=== PATIENT | female | born 1940 | race Caucasian/White ===

== ENCOUNTER 2017-06-07 22:02 | Emergency (ER) | payer MEDICARE, MEDICAID ==
[2017-06-07 22:31] LABS: % BASOPHILS 0.3 % (0.0-2.0); % EOSINOPHILS 3.1 % (0.0-5.0); % LYMPHOCYTES 17.7 % (20.0-50.0); % MONOCYTES 8.7 % (2.0-10.0); % NEUTROPHILS 70.2 % (40.0-80.0); HEMATOCRIT 34.8 % (35.0-45.0); HEMOGLOBIN 11.9 gm/dL (11.7-16.1); MEAN CELL VOLUME 89.7 fl (81-100); MEAN CORPUSCULAR HEMOGLOBIN 30.7 pg (27.0-31.0); MEAN CORPUSCULAR HGB CONC 34.2 pg (28.0-36.0); MEAN PLATELET VOLUME 7.4 fl; NEUTROPHILE ABSOLUTE 8.5 Th/cmm (1.8-8.0); PLATELET COUNT 307 Th/cmm (150-400); RED BLOOD COUNT 3.88 Mil/cmm (3.80-5.20); RED CELL DISTRIBUTION WIDTH 13.1 % (11.5-20.0)
[2017-06-07 22:33] LABS: WHITE BLOOD COUNT 12.1 Th/cmm (4.8-10.8)
[2017-06-07 22:44] LABS: ALB/GLOB RATIO 1.3 (1.0-1.8); ALKALINE PHOSPHATASE 89 U/L (34-104); ANION GAP 6.9 (7.0-16.0); BILIRUBIN,TOTAL 0.3 mg/dL (0.3-1.0); BUN - UREA NITROGEN 27 mg/dL (7-25); BUN/CREATININE RATIO 38.6; CALCIUM SERUM 10.1 mg/dL (8.6-10.3); CARBON DIOXIDE 28.5 mEq/L (21.0-31.0); CHLORIDE 100 mEq/L (98-107); CREATININE - SERUM 0.7 mg/dL (0.6-1.2); GLUCOSE 104 mg/dL (70-105); POTASSIUM SERUM 4.4 mEq/L (3.5-5.1); SGOT 13 U/L (13-39); SGPT/ALT 7 U/L (7-52); SODIUM SERUM 131 mEq/L (136-145)
--- NOTE | 2017-06-07 22:47 | ED Physician Chart ---
Chief Complaint/HPI - Patient Information Date Seen:: 06/07/17 Time Seen:: 22:18 Chief Complaint:: ABDOMINAL PAIN History of Present Illness:: THIS IS A 76 YR OLD FEMALE WHO STATES THAT SHE HAD SOME GENERALIZE ABDOMINAL PAIN WHICH RESOLVED AFTER TAKING SOME MINT PILLS. SHE DENIES NAUSEA AND VOMITING. SHE DENIES DIARRHEA AND CONSTIPATION. SHE IS WEARING A DIAPER BUT DENIES PAINFUL URINATION. Allergies:: Allergies Allergy/AdvReac Type Severity Reaction Status Date / Time No Known Allergies Allergy Verified 06/07/17 22:11 Vitals:: Vital Signs - 8 hr 06/07/17 22:10 Temp 97.6 F HR 70 RR 19 BP 105/55 O2 Sat % 93 Historian:: Patient, Medical Records Review:: Nurse's Note Reviewed, Old Chart Reviewed, Transfer documents Reviewed Review of Systems - Review of Systems General/Constitutional: No fever, No chills, No weight loss, No weakness, No diaphoresis, No edema, No loss of appetite Skin: No skin lesions, No rash, No bruising Head: No headache, No light-headedness Eyes: No loss of vision, No pain, No diplopia ENT: No earache, No nasal drainage, No sore throat, No tinnitus Neck: No neck pain, No swelling, No thyromegaly, No stiffness, No mass noted Cardio Vascular: No chest pain, No palpitations, No PND, No orthopnea, No edema Pulmonary: No SOB, No cough, No sputum, No wheezing GI: No nausea, No vomiting, No diarrhea, Pain, No melena, No hematochezia, No constipation, No hematemesis G/U: No dysuria, No frequency, No hematuria Musculoskeletal: No bone or joint pain, No back pain, No muscle pain Endocrine: No polyuria, No polydipsia Psychiatric: No prior psych history, No depression, No anxiety, No suicidal ideation Hematopoietic: No bruising, No lymphadenopathy Allergic/Immuno: No urticaria, No angioedema Neurological: No syncope, No focal symptoms, No weakness, No paresthesia, No headache, No seizure, No dizziness, No confusion, No vertigo Past Medical History - Past Medical History Obtainable: Yes Past Medical History: HTN, Dementia Family History: None Social History: Non Smoker, No Alcohol, No Drug Use Surgical History: None Psychiatricy History: Dementia Medication: Reviewed Family Medical History - Family Member Mother History Unknown: Yes Physical Exam - Physical Examination General/Constitutional: Awake, Well-developed, well-nourished, Alert, No distress, GCS 15, Non-toxic appearing, Ambulatory Head: Atraumatic Eyes: Lids, conjuctiva normal, PERRL, EOMI Skin: Nl inspection, No rash, No skin lesions, No ecchymosis, Well hydrated, No lymphadenopathy ENMT: External ears, nose nl, Nasal exam nl, Lips, teeth, gums nl Neck: Nontender, Full ROM w/o pain, No JVD, No nuchal rigidity, No bruit, No mass, No stridor Respiratory: Nl effort/Exclusion, Clear to Auscultation, No Wheeze/Rhonchi/Rales Cardio Vascular: RRR, No murmur, gallop, rubs, NL S1 S2 GI: No tenderness/rebounding/guarding, No organomegaly, No hernia, Normal BS's, Nondistended, No mass/bruits, No McBurney tenderness : No CVA tenderness Extremities: No tenderness or effusion, Full ROM, normal strength in all extremities, No edema, Normal digits & nails Neuro/Psych: Alert/oriented, DTR's symmetric, Normal sensory exam, Normal motor strength, Judgement/insight normal, Mood normal, Normal gait, No focal deficits Misc: normal gait, Normal back, No paraspinal tenderness Labs/Radiology/EKG Results - Lab Results Results: Laboratory Tests 06/07/17 22:18 WBC 12.1 H D RBC 3.88 Hgb 11.9 Hct 34.8 L MCV 89.7 MCH 30.7 MCHC Differential 34.2 RDW 13.1 Plt Count 307 MPV 7.4 Neutrophils % 70.2 Lymphocytes % 17.7 L Monocytes % 8.7 Eosinophils % 3.1 Basophils % 0.3 Assessment - Assessment General Assessment: URINARY TRACT INFECTION ED Septic Shock - . Is Septic Shock (SBP<90, OR Lactate>4 mmol\L) present?: No - <6hrs of presentation: Vital Signs: Vital Signs - 8 hr 06/07/17 22:10 Temp 97.6 F HR 70 RR 19 BP 105/55 O2 Sat % 93 Reassessment (Disposition) - Reassessment Reassessment Condition:: Improved - Diagnosis Diagnosis:: URINARY TRACT INFECTION - Aftercare/Follow up Instructions Aftercare/Follow-Up Instructions:: Counseled pt regarding lab results/diagnosis & need follow up, Refer to Discharge Instructions, Counseled pt & family regarding lab results/diagnosis & need follow up - Patient Disposition Discharge/Transfer:: Home Condition at Disposition:: Unchanged ED Discharge Plan - Patient Disposition Condition at Disposition: Unchanged Instructions: Urinary Tract Infection, [id number], Abdominal Pain, Easy-to- Read Additional Instructions: abdominal pain - resolved follow up with patient's primary medical doctor ELLE
[2017-06-07 23:39] LABS: URINE BILIRUBIN NEGATIVE (NEGATIVE); URINE BLOOD NEGATIVE (NEGATIVE); URINE COLOR YELLOW; URINE GLUCOSE (UA) NEGATIVE (NEGATIVE); URINE KETONE NEGATIVE (NEGATIVE); URINE PH 6.5 (4.6 - 8.0); URINE PROTEIN NEGATIVE (NEGATIVE)
[2017-06-07 23:40] LABS: URINE UROBILINOGEN 0.2 E.U./dL (0.2 - 1.0)
[2017-06-07 23:41] LABS: URINE BACTERIA MANY /hpf (NONE SEEN); URINE EPITHELIAL CELLS FEW /lpf (FEW); URINE RBC 0-2 /hpf (0-5)
== END 2017-06-08 00:45 | disposition home or self-care (01) ==
LOC: ER 22:02
DX: N39.0 Urinary tract infection, site not specified (principal); I10 Essential (primary) hypertension
CPT/HCPCS: 36415-UA; 80053-TC; 81001-TC; 84443-TC; 84484-TC; 85025-TC; Z7502

== ENCOUNTER 2018-08-23 20:48 | Inpatient (IN) | payer MEDICARE, MEDICAID ==
--- NOTE | 2018-08-23 21:16 | ED Physician Chart ---
ED Chief Complaint/HPI - Patient Information Date Seen:: 08/23/18 Time Seen:: 21:12 Chief Complaint:: vomiting abd pain History of Present Illness:: 77 yr old female with abd pain vomiting no fever or constipation no diarhea Allergies:: Allergies Allergy/AdvReac Type Severity Reaction Status Date / Time No Known Allergies Allergy Verified 08/23/18 21:03 Vitals:: Vital Signs - 8 hr 08/23/18 20:50 Temp 98.1 F HR 95 RR 20 BP 123/49 O2 Sat % 95 ED Review of Systems - Review of Systems General/Constitutional: No fever Skin: Skin lesions (hole in lt neck and bx rt scalp ) Head: No headache Eyes: No loss of vision ENT: No earache Neck: No neck pain Cardio Vascular: No chest pain Pulmonary: No SOB GI: No nausea G/U: No dysuria Hematopoietic: No bruising Allergic/Immuno: No urticaria Neurological: No syncope ED Past Medical History - Past Medical History Past Medical History: HTN, Asthma/COPD Family Medical History - Family Member Mother History Unknown: Yes ED Physical Exam - Physical Examination General/Constitutional: No distress Head: Atraumatic (bx rt scalp and reddness lt neck wound) ENMT: External ears, nose nl Neck: Full ROM w/o pain Respiratory: Nl effort/Exclusion Cardio Vascular: RRR, No murmur, gallop, rubs GI: No organomegaly Extremities: No tenderness or effusion Neuro/Psych: Mood normal ED Septic Shock - . Is Septic Shock (SBP<90, OR Lactate>4 mmol\L) present?: No - <6hrs of presentation: Vital Signs: Vital Signs - 8 hr 08/23/18 20:50 Temp 98.1 F HR 95 RR 20 BP 123/49 O2 Sat % 95 ED Reassessment (Disposition) - Reassessment Reassessment Condition:: Unchanged - Diagnosis Diagnosis:: abd pain nv - Patient Disposition Discharge/Transfer:: Acute Care w/in this hosp Condition at Disposition:: Stable
[2018-08-23] MEDS ORDERED: Sodium Chloride 0.9% 500 ML IV ONE (21:24)
[2018-08-23 21:28] LABS: % BASOPHILS 0.3 % (0.0-2.0); % EOSINOPHILS 3.7 % (0.0-5.0); % LYMPHOCYTES 16.2 % (20.0-50.0); % MONOCYTES 10.7 % (2.0-10.0); % NEUTROPHILS 69.1 % (40.0-80.0); EOSINOPHILE ABSOLUTE 0.4 Th/cmm (0.1-0.4); HEMOGLOBIN 11.4 gm/dL (12-16); LYMPHOCYTE ABSOLUTE 1.6 Th/cmm (1.5-3.0); MEAN CELL VOLUME 87.4 fl (81-100); MEAN CORPUSCULAR HEMOGLOBIN 29.2 pg (27.0-31.0); MEAN CORPUSCULAR HGB CONC 33.4 pg (28.0-36.0); NEUTROPHILE ABSOLUTE 6.6 Th/cmm (1.8-8.0); PLATELET COUNT 402 Th/cmm (150-400); RED BLOOD COUNT 3.89 Mil/cmm (3.80-5.20); RED CELL DISTRIBUTION WIDTH 13.5 % (11.5-20.0); WHITE BLOOD COUNT 9.6 Th/cmm (4.8-10.8)
[2018-08-23] MEDS ORDERED: cefTRIAXone 2 GM in Sodium Chloride 0.9% 100 ML IV ONE (21:30)
[2018-08-23] MEDS ORDERED: Guaifenesin DM 10 ML UDC PO ONE (21:40)
[2018-08-23 21:45] LABS: ALB/GLOB RATIO 1.1 (1.0-1.8); ALBUMIN 3.6 gm/dL (3.7-5.3); ALKALINE PHOSPHATASE 108 U/L (34-104); ANION GAP 12.1 (7.0-16.0); BILIRUBIN,TOTAL 0.2 mg/dL (0.3-1.0); BUN - UREA NITROGEN 30 mg/dL (7-25); CALCIUM SERUM 9.7 mg/dL (8.6-10.3); CARBON DIOXIDE 28.2 mEq/L (21.0-31.0); CHLORIDE 99 mEq/L (98-107); CREATININE - SERUM 0.7 mg/dL (0.6-1.2); GLUCOSE 97 mg/dL (70-105); POTASSIUM SERUM 4.3 mEq/L (3.5-5.1); SGOT 18 U/L (13-39); SGPT/ALT 7 U/L (7-52); SODIUM SERUM 135 mEq/L (136-145); TOTAL PROTEIN,SERUM 6.8 gm/dL (6.0-8.3)
[2018-08-23] MEDS ORDERED: Guaifenesin DM 10 ML UDC ONE (21:51)
[2018-08-24 00:16] VITALS: BP 102/44
--- NOTE | 2018-08-24 09:02 | Diagnostic Imaging Report ---
CT abdomen and pelvis without intravenous contrast Indication: Abdominal pain, vomiting Comparison: None, Technique: Axial images were obtained from the lung bases to the bilateral proximal femurs without IV contrast. Coronal reconstructions were made. total DLP: 2 51, CTDI6 FINDINGS: Hypoventilatory atelectatic changes of the lung bases are noted. Few faint nodular left basal infiltrates are noted. Assessment of the solid organs is limited due to lack of IV contrast. Subcentimeter low-density lesion of the right lobe of the liver is noted, too small to characterize but possibly representing a cyst. No focal splenic lesions. Assessment of the pancreas is limited on this examination. No obvious focal lesions. No focal adrenal lesions. No evidence of hydronephrosis. There may be a duplex right renal collecting system. No renal stones identified. There is severe distal fecal impaction with mass effect upon the urinary bladder and uterus. There is leftward displacement of the uterus. There appears to be an IUD. There is a large fat-containing right inguinal hernia containing bowel loops. 1.5 cm left inguinal nodule is noted. No appendicitis. No free fluid or free air. Moderate atherosclerosis is noted. Advanced degenerative changes of spine are noted with multilevel Schmorl's node formation. IMPRESSION: Severe distal fecal impaction with mass effect upon the uterus and urinary bladder. There is leftward displacement of the uterus due to patient's distal fecal impaction. Large right inguinal hernia containing bowel loops. Early obstructive process cannot be excluded. Recommend clinical correlation and follow-up. There may be an IUD in place, please correlate clinically. 1.5 cm nodule of the left inguinal region nonspecific and may represent small amount of fluid versus a possible lymph node or other nodules. Atherosclerotic vascular disease. Degenerative changes. Few faint left basal nodular infiltrates, nonspecific and may be due to infectious or inflammatory process.
--- NOTE | 2018-08-24 10:38 | History & Physical ---
ADMIT DATE: 08/24/2018 HISTORY OF PRESENT ILLNESS: This patient very well known to me. The patient is a resident of [facility]. Apparently, the patient has a history of subarachnoid bleeding in the past. The patient had severe abdominal pain and vomiting and constipation, was seen in the Emergency Room, admitted for fecal impaction as well as rule out subacute obstruction. The patient had no fever, no chills. PHYSICAL EXAMINATION: NECK: Supple, nontender. LUNGS: Clear. CARDIOVASCULAR SYSTEM: S1, S2 heard. ABDOMEN: Soft. LABORATORY AND DIAGNOSTIC DATA: X-ray showed fecal impaction. DIAGNOSES: Abdominal pain, severe vomiting, rule out subacute obstruction, history of in the past and history of hypertension and dementia. PLAN: The patient is being admitted. I will go ahead and do a workup and call the GI doctor, Dr. Forte and I will follow the patient. JOB# [id number]
--- NOTE | 2018-08-24 11:07 | General Progress Note ---
Subjective - Review of Systems Service Date: 08/24/18 Events since last encounter: 08/24/18 chart reviewed, patient very confused, has conservator CT scan incarcerated right inguinal hernia with fecal impaction conservator called for consent for surgery will give enemas, might need diverting colostomy Objective - Results Result Diagrams: 08/23/18 21:20 08/23/18 21:20 Recent Labs: Laboratory Last Values WBC 9.6 Th/cmm (4.8-10.8) 08/23/18 21:20 RBC 3.89 Mil/cmm (3.80-5.20) 08/23/18 21:20 Hgb 11.4 gm/dL (12-16) L 08/23/18 21:20 Hct 34.0 % (41.0-60) L 08/23/18 21:20 MCV 87.4 fl (81-100) 08/23/18 21:20 MCH 29.2 pg (27.0-31.0) 08/23/18 21:20 MCHC Differential 33.4 pg (28.0-36.0) 08/23/18 21:20 RDW 13.5 % (11.5-20.0) 08/23/18 21:20 Plt Count 402 Th/cmm (150-400) H 08/23/18 21:20 MPV 7.0 fl 08/23/18 21:20 Neutrophils % 69.1 % (40.0-80.0) 08/23/18 21:20 Lymphocytes % 16.2 % (20.0-50.0) L 08/23/18 21:20 Monocytes % 10.7 % (2.0-10.0) H 08/23/18 21:20 Eosinophils % 3.7 % (0.0-5.0) 08/23/18 21:20 Basophils % 0.3 % (0.0-2.0) 08/23/18 21:20 Sodium 135 mEq/L (136-145) L 08/23/18 21:20 Potassium 4.3 mEq/L (3.5-5.1) 08/23/18 21:20 Chloride 99 mEq/L (98-107) 08/23/18 21:20 Carbon Dioxide 28.2 mEq/L (21.0-31.0) 08/23/18 21:20 Anion Gap 12.1 (7.0-16.0) 08/23/18 21:20 BUN 30 mg/dL (7-25) H 08/23/18 21:20 Creatinine 0.7 mg/dL (0.6-1.2) 08/23/18 21:20 Est GFR ( Amer) TNP 08/23/18 21:20 Est GFR (Non-Af Amer) TNP 08/23/18 21:20 BUN/Creatinine Ratio 42.9 08/23/18 21:20 Glucose 97 mg/dL (70-105) 08/23/18 21:20 Calcium 9.7 mg/dL (8.6-10.3) 08/23/18 21:20 Total Bilirubin 0.2 mg/dL (0.3-1.0) L 08/23/18 21:20 AST 18 U/L (13-39) 08/23/18 21:20 ALT 7 U/L (7-52) 08/23/18 21:20 Alkaline Phosphatase 108 U/L (34-104) H 08/23/18 21:20 Total Protein 6.8 gm/dL (6.0-8.3) 08/23/18 21:20 Albumin 3.6 gm/dL (3.7-5.3) L 08/23/18 21:20 Globulin 3.2 gm/dL 08/23/18 21:20 Albumin/Globulin Ratio 1.1 (1.0-1.8) 08/23/18 21:20 - Physical Exam Vitals and I&O: Vital Signs Temp 98.9 F 08/24/18 08:46 Pulse 90 08/24/18 08:46 Resp 17 08/24/18 08:46 BP 125/59 08/24/18 08:46 Pulse Ox 97 08/24/18 08:46 Intake & Output 08/23/18 08/24/18 08/24/18 18:59 06:59 18:59 Intake Total 240 Balance 240 Weight (lbs) 47.627 kg Intake: Oral 240 Other: # Voids 1 # Bowel Movements 0 Weight Source Estimated - Procedures Procedures: Procedures Procedure Code Date EXC F/E/E/N/L MAL+MRG >4 [place] 53214 06/03/09 NEBULIZER THERAPY 93.94 10/19/04 OP RED-INT FIX RAD/ULNA 79.32 06/24/07 RADICAL EXCIS SKIN LES 86.4 06/03/09 TREAT FX RADIAL 3+ FRAG [id number] 06/24/07
[2018-08-24] MEDS ORDERED: Magnesium Citrate 1.75 GM/300 mL Bottle PO ONE (11:12)
[2018-08-24] MEDS ORDERED: Fleet Enema 135 mL RC ONE ×2 (11:15→18:00)
[2018-08-24] MEDS: cefTRIAXone 1 GM in Sodium Chloride 0.9% 50 ML IV SCH (22:14)
[2018-08-25 05:34] LABS: % EOSINOPHILS 3.8 % (0.0-5.0); EOSINOPHILE ABSOLUTE 0.5 Th/cmm (0.1-0.4); MEAN CELL VOLUME 87.6 fl (81-100); RED CELL DISTRIBUTION WIDTH 12.8 % (11.5-20.0)
[2018-08-25 05:36] LABS: % BASOPHILS 0.2 % (0.0-2.0); % MONOCYTES 9.2 % (2.0-10.0); % NEUTROPHILS 74.8 % (40.0-80.0); HEMATOCRIT 32.4 % (41.0-60); HEMOGLOBIN 11.1 gm/dL (12-16); LYMPHOCYTE ABSOLUTE 1.4 Th/cmm (1.5-3.0); MEAN CORPUSCULAR HEMOGLOBIN 29.9 pg (27.0-31.0); MEAN CORPUSCULAR HGB CONC 34.2 pg (28.0-36.0); MEAN PLATELET VOLUME 6.6 fl; MONOCYTE ABSOLUTE 1.1 Th/cmm (0.3-1.0); NEUTROPHILE ABSOLUTE 8.9 Th/cmm (1.8-8.0); PLATELET COUNT 379 Th/cmm (150-400); RED BLOOD COUNT 3.69 Mil/cmm (3.80-5.20); WHITE BLOOD COUNT 11.9 Th/cmm (4.8-10.8)
[2018-08-25 05:55] LABS: ANION GAP 10.6 (7.0-16.0); BUN - UREA NITROGEN 22 mg/dL (7-25); CALCIUM SERUM 9.8 mg/dL (8.6-10.3); CARBON DIOXIDE 29.6 mEq/L (21.0-31.0); CHLORIDE 96 mEq/L (98-107); CREATININE - SERUM 0.7 mg/dL (0.6-1.2); GLUCOSE 111 mg/dL (70-105); POTASSIUM SERUM 4.2 mEq/L (3.5-5.1); SODIUM SERUM 132 mEq/L (136-145)
[2018-08-25 05:57] LABS: INR 0.91 (0.5-1.4); PROTHROMBIN TIME (TEST) 9.5 SECONDS (9.5-11.5)
--- NOTE | 2018-08-25 08:12 | General Progress Note ---
Subjective - Review of Systems Service Date: 08/25/18 Events since last encounter: 08/25/18 discussed CTA results with Dr. Justin esqueda LCA has worse stenosis of greater that 80% will do left carotid endarterectomy Objective - Results Result Diagrams: 08/25/18 05:30 08/25/18 05:30 Recent Labs: Laboratory Last Values WBC 11.9 Th/cmm (4.8-10.8) H 08/25/18 05:30 RBC 3.69 Mil/cmm (3.80-5.20) L 08/25/18 05:30 Hgb 11.1 gm/dL (12-16) L 08/25/18 05:30 Hct 32.4 % (41.0-60) L 08/25/18 05:30 MCV 87.6 fl (81-100) 08/25/18 05:30 MCH 29.9 pg (27.0-31.0) 08/25/18 05:30 MCHC Differential 34.2 pg (28.0-36.0) 08/25/18 05:30 RDW 12.8 % (11.5-20.0) 08/25/18 05:30 Plt Count 379 Th/cmm (150-400) 08/25/18 05:30 MPV 6.6 fl 08/25/18 05:30 Neutrophils % 74.8 % (40.0-80.0) 08/25/18 05:30 Lymphocytes % 12.0 % (20.0-50.0) L 08/25/18 05:30 Monocytes % 9.2 % (2.0-10.0) 08/25/18 05:30 Eosinophils % 3.8 % (0.0-5.0) 08/25/18 05:30 Basophils % 0.2 % (0.0-2.0) 08/25/18 05:30 PT 9.5 SECONDS (9.5-11.5) 08/25/18 05:30 INR 0.91 (0.5-1.4) 08/25/18 05:30 PTT (Actin FS) 28.5 SECONDS (26.0-38.0) 08/25/18 05:30 Sodium 132 mEq/L (136-145) L 08/25/18 05:30 Potassium 4.2 mEq/L (3.5-5.1) 08/25/18 05:30 Chloride 96 mEq/L (98-107) L 08/25/18 05:30 Carbon Dioxide 29.6 mEq/L (21.0-31.0) 08/25/18 05:30 Anion Gap 10.6 (7.0-16.0) 08/25/18 05:30 BUN 22 mg/dL (7-25) 08/25/18 05:30 Creatinine 0.7 mg/dL (0.6-1.2) 08/25/18 05:30 Est GFR ( Amer) TNP 08/25/18 05:30 Est GFR (Non-Af Amer) TNP 08/25/18 05:30 BUN/Creatinine Ratio 31.4 08/25/18 05:30 Glucose 111 mg/dL (70-105) H 08/25/18 05:30 Calcium 9.8 mg/dL (8.6-10.3) 08/25/18 05:30 Total Bilirubin 0.2 mg/dL (0.3-1.0) L 08/23/18 21:20 AST 18 U/L (13-39) 08/23/18 21:20 ALT 7 U/L (7-52) 08/23/18 21:20 Alkaline Phosphatase 108 U/L (34-104) H 08/23/18 21:20 Total Protein 6.8 gm/dL (6.0-8.3) 08/23/18 21:20 Albumin 3.6 gm/dL (3.7-5.3) L 08/23/18 21:20 Globulin 3.2 gm/dL 08/23/18 21:20 Albumin/Globulin Ratio 1.1 (1.0-1.8) 08/23/18 21:20 - Physical Exam Vitals and I&O: Vital Signs Temp 96.8 F 08/25/18 07:55 Pulse 95 08/25/18 07:55 Resp 17 08/25/18 07:55 BP 124/51 08/25/18 07:55 Pulse Ox 93 08/25/18 07:55 Intake & Output 08/24/18 08/25/18 08/25/18 18:59 06:59 18:59 Intake Total 720 Balance 720 Weight (lbs) 47.627 kg 47.627 kg Intake: Oral 720 Other: # Voids 5 3 Weight Source Estimated Bedscale Active Medications: Current Medications Ceftriaxone Sodium 1 gm/ (Sodium Chloride) 50 mls @ 100 mls/hr IV Q24H ZEE Stop: 10/23/18 20:59 Last Admin: 08/24/18 22:14 Dose: 100 mls/hr - Procedures Procedures: Procedures Procedure Code Date EXC F/E/E/N/L MAL+MRG >4 [place] 59287 06/03/09 NEBULIZER THERAPY 93.94 10/19/04 OP RED-INT FIX RAD/ULNA 79.32 06/24/07 RADICAL EXCIS SKIN LES 86.4 06/03/09 TREAT FX RADIAL 3+ FRAG [id number] 06/24/07
--- NOTE | 2018-08-25 08:26 | Diagnostic Imaging Report ---
CHEST X-RAY: AP view INDICATION: Shortness of breath COMPARISON: 07/08/2015 FINDINGS: Chronic lung changes are noted. There is no focal consolidation or pleural effusions The heart is normal in size. Degenerative changes of the spine are noted. IMPRESSION: Chronic lung changes and possible COPD. No focal consolidation identified.
--- NOTE | 2018-08-25 09:28 | Diagnostic Imaging Report ---
KUB single view HISTORY: Fecal impaction. COMPARISON: CT abdomen and pelvis on 08/23/2019 FINDINGS: There is massive amount of stool throughout the colon with distal fecal impaction. Joint gas-filled loops of bowel are noted. IMPRESSION: Massive amount of stool with distal fecal impaction.
--- NOTE | 2018-08-25 10:25 | General Progress Note ---
Subjective - Review of Systems Service Date: 08/25/18 Events since last encounter: 08/25/18 progress note on this patient regarding carotid result is for Roxy Ndiaye Objective - Results Result Diagrams: 08/25/18 05:30 08/25/18 05:30 Recent Labs: Laboratory Last Values WBC 11.9 Th/cmm (4.8-10.8) H 08/25/18 05:30 RBC 3.69 Mil/cmm (3.80-5.20) L 08/25/18 05:30 Hgb 11.1 gm/dL (12-16) L 08/25/18 05:30 Hct 32.4 % (41.0-60) L 08/25/18 05:30 MCV 87.6 fl (81-100) 08/25/18 05:30 MCH 29.9 pg (27.0-31.0) 08/25/18 05:30 MCHC Differential 34.2 pg (28.0-36.0) 08/25/18 05:30 RDW 12.8 % (11.5-20.0) 08/25/18 05:30 Plt Count 379 Th/cmm (150-400) 08/25/18 05:30 MPV 6.6 fl 08/25/18 05:30 Neutrophils % 74.8 % (40.0-80.0) 08/25/18 05:30 Lymphocytes % 12.0 % (20.0-50.0) L 08/25/18 05:30 Monocytes % 9.2 % (2.0-10.0) 08/25/18 05:30 Eosinophils % 3.8 % (0.0-5.0) 08/25/18 05:30 Basophils % 0.2 % (0.0-2.0) 08/25/18 05:30 PT 9.5 SECONDS (9.5-11.5) 08/25/18 05:30 INR 0.91 (0.5-1.4) 08/25/18 05:30 PTT (Actin FS) 28.5 SECONDS (26.0-38.0) 08/25/18 05:30 Sodium 132 mEq/L (136-145) L 08/25/18 05:30 Potassium 4.2 mEq/L (3.5-5.1) 08/25/18 05:30 Chloride 96 mEq/L (98-107) L 08/25/18 05:30 Carbon Dioxide 29.6 mEq/L (21.0-31.0) 08/25/18 05:30 Anion Gap 10.6 (7.0-16.0) 08/25/18 05:30 BUN 22 mg/dL (7-25) 08/25/18 05:30 Creatinine 0.7 mg/dL (0.6-1.2) 08/25/18 05:30 Est GFR ( Amer) TNP 08/25/18 05:30 Est GFR (Non-Af Amer) TNP 08/25/18 05:30 BUN/Creatinine Ratio 31.4 08/25/18 05:30 Glucose 111 mg/dL (70-105) H 08/25/18 05:30 Calcium 9.8 mg/dL (8.6-10.3) 08/25/18 05:30 Total Bilirubin 0.2 mg/dL (0.3-1.0) L 08/23/18 21:20 AST 18 U/L (13-39) 08/23/18 21:20 ALT 7 U/L (7-52) 08/23/18 21:20 Alkaline Phosphatase 108 U/L (34-104) H 08/23/18 21:20 Total Protein 6.8 gm/dL (6.0-8.3) 08/23/18 21:20 Albumin 3.6 gm/dL (3.7-5.3) L 08/23/18 21:20 Globulin 3.2 gm/dL 08/23/18 21:20 Albumin/Globulin Ratio 1.1 (1.0-1.8) 08/23/18 21:20 - Physical Exam Vitals and I&O: Vital Signs Temp 96.8 F 08/25/18 07:55 Pulse 95 08/25/18 07:55 Resp 17 08/25/18 07:55 BP 124/51 08/25/18 07:55 Pulse Ox 93 08/25/18 07:55 Intake & Output 08/24/18 08/25/18 08/25/18 18:59 06:59 18:59 Intake Total 720 Balance 720 Weight (lbs) 47.627 kg 47.627 kg Intake: Oral 720 Other: # Voids 5 3 Weight Source Estimated Bedscale Active Medications: Current Medications Ceftriaxone Sodium 1 gm/ (Sodium Chloride) 50 mls @ 100 mls/hr IV Q24H ZEE Stop: 10/23/18 20:59 Last Admin: 08/24/18 22:14 Dose: 100 mls/hr - Procedures Procedures: Procedures Procedure Code Date EXC F/E/E/N/L MAL+MRG >4 [place] 50208 06/03/09 NEBULIZER THERAPY 93.94 10/19/04 OP RED-INT FIX RAD/ULNA 79.32 06/24/07 RADICAL EXCIS SKIN LES 86.4 06/03/09 TREAT FX RADIAL 3+ FRAG [id number] 06/24/07
--- NOTE | 2018-08-25 10:27 | General Progress Note ---
Subjective - Review of Systems Service Date: 08/25/18 Events since last encounter: KUB severe fecal impaction discussed with Dr. Gaming, will do surgery tomorrow - waiting for 2 MDs to sign Objective - Results Result Diagrams: 08/25/18 05:30 08/25/18 05:30 Recent Labs: Laboratory Last Values WBC 11.9 Th/cmm (4.8-10.8) H 08/25/18 05:30 RBC 3.69 Mil/cmm (3.80-5.20) L 08/25/18 05:30 Hgb 11.1 gm/dL (12-16) L 08/25/18 05:30 Hct 32.4 % (41.0-60) L 08/25/18 05:30 MCV 87.6 fl (81-100) 08/25/18 05:30 MCH 29.9 pg (27.0-31.0) 08/25/18 05:30 MCHC Differential 34.2 pg (28.0-36.0) 08/25/18 05:30 RDW 12.8 % (11.5-20.0) 08/25/18 05:30 Plt Count 379 Th/cmm (150-400) 08/25/18 05:30 MPV 6.6 fl 08/25/18 05:30 Neutrophils % 74.8 % (40.0-80.0) 08/25/18 05:30 Lymphocytes % 12.0 % (20.0-50.0) L 08/25/18 05:30 Monocytes % 9.2 % (2.0-10.0) 08/25/18 05:30 Eosinophils % 3.8 % (0.0-5.0) 08/25/18 05:30 Basophils % 0.2 % (0.0-2.0) 08/25/18 05:30 PT 9.5 SECONDS (9.5-11.5) 08/25/18 05:30 INR 0.91 (0.5-1.4) 08/25/18 05:30 PTT (Actin FS) 28.5 SECONDS (26.0-38.0) 08/25/18 05:30 Sodium 132 mEq/L (136-145) L 08/25/18 05:30 Potassium 4.2 mEq/L (3.5-5.1) 08/25/18 05:30 Chloride 96 mEq/L (98-107) L 08/25/18 05:30 Carbon Dioxide 29.6 mEq/L (21.0-31.0) 08/25/18 05:30 Anion Gap 10.6 (7.0-16.0) 08/25/18 05:30 BUN 22 mg/dL (7-25) 08/25/18 05:30 Creatinine 0.7 mg/dL (0.6-1.2) 08/25/18 05:30 Est GFR ( Amer) TNP 08/25/18 05:30 Est GFR (Non-Af Amer) TNP 08/25/18 05:30 BUN/Creatinine Ratio 31.4 08/25/18 05:30 Glucose 111 mg/dL (70-105) H 08/25/18 05:30 Calcium 9.8 mg/dL (8.6-10.3) 08/25/18 05:30 Total Bilirubin 0.2 mg/dL (0.3-1.0) L 08/23/18 21:20 AST 18 U/L (13-39) 08/23/18 21:20 ALT 7 U/L (7-52) 08/23/18 21:20 Alkaline Phosphatase 108 U/L (34-104) H 08/23/18 21:20 Total Protein 6.8 gm/dL (6.0-8.3) 08/23/18 21:20 Albumin 3.6 gm/dL (3.7-5.3) L 08/23/18 21:20 Globulin 3.2 gm/dL 08/23/18 21:20 Albumin/Globulin Ratio 1.1 (1.0-1.8) 08/23/18 21:20 - Physical Exam Vitals and I&O: Vital Signs Temp 96.8 F 08/25/18 07:55 Pulse 95 08/25/18 07:55 Resp 17 08/25/18 07:55 BP 124/51 08/25/18 07:55 Pulse Ox 93 08/25/18 07:55 Intake & Output 08/24/18 08/25/18 08/25/18 18:59 06:59 18:59 Intake Total 720 Balance 720 Weight (lbs) 47.627 kg 47.627 kg Intake: Oral 720 Other: # Voids 5 3 Weight Source Estimated Bedscale Active Medications: Current Medications Ceftriaxone Sodium 1 gm/ (Sodium Chloride) 50 mls @ 100 mls/hr IV Q24H ZEE Stop: 10/23/18 20:59 Last Admin: 08/24/18 22:14 Dose: 100 mls/hr - Procedures Procedures: Procedures Procedure Code Date EXC F/E/E/N/L MAL+MRG >4 CM 82041 06/03/09 NEBULIZER THERAPY 93.94 10/19/04 OP RED-INT FIX RAD/ULNA 79.32 06/24/07 RADICAL EXCIS SKIN LES 86.4 06/03/09 TREAT FX RADIAL 3+ FRAG [id number] 06/24/07
[2018-08-25] MEDS ORDERED: Magnesium Citrate 1.75 GM/300 mL Bottle PO ONE (10:28)
--- NOTE | 2018-08-25 10:52 | Consultation ---
DATE OF CONSULTATION: 08/24/2018 SURGICAL CONSULT REFERRING PHYSICIAN: Dr. Camacho. REASON FOR CONSULTATION: Abdominal pain. Thank you for referring this patient to me. This is a 77-year-old female with known dementia, resident of a snf, who was admitted through Emergency Room because of severe abdominal pain, nausea and vomiting. She underwent a CT scan of the abdomen, which showed bowel loops in the right inguinal hernia, raising the question of incarceration. There is also a left inguinal hernia present. There is severe fecal impaction with compression of the bladder with leftward push. Laboratory studies however showed only slight leukocytosis. The chemistry are close to normal limits. PHYSICAL EXAMINATION: GENERAL: The patient is very asthenic and unable to respond coherently. ABDOMEN: Flat and soft. There are large pieces of stool filled bowel in the right inguinal hernia with moderate tenderness. There is a small left inguinal hernia. The patient has no family and conservator will be called. The patient will need repair of the hernia on the right side and left side and possible diverting colostomy with possible resection of impacted left colon. [facility]# [id number]
[2018-08-25] MEDS: Sodium Chloride 0.9% 1,000 ML IV SCH (12:34)
--- NOTE | 2018-08-25 17:20 | Infectious Disease Prog Note ---
Infectious Disease Subjective - Review of Systems Service Date: 08/25/18 Subjective: cc stool impaction/sbo/ing hrnia hpi- sen by dr mani chavis sno fervr o.e vs chst clear abd soft exrt pulse dx sbo/stool impaction plan rocephin Infectious Disease Objective - Results Result Diagrams: 08/25/18 05:30 08/25/18 05:30 Recent Labs: Laboratory Last Values WBC 11.9 Th/cmm (4.8-10.8) H 08/25/18 05:30 RBC 3.69 Mil/cmm (3.80-5.20) L 08/25/18 05:30 Hgb 11.1 gm/dL (12-16) L 08/25/18 05:30 Hct 32.4 % (41.0-60) L 08/25/18 05:30 MCV 87.6 fl (81-100) 08/25/18 05:30 MCH 29.9 pg (27.0-31.0) 08/25/18 05:30 MCHC Differential 34.2 pg (28.0-36.0) 08/25/18 05:30 RDW 12.8 % (11.5-20.0) 08/25/18 05:30 Plt Count 379 Th/cmm (150-400) 08/25/18 05:30 MPV 6.6 fl 08/25/18 05:30 Neutrophils % 74.8 % (40.0-80.0) 08/25/18 05:30 Lymphocytes % 12.0 % (20.0-50.0) L 08/25/18 05:30 Monocytes % 9.2 % (2.0-10.0) 08/25/18 05:30 Eosinophils % 3.8 % (0.0-5.0) 08/25/18 05:30 Basophils % 0.2 % (0.0-2.0) 08/25/18 05:30 PT 9.5 SECONDS (9.5-11.5) 08/25/18 05:30 INR 0.91 (0.5-1.4) 08/25/18 05:30 PTT (Actin FS) 28.5 SECONDS (26.0-38.0) 08/25/18 05:30 Sodium 132 mEq/L (136-145) L 08/25/18 05:30 Potassium 4.2 mEq/L (3.5-5.1) 08/25/18 05:30 Chloride 96 mEq/L (98-107) L 08/25/18 05:30 Carbon Dioxide 29.6 mEq/L (21.0-31.0) 08/25/18 05:30 Anion Gap 10.6 (7.0-16.0) 08/25/18 05:30 BUN 22 mg/dL (7-25) 08/25/18 05:30 Creatinine 0.7 mg/dL (0.6-1.2) 08/25/18 05:30 Est GFR ( Amer) TNP 08/25/18 05:30 Est GFR (Non-Af Amer) TNP 08/25/18 05:30 BUN/Creatinine Ratio 31.4 08/25/18 05:30 Glucose 111 mg/dL (70-105) H 08/25/18 05:30 Calcium 9.8 mg/dL (8.6-10.3) 08/25/18 05:30 Total Bilirubin 0.2 mg/dL (0.3-1.0) L 08/23/18 21:20 AST 18 U/L (13-39) 08/23/18 21:20 ALT 7 U/L (7-52) 08/23/18 21:20 Alkaline Phosphatase 108 U/L (34-104) H 08/23/18 21:20 Total Protein 6.8 gm/dL (6.0-8.3) 08/23/18 21:20 Albumin 3.6 gm/dL (3.7-5.3) L 08/23/18 21:20 Globulin 3.2 gm/dL 08/23/18 21:20 Albumin/Globulin Ratio 1.1 (1.0-1.8) 08/23/18 21:20 - Physical Exam Vitals and I&O: Vital Signs Temp 98.1 F 08/25/18 15:40 Pulse 113 08/25/18 15:40 Resp 17 08/25/18 15:40 BP 105/49 08/25/18 15:40 Pulse Ox 92 08/25/18 15:40 Intake & Output 08/24/18 08/25/18 08/25/18 18:59 06:59 18:59 Intake Total 720 Balance 720 Weight (lbs) 47.627 kg 47.627 kg Intake: Oral 720 Other: # Voids 5 3 Weight Source Estimated Bedscale Active Medications: Current Medications Ceftriaxone Sodium 1 gm/ (Sodium Chloride) 50 mls @ 100 mls/hr IV Q24H [facility] Stop: 10/23/18 20:59 Last Admin: 08/24/18 22:14 Dose: 100 mls/hr Sodium Chloride (Nacl 0.9%) 1,000 mls @ 100 mls/hr IV .Q10H [facility] Stop: 10/24/18 12:59 Last Admin: 08/25/18 12:34 Dose: 100 mls/hr - Procedures Procedures: Procedures Procedure Code Date EXC F/E/E/N/L MAL+MRG >4 CM 24735 06/03/09 NEBULIZER THERAPY 93.94 10/19/04 OP RED-INT FIX RAD/ULNA 79.32 06/24/07 RADICAL EXCIS SKIN LES 86.4 06/03/09 TREAT FX RADIAL 3+ FRAG 17354 06/24/07 Nutritional Asmnt/Malnutr-PDOC - Dietary Evaluation Malnutrition Findings (Please click <Entered> for more info): Nutritional Asmnt/Malnutrition Start: 08/25/18 14: 01 Text: Status: Complete Freq: Protocol: Document 08/25/18 14:01 DONALD (Rec: 08/25/18 14:18 DONALD [email or web address]) Nutritional Asmnt/Malnutrition Patient General Information Nutritional Screening High Risk Consult Diagnosis abdominal pain, bowel obstruction Pertinent Medical Hx/Surgical Hx HTN, asthma/COPD, subarachnoid bleeding Per wound care note: hx of dementia Subjective Information Received diet consult for mass and biopsy site wound. Pt sleeping at time of visit. Pt was on full liquid diet, but spoke to REBEKAH Contreras who states pt is now NPO and has fecal impaction. Per MD notes, KUB shows severe fecal impaction and pt due for surgery tomorrow for inguinal hernias. Per EMR, pt refused regular diet meals and only willing to have full liquid diet with vanilla ensure. Current Diet Order/ Nutrition Support NPO Pertinent Medications Nacl 0.9% Pertinent Labs 08/25: Na 132, Cl 96, BUN 22, glucose 111 08/23: Na 135, Cl 99, BUN 30, glucose 97, Alb 3.6 Nutritional Hx/Data Height 1.7 m Height (Calculated Centimeters) 170.2 Current Weight (lbs) 47.627 kg Weight (Calculated Kilograms) 47.6 Weight (Calculated Grams) 42097.2 Body Mass Index (BMI) 16.4 Weight Status Underweight GI Symptoms GI Symptoms None Last BM none noted Difficult in: None Skin Integrity/Comment: skin tear/biopsy site to right forehead, skin flap to left neck, mass on left shoulder, terrie 16 Estimated Nutritional Goals BEE in Kcals: Using Current wt Calories/Kcals/Kg 30-35 Kcals Calculated [id number] Protein: Using Current wt Protein g/k-1.2 Protein Calculated 48-57 g Fluid: ml 9697-1421 (1 ml/kcal) Nutritional Problem 2. Problem Problem Altered nutrition related lab values Etiology electrolyte imbalance Signs/Symptoms: Na 132, Cl 96 1. Problem Problem Inadequate oral intake Etiology possible poor appetite from fecal impaction or abdominal pain Signs/Symptoms: current NPO status, meal refusals, pt only accepting Ensure Malnutrition Related to Morbid Obesity Malnutrition related to morbid obesity No Intervention/Recommendation Comments 1. Monitor NPO status and advance diet when medically appropriate 2. MD to replace electrolytes as needed 3. Monitor wt, skin integrity, GI symptons, and nutrition related labs 4. F/U as high risk in 2-3 days, 08/27- Expected Outcomes/Goals Expected Outcomes/Goals 1. Pt to resume PO intake when medically appropriate and meet at least 75% of all meals 2. Wt stability, skin integrity to improve, GI improved, and nutrition related labs to approach normal limits Reviewed by Laine Mcarthur RD
--- NOTE | 2018-08-25 20:39 | Internal Medicine Prog Note ---
Internal Medicine Subjective - Subjective Service Date: 08/25/18 Patient is:: asleep Per staff patient has:: tolerating meds Internal Medicine Objective - Results Result Diagrams: 08/25/18 05:30 08/25/18 05:30 Recent Labs: Laboratory Last Values WBC 11.9 Th/cmm (4.8-10.8) H 08/25/18 05:30 RBC 3.69 Mil/cmm (3.80-5.20) L 08/25/18 05:30 Hgb 11.1 gm/dL (12-16) L 08/25/18 05:30 Hct 32.4 % (41.0-60) L 08/25/18 05:30 MCV 87.6 fl (81-100) 08/25/18 05:30 MCH 29.9 pg (27.0-31.0) 08/25/18 05:30 MCHC Differential 34.2 pg (28.0-36.0) 08/25/18 05:30 RDW 12.8 % (11.5-20.0) 08/25/18 05:30 Plt Count 379 Th/cmm (150-400) 08/25/18 05:30 MPV 6.6 fl 08/25/18 05:30 Neutrophils % 74.8 % (40.0-80.0) 08/25/18 05:30 Lymphocytes % 12.0 % (20.0-50.0) L 08/25/18 05:30 Monocytes % 9.2 % (2.0-10.0) 08/25/18 05:30 Eosinophils % 3.8 % (0.0-5.0) 08/25/18 05:30 Basophils % 0.2 % (0.0-2.0) 08/25/18 05:30 PT 9.5 SECONDS (9.5-11.5) 08/25/18 05:30 INR 0.91 (0.5-1.4) 08/25/18 05:30 PTT (Actin FS) 28.5 SECONDS (26.0-38.0) 08/25/18 05:30 Sodium 132 mEq/L (136-145) L 08/25/18 05:30 Potassium 4.2 mEq/L (3.5-5.1) 08/25/18 05:30 Chloride 96 mEq/L (98-107) L 08/25/18 05:30 Carbon Dioxide 29.6 mEq/L (21.0-31.0) 08/25/18 05:30 Anion Gap 10.6 (7.0-16.0) 08/25/18 05:30 BUN 22 mg/dL (7-25) 08/25/18 05:30 Creatinine 0.7 mg/dL (0.6-1.2) 08/25/18 05:30 Est GFR ( Amer) TNP 08/25/18 05:30 Est GFR (Non-Af Amer) TNP 08/25/18 05:30 BUN/Creatinine Ratio 31.4 08/25/18 05:30 Glucose 111 mg/dL (70-105) H 08/25/18 05:30 Calcium 9.8 mg/dL (8.6-10.3) 08/25/18 05:30 Total Bilirubin 0.2 mg/dL (0.3-1.0) L 08/23/18 21:20 AST 18 U/L (13-39) 08/23/18 21:20 ALT 7 U/L (7-52) 08/23/18 21:20 Alkaline Phosphatase 108 U/L (34-104) H 08/23/18 21:20 Total Protein 6.8 gm/dL (6.0-8.3) 08/23/18 21:20 Albumin 3.6 gm/dL (3.7-5.3) L 08/23/18 21:20 Globulin 3.2 gm/dL 08/23/18 21:20 Albumin/Globulin Ratio 1.1 (1.0-1.8) 08/23/18 21:20 - Physical Exam Vitals and I&O: Vital Signs Temp 98.0 F 08/25/18 20:00 Pulse 114 08/25/18 20:00 Resp 18 08/25/18 20:00 BP 119/52 08/25/18 20:00 Pulse Ox 93 08/25/18 20:00 Intake & Output 08/25/18 08/25/18 08/26/18 06:59 18:59 06:59 Intake Total 200 Balance 200 Weight (lbs) 47.627 kg 40.37 kg Intake: Oral 200 Other: # Voids 3 3 # Bowel Movements 1 Weight Source Bedscale Bedscale Active Medications: Current Medications Ceftriaxone Sodium 1 gm/ (Sodium Chloride) 50 mls @ 100 mls/hr IV Q24H [facility] Stop: 10/23/18 20:59 Last Admin: 08/24/18 22:14 Dose: 100 mls/hr Sodium Chloride (Nacl 0.9%) 1,000 mls @ 100 mls/hr IV .Q10H [facility] Stop: 10/24/18 12:59 Last Admin: 08/25/18 12:34 Dose: 100 mls/hr General: weak HEENT: NC/AT, PERRLA Neck: Supple Cardiovascular: RRR Abdomen: soft, non-tender Extremities: excoriation Neurological: muscle weakness - Procedures Procedures: Procedures Procedure Code Date EXC F/E/E/N/L MAL+MRG >4 [place] 10935 06/03/09 NEBULIZER THERAPY 93.94 10/19/04 OP RED-INT FIX RAD/ULNA 79.32 06/24/07 RADICAL EXCIS SKIN LES 86.4 06/03/09 TREAT FX RADIAL 3+ FRAG 47138 06/24/07 Internal Medicine Assmt/Plan - Assessment Assessment: abd pain r/o obstruction htn dementia - Plan Plan: as per surgeon /gi pain mgmt cpm Nutritional Asmnt/Malnutr-PDOC - Dietary Evaluation Malnutrition Findings (Please click <Entered> for more info): Nutritional Asmnt/Malnutrition Start: 08/25/18 14: 01 Text: Status: Complete Freq: Protocol: Document 08/25/18 14:01 DONALD (Rec: 08/25/18 14:18 DONALD [email or web address]) Nutritional Asmnt/Malnutrition Patient General Information Nutritional Screening High Risk Consult Diagnosis abdominal pain, bowel obstruction Pertinent Medical Hx/Surgical Hx HTN, asthma/COPD, subarachnoid bleeding Per wound care note: hx of dementia Subjective Information Received diet consult for mass and biopsy site wound. Pt sleeping at time of visit. Pt was on full liquid diet, but spoke to REBEKAH Contreras who states pt is now NPO and has fecal impaction. Per MD notes, KUB shows severe fecal impaction and pt due for surgery tomorrow for inguinal hernias. Per EMR, pt refused regular diet meals and only willing to have full liquid diet with vanilla ensure. Current Diet Order/ Nutrition Support NPO Pertinent Medications Nacl 0.9% Pertinent Labs 08/25: Na 132, Cl 96, BUN 22, glucose 111 08/23: Na 135, Cl 99, BUN 30, glucose 97, Alb 3.6 Nutritional Hx/Data Height 1.7 m Height (Calculated Centimeters) 170.2 Current Weight (lbs) 47.627 kg Weight (Calculated Kilograms) 47.6 Weight (Calculated Grams) 96483.2 Body Mass Index (BMI) 16.4 Weight Status Underweight GI Symptoms GI Symptoms None Last BM none noted Difficult in: None Skin Integrity/Comment: skin tear/biopsy site to right forehead, skin flap to left neck, mass on left shoulder, terrie 16 Estimated Nutritional Goals BEE in Kcals: Using Current wt Calories/Kcals/Kg 30-35 Kcals Calculated 3492-2700 Protein: Using Current wt Protein g/k-1.2 Protein Calculated 48-57 g Fluid: ml 9159-5910 (1 ml/kcal) Nutritional Problem 2. Problem Problem Altered nutrition related lab values Etiology electrolyte imbalance Signs/Symptoms: Na 132, Cl 96 1. Problem Problem Inadequate oral intake Etiology possible poor appetite from fecal impaction or abdominal pain Signs/Symptoms: current NPO status, meal refusals, pt only accepting Ensure Malnutrition Related to Morbid Obesity Malnutrition related to morbid obesity No Intervention/Recommendation Comments 1. Monitor NPO status and advance diet when medically appropriate 2. MD to replace electrolytes as needed 3. Monitor wt, skin integrity, GI symptons, and nutrition related labs 4. F/U as high risk in 2-3 days, 08/27- Expected Outcomes/Goals Expected Outcomes/Goals 1. Pt to resume PO intake when medically appropriate and meet at least 75% of all meals 2. Wt stability, skin integrity to improve, GI improved, and nutrition related labs to approach normal limits Reviewed by Laine Mcarthur RD
[2018-08-25] MEDS: cefTRIAXone 1 GM in Sodium Chloride 0.9% 50 ML IV SCH (20:43)
--- NOTE | 2018-08-25 23:32 | Consultation ---
DATE OF CONSULTATION: 08/25/2018 INPATIENT GASTROINTESTINAL CONSULTATION CONSULTING PHYSICIAN: Dr. Camacho. REASON FOR CONSULTATION: Abdominal pain, fecal impaction, inguinal hernia. HISTORY OF PRESENT ILLNESS: The patient is a 77-year-old female with past medical history significant for COPD, subarachnoid hemorrhage, hypertension, dementia and permanent resident of a nursing facility, who is admitted to the hospital with increasing amounts of abdominal pain, nausea and vomiting. The history is obtained mostly from collateral sources as the patient is not a valid historian. Apparently, she has been having complaining of abdominal pain over the past several days as well as been witnessed to have vomiting episodes. Here in the Emergency Room, she had a CT scan with preliminary read showing large fecal impaction and a large right inguinal hernia as well. The fecal impaction is large enough to be causing some mass effect on the uterus. Given these findings, the patient has been admitted to the hospital and a surgical evaluation has also been placed with Dr. Dean. There is a tentative plan to have this patient go to surgery as it is thought by Dr. Dean that the inguinal hernia is incarcerated and at the same time, the patient will have a left colostomy placement for the issue of slow transit colon, constipation and fecal impaction. PAST MEDICAL HISTORY: COPD, subarachnoid hemorrhage, hypertension. PAST SURGICAL HISTORY: Unknown. FAMILY HISTORY: Noncontributory. SOCIAL HISTORY: The patient lives at a nursing facility. There is no documented history of illicit drug use. ALLERGIES: No known drug allergies. REVIEW OF SYSTEMS: Not possible given the patient's inability to participate in the interview. CURRENT MEDICATIONS: Include ceftriaxone. PHYSICAL EXAMINATION: VITAL SIGNS: Blood pressure is 124/51, pulse 95 beats per minute, respiratory rate of 17, temperature 96.8, oxygenation 93%. GENERAL: The patient is lying in bed, alert and oriented x 0, no apparent distress. HEAD, EARS, EYES, NOSE AND THROAT: Normocephalic and atraumatic appearing head. Pupils are equal and reactive to light. Extraocular muscles appear to be intact with moist mucous membranes. NECK: Supple. No JVD or thyromegaly. CHEST: There are reduced breath sounds bilaterally. CARDIOVASCULAR: S1 and S2 are present, tachycardic. ABDOMEN: There is a large right-sided inguinal hernia, soft, nontender to palpation. Some abdominal distention noted. There is no fluid distention. EXTREMITIES: Venous stasis changes and 1+ pitting edema bilaterally. Pulses are not present. SKIN: There is no obvious jaundice. LABORATORY DATA: White blood cell count 11.9, hemoglobin 11.1, platelet count is 379. INR is 0.9. Sodium 132, BUN 22, creatinine 0.7. IMAGING STUDIES: An abdomen and pelvis CT scan was performed and shows severe distal fecal impaction with mass effect on the uterus and urinary bladder, large right inguinal hernia containing multiple bowel loops, an obstructive process cannot be excluded. There is atherosclerotic vascular disease. IMPRESSION: This is a 77-year-old female with history of subarachnoid hemorrhage, dementia and shelter resident, who comes in the hospital with increasing nausea, vomiting, abdominal pain with imaging showing large right-sided inguinal hernia with possible incarceration and severe distal fecal impaction. 1. Distal fecal impaction. 2. Right inguinal hernia with possible incarceration. 3. Nausea and vomiting. 4. Abdominal pain. 5. History of subarachnoid hemorrhage. 6. Chronic obstructive pulmonary disease. DISCUSSION: After discussing this case with Dr. Dean, he believes that the right inguinal hernia has an incarceration component and would like to take the patient emergently to the OR. Given that the patient does not have power of assistant prosecuting attorney and the patient's conservator is refusing to consent for any sort of procedure, we will go ahead and commence the process for 2-physician consent given this is an emergent situation with incarcerated bowel. Additionally, given the severe distal fecal impaction, the patient will also have a left-sided colostomy placed, which will help prevent further impactions down the line. This plan seems reasonable. RECOMMENDATIONS: 1. The patient will proceed to surgery with Dr. Dean as outlined above. 2. NPO. 3. We will see the patient postoperatively. 4. Postoperative care as per surgeon. Thank you for allowing me to participate in her care. Please call with any further questions. JOB# [id number]
[2018-08-26] MEDS: Sodium Chloride 0.9% 1,000 ML IV SCH (01:16)
--- NOTE | 2018-08-26 02:43 | Consultation ---
DATE OF CONSULTATION: 08/24/2018 PRIMARY CARE PHYSICIAN: Dr. Camacho. REASON FOR CONSULTATION : This is a 77-year-old female who was brought to the Emergency Room with complaint of abdominal pain, vomiting. HISTORY OF PRESENT ILLNESS: The patient lives in a intermediate, was found to have abdominal pain, vomiting, and CAT scan shows possible obstructed hernia. The patient was given Rocephin in Emergency Room. The patient is unable to provide meaningful history because of Alzheimer's. PAST MEDICAL HISTORY: Old chart reviewed, pertinent information obtained. Past history of bed confinement status, COPD, essential hypertension and asthma. SOCIAL HISTORY: Nonsmoker. FAMILY HISTORY: Negative. REVIEW OF SYSTEMS: A 14-point review of system limited. No HIV, hepatitis, fall, bleeding, trauma. PHYSICAL EXAMINATION: GENERAL: Elderly female. VITAL SIGNS: Temperature 98, pulse 95, respirations 20, blood pressure 123/49, oxygen saturation 95% on room air. HEENT: Mild pallor, no icterus or plaque. NECK: Supple. LUNGS: Breath sounds bilateral vesicular. ABDOMEN: Distended, tenderness present. Bowel sounds increased. EXTREMITIES: No pedal edema. Arthritic changes present. LABORATORY DATA: CAT scan of the abdomen and pelvis shows small-bowel obstruction, fecal impaction, large right inguinal hernia containing bowel loops an IUD present. Also on the CAT scan shows basilar infiltrate. White count 9000, hemoglobin 11 grams, platelets 402. DIAGNOSES: Possible pneumonia and large inguinal hernia, fecal stasis. The patient started on Rocephin. GI and Surgery consult. Repeat labs tomorrow. Supportive care. Discussed with Dr. Camacho. JOB# [id number]
[2018-08-26 06:18] LABS: % LYMPHOCYTES 9.6 % (20.0-50.0); % MONOCYTES 11.3 % (2.0-10.0); % NEUTROPHILS 76.1 % (40.0-80.0); EOSINOPHILE ABSOLUTE 0.3 Th/cmm (0.1-0.4); HEMATOCRIT 32.6 % (41.0-60); HEMOGLOBIN 10.9 gm/dL (12-16); LYMPHOCYTE ABSOLUTE 1.1 Th/cmm (1.5-3.0); MEAN CELL VOLUME 85.4 fl (81-100); MEAN CORPUSCULAR HEMOGLOBIN 28.7 pg (27.0-31.0); MEAN CORPUSCULAR HGB CONC 33.6 pg (28.0-36.0); MEAN PLATELET VOLUME 7.2 fl; MONOCYTE ABSOLUTE 1.3 Th/cmm (0.3-1.0); NEUTROPHILE ABSOLUTE 8.6 Th/cmm (1.8-8.0); PLATELET COUNT 351 Th/cmm (150-400); RED BLOOD COUNT 3.82 Mil/cmm (3.80-5.20); RED CELL DISTRIBUTION WIDTH 13.1 % (11.5-20.0); WHITE BLOOD COUNT 11.3 Th/cmm (4.8-10.8)
[2018-08-26 06:32] LABS: INR 0.88 (0.5-1.4); PROTHROMBIN TIME (TEST) 9.3 SECONDS (9.5-11.5)
[2018-08-26 06:33] LABS: BUN - UREA NITROGEN 23 mg/dL (7-25); CALCIUM SERUM 9.5 mg/dL (8.6-10.3); CARBON DIOXIDE 28.3 mEq/L (21.0-31.0); CHLORIDE 98 mEq/L (98-107); CREATININE - SERUM 0.7 mg/dL (0.6-1.2); GLUCOSE 78 mg/dL (70-105); POTASSIUM SERUM 4.3 mEq/L (3.5-5.1); SODIUM SERUM 135 mEq/L (136-145)
[2018-08-26] MEDS: D5-0.9%NS 1,000 ML IV SCH (08:31)
--- NOTE | 2018-08-26 08:48 | Diagnostic Imaging Report ---
CHEST X-RAY: AP view INDICATION: Cough, preop, shortness of breath COMPARISON: Chest x-ray 08/25/2018 FINDINGS: Skin folds are noted. Chronic lung changes are noted. There is no focal consolidation or pleural effusions The heart is normal in size. IMPRESSION: Chronic lung changes and possible COPD. No focal consolidation identified.
[2018-08-26 08:52] LABS: pH 7.41 (7.35-7.45)
--- NOTE | 2018-08-26 09:13 | GI Progress Note ---
Subjective - Review of Systems Service Date: 08/26/18 Subjective: Pt tentatively will be going for colostomy placement and hernia repair today with Dr Dean Objective - Results Result Diagrams: 08/26/18 06:00 08/26/18 06:00 Recent Labs: Laboratory Last Values WBC 11.3 Th/cmm (4.8-10.8) H 08/26/18 06:00 RBC 3.82 Mil/cmm (3.80-5.20) 08/26/18 06:00 Hgb 10.9 gm/dL (12-16) L 08/26/18 06:00 Hct 32.6 % (41.0-60) L 08/26/18 06:00 MCV 85.4 fl (81-100) 08/26/18 06:00 MCH 28.7 pg (27.0-31.0) 08/26/18 06:00 MCHC Differential 33.6 pg (28.0-36.0) 08/26/18 06:00 RDW 13.1 % (11.5-20.0) 08/26/18 06:00 Plt Count 351 Th/cmm (150-400) 08/26/18 06:00 MPV 7.2 fl 08/26/18 06:00 Neutrophils % 76.1 % (40.0-80.0) 08/26/18 06:00 Lymphocytes % 9.6 % (20.0-50.0) L 08/26/18 06:00 Monocytes % 11.3 % (2.0-10.0) H 08/26/18 06:00 Eosinophils % 3.0 % (0.0-5.0) 08/26/18 06:00 Basophils % 0.0 % (0.0-2.0) 08/26/18 06:00 PT 9.3 SECONDS (9.5-11.5) L 08/26/18 06:00 INR 0.88 (0.5-1.4) 08/26/18 06:00 PTT (Actin FS) 24.4 SECONDS (26.0-38.0) L 08/26/18 06:00 Specimen Source Arterial 08/26/18 08:40 Sample Site RB 08/26/18 08:40 pH 7.41 (7.35-7.45) 08/26/18 08:40 pCO2 44.0 mmHg (35.0-45.0) 08/26/18 08:40 pO2 100.0 mmHg (80.0-100.0) 08/26/18 08:40 HCO3 27.1 mEq/L (20.0-26.0) H 08/26/18 08:40 Base Excess 2.8 mEq/L (-3.0-3.0) 08/26/18 08:40 O2 Saturation 98.0 % (92.0-100.0) 08/26/18 08:40 Inspired O2 32 08/26/18 08:40 Critical Value PW 08/26/18 08:40 Sodium 135 mEq/L (136-145) L 08/26/18 06:00 Potassium 4.3 mEq/L (3.5-5.1) 08/26/18 06:00 Chloride 98 mEq/L (98-107) 08/26/18 06:00 Carbon Dioxide 28.3 mEq/L (21.0-31.0) 08/26/18 06:00 Anion Gap 13.0 (7.0-16.0) 08/26/18 06:00 BUN 23 mg/dL (7-25) 08/26/18 06:00 Creatinine 0.7 mg/dL (0.6-1.2) 08/26/18 06:00 Est GFR ( Amer) TNP 08/26/18 06:00 Est GFR (Non-Af Amer) TNP 08/26/18 06:00 BUN/Creatinine Ratio 32.9 08/26/18 06:00 Glucose 78 mg/dL (70-105) 08/26/18 06:00 POC Glucose 72 MG/DL (70 - 105) 08/26/18 06:47 Calcium 9.5 mg/dL (8.6-10.3) 08/26/18 06:00 Total Bilirubin 0.2 mg/dL (0.3-1.0) L 08/23/18 21:20 AST 18 U/L (13-39) 08/23/18 21:20 ALT 7 U/L (7-52) 08/23/18 21:20 Alkaline Phosphatase 108 U/L (34-104) H 08/23/18 21:20 B-Natriuretic Peptide 34.4 pg/mL (5.0-100.0) 08/26/18 06:00 Total Protein 6.8 gm/dL (6.0-8.3) 08/23/18 21:20 Albumin 3.6 gm/dL (3.7-5.3) L 08/23/18 21:20 Globulin 3.2 gm/dL 08/23/18 21:20 Albumin/Globulin Ratio 1.1 (1.0-1.8) 08/23/18 21:20 - Physical Exam Vitals and I&O: Vital Signs Temp 97.9 F 08/26/18 07:34 Pulse 111 08/26/18 07:34 Resp 19 08/26/18 07:34 BP 121/51 08/26/18 07:34 Pulse Ox 97 08/26/18 07:34 Intake & Output 08/25/18 08/26/18 08/26/18 18:59 06:59 18:59 Intake Total 200 1050 Balance 200 1050 Weight (lbs) 40.37 kg Intake: Intake, IV Amount 1050 Sodium Chloride 0.9% 1, 1000 000 ml @ 100 mls/hr IV . Q10H [facility] Rx#:[id number] cefTRIAXone 1 gm In 50 Sodium Chloride 0.9% 50 ml @ 100 mls/hr IV Q24H [facility] Rx#:[id number] Oral 200 Other: # Voids 3 # Bowel Movements 1 Weight Source Bedscale Active Medications: Current Medications Albuterol/Ipratropium (Duoneb Neb) 3 ml HHN Q4HRT [facility] Stop: 10/25/18 10:59 Ceftriaxone Sodium 1 gm/ (Sodium Chloride) 50 mls @ 100 mls/hr IV Q24H [facility] Stop: 10/23/18 20:59 Last Infusion: 08/26/18 01:16 Dose: Infused Dextrose/Sodium Chloride (D5-0.9%Ns) 1,000 mls @ 50 mls/hr IV .Q20H [facility] Stop: 10/25/18 07:59 Last Admin: 08/26/18 08:31 Dose: 50 mls/hr Mupirocin (Bactroban Oint) 1 appl NS BID [facility] Stop: 08/30/18 17:01 Last Admin: 08/26/18 08:57 Dose: 1 appl General: Alert HEENT: Atraumatic Neck: Supple Cardiovascular: Regular rate Abdomen: Bowel sounds, Soft, no Tender, no Hepatomegaly, no Distended, no Rebound, no Mass - Procedures Procedures: Procedures Procedure Code Date EXC F/E/E/N/L MAL+MRG >4 [place] 66388 06/03/09 NEBULIZER THERAPY 93.94 10/19/04 OP RED-INT FIX RAD/ULNA 79.32 06/24/07 RADICAL EXCIS SKIN LES 86.4 06/03/09 TREAT FX RADIAL 3+ FRAG 10432 06/24/07 Assessment/Plan - Assessment Assessment: # Large inguinal hernia with possible bowel strangulation # Fecal impaction # Shortness of breath # Abd pain Pt with chronic fecal impaction and large hernia along the right side containing multiple bowel loops. The large hernia is likely causing bowel dysmotility and contributing to ongoing impaction and constipation. I agree that a diverting colostomy is in this patient's best interest to ensure that she avoids further impaction events. The hernia can also be repaired at that time as per Dr Dean Plan: - agree with diverting colostomy placement and strangulated hernia repair as per Dr Dean - if she is not going to surgery today, would advise q12h tap water enemas ( 500cc) to try and release stool - diet as per surgeon - no role for endoscopy here - supportive measures - post op care as per patient GI to see intermittently, please call with questions
[2018-08-26] MEDS: Albuterol/Ipratropium Neb 3 ML AERS HHN SCH ×4 (10:25→23:06)
--- NOTE | 2018-08-26 12:29 | Internal Medicine Prog Note ---
Internal Medicine Subjective - Subjective Patient seen and examined:: chart reviewed (pt will have colostomy placement and hernia repair today with Dr Dean) Patient is:: asleep Per staff patient has:: tolerating meds Internal Medicine Objective - Results Result Diagrams: 08/26/18 06:00 08/26/18 06:00 Recent Labs: Laboratory Last Values WBC 11.3 Th/cmm (4.8-10.8) H 08/26/18 06:00 RBC 3.82 Mil/cmm (3.80-5.20) 08/26/18 06:00 Hgb 10.9 gm/dL (12-16) L 08/26/18 06:00 Hct 32.6 % (41.0-60) L 08/26/18 06:00 MCV 85.4 fl (81-100) 08/26/18 06:00 MCH 28.7 pg (27.0-31.0) 08/26/18 06:00 MCHC Differential 33.6 pg (28.0-36.0) 08/26/18 06:00 RDW 13.1 % (11.5-20.0) 08/26/18 06:00 Plt Count 351 Th/cmm (150-400) 08/26/18 06:00 MPV 7.2 fl 08/26/18 06:00 Neutrophils % 76.1 % (40.0-80.0) 08/26/18 06:00 Lymphocytes % 9.6 % (20.0-50.0) L 08/26/18 06:00 Monocytes % 11.3 % (2.0-10.0) H 08/26/18 06:00 Eosinophils % 3.0 % (0.0-5.0) 08/26/18 06:00 Basophils % 0.0 % (0.0-2.0) 08/26/18 06:00 PT 9.3 SECONDS (9.5-11.5) L 08/26/18 06:00 INR 0.88 (0.5-1.4) 08/26/18 06:00 PTT (Actin FS) 24.4 SECONDS (26.0-38.0) L 08/26/18 06:00 Specimen Source Arterial 08/26/18 08:40 Sample Site RB 08/26/18 08:40 pH 7.41 (7.35-7.45) 08/26/18 08:40 pCO2 44.0 mmHg (35.0-45.0) 08/26/18 08:40 pO2 100.0 mmHg (80.0-100.0) 08/26/18 08:40 HCO3 27.1 mEq/L (20.0-26.0) H 08/26/18 08:40 Base Excess 2.8 mEq/L (-3.0-3.0) 08/26/18 08:40 O2 Saturation 98.0 % (92.0-100.0) 08/26/18 08:40 Inspired O2 32 08/26/18 08:40 Critical Value PW 08/26/18 08:40 Sodium 135 mEq/L (136-145) L 08/26/18 06:00 Potassium 4.3 mEq/L (3.5-5.1) 08/26/18 06:00 Chloride 98 mEq/L (98-107) 08/26/18 06:00 Carbon Dioxide 28.3 mEq/L (21.0-31.0) 08/26/18 06:00 Anion Gap 13.0 (7.0-16.0) 08/26/18 06:00 BUN 23 mg/dL (7-25) 08/26/18 06:00 Creatinine 0.7 mg/dL (0.6-1.2) 08/26/18 06:00 Est GFR ( Amer) TNP 08/26/18 06:00 Est GFR (Non-Af Amer) TNP 08/26/18 06:00 BUN/Creatinine Ratio 32.9 08/26/18 06:00 Glucose 78 mg/dL (70-105) 08/26/18 06:00 POC Glucose 72 MG/DL (70 - 105) 08/26/18 06:47 Calcium 9.5 mg/dL (8.6-10.3) 08/26/18 06:00 Total Bilirubin 0.2 mg/dL (0.3-1.0) L 08/23/18 21:20 AST 18 U/L (13-39) 08/23/18 21:20 ALT 7 U/L (7-52) 08/23/18 21:20 Alkaline Phosphatase 108 U/L (34-104) H 08/23/18 21:20 B-Natriuretic Peptide 34.4 pg/mL (5.0-100.0) 08/26/18 06:00 Total Protein 6.8 gm/dL (6.0-8.3) 08/23/18 21:20 Albumin 3.6 gm/dL (3.7-5.3) L 08/23/18 21:20 Globulin 3.2 gm/dL 08/23/18 21:20 Albumin/Globulin Ratio 1.1 (1.0-1.8) 08/23/18 21:20 - Physical Exam Vitals and I&O: Vital Signs Temp 97.8 F 08/26/18 12:01 Pulse 90 08/26/18 12:01 Resp 18 08/26/18 12:01 BP 112/68 08/26/18 12:01 Pulse Ox 97 08/26/18 12:01 Intake & Output 08/25/18 08/26/18 08/26/18 18:59 06:59 18:59 Intake Total 200 1050 Balance 200 1050 Weight (lbs) 40.37 kg Intake: Intake, IV Amount 1050 Sodium Chloride 0.9% 1, 1000 000 ml @ 100 mls/hr IV . Q10H [facility] Rx#:[id number] cefTRIAXone 1 gm In 50 Sodium Chloride 0.9% 50 ml @ 100 mls/hr IV Q24H [facility] Rx#:[id number] Oral 200 Other: # Voids 3 # Bowel Movements 1 Weight Source Bedscale Active Medications: Current Medications Albuterol/Ipratropium (Duoneb Neb) 3 ml HHN Q4HRT [facility] Stop: 10/25/18 10:59 Last Admin: 08/26/18 10:25 Dose: 3 ml Ceftriaxone Sodium 1 gm/ (Sodium Chloride) 50 mls @ 100 mls/hr IV Q24H [facility] Stop: 10/23/18 20:59 Last Infusion: 08/26/18 01:16 Dose: Infused Dextrose/Sodium Chloride (D5-0.9%Ns) 1,000 mls @ 50 mls/hr IV .Q20H [facility] Stop: 10/25/18 07:59 Last Admin: 08/26/18 08:31 Dose: 50 mls/hr Mupirocin (Bactroban Oint) 1 appl NS BID [facility] Stop: 08/30/18 17:01 Last Admin: 08/26/18 08:57 Dose: 1 appl General: weak HEENT: NC/AT, PERRLA Neck: Supple Cardiovascular: RRR Abdomen: soft, non-tender Extremities: excoriation Neurological: muscle weakness - Procedures Procedures: Procedures Procedure Code Date EXC F/E/E/N/L MAL+MRG >4 [place] 07681 06/03/09 NEBULIZER THERAPY 93.94 10/19/04 OP RED-INT FIX RAD/ULNA 79.32 06/24/07 RADICAL EXCIS SKIN LES 86.4 06/03/09 TREAT FX RADIAL 3+ FRAG 18189 06/24/07 Internal Medicine Assmt/Plan - Assessment Assessment: abd pain r/o obstruction htn dementia - Plan Plan: as per surgeon /gi pain mgmt cpm Nutritional Asmnt/Malnutr-PDOC - Dietary Evaluation Malnutrition Findings (Please click <Entered> for more info): Nutritional Asmnt/Malnutrition Start: 08/25/18 14: 01 Text: Status: Complete Freq: Protocol: Document 08/25/18 14:01 DONALD (Rec: 08/25/18 14:18 DONALD [email or web address]) Nutritional Asmnt/Malnutrition Patient General Information Nutritional Screening High Risk Consult Diagnosis abdominal pain, bowel obstruction Pertinent Medical Hx/Surgical Hx HTN, asthma/COPD, subarachnoid bleeding Per wound care note: hx of dementia Subjective Information Received diet consult for mass and biopsy site wound. Pt sleeping at time of visit. Pt was on full liquid diet, but spoke to REBEKAH Contreras who states pt is now NPO and has fecal impaction. Per MD notes, KUB shows severe fecal impaction and pt due for surgery tomorrow for inguinal hernias. Per EMR, pt refused regular diet meals and only willing to have full liquid diet with vanilla ensure. Current Diet Order/ Nutrition Support NPO Pertinent Medications Nacl 0.9% Pertinent Labs 08/25: Na 132, Cl 96, BUN 22, glucose 111 08/23: Na 135, Cl 99, BUN 30, glucose 97, Alb 3.6 Nutritional Hx/Data Height 1.7 m Height (Calculated Centimeters) 170.2 Current Weight (lbs) 47.627 kg Weight (Calculated Kilograms) 47.6 Weight (Calculated Grams) 72653.2 Body Mass Index (BMI) 16.4 Weight Status Underweight GI Symptoms GI Symptoms None Last BM none noted Difficult in: None Skin Integrity/Comment: skin tear/biopsy site to right forehead, skin flap to left neck, mass on left shoulder, terrie 16 Estimated Nutritional Goals BEE in Kcals: Using Current wt Calories/Kcals/Kg 30-35 Kcals Calculated 6178-1905 Protein: Using Current wt Protein g/k-1.2 Protein Calculated 48-57 g Fluid: ml 7578-2190 (1 ml/kcal) Nutritional Problem 2. Problem Problem Altered nutrition related lab values Etiology electrolyte imbalance Signs/Symptoms: Na 132, Cl 96 1. Problem Problem Inadequate oral intake Etiology possible poor appetite from fecal impaction or abdominal pain Signs/Symptoms: current NPO status, meal refusals, pt only accepting Ensure Malnutrition Related to Morbid Obesity Malnutrition related to morbid obesity No Intervention/Recommendation Comments 1. Monitor NPO status and advance diet when medically appropriate 2. MD to replace electrolytes as needed 3. Monitor wt, skin integrity, GI symptons, and nutrition related labs 4. F/U as high risk in 2-3 days, 08/27- Expected Outcomes/Goals Expected Outcomes/Goals 1. Pt to resume PO intake when medically appropriate and meet at least 75% of all meals 2. Wt stability, skin integrity to improve, GI improved, and nutrition related labs to approach normal limits Reviewed by Laine Mcarthur RD
[2018-08-26] MEDS ORDERED: Polyvinyl Alcohol Ophth Soln 15 mL Bottle EACH EYE PRN (16:00)
--- NOTE | 2018-08-26 17:22 | Infectious Disease Prog Note ---
Infectious Disease Subjective - Review of Systems Subjective: cc stool impaction/sbo/ing hrnia hpi- sen by dr singleton recomend hernia repait colosto,my ro sno fervr o.e vs chst clear abd soft hernia exrt pulse dx sbo/stool impaction ing hernia plan rocephin Infectious Disease Objective - Results Result Diagrams: 08/26/18 06:00 08/26/18 06:00 Recent Labs: Laboratory Last Values WBC 11.3 Th/cmm (4.8-10.8) H 08/26/18 06:00 RBC 3.82 Mil/cmm (3.80-5.20) 08/26/18 06:00 Hgb 10.9 gm/dL (12-16) L 08/26/18 06:00 Hct 32.6 % (41.0-60) L 08/26/18 06:00 MCV 85.4 fl (81-100) 08/26/18 06:00 MCH 28.7 pg (27.0-31.0) 08/26/18 06:00 MCHC Differential 33.6 pg (28.0-36.0) 08/26/18 06:00 RDW 13.1 % (11.5-20.0) 08/26/18 06:00 Plt Count 351 Th/cmm (150-400) 08/26/18 06:00 MPV 7.2 fl 08/26/18 06:00 Neutrophils % 76.1 % (40.0-80.0) 08/26/18 06:00 Lymphocytes % 9.6 % (20.0-50.0) L 08/26/18 06:00 Monocytes % 11.3 % (2.0-10.0) H 08/26/18 06:00 Eosinophils % 3.0 % (0.0-5.0) 08/26/18 06:00 Basophils % 0.0 % (0.0-2.0) 08/26/18 06:00 PT 9.3 SECONDS (9.5-11.5) L 08/26/18 06:00 INR 0.88 (0.5-1.4) 08/26/18 06:00 PTT (Actin FS) 24.4 SECONDS (26.0-38.0) L 08/26/18 06:00 Specimen Source Arterial 08/26/18 08:40 Sample Site RB 08/26/18 08:40 pH 7.41 (7.35-7.45) 08/26/18 08:40 pCO2 44.0 mmHg (35.0-45.0) 08/26/18 08:40 pO2 100.0 mmHg (80.0-100.0) 08/26/18 08:40 HCO3 27.1 mEq/L (20.0-26.0) H 08/26/18 08:40 Base Excess 2.8 mEq/L (-3.0-3.0) 08/26/18 08:40 O2 Saturation 98.0 % (92.0-100.0) 08/26/18 08:40 Inspired O2 32 08/26/18 08:40 Critical Value PW 08/26/18 08:40 Sodium 135 mEq/L (136-145) L 08/26/18 06:00 Potassium 4.3 mEq/L (3.5-5.1) 08/26/18 06:00 Chloride 98 mEq/L (98-107) 08/26/18 06:00 Carbon Dioxide 28.3 mEq/L (21.0-31.0) 08/26/18 06:00 Anion Gap 13.0 (7.0-16.0) 08/26/18 06:00 BUN 23 mg/dL (7-25) 08/26/18 06:00 Creatinine 0.7 mg/dL (0.6-1.2) 08/26/18 06:00 Est GFR ( Amer) TNP 08/26/18 06:00 Est GFR (Non-Af Amer) TNP 08/26/18 06:00 BUN/Creatinine Ratio 32.9 08/26/18 06:00 Glucose 78 mg/dL (70-105) 08/26/18 06:00 POC Glucose 72 MG/DL (70 - 105) 08/26/18 06:47 Calcium 9.5 mg/dL (8.6-10.3) 08/26/18 06:00 Total Bilirubin 0.2 mg/dL (0.3-1.0) L 08/23/18 21:20 AST 18 U/L (13-39) 08/23/18 21:20 ALT 7 U/L (7-52) 08/23/18 21:20 Alkaline Phosphatase 108 U/L (34-104) H 08/23/18 21:20 B-Natriuretic Peptide 34.4 pg/mL (5.0-100.0) 08/26/18 06:00 Total Protein 6.8 gm/dL (6.0-8.3) 08/23/18 21:20 Albumin 3.6 gm/dL (3.7-5.3) L 08/23/18 21:20 Globulin 3.2 gm/dL 08/23/18 21:20 Albumin/Globulin Ratio 1.1 (1.0-1.8) 08/23/18 21:20 - Physical Exam Vitals and I&O: Vital Signs Temp 97.8 F 08/26/18 15:41 Pulse 91 08/26/18 15:41 Resp 18 08/26/18 15:41 BP 118/71 08/26/18 15:41 Pulse Ox 97 08/26/18 15:41 Intake & Output 08/25/18 08/26/18 08/26/18 18:59 06:59 18:59 Intake Total 200 1050 Balance 200 1050 Weight (lbs) 40.37 kg Intake: Intake, IV Amount 1050 Sodium Chloride 0.9% 1, 1000 000 ml @ 100 mls/hr IV . Q10H [facility] Rx#:[id number] cefTRIAXone 1 gm In 50 Sodium Chloride 0.9% 50 ml @ 100 mls/hr IV Q24H [facility] Rx#:[id number] Oral 200 Other: # Voids 3 # Bowel Movements 1 Weight Source Bedscale Active Medications: Current Medications Albuterol/Ipratropium (Duoneb Neb) 3 ml HHN Q4HRT [facility] Stop: 10/25/18 10:59 Last Admin: 08/26/18 15:05 Dose: 3 ml Artificial Tears (Artificial Tears Ophth Soln) 1 drop EACH EYE BID PRN PRN Reason: Dry Eye Stop: 10/25/18 15:59 Last Admin: 08/26/18 16:08 Dose: 1 drop Ceftriaxone Sodium 1 gm/ (Sodium Chloride) 50 mls @ 100 mls/hr IV Q24H [facility] Stop: 10/23/18 20:59 Last Infusion: 08/26/18 01:16 Dose: Infused Dextrose/Sodium Chloride (D5-0.9%Ns) 1,000 mls @ 50 mls/hr IV .Q20H [facility] Stop: 10/25/18 07:59 Last Admin: 08/26/18 08:31 Dose: 50 mls/hr Mupirocin (Bactroban Oint) 1 appl NS BID [facility] Stop: 08/30/18 17:01 Last Admin: 08/26/18 16:08 Dose: 1 appl - Procedures Procedures: Procedures Procedure Code Date EXC F/E/E/N/L MAL+MRG >4 [place] 55419 06/03/09 NEBULIZER THERAPY 93.94 10/19/04 OP RED-INT FIX RAD/ULNA 79.32 06/24/07 RADICAL EXCIS SKIN LES 86.4 06/03/09 TREAT FX RADIAL 3+ FRAG 35426 06/24/07 Nutritional Asmnt/Malnutr-PDOC - Dietary Evaluation Malnutrition Findings (Please click <Entered> for more info): Nutritional Asmnt/Malnutrition Start: 08/25/18 14: 01 Text: Status: Complete Freq: Protocol: Document 08/25/18 14:01 DONALD (Rec: 08/25/18 14:18 DONALD [email or web address]) Nutritional Asmnt/Malnutrition Patient General Information Nutritional Screening High Risk Consult Diagnosis abdominal pain, bowel obstruction Pertinent Medical Hx/Surgical Hx HTN, asthma/COPD, subarachnoid bleeding Per wound care note: hx of dementia Subjective Information Received diet consult for mass and biopsy site wound. Pt sleeping at time of visit. Pt was on full liquid diet, but spoke to REBEKAH Contreras who states pt is now NPO and has fecal impaction. Per MD notes, KUB shows severe fecal impaction and pt due for surgery tomorrow for inguinal hernias. Per EMR, pt refused regular diet meals and only willing to have full liquid diet with vanilla ensure. Current Diet Order/ Nutrition Support NPO Pertinent Medications Nacl 0.9% Pertinent Labs 08/25: Na 132, Cl 96, BUN 22, glucose 111 08/23: Na 135, Cl 99, BUN 30, glucose 97, Alb 3.6 Nutritional Hx/Data Height 1.7 m Height (Calculated Centimeters) 170.2 Current Weight (lbs) 47.627 kg Weight (Calculated Kilograms) 47.6 Weight (Calculated Grams) 49354.2 Body Mass Index (BMI) 16.4 Weight Status Underweight GI Symptoms GI Symptoms None Last BM none noted Difficult in: None Skin Integrity/Comment: skin tear/biopsy site to right forehead, skin flap to left neck, mass on left shoulder, terrie 16 Estimated Nutritional Goals BEE in Kcals: Using Current wt Calories/Kcals/Kg 30-35 Kcals Calculated 9229-4046 Protein: Using Current wt Protein g/k-1.2 Protein Calculated 48-57 g Fluid: ml 0413-4877 (1 ml/kcal) Nutritional Problem 2. Problem Problem Altered nutrition related lab values Etiology electrolyte imbalance Signs/Symptoms: Na 132, Cl 96 1. Problem Problem Inadequate oral intake Etiology possible poor appetite from fecal impaction or abdominal pain Signs/Symptoms: current NPO status, meal refusals, pt only accepting Ensure Malnutrition Related to Morbid Obesity Malnutrition related to morbid obesity No Intervention/Recommendation Comments 1. Monitor NPO status and advance diet when medically appropriate 2. MD to replace electrolytes as needed 3. Monitor wt, skin integrity, GI symptons, and nutrition related labs 4. F/U as high risk in 2-3 days, 08/27- Expected Outcomes/Goals Expected Outcomes/Goals 1. Pt to resume PO intake when medically appropriate and meet at least 75% of all meals 2. Wt stability, skin integrity to improve, GI improved, and nutrition related labs to approach normal limits Reviewed by Laine Mcarthur RD
[2018-08-26] MEDS: cefTRIAXone 1 GM in Sodium Chloride 0.9% 50 ML IV SCH (21:46)
[2018-08-27] MEDS: methylPREDNISolone SS 40 mg Vial IVP SCH ×4 (00:11→17:16)
[2018-08-27] MEDS: Albuterol/Ipratropium Neb 3 ML AERS HHN SCH ×6 (03:57→23:14)
[2018-08-27] MEDS: D5-0.9%NS 1,000 ML IV SCH (05:48)
[2018-08-27 07:25] LABS: HEMOGLOBIN 10.9 gm/dL (12-16); LYMPHOCYTE ABSOLUTE 0.3 Th/cmm (1.5-3.0); MEAN CELL VOLUME 87.8 fl (81-100); MEAN CORPUSCULAR HGB CONC 34.2 pg (28.0-36.0); PLATELET COUNT 339 Th/cmm (150-400); RED BLOOD COUNT 3.64 Mil/cmm (3.80-5.20); RED CELL DISTRIBUTION WIDTH 13.2 % (11.5-20.0); WHITE BLOOD COUNT 9.3 Th/cmm (4.8-10.8)
[2018-08-27 07:31] LABS: ALB/GLOB RATIO 1.1 (1.0-1.8); ALBUMIN 3.4 gm/dL (3.7-5.3); ALKALINE PHOSPHATASE 92 U/L (34-104); ANION GAP 11.7 (7.0-16.0); BILIRUBIN,TOTAL 0.2 mg/dL (0.3-1.0); BUN - UREA NITROGEN 21 mg/dL (7-25); CALCIUM SERUM 9.2 mg/dL (8.6-10.3); CHLORIDE 100 mEq/L (98-107); CREATININE - SERUM 0.6 mg/dL (0.6-1.2); GLUCOSE 191 mg/dL (70-105); POTASSIUM SERUM 4.7 mEq/L (3.5-5.1); SGOT 15 U/L (13-39); SGPT/ALT 7 U/L (7-52); SODIUM SERUM 134 mEq/L (136-145); TOTAL PROTEIN,SERUM 6.5 gm/dL (6.0-8.3)
--- NOTE | 2018-08-27 08:05 | GI Progress Note ---
Subjective - Review of Systems Service Date: 08/27/18 Subjective: Surgey was cancelled yesterday due to respiratory compromise Objective - Results Result Diagrams: 08/27/18 06:58 08/27/18 06:58 Recent Labs: Laboratory Last Values WBC 9.3 Th/cmm (4.8-10.8) 08/27/18 06:58 RBC 3.64 Mil/cmm (3.80-5.20) L 08/27/18 06:58 Hgb 10.9 gm/dL (12-16) L 08/27/18 06:58 Hct 32.0 % (41.0-60) L 08/27/18 06:58 MCV 87.8 fl (81-100) 08/27/18 06:58 MCH 30.0 pg (27.0-31.0) 08/27/18 06:58 MCHC Differential 34.2 pg (28.0-36.0) 08/27/18 06:58 RDW 13.2 % (11.5-20.0) 08/27/18 06:58 Plt Count 339 Th/cmm (150-400) 08/27/18 06:58 MPV 7.0 fl 08/27/18 06:58 Add Manual Diff YES 08/27/18 06:58 Neutrophils % 76.1 % (40.0-80.0) 08/26/18 06:00 Lymphocytes % 9.6 % (20.0-50.0) L 08/26/18 06:00 Monocytes % 11.3 % (2.0-10.0) H 08/26/18 06:00 Eosinophils % 3.0 % (0.0-5.0) 08/26/18 06:00 Basophils % 0.0 % (0.0-2.0) 08/26/18 06:00 PT 9.3 SECONDS (9.5-11.5) L 08/26/18 06:00 INR 0.88 (0.5-1.4) 08/26/18 06:00 PTT (Actin FS) 24.4 SECONDS (26.0-38.0) L 08/26/18 06:00 Specimen Source Arterial 08/26/18 08:40 Sample Site RB 08/26/18 08:40 pH 7.41 (7.35-7.45) 08/26/18 08:40 pCO2 44.0 mmHg (35.0-45.0) 08/26/18 08:40 pO2 100.0 mmHg (80.0-100.0) 08/26/18 08:40 HCO3 27.1 mEq/L (20.0-26.0) H 08/26/18 08:40 Base Excess 2.8 mEq/L (-3.0-3.0) 08/26/18 08:40 O2 Saturation 98.0 % (92.0-100.0) 08/26/18 08:40 Inspired O2 32 08/26/18 08:40 Critical Value PW 08/26/18 08:40 Sodium 134 mEq/L (136-145) L 08/27/18 06:58 Potassium 4.7 mEq/L (3.5-5.1) 08/27/18 06:58 Chloride 100 mEq/L (98-107) 08/27/18 06:58 Carbon Dioxide 27.0 mEq/L (21.0-31.0) 08/27/18 06:58 Anion Gap 11.7 (7.0-16.0) 08/27/18 06:58 BUN 21 mg/dL (7-25) 08/27/18 06:58 Creatinine 0.6 mg/dL (0.6-1.2) 08/27/18 06:58 Est GFR ( Amer) TNP 08/27/18 06:58 Est GFR (Non-Af Amer) TNP 08/27/18 06:58 BUN/Creatinine Ratio 35.0 08/27/18 06:58 Glucose 191 mg/dL (70-105) H 08/27/18 06:58 POC Glucose 72 MG/DL (70 - 105) 08/26/18 06:47 Calcium 9.2 mg/dL (8.6-10.3) 08/27/18 06:58 Total Bilirubin 0.2 mg/dL (0.3-1.0) L 08/27/18 06:58 AST 15 U/L (13-39) 08/27/18 06:58 ALT 7 U/L (7-52) 08/27/18 06:58 Alkaline Phosphatase 92 U/L (34-104) 08/27/18 06:58 B-Natriuretic Peptide 34.4 pg/mL (5.0-100.0) 08/26/18 06:00 Total Protein 6.5 gm/dL (6.0-8.3) 08/27/18 06:58 Albumin 3.4 gm/dL (3.7-5.3) L 08/27/18 06:58 Globulin 3.1 gm/dL 08/27/18 06:58 Albumin/Globulin Ratio 1.1 (1.0-1.8) 08/27/18 06:58 - Physical Exam Vitals and I&O: Vital Signs Temp 96.8 F 08/27/18 07:56 Pulse 82 08/27/18 07:56 Resp 17 08/27/18 07:56 BP 108/43 08/27/18 07:56 Pulse Ox 98 08/27/18 07:56 Intake & Output 08/26/18 08/27/18 08/27/18 18:59 06:59 18:59 Intake Total 1050 Balance 1050 Weight (lbs) 42.184 kg Intake: Intake, IV Amount 1050 D5-0.9%Ns 1,000 ml @ 50 1000 mls/hr IV .Q20H [facility] Rx#: [id number] cefTRIAXone 1 gm In 50 Sodium Chloride 0.9% 50 ml @ 100 mls/hr IV Q24H [facility] Rx#:[id number] Other: # Voids 3 # Bowel Movements 3 Weight Source Bedscale Active Medications: Current Medications Albuterol/Ipratropium (Duoneb Neb) 3 ml HHN Q4HRT [facility] Stop: 10/25/18 10:59 Last Admin: 08/27/18 06:59 Dose: 3 ml Artificial Tears (Artificial Tears Ophth Soln) 1 drop EACH EYE BID PRN PRN Reason: Dry Eye Stop: 10/25/18 15:59 Last Admin: 08/26/18 16:08 Dose: 1 drop Ceftriaxone Sodium 1 gm/ (Sodium Chloride) 50 mls @ 100 mls/hr IV Q24H [facility] Stop: 10/23/18 20:59 Last Infusion: 08/26/18 22:16 Dose: Infused Dextrose/Sodium Chloride (D5-0.9%Ns) 1,000 mls @ 50 mls/hr IV .Q20H [facility] Stop: 10/25/18 07:59 Last Admin: 08/27/18 05:48 Dose: 50 mls/hr Methylprednisolone Sodium Succinate (Solu-Medrol) 40 mg IVP Q6HR [facility] Stop: 10/26/18 00:00 Last Admin: 08/27/18 06:07 Dose: 40 mg Mupirocin (Bactroban Oint) 1 appl NS BID [facility] Stop: 08/30/18 17:01 Last Admin: 08/26/18 16:08 Dose: 1 appl General: Alert HEENT: Atraumatic Neck: Supple Cardiovascular: Regular rate Abdomen: Bowel sounds, Soft, no Tender, no Hepatomegaly, no Distended, no Rebound, no Mass - Procedures Procedures: Procedures Procedure Code Date EXC F/E/E/N/L MAL+MRG >4 [place] 72790 06/03/09 NEBULIZER THERAPY 93.94 10/19/04 OP RED-INT FIX RAD/ULNA 79.32 06/24/07 RADICAL EXCIS SKIN LES 86.4 06/03/09 TREAT FX RADIAL 3+ FRAG 24956 06/24/07 Assessment/Plan - Assessment Assessment: # Large inguinal hernia with possible bowel strangulation # Fecal impaction # Shortness of breath # Abd pain Pt with chronic fecal impaction and large hernia along the right side containing multiple bowel loops. The large hernia is likely causing bowel dysmotility and contributing to ongoing impaction and constipation. I agree that a diverting colostomy is in this patient's best interest to ensure that she avoids further impaction events. The hernia can also be repaired at that time as per Dr Dean Surgey is on hold as of 08/27 given respiratory issues. Thus, will try and alleviate the impaction a bit with enemas Plan: - agree with diverting colostomy placement and strangulated hernia repair as per Dr Dean - try tap water enemas 500cc, q 12 until she can have definitive treatment with surgery - clears is ok - no role for endoscopy here - supportive measures
--- NOTE | 2018-08-27 09:37 | General Progress Note ---
Subjective - Review of Systems Service Date: 08/27/18 Events since last encounter: 08/27/18 labs ok on 2 L oxygen with 96% sat no obvious SOB, no wheezing colon incarcerated in right inguinal hernia is not reducible await clearance from materials coordinator for surgery Objective - Results Result Diagrams: 08/27/18 06:58 08/27/18 06:58 Recent Labs: Laboratory Last Values WBC 9.3 Th/cmm (4.8-10.8) 08/27/18 06:58 RBC 3.64 Mil/cmm (3.80-5.20) L 08/27/18 06:58 Hgb 10.9 gm/dL (12-16) L 08/27/18 06:58 Hct 32.0 % (41.0-60) L 08/27/18 06:58 MCV 87.8 fl (81-100) 08/27/18 06:58 MCH 30.0 pg (27.0-31.0) 08/27/18 06:58 MCHC Differential 34.2 pg (28.0-36.0) 08/27/18 06:58 RDW 13.2 % (11.5-20.0) 08/27/18 06:58 Plt Count 339 Th/cmm (150-400) 08/27/18 06:58 MPV 7.0 fl 08/27/18 06:58 Add Manual Diff YES 08/27/18 06:58 Neutrophils % 76.1 % (40.0-80.0) 08/26/18 06:00 Lymphocytes % 9.6 % (20.0-50.0) L 08/26/18 06:00 Monocytes % 11.3 % (2.0-10.0) H 08/26/18 06:00 Eosinophils % 3.0 % (0.0-5.0) 08/26/18 06:00 Basophils % 0.0 % (0.0-2.0) 08/26/18 06:00 PT 9.3 SECONDS (9.5-11.5) L 08/26/18 06:00 INR 0.88 (0.5-1.4) 08/26/18 06:00 PTT (Actin FS) 24.4 SECONDS (26.0-38.0) L 08/26/18 06:00 Specimen Source Arterial 08/26/18 08:40 Sample Site RB 08/26/18 08:40 pH 7.41 (7.35-7.45) 08/26/18 08:40 pCO2 44.0 mmHg (35.0-45.0) 08/26/18 08:40 pO2 100.0 mmHg (80.0-100.0) 08/26/18 08:40 HCO3 27.1 mEq/L (20.0-26.0) H 08/26/18 08:40 Base Excess 2.8 mEq/L (-3.0-3.0) 08/26/18 08:40 O2 Saturation 98.0 % (92.0-100.0) 08/26/18 08:40 Inspired O2 32 08/26/18 08:40 Critical Value PW 08/26/18 08:40 Sodium 134 mEq/L (136-145) L 08/27/18 06:58 Potassium 4.7 mEq/L (3.5-5.1) 08/27/18 06:58 Chloride 100 mEq/L (98-107) 08/27/18 06:58 Carbon Dioxide 27.0 mEq/L (21.0-31.0) 08/27/18 06:58 Anion Gap 11.7 (7.0-16.0) 08/27/18 06:58 BUN 21 mg/dL (7-25) 08/27/18 06:58 Creatinine 0.6 mg/dL (0.6-1.2) 08/27/18 06:58 Est GFR ( Amer) TNP 08/27/18 06:58 Est GFR (Non-Af Amer) TNP 08/27/18 06:58 BUN/Creatinine Ratio 35.0 08/27/18 06:58 Glucose 191 mg/dL (70-105) H 08/27/18 06:58 POC Glucose 72 MG/DL (70 - 105) 08/26/18 06:47 Calcium 9.2 mg/dL (8.6-10.3) 08/27/18 06:58 Total Bilirubin 0.2 mg/dL (0.3-1.0) L 08/27/18 06:58 AST 15 U/L (13-39) 08/27/18 06:58 ALT 7 U/L (7-52) 08/27/18 06:58 Alkaline Phosphatase 92 U/L (34-104) 08/27/18 06:58 B-Natriuretic Peptide 34.4 pg/mL (5.0-100.0) 08/26/18 06:00 Total Protein 6.5 gm/dL (6.0-8.3) 08/27/18 06:58 Albumin 3.4 gm/dL (3.7-5.3) L 08/27/18 06:58 Globulin 3.1 gm/dL 08/27/18 06:58 Albumin/Globulin Ratio 1.1 (1.0-1.8) 08/27/18 06:58 - Physical Exam Vitals and I&O: Vital Signs Temp 96.8 F 08/27/18 07:56 Pulse 82 08/27/18 07:56 Resp 18 08/27/18 09:07 BP 108/43 08/27/18 07:56 Pulse Ox 98 08/27/18 07:56 Intake & Output 08/26/18 08/27/18 08/27/18 18:59 06:59 18:59 Intake Total 1050 Balance 1050 Weight (lbs) 42.184 kg Intake: Intake, IV Amount 1050 D5-0.9%Ns 1,000 ml @ 50 1000 mls/hr IV .Q20H [facility] Rx#: [id number] cefTRIAXone 1 gm In 50 Sodium Chloride 0.9% 50 ml @ 100 mls/hr IV Q24H [facility] Rx#:[id number] Other: # Voids 3 # Bowel Movements 3 Weight Source Bedscale Active Medications: Current Medications Albuterol/Ipratropium (Duoneb Neb) 3 ml HHN Q4HRT [facility] Stop: 10/25/18 10:59 Last Admin: 08/27/18 06:59 Dose: 3 ml Artificial Tears (Artificial Tears Ophth Soln) 1 drop EACH EYE BID PRN PRN Reason: Dry Eye Stop: 10/25/18 15:59 Last Admin: 08/26/18 16:08 Dose: 1 drop Ceftriaxone Sodium 1 gm/ (Sodium Chloride) 50 mls @ 100 mls/hr IV Q24H [facility] Stop: 10/23/18 20:59 Last Infusion: 08/26/18 22:16 Dose: Infused Dextrose/Sodium Chloride (D5-0.9%Ns) 1,000 mls @ 50 mls/hr IV .Q20H [facility] Stop: 10/25/18 07:59 Last Admin: 08/27/18 05:48 Dose: 50 mls/hr Methylprednisolone Sodium Succinate (Solu-Medrol) 40 mg IVP Q6HR [facility] Stop: 10/26/18 00:00 Last Admin: 08/27/18 06:07 Dose: 40 mg Mupirocin (Bactroban Oint) 1 appl NS BID [facility] Stop: 08/30/18 17:01 Last Admin: 08/26/18 16:08 Dose: 1 appl General: Alert HEENT: Atraumatic Neck: Supple Cardiovascular: Regular rate Abdomen: Bowel sounds, Soft, no Tender, no Hepatomegaly, no Distended, no Rebound, no Mass - Procedures Procedures: Procedures Procedure Code Date EXC F/E/E/N/L MAL+MRG >4 [place] [address]69 06/03/09 NEBULIZER THERAPY 93.94 10/19/04 OP RED-INT FIX RAD/ULNA 79.32 06/24/07 RADICAL EXCIS SKIN LES 86.4 06/03/09 TREAT FX RADIAL 3+ FRAG 19251 06/24/07 Nutritional Asmnt/Malnutr-PDOC - Dietary Evaluation Malnutrition Findings (Please click <Entered> for more info): Nutritional Asmnt/Malnutrition Start: 08/25/18 14: 01 Text: Status: Complete Freq: Protocol: Document 08/25/18 14:01 DONALD (Rec: 08/25/18 14:18 DONALD [id number]) Nutritional Asmnt/Malnutrition Patient General Information Nutritional Screening High Risk Consult Diagnosis abdominal pain, bowel obstruction Pertinent Medical Hx/Surgical Hx HTN, asthma/COPD, subarachnoid bleeding Per wound care note: hx of dementia Subjective Information Received diet consult for mass and biopsy site wound. Pt sleeping at time of visit. Pt was on full liquid diet, but spoke to REBEKAH Contreras who states pt is now NPO and has fecal impaction. Per MD notes, KUB shows severe fecal impaction and pt due for surgery tomorrow for inguinal hernias. Per EMR, pt refused regular diet meals and only willing to have full liquid diet with vanilla ensure. Current Diet Order/ Nutrition Support NPO Pertinent Medications Nacl 0.9% Pertinent Labs 08/25: Na 132, Cl 96, BUN 22, glucose 111 08/23: Na 135, Cl 99, BUN 30, glucose 97, Alb 3.6 Nutritional Hx/Data Height 1.7 m Height (Calculated Centimeters) 170.2 Current Weight (lbs) 47.627 kg Weight (Calculated Kilograms) 47.6 Weight (Calculated Grams) 00044.2 Body Mass Index (BMI) 16.4 Weight Status Underweight GI Symptoms GI Symptoms None Last BM none noted Difficult in: None Skin Integrity/Comment: skin tear/biopsy site to right forehead, skin flap to left neck, mass on left shoulder, terrie 16 Estimated Nutritional Goals BEE in Kcals: Using Current wt Calories/Kcals/Kg 30-35 Kcals Calculated 8913-7140 Protein: Using Current wt Protein g/k-1.2 Protein Calculated 48-57 g Fluid: ml 3025-7965 (1 ml/kcal) Nutritional Problem 2. Problem Problem Altered nutrition related lab values Etiology electrolyte imbalance Signs/Symptoms: Na 132, Cl 96 1. Problem Problem Inadequate oral intake Etiology possible poor appetite from fecal impaction or abdominal pain Signs/Symptoms: current NPO status, meal refusals, pt only accepting Ensure Malnutrition Related to Morbid Obesity Malnutrition related to morbid obesity No Intervention/Recommendation Comments 1. Monitor NPO status and advance diet when medically appropriate 2. MD to replace electrolytes as needed 3. Monitor wt, skin integrity, GI symptons, and nutrition related labs 4. F/U as high risk in 2-3 days, 08/27- Expected Outcomes/Goals Expected Outcomes/Goals 1. Pt to resume PO intake when medically appropriate and meet at least 75% of all meals 2. Wt stability, skin integrity to improve, GI improved, and nutrition related labs to approach normal limits Reviewed by Laine Mcarthur RD
--- NOTE | 2018-08-27 10:39 | Consultation ---
DATE OF CONSULTATION: 08/26/[address] Camacho for this consultation. HISTORY OF PRESENT ILLNESS: This is a 77-year-old female with history of COPD, dementia, confusion, presented with abdominal pain, vomiting, constipation. The patient was found to have inguinal hernia and is planned to have surgery. The patient denies history of smoking or lung problems in the past, is found to have some congestion in the lung and surgery was placed on hold and we were called for evaluation. The patient appears to be comfortable with coughing on and off. No other history can be obtained. PHYSICAL EXAMINATION: VITAL SIGNS: Temperature 97.8, pulse 91, respiration is 18, blood pressure 112/68, saturation 97%. HEENT: Atraumatic, normocephalic. Pupils are reactive to light and accommodation. Ears, nose and throat normal. NECK: Supple. No JVD. CHEST: There is diffuse wheezing and rhonchi bilaterally. HEART: Regular in rate and rhythm. ABDOMEN: There is no rebound tenderness and the abdomen is soft. EXTREMITIES: No edema. LABORATORY AND DIAGNOSTIC DATA: Her chest x-ray shows some COPD changes, no infiltrate. WBC is 11.3, hemoglobin 10.9, hematocrit 32.6, platelets is 351. ABGs: pH 7.41, pCO2 of 44, pO2 of 100, bicarb 27, saturation 98%. Sodium 135, potassium 4.3, BUN is 23, creatinine 0.7. IMPRESSION: 1. Bronchospasm, underlying chronic obstructive pulmonary disease, significant wheezing. 2. Inguinal hernia, possible needing to have it repaired. PLAN: Optimize lung status. Add Solu-Medrol. Continue nebulizer treatment. Obviously surgery is needed emergently. The patient needs to go and will try to work with her lung status in the meantime. Continue supportive care and hopefully the patient will be in better shape for surgery sooner. Thank you very much for this consultation. We will follow the patient with you. JOB# [id number]
[2018-08-27 11:42] LABS: BAND NEUTROPHILE 2 % (0-10); LYMPHOCYTE 2 % (20-50); MONOCYTE 1 % (2-10); NEUTROPHILS 95 % (40-80); PLATELET ESTIMATE ADEQUATE (NORMAL)
[2018-08-27] MEDS: cefTRIAXone 1 GM in Sodium Chloride 0.9% 50 ML IV SCH (21:34)
--- NOTE | 2018-08-28 | Infectious Disease Prog Note ---
Infectious Disease Subjective - Review of Systems Service Date: 08/27/18 Subjective: cc stool impaction/sbo/ing hrnia hpi- sen by dr singleton recomend hernia repait colosto,my ro sno fervr o.e vs chst clear abd soft hernia exrt pulse dx sbo/stool impaction ing hernia plan rocephin Infectious Disease Objective - Results Result Diagrams: 08/27/18 06:58 08/27/18 06:58 Recent Labs: Laboratory Last Values WBC 9.3 Th/cmm (4.8-10.8) 08/27/18 06:58 RBC 3.64 Mil/cmm (3.80-5.20) L 08/27/18 06:58 Hgb 10.9 gm/dL (12-16) L 08/27/18 06:58 Hct 32.0 % (41.0-60) L 08/27/18 06:58 MCV 87.8 fl (81-100) 08/27/18 06:58 MCH 30.0 pg (27.0-31.0) 08/27/18 06:58 MCHC Differential 34.2 pg (28.0-36.0) 08/27/18 06:58 RDW 13.2 % (11.5-20.0) 08/27/18 06:58 Plt Count 339 Th/cmm (150-400) 08/27/18 06:58 MPV 7.0 fl 08/27/18 06:58 Add Manual Diff YES 08/27/18 06:58 Neutrophils % 76.1 % (40.0-80.0) 08/26/18 06:00 Band Neutrophils % 2 % (0-10) 08/27/18 06:58 Lymphocytes % 9.6 % (20.0-50.0) L 08/26/18 06:00 Monocytes % 11.3 % (2.0-10.0) H 08/26/18 06:00 Eosinophils % 3.0 % (0.0-5.0) 08/26/18 06:00 Basophils % 0.0 % (0.0-2.0) 08/26/18 06:00 Neutrophils (Manual) 95 % (40-80) H 08/27/18 06:58 Lymphocytes 2 % (20-50) L 08/27/18 06:58 Monocytes 1 % (2-10) L 08/27/18 06:58 Platelet Estimate ADEQUATE (NORMAL) 08/27/18 06:58 PT 9.3 SECONDS (9.5-11.5) L 08/26/18 06:00 INR 0.88 (0.5-1.4) 08/26/18 06:00 PTT (Actin FS) 24.4 SECONDS (26.0-38.0) L 08/26/18 06:00 Specimen Source Arterial 08/26/18 08:40 Sample Site RB 08/26/18 08:40 pH 7.41 (7.35-7.45) 08/26/18 08:40 pCO2 44.0 mmHg (35.0-45.0) 08/26/18 08:40 pO2 100.0 mmHg (80.0-100.0) 08/26/18 08:40 HCO3 27.1 mEq/L (20.0-26.0) H 08/26/18 08:40 Base Excess 2.8 mEq/L (-3.0-3.0) 08/26/18 08:40 O2 Saturation 98.0 % (92.0-100.0) 08/26/18 08:40 Inspired O2 32 08/26/18 08:40 Critical Value PW 08/26/18 08:40 Sodium 134 mEq/L (136-145) L 08/27/18 06:58 Potassium 4.7 mEq/L (3.5-5.1) 08/27/18 06:58 Chloride 100 mEq/L (98-107) 08/27/18 06:58 Carbon Dioxide 27.0 mEq/L (21.0-31.0) 08/27/18 06:58 Anion Gap 11.7 (7.0-16.0) 08/27/18 06:58 BUN 21 mg/dL (7-25) 08/27/18 06:58 Creatinine 0.6 mg/dL (0.6-1.2) 08/27/18 06:58 Est GFR ( Amer) TNP 08/27/18 06:58 Est GFR (Non-Af Amer) TNP 08/27/18 06:58 BUN/Creatinine Ratio 35.0 08/27/18 06:58 Glucose 191 mg/dL (70-105) H 08/27/18 06:58 POC Glucose 72 MG/DL (70 - 105) 08/26/18 06:47 Calcium 9.2 mg/dL (8.6-10.3) 08/27/18 06:58 Total Bilirubin 0.2 mg/dL (0.3-1.0) L 08/27/18 06:58 AST 15 U/L (13-39) 08/27/18 06:58 ALT 7 U/L (7-52) 08/27/18 06:58 Alkaline Phosphatase 92 U/L (34-104) 08/27/18 06:58 B-Natriuretic Peptide 34.4 pg/mL (5.0-100.0) 08/26/18 06:00 Total Protein 6.5 gm/dL (6.0-8.3) 08/27/18 06:58 Albumin 3.4 gm/dL (3.7-5.3) L 08/27/18 06:58 Globulin 3.1 gm/dL 08/27/18 06:58 Albumin/Globulin Ratio 1.1 (1.0-1.8) 08/27/18 06:58 - Physical Exam Vitals and I&O: Vital Signs Temp 98.4 F 08/27/18 20:00 Pulse 96 08/27/18 23:14 Resp 18 08/27/18 23:14 BP 141/96 08/27/18 20:00 Pulse Ox 98 08/27/18 23:14 Intake & Output 08/27/18 08/27/18 08/28/18 06:59 18:59 06:59 Intake Total 1050 300 Balance 1050 300 Weight (lbs) 42.184 kg Intake: Intake, IV Amount 1050 D5-0.9%Ns 1,000 ml @ 50 1000 mls/hr IV .Q20H [facility] Rx#: [id number] cefTRIAXone 1 gm In 50 Sodium Chloride 0.9% 50 ml @ 100 mls/hr IV Q24H [facility] Rx#:[id number] Oral 300 Other: # Voids 4 # Bowel Movements 2 Stool Characteristics Soft Formed Weight Source Bedscale Active Medications: Current Medications Albuterol/Ipratropium (Duoneb Neb) 3 ml HHN Q4HRT [facility] Stop: 10/25/18 10:59 Last Admin: 08/27/18 23:14 Dose: 3 ml Artificial Tears (Artificial Tears Ophth Soln) 1 drop EACH EYE BID PRN PRN Reason: Dry Eye Stop: 10/25/18 15:59 Last Admin: 08/26/18 16:08 Dose: 1 drop Ceftriaxone Sodium 1 gm/ (Sodium Chloride) 50 mls @ 100 mls/hr IV Q24H [facility] Stop: 10/23/18 20:59 Last Admin: 08/27/18 21:34 Dose: 100 mls/hr Dextrose/Sodium Chloride (D5-0.9%Ns) 1,000 mls @ 50 mls/hr IV .Q20H [facility] Stop: 10/25/18 07:59 Last Admin: 08/27/18 05:48 Dose: 50 mls/hr Methylprednisolone Sodium Succinate (Solu-Medrol) 40 mg IVP Q6HR [facility] Stop: 10/26/18 00:00 Last Admin: 08/27/18 17:16 Dose: 40 mg Mupirocin (Bactroban Oint) 1 appl NS BID [facility] Stop: 08/30/18 17:01 Last Admin: 08/27/18 17:16 Dose: 1 appl - Procedures Procedures: Procedures Procedure Code Date EXC F/E/E/N/L [place]+MRG >4 [place] [address] 06/03/09 NEBULIZER THERAPY 93.94 10/19/04 OP RED-INT FIX RAD/ULNA 79.32 06/24/07 RADICAL EXCIS SKIN LES 86.4 06/03/09 TREAT FX RADIAL 3+ FRAG 69942 06/24/07 Nutritional Asmnt/Malnutr-PDOC - Dietary Evaluation Malnutrition Findings (Please click <Entered> for more info): Nutritional Asmnt/Malnutrition Start: 08/25/18 14: 01 Text: Status: Complete Freq: Protocol: Document 08/25/18 14:01 DONALD (Rec: 08/25/18 14:18 DONALD [email or web address]) Nutritional Asmnt/Malnutrition Patient General Information Nutritional Screening High Risk Consult Diagnosis abdominal pain, bowel obstruction Pertinent Medical Hx/Surgical Hx HTN, asthma/COPD, subarachnoid bleeding Per wound care note: hx of dementia Subjective Information Received diet consult for mass and biopsy site wound. Pt sleeping at time of visit. Pt was on full liquid diet, but spoke to REBEKAH Contreras who states pt is now NPO and has fecal impaction. Per MD notes, KUB shows severe fecal impaction and pt due for surgery tomorrow for inguinal hernias. Per EMR, pt refused regular diet meals and only willing to have full liquid diet with vanilla ensure. Current Diet Order/ Nutrition Support NPO Pertinent Medications Nacl 0.9% Pertinent Labs 08/25: Na 132, Cl 96, BUN 22, glucose 111 08/23: Na 135, Cl 99, BUN 30, glucose 97, Alb 3.6 Nutritional Hx/Data Height 1.7 m Height (Calculated Centimeters) 170.2 Current Weight (lbs) 47.627 kg Weight (Calculated Kilograms) 47.6 Weight (Calculated Grams) 33159.2 Body Mass Index (BMI) 16.4 Weight Status Underweight GI Symptoms GI Symptoms None Last BM none noted Difficult in: None Skin Integrity/Comment: skin tear/biopsy site to right forehead, skin flap to left neck, mass on left shoulder, terrie 16 Estimated Nutritional Goals BEE in Kcals: Using Current wt Calories/Kcals/Kg 30-35 Kcals Calculated 3049-6862 Protein: Using Current wt Protein g/k-1.2 Protein Calculated 48-57 g Fluid: ml 4530-9009 (1 ml/kcal) Nutritional Problem 2. Problem Problem Altered nutrition related lab values Etiology electrolyte imbalance Signs/Symptoms: Na 132, Cl 96 1. Problem Problem Inadequate oral intake Etiology possible poor appetite from fecal impaction or abdominal pain Signs/Symptoms: current NPO status, meal refusals, pt only accepting Ensure Malnutrition Related to Morbid Obesity Malnutrition related to morbid obesity No Intervention/Recommendation Comments 1. Monitor NPO status and advance diet when medically appropriate 2. MD to replace electrolytes as needed 3. Monitor wt, skin integrity, GI symptons, and nutrition related labs 4. F/U as high risk in 2-3 days, 08/27- Expected Outcomes/Goals Expected Outcomes/Goals 1. Pt to resume PO intake when medically appropriate and meet at least 75% of all meals 2. Wt stability, skin integrity to improve, GI improved, and nutrition related labs to approach normal limits Reviewed by Laine Mcarthur RD
[2018-08-28] MEDS: methylPREDNISolone SS 40 mg Vial IVP SCH ×4 (00:08→21:15)
[2018-08-28] MEDS: D5-0.9%NS 1,000 ML IV SCH ×2 (00:29→21:36)
[2018-08-28] MEDS: Albuterol/Ipratropium Neb 3 ML AERS HHN SCH ×6 (02:43→22:59)
--- NOTE | 2018-08-28 08:21 | GI Progress Note ---
Subjective - Review of Systems Subjective: Pt did not allow any enemas yesterday, denies pain Objective - Results Result Diagrams: 08/27/18 06:58 08/27/18 06:58 Recent Labs: Laboratory Last Values WBC 9.3 Th/cmm (4.8-10.8) 08/27/18 06:58 RBC 3.64 Mil/cmm (3.80-5.20) L 08/27/18 06:58 Hgb 10.9 gm/dL (12-16) L 08/27/18 06:58 Hct 32.0 % (41.0-60) L 08/27/18 06:58 MCV 87.8 fl (81-100) 08/27/18 06:58 MCH 30.0 pg (27.0-31.0) 08/27/18 06:58 MCHC Differential 34.2 pg (28.0-36.0) 08/27/18 06:58 RDW 13.2 % (11.5-20.0) 08/27/18 06:58 Plt Count 339 Th/cmm (150-400) 08/27/18 06:58 MPV 7.0 fl 08/27/18 06:58 Add Manual Diff YES 08/27/18 06:58 Neutrophils % 76.1 % (40.0-80.0) 08/26/18 06:00 Band Neutrophils % 2 % (0-10) 08/27/18 06:58 Lymphocytes % 9.6 % (20.0-50.0) L 08/26/18 06:00 Monocytes % 11.3 % (2.0-10.0) H 08/26/18 06:00 Eosinophils % 3.0 % (0.0-5.0) 08/26/18 06:00 Basophils % 0.0 % (0.0-2.0) 08/26/18 06:00 Neutrophils (Manual) 95 % (40-80) H 08/27/18 06:58 Lymphocytes 2 % (20-50) L 08/27/18 06:58 Monocytes 1 % (2-10) L 08/27/18 06:58 Platelet Estimate ADEQUATE (NORMAL) 08/27/18 06:58 PT 9.3 SECONDS (9.5-11.5) L 08/26/18 06:00 INR 0.88 (0.5-1.4) 08/26/18 06:00 PTT (Actin FS) 24.4 SECONDS (26.0-38.0) L 08/26/18 06:00 Specimen Source Arterial 08/26/18 08:40 Sample Site RB 08/26/18 08:40 pH 7.41 (7.35-7.45) 08/26/18 08:40 pCO2 44.0 mmHg (35.0-45.0) 08/26/18 08:40 pO2 100.0 mmHg (80.0-100.0) 08/26/18 08:40 HCO3 27.1 mEq/L (20.0-26.0) H 08/26/18 08:40 Base Excess 2.8 mEq/L (-3.0-3.0) 08/26/18 08:40 O2 Saturation 98.0 % (92.0-100.0) 08/26/18 08:40 Inspired O2 32 08/26/18 08:40 Critical Value PW 08/26/18 08:40 Sodium 134 mEq/L (136-145) L 08/27/18 06:58 Potassium 4.7 mEq/L (3.5-5.1) 08/27/18 06:58 Chloride 100 mEq/L (98-107) 08/27/18 06:58 Carbon Dioxide 27.0 mEq/L (21.0-31.0) 08/27/18 06:58 Anion Gap 11.7 (7.0-16.0) 08/27/18 06:58 BUN 21 mg/dL (7-25) 08/27/18 06:58 Creatinine 0.6 mg/dL (0.6-1.2) 08/27/18 06:58 Est GFR ( Amer) TNP 08/27/18 06:58 Est GFR (Non-Af Amer) TNP 08/27/18 06:58 BUN/Creatinine Ratio 35.0 08/27/18 06:58 Glucose 191 mg/dL (70-105) H 08/27/18 06:58 POC Glucose 72 MG/DL (70 - 105) 08/26/18 06:47 Calcium 9.2 mg/dL (8.6-10.3) 08/27/18 06:58 Total Bilirubin 0.2 mg/dL (0.3-1.0) L 08/27/18 06:58 AST 15 U/L (13-39) 08/27/18 06:58 ALT 7 U/L (7-52) 08/27/18 06:58 Alkaline Phosphatase 92 U/L (34-104) 08/27/18 06:58 B-Natriuretic Peptide 34.4 pg/mL (5.0-100.0) 08/26/18 06:00 Total Protein 6.5 gm/dL (6.0-8.3) 08/27/18 06:58 Albumin 3.4 gm/dL (3.7-5.3) L 08/27/18 06:58 Globulin 3.1 gm/dL 08/27/18 06:58 Albumin/Globulin Ratio 1.1 (1.0-1.8) 08/27/18 06:58 - Physical Exam Vitals and I&O: Vital Signs Temp 98.0 F 08/28/18 08:00 Pulse 92 08/28/18 08:00 Resp 19 08/28/18 08:00 BP 108/57 08/28/18 08:00 Pulse Ox 97 08/28/18 08:00 Intake & Output 08/27/18 08/28/18 08/28/18 18:59 06:59 18:59 Intake Total 300 984.167 Balance 300 984.167 Weight (lbs) 42.184 kg Intake: Intake, IV Amount 984.167 D5-0.9%Ns 1,000 ml @ 50 934.167 mls/hr IV .Q20H [facility] Rx#: [id number] cefTRIAXone 1 gm In 50 Sodium Chloride 0.9% 50 ml @ 100 mls/hr IV Q24H [facility] Rx#:[id number] Oral 300 Other: # Voids 4 # Bowel Movements 2 Stool Characteristics Soft Formed Weight Source Bedscale Active Medications: Current Medications Albuterol/Ipratropium (Duoneb Neb) 3 ml HHN Q4HRT [facility] Stop: 10/25/18 10:59 Last Admin: 08/28/18 06:47 Dose: 3 ml Artificial Tears (Artificial Tears Ophth Soln) 1 drop EACH EYE BID PRN PRN Reason: Dry Eye Stop: 10/25/18 15:59 Last Admin: 11/21/18 16:08 Dose: 1 drop Ceftriaxone Sodium 1 gm/ (Sodium Chloride) 50 mls @ 100 mls/hr IV Q24H [facility] Stop: 10/23/18 20:59 Last Infusion: 08/28/18 04:33 Dose: Infused Dextrose/Sodium Chloride (D5-0.9%Ns) 1,000 mls @ 50 mls/hr IV .Q20H [facility] Stop: 10/25/18 07:59 Last Admin: 08/28/18 00:29 Dose: 50 mls/hr Methylprednisolone Sodium Succinate (Solu-Medrol) 40 mg IVP Q6HR [facility] Stop: 10/26/18 00:00 Last Admin: 08/28/18 06:39 Dose: 40 mg Mupirocin (Bactroban Oint) 1 appl NS BID [facility] Stop: 08/30/18 17:01 Last Admin: 08/27/18 17:16 Dose: 1 appl General: Alert HEENT: Atraumatic Neck: Supple Cardiovascular: Regular rate Abdomen: Bowel sounds, Soft, no Tender, no Hepatomegaly, no Distended, no Rebound, no Mass Psych/Mental Status: no Mental status NL - Procedures Procedures: Procedures Procedure Code Date EXC F/E/E/N/L MAL+MRG >4 [place] 77031 06/03/09 NEBULIZER THERAPY 93.94 10/19/04 OP RED-INT FIX RAD/ULNA 79.32 06/24/07 RADICAL EXCIS SKIN LES 86.4 06/03/09 TREAT FX RADIAL 3+ FRAG [id number] 06/24/07 Assessment/Plan - Assessment Assessment: # Large inguinal hernia with possible bowel strangulation # Fecal impaction # Shortness of breath # Abd pain Pt with chronic fecal impaction and large hernia along the right side containing multiple bowel loops. The large hernia is likely causing bowel dysmotility and contributing to ongoing impaction and constipation. I agree that a diverting colostomy is in this patient's best interest to ensure that she avoids further impaction events. The hernia can also be repaired at that time as per Dr Jermaine Root is on hold as of 08/27 given respiratory issues. Thus, will try and alleviate the impaction a bit with enemas Plan: - agree with diverting colostomy placement and strangulated hernia repair as per Dr Dean - try tap water enemas 500cc, q 12 until she can have definitive treatment with surgery - clears is ok - no role for endoscopy here - supportive measures
--- NOTE | 2018-08-28 08:38 | Internal Medicine Prog Note ---
Internal Medicine Subjective - Subjective Patient seen and examined:: chart reviewed Patient is:: asleep, denies any new complaints, other (denies pain ) Per staff patient has:: tolerating meds Internal Medicine Objective - Results Result Diagrams: 08/27/18 06:58 08/27/18 06:58 Recent Labs: Laboratory Last Values WBC 9.3 Th/cmm (4.8-10.8) 08/27/18 06:58 RBC 3.64 Mil/cmm (3.80-5.20) L 08/27/18 06:58 Hgb 10.9 gm/dL (12-16) L 08/27/18 06:58 Hct 32.0 % (41.0-60) L 08/27/18 06:58 MCV 87.8 fl (81-100) 08/27/18 06:58 MCH 30.0 pg (27.0-31.0) 08/27/18 06:58 MCHC Differential 34.2 pg (28.0-36.0) 08/27/18 06:58 RDW 13.2 % (11.5-20.0) 08/27/18 06:58 Plt Count 339 Th/cmm (150-400) 08/27/18 06:58 MPV 7.0 fl 08/27/18 06:58 Add Manual Diff YES 08/27/18 06:58 Neutrophils % 76.1 % (40.0-80.0) 08/26/18 06:00 Band Neutrophils % 2 % (0-10) 08/27/18 06:58 Lymphocytes % 9.6 % (20.0-50.0) L 08/26/18 06:00 Monocytes % 11.3 % (2.0-10.0) H 08/26/18 06:00 Eosinophils % 3.0 % (0.0-5.0) 08/26/18 06:00 Basophils % 0.0 % (0.0-2.0) 08/26/18 06:00 Neutrophils (Manual) 95 % (40-80) H 08/27/18 06:58 Lymphocytes 2 % (20-50) L 08/27/18 06:58 Monocytes 1 % (2-10) L 08/27/18 06:58 Platelet Estimate ADEQUATE (NORMAL) 08/27/18 06:58 PT 9.3 SECONDS (9.5-11.5) L 08/26/18 06:00 INR 0.88 (0.5-1.4) 08/26/18 06:00 PTT (Actin FS) 24.4 SECONDS (26.0-38.0) L 08/26/18 06:00 Specimen Source Arterial 08/26/18 08:40 Sample Site RB 08/26/18 08:40 pH 7.41 (7.35-7.45) 08/26/18 08:40 pCO2 44.0 mmHg (35.0-45.0) 08/26/18 08:40 pO2 100.0 mmHg (80.0-100.0) 08/26/18 08:40 HCO3 27.1 mEq/L (20.0-26.0) H 08/26/18 08:40 Base Excess 2.8 mEq/L (-3.0-3.0) 08/26/18 08:40 O2 Saturation 98.0 % (92.0-100.0) 08/26/18 08:40 Inspired O2 32 08/26/18 08:40 Critical Value PW 08/26/18 08:40 Sodium 134 mEq/L (136-145) L 08/27/18 06:58 Potassium 4.7 mEq/L (3.5-5.1) 08/27/18 06:58 Chloride 100 mEq/L (98-107) 08/27/18 06:58 Carbon Dioxide 27.0 mEq/L (21.0-31.0) 08/27/18 06:58 Anion Gap 11.7 (7.0-16.0) 08/27/18 06:58 BUN 21 mg/dL (7-25) 08/27/18 06:58 Creatinine 0.6 mg/dL (0.6-1.2) 08/27/18 06:58 Est GFR ( Amer) TNP 08/27/18 06:58 Est GFR (Non-Af Amer) TNP 08/27/18 06:58 BUN/Creatinine Ratio 35.0 08/27/18 06:58 Glucose 191 mg/dL (70-105) H 08/27/18 06:58 POC Glucose 72 MG/DL (70 - 105) 08/26/18 06:47 Calcium 9.2 mg/dL (8.6-10.3) 08/27/18 06:58 Total Bilirubin 0.2 mg/dL (0.3-1.0) L 08/27/18 06:58 AST 15 U/L (13-39) 08/27/18 06:58 ALT 7 U/L (7-52) 08/27/18 06:58 Alkaline Phosphatase 92 U/L (34-104) 08/27/18 06:58 B-Natriuretic Peptide 34.4 pg/mL (5.0-100.0) 08/26/18 06:00 Total Protein 6.5 gm/dL (6.0-8.3) 08/27/18 06:58 Albumin 3.4 gm/dL (3.7-5.3) L 08/27/18 06:58 Globulin 3.1 gm/dL 08/27/18 06:58 Albumin/Globulin Ratio 1.1 (1.0-1.8) 08/27/18 06:58 - Physical Exam Vitals and I&O: Vital Signs Temp 98.0 F 08/28/18 08:00 Pulse 92 08/28/18 08:00 Resp 19 08/28/18 08:00 BP 108/57 08/28/18 08:00 Pulse Ox 97 08/28/18 08:00 Intake & Output 08/27/18 08/28/18 08/28/18 18:59 06:59 18:59 Intake Total 300 984.167 Balance 300 984.167 Weight (lbs) 42.184 kg Intake: Intake, IV Amount 984.167 D5-0.9%Ns 1,000 ml @ 50 934.167 mls/hr IV .Q20H [facility] Rx#: [id number] cefTRIAXone 1 gm In 50 Sodium Chloride 0.9% 50 ml @ 100 mls/hr IV Q24H [facility] Rx#:[id number] Oral 300 Other: # Voids 4 # Bowel Movements 2 Stool Characteristics Soft Formed Weight Source Bedscale Active Medications: Current Medications Albuterol/Ipratropium (Duoneb Neb) 3 ml HHN Q4HRT [facility] Stop: 10/25/18 10:59 Last Admin: 08/28/18 06:47 Dose: 3 ml Artificial Tears (Artificial Tears Ophth Soln) 1 drop EACH EYE BID PRN PRN Reason: Dry Eye Stop: 10/25/18 15:59 Last Admin: 08/26/18 16:08 Dose: 1 drop Ceftriaxone Sodium 1 gm/ (Sodium Chloride) 50 mls @ 100 mls/hr IV Q24H [facility] Stop: 10/23/18 20:59 Last Infusion: 08/28/18 04:33 Dose: Infused Dextrose/Sodium Chloride (D5-0.9%Ns) 1,000 mls @ 50 mls/hr IV .Q20H [facility] Stop: 10/25/18 07:59 Last Admin: 08/28/18 00:29 Dose: 50 mls/hr Methylprednisolone Sodium Succinate (Solu-Medrol) 40 mg IVP Q6HR [facility] Stop: 10/26/18 00:00 Last Admin: 08/28/18 06:39 Dose: 40 mg Mupirocin (Bactroban Oint) 1 appl NS BID [facility] Stop: 08/30/18 17:01 Last Admin: 08/27/18 17:16 Dose: 1 appl General: weak HEENT: NC/AT, PERRLA Neck: Supple Cardiovascular: RRR Abdomen: soft, non-tender Extremities: excoriation Neurological: muscle weakness - Procedures Procedures: Procedures Procedure Code Date EXC F/E/E/N/L MAL+MRG >4 [place] [address] 06/03/09 NEBULIZER THERAPY 93.94 10/19/04 OP RED-INT FIX RAD/ULNA 79.32 06/24/07 RADICAL EXCIS SKIN LES 86.4 06/03/09 TREAT FX RADIAL 3+ FRAG 59027 06/24/07 Internal Medicine Assmt/Plan - Assessment Assessment: abd pain r/o obstruction htn dementia - Plan Plan: as per surgeon /gi pain mgmt cpm Nutritional Asmnt/Malnutr-PDOC - Dietary Evaluation Malnutrition Findings (Please click <Entered> for more info): Nutritional Asmnt/Malnutrition Start: 08/25/18 14: 01 Text: Status: Complete Freq: Protocol: Document 08/25/18 14:01 DONALD (Rec: 08/25/18 14:18 DONALD [email or web address]) Nutritional Asmnt/Malnutrition Patient General Information Nutritional Screening High Risk Consult Diagnosis abdominal pain, bowel obstruction Pertinent Medical Hx/Surgical Hx HTN, asthma/COPD, subarachnoid bleeding Per wound care note: hx of dementia Subjective Information Received diet consult for mass and biopsy site wound. Pt sleeping at time of visit. Pt was on full liquid diet, but spoke to REBEKAH Contreras who states pt is now NPO and has fecal impaction. Per MD notes, KUB shows severe fecal impaction and pt due for surgery tomorrow for inguinal hernias. Per EMR, pt refused regular diet meals and only willing to have full liquid diet with vanilla ensure. Current Diet Order/ Nutrition Support NPO Pertinent Medications Nacl 0.9% Pertinent Labs 08/25: Na 132, Cl 96, BUN 22, glucose 111 08/23: Na 135, Cl 99, BUN 30, glucose 97, Alb 3.6 Nutritional Hx/Data Height 1.7 m Height (Calculated Centimeters) 170.2 Current Weight (lbs) 47.627 kg Weight (Calculated Kilograms) 47.6 Weight (Calculated Grams) 77429.2 Body Mass Index (BMI) 16.4 Weight Status Underweight GI Symptoms GI Symptoms None Last BM none noted Difficult in: None Skin Integrity/Comment: skin tear/biopsy site to right forehead, skin flap to left neck, mass on left shoulder, terrie 16 Estimated Nutritional Goals BEE in Kcals: Using Current wt Calories/Kcals/Kg 30-35 Kcals Calculated 3425-8814 Protein: Using Current wt Protein g/k-1.2 Protein Calculated 48-57 g Fluid: ml 6485-8054 (1 ml/kcal) Nutritional Problem 2. Problem Problem Altered nutrition related lab values Etiology electrolyte imbalance Signs/Symptoms: Na 132, Cl 96 1. Problem Problem Inadequate oral intake Etiology possible poor appetite from fecal impaction or abdominal pain Signs/Symptoms: current NPO status, meal refusals, pt only accepting Ensure Malnutrition Related to Morbid Obesity Malnutrition related to morbid obesity No Intervention/Recommendation Comments 1. Monitor NPO status and advance diet when medically appropriate 2. MD to replace electrolytes as needed 3. Monitor wt, skin integrity, GI symptons, and nutrition related labs 4. F/U as high risk in 2-3 days, 08/27- Expected Outcomes/Goals Expected Outcomes/Goals 1. Pt to resume PO intake when medically appropriate and meet at least 75% of all meals 2. Wt stability, skin integrity to improve, GI improved, and nutrition related labs to approach normal limits Reviewed by Laine Mcarthur RD
--- NOTE | 2018-08-28 08:42 | Diagnostic Imaging Report ---
Exam: Portable summation the abdomen. HISTORY: Fecal impaction Prior exam: 08/25/2018 Findings: Portable examination of the abdomen 0810 hours reviewed, the study demonstrates fecal impaction in the rectum. Bony structures unremarkable for degenerative changes. No abnormal masses or calcifications noted. IMPRESSION: fecal impaction.
--- NOTE | 2018-08-28 16:40 | Infectious Disease Prog Note ---
Infectious Disease Subjective - Review of Systems Service Date: 08/28/18 Subjective: cc stool impaction/sbo/ing hrnia hpi- sen by dr singleton recomend hernia repait colosto, enema tried d/w staff wbc better ro sno fervr o.e vs chst clear abd soft hernia exrt pulse dx sbo/stool impaction ing hernia plan rocephin Infectious Disease Objective - Results Result Diagrams: 08/27/18 06:58 08/27/18 06:58 Recent Labs: Laboratory Last Values WBC 9.3 Th/cmm (4.8-10.8) 08/27/18 06:58 RBC 3.64 Mil/cmm (3.80-5.20) L 08/27/18 06:58 Hgb 10.9 gm/dL (12-16) L 08/27/18 06:58 Hct 32.0 % (41.0-60) L 08/27/18 06:58 MCV 87.8 fl (81-100) 08/27/18 06:58 MCH 30.0 pg (27.0-31.0) 08/27/18 06:58 MCHC Differential 34.2 pg (28.0-36.0) 08/27/18 06:58 RDW 13.2 % (11.5-20.0) 08/27/18 06:58 Plt Count 339 Th/cmm (150-400) 08/27/18 06:58 MPV 7.0 fl 08/27/18 06:58 Add Manual Diff YES 08/27/18 06:58 Neutrophils % 76.1 % (40.0-80.0) 08/26/18 06:00 Band Neutrophils % 2 % (0-10) 08/27/18 06:58 Lymphocytes % 9.6 % (20.0-50.0) L 08/26/18 06:00 Monocytes % 11.3 % (2.0-10.0) H 08/26/18 06:00 Eosinophils % 3.0 % (0.0-5.0) 08/26/18 06:00 Basophils % 0.0 % (0.0-2.0) 08/26/18 06:00 Neutrophils (Manual) 95 % (40-80) H 08/27/18 06:58 Lymphocytes 2 % (20-50) L 08/27/18 06:58 Monocytes 1 % (2-10) L 08/27/18 06:58 Platelet Estimate ADEQUATE (NORMAL) 08/27/18 06:58 PT 9.3 SECONDS (9.5-11.5) L 08/26/18 06:00 INR 0.88 (0.5-1.4) 08/26/18 06:00 PTT (Actin FS) 24.4 SECONDS (26.0-38.0) L 08/26/18 06:00 Specimen Source Arterial 08/26/18 08:40 Sample Site RB 08/26/18 08:40 pH 7.41 (7.35-7.45) 08/26/18 08:40 pCO2 44.0 mmHg (35.0-45.0) 08/26/18 08:40 pO2 100.0 mmHg (80.0-100.0) 08/26/18 08:40 HCO3 27.1 mEq/L (20.0-26.0) H 08/26/18 08:40 Base Excess 2.8 mEq/L (-3.0-3.0) 08/26/18 08:40 O2 Saturation 98.0 % (92.0-100.0) 08/26/18 08:40 Inspired O2 32 08/26/18 08:40 Critical Value PW 08/26/18 08:40 Sodium 134 mEq/L (136-145) L 08/27/18 06:58 Potassium 4.7 mEq/L (3.5-5.1) 08/27/18 06:58 Chloride 100 mEq/L (98-107) 08/27/18 06:58 Carbon Dioxide 27.0 mEq/L (21.0-31.0) 08/27/18 06:58 Anion Gap 11.7 (7.0-16.0) 08/27/18 06:58 BUN 21 mg/dL (7-25) 08/27/18 06:58 Creatinine 0.6 mg/dL (0.6-1.2) 08/27/18 06:58 Est GFR ( Amer) TNP 08/27/18 06:58 Est GFR (Non-Af Amer) TNP 08/27/18 06:58 BUN/Creatinine Ratio 35.0 08/27/18 06:58 Glucose 191 mg/dL (70-105) H 08/27/18 06:58 POC Glucose 72 MG/DL (70 - 105) 08/26/18 06:47 Calcium 9.2 mg/dL (8.6-10.3) 08/27/18 06:58 Total Bilirubin 0.2 mg/dL (0.3-1.0) L 08/27/18 06:58 AST 15 U/L (13-39) 08/27/18 06:58 ALT 7 U/L (7-52) 08/27/18 06:58 Alkaline Phosphatase 92 U/L (34-104) 08/27/18 06:58 B-Natriuretic Peptide 34.4 pg/mL (5.0-100.0) 08/26/18 06:00 Total Protein 6.5 gm/dL (6.0-8.3) 08/27/18 06:58 Albumin 3.4 gm/dL (3.7-5.3) L 08/27/18 06:58 Globulin 3.1 gm/dL 08/27/18 06:58 Albumin/Globulin Ratio 1.1 (1.0-1.8) 08/27/18 06:58 - Physical Exam Vitals and I&O: Vital Signs Temp 98.0 F 08/28/18 11:17 Pulse 98 08/28/18 15:19 Resp 18 08/28/18 15:19 BP 112/60 08/28/18 11:17 Pulse Ox 96 08/28/18 15:19 Intake & Output 08/27/18 08/28/18 08/28/18 18:59 06:59 18:59 Intake Total 300 984.167 Balance 300 984.167 Weight (lbs) 42.184 kg 42.184 kg Intake: Intake, IV Amount 984.167 D5-0.9%Ns 1,000 ml @ 50 934.167 mls/hr IV .Q20H [facility] Rx#: [id number] cefTRIAXone 1 gm In 50 Sodium Chloride 0.9% 50 ml @ 100 mls/hr IV Q24H [facility] Rx#:[id number] Oral 300 Other: # Voids 4 # Bowel Movements 2 Stool Characteristics Soft Soft Formed Formed Weight Source Bedscale Bedscale Active Medications: Current Medications Albuterol/Ipratropium (Duoneb Neb) 3 ml HHN Q4HRT [facility] Stop: 10/25/18 10:59 Last Admin: 08/28/18 15:18 Dose: 3 ml Artificial Tears (Artificial Tears Ophth Soln) 1 drop EACH EYE BID PRN PRN Reason: Dry Eye Stop: 10/25/18 15:59 Last Admin: 08/26/18 16:08 Dose: 1 drop Ceftriaxone Sodium 1 gm/ (Sodium Chloride) 50 mls @ 100 mls/hr IV Q24H [facility] Stop: 10/23/18 20:59 Last Infusion: 08/28/18 04:33 Dose: Infused Dextrose/Sodium Chloride (D5-0.9%Ns) 1,000 mls @ 50 mls/hr IV .Q20H [facility] Stop: 10/25/18 07:59 Last Admin: 08/28/18 00:29 Dose: 50 mls/hr Methylprednisolone Sodium Succinate (Solu-Medrol) 40 mg IVP Q8HR [facility] Stop: 10/27/18 12:59 Mupirocin (Bactroban Oint) 1 appl NS BID [facility] Stop: 08/30/18 17:01 Last Admin: 08/28/18 09:55 Dose: Not Given - Procedures Procedures: Procedures Procedure Code Date EXC F/E/E/N/L MAL+MRG >4 [place] [address] 06/03/09 NEBULIZER THERAPY 93.94 10/19/04 OP RED-INT FIX RAD/ULNA 79.32 06/24/07 RADICAL EXCIS SKIN LES 86.4 06/03/09 TREAT FX RADIAL 3+ FRAG 01401 06/24/07 Nutritional Asmnt/Malnutr-PDOC - Dietary Evaluation Malnutrition Findings (Please click <Entered> for more info): Nutritional Asmnt/Malnutrition Start: 08/25/18 14: 01 Text: Status: Complete Freq: Protocol: Document 08/25/18 14:01 DONALD (Rec: 08/25/18 14:18 DONALD [email or web address]) Nutritional Asmnt/Malnutrition Patient General Information Nutritional Screening High Risk Consult Diagnosis abdominal pain, bowel obstruction Pertinent Medical Hx/Surgical Hx HTN, asthma/COPD, subarachnoid bleeding Per wound care note: hx of dementia Subjective Information Received diet consult for mass and biopsy site wound. Pt sleeping at time of visit. Pt was on full liquid diet, but spoke to REBEKAH Contreras who states pt is now NPO and has fecal impaction. Per MD notes, KUB shows severe fecal impaction and pt due for surgery tomorrow for inguinal hernias. Per EMR, pt refused regular diet meals and only willing to have full liquid diet with vanilla ensure. Current Diet Order/ Nutrition Support NPO Pertinent Medications Nacl 0.9% Pertinent Labs 08/25: Na 132, Cl 96, BUN 22, glucose 111 08/23: Na 135, Cl 99, BUN 30, glucose 97, Alb 3.6 Nutritional Hx/Data Height 1.7 m Height (Calculated Centimeters) 170.2 Current Weight (lbs) 47.627 kg Weight (Calculated Kilograms) 47.6 Weight (Calculated Grams) 73863.2 Body Mass Index (BMI) 16.4 Weight Status Underweight GI Symptoms GI Symptoms None Last BM none noted Difficult in: None Skin Integrity/Comment: skin tear/biopsy site to right forehead, skin flap to left neck, mass on left shoulder, terrie 16 Estimated Nutritional Goals BEE in Kcals: Using Current wt Calories/Kcals/Kg 30-35 Kcals Calculated 0494-4364 Protein: Using Current wt Protein g/k-1.2 Protein Calculated 48-57 g Fluid: ml 7765-9592 (1 ml/kcal) Nutritional Problem 2. Problem Problem Altered nutrition related lab values Etiology electrolyte imbalance Signs/Symptoms: Na 132, Cl 96 1. Problem Problem Inadequate oral intake Etiology possible poor appetite from fecal impaction or abdominal pain Signs/Symptoms: current NPO status, meal refusals, pt only accepting Ensure Malnutrition Related to Morbid Obesity Malnutrition related to morbid obesity No Intervention/Recommendation Comments 1. Monitor NPO status and advance diet when medically appropriate 2. MD to replace electrolytes as needed 3. Monitor wt, skin integrity, GI symptons, and nutrition related labs 4. F/U as high risk in 2-3 days, 08/27- Expected Outcomes/Goals Expected Outcomes/Goals 1. Pt to resume PO intake when medically appropriate and meet at least 75% of all meals 2. Wt stability, skin integrity to improve, GI improved, and nutrition related labs to approach normal limits Reviewed by Laine Mcarthur RD
[2018-08-28] MEDS: cefTRIAXone 1 GM in Sodium Chloride 0.9% 50 ML IV SCH (21:15)
[2018-08-29] MEDS: Albuterol/Ipratropium Neb 3 ML AERS HHN SCH ×6 (02:12→23:45)
[2018-08-29] MEDS: methylPREDNISolone SS 40 mg Vial IVP SCH ×3 (04:30→20:14)
--- NOTE | 2018-08-29 07:56 | GI Progress Note ---
Subjective - Review of Systems Service Date: 08/29/18 Subjective: Pr refusing enema this morning. She is NOT able to tell me what may happen to her if her fecal impaction is untreated. Objective - Results Result Diagrams: 08/27/18 06:58 08/27/18 06:58 Recent Labs: Laboratory Last Values WBC 9.3 Th/cmm (4.8-10.8) 08/27/18 06:58 RBC 3.64 Mil/cmm (3.80-5.20) L 08/27/18 06:58 Hgb 10.9 gm/dL (12-16) L 08/27/18 06:58 Hct 32.0 % (41.0-60) L 08/27/18 06:58 MCV 87.8 fl (81-100) 08/27/18 06:58 MCH 30.0 pg (27.0-31.0) 08/27/18 06:58 MCHC Differential 34.2 pg (28.0-36.0) 08/27/18 06:58 RDW 13.2 % (11.5-20.0) 08/27/18 06:58 Plt Count 339 Th/cmm (150-400) 08/27/18 06:58 MPV 7.0 fl 08/27/18 06:58 Add Manual Diff YES 08/27/18 06:58 Neutrophils % 76.1 % (40.0-80.0) 08/26/18 06:00 Band Neutrophils % 2 % (0-10) 08/27/18 06:58 Lymphocytes % 9.6 % (20.0-50.0) L 08/26/18 06:00 Monocytes % 11.3 % (2.0-10.0) H 08/26/18 06:00 Eosinophils % 3.0 % (0.0-5.0) 08/26/18 06:00 Basophils % 0.0 % (0.0-2.0) 08/26/18 06:00 Neutrophils (Manual) 95 % (40-80) H 08/27/18 06:58 Lymphocytes 2 % (20-50) L 08/27/18 06:58 Monocytes 1 % (2-10) L 08/27/18 06:58 Platelet Estimate ADEQUATE (NORMAL) 08/27/18 06:58 PT 9.3 SECONDS (9.5-11.5) L 08/26/18 06:00 INR 0.88 (0.5-1.4) 08/26/18 06:00 PTT (Actin FS) 24.4 SECONDS (26.0-38.0) L 08/26/18 06:00 Specimen Source Arterial 08/26/18 08:40 Sample Site RB 08/26/18 08:40 pH 7.41 (7.35-7.45) 08/26/18 08:40 pCO2 44.0 mmHg (35.0-45.0) 08/26/18 08:40 pO2 100.0 mmHg (80.0-100.0) 08/26/18 08:40 HCO3 27.1 mEq/L (20.0-26.0) H 08/26/18 08:40 Base Excess 2.8 mEq/L (-3.0-3.0) 08/26/18 08:40 O2 Saturation 98.0 % (92.0-100.0) 08/26/18 08:40 Inspired O2 32 08/26/18 08:40 Critical Value PW 08/26/18 08:40 Sodium 134 mEq/L (136-145) L 08/27/18 06:58 Potassium 4.7 mEq/L (3.5-5.1) 08/27/18 06:58 Chloride 100 mEq/L (98-107) 08/27/18 06:58 Carbon Dioxide 27.0 mEq/L (21.0-31.0) 08/27/18 06:58 Anion Gap 11.7 (7.0-16.0) 08/27/18 06:58 BUN 21 mg/dL (7-25) 08/27/18 06:58 Creatinine 0.6 mg/dL (0.6-1.2) 08/27/18 06:58 Est GFR ( Amer) TNP 08/27/18 06:58 Est GFR (Non-Af Amer) TNP 08/27/18 06:58 BUN/Creatinine Ratio 35.0 08/27/18 06:58 Glucose 191 mg/dL (70-105) H 08/27/18 06:58 POC Glucose 72 MG/DL (70 - 105) 08/26/18 06:47 Calcium 9.2 mg/dL (8.6-10.3) 08/27/18 06:58 Total Bilirubin 0.2 mg/dL (0.3-1.0) L 08/27/18 06:58 AST 15 U/L (13-39) 08/27/18 06:58 ALT 7 U/L (7-52) 08/27/18 06:58 Alkaline Phosphatase 92 U/L (34-104) 08/27/18 06:58 B-Natriuretic Peptide 34.4 pg/mL (5.0-100.0) 08/26/18 06:00 Total Protein 6.5 gm/dL (6.0-8.3) 08/27/18 06:58 Albumin 3.4 gm/dL (3.7-5.3) L 08/27/18 06:58 Globulin 3.1 gm/dL 08/27/18 06:58 Albumin/Globulin Ratio 1.1 (1.0-1.8) 08/27/18 06:58 - Physical Exam Vitals and I&O: Vital Signs Temp 98.4 F 08/29/18 04:00 Pulse 86 08/29/18 07:29 Resp 18 08/29/18 07:29 BP 110/49 08/29/18 04:00 Pulse Ox 96 08/29/18 07:29 Intake & Output 08/28/18 08/29/18 08/29/18 18:59 06:59 18:59 Intake Total 300 1579.167 Balance 300 1579.167 Weight (lbs) 42.184 kg 42.638 kg Intake: Intake, IV Amount 1459.167 D5-0.9%Ns 1,000 ml @ 50 1409.167 mls/hr IV .Q20H [facility] Rx#: [id number] cefTRIAXone 1 gm In 50 Sodium Chloride 0.9% 50 ml @ 100 mls/hr IV Q24H [facility] Rx#:[id number] Oral 300 120 Other: # Voids 3 3 # Bowel Movements 3 2 Stool Characteristics Soft Soft Formed Formed Weight Source Bedscale Bedscale Active Medications: Current Medications Albuterol/Ipratropium (Duoneb Neb) 3 ml HHN Q4HRT [facility] Stop: 10/25/18 10:59 Last Admin: 08/29/18 07:29 Dose: 3 ml Artificial Tears (Artificial Tears Ophth Soln) 1 drop EACH EYE BID PRN PRN Reason: Dry Eye Stop: 10/25/18 15:59 Last Admin: 08/26/18 16:08 Dose: 1 drop Ceftriaxone Sodium 1 gm/ (Sodium Chloride) 50 mls @ 100 mls/hr IV Q24H [facility] Stop: 10/23/18 20:59 Last Infusion: 08/29/18 01:04 Dose: Infused Dextrose/Sodium Chloride (D5-0.9%Ns) 1,000 mls @ 50 mls/hr IV .Q20H [facility] Stop: 10/25/18 07:59 Last Infusion: 08/29/18 05:47 Dose: 50 mls/hr Methylprednisolone Sodium Succinate (Solu-Medrol) 40 mg IVP Q8HR [facility] Stop: 10/27/18 12:59 Last Admin: 08/29/18 04:30 Dose: 40 mg Mupirocin (Bactroban Oint) 1 appl NS BID [facility] Stop: 08/30/18 17:01 Last Admin: 08/28/18 17:40 Dose: 1 appl Polyethylene Glycol (Miralax) 17 gm PO BID [facility] Stop: 10/28/18 08:59 General: Alert HEENT: Atraumatic Neck: Supple Cardiovascular: Regular rate Abdomen: Bowel sounds, Soft, no Tender, no Hepatomegaly, no Distended, no Rebound, no Mass Psych/Mental Status: no Mental status NL - Procedures Procedures: Procedures Procedure Code Date EXC F/E/E/N/L MAL+MRG >4 [place] 13278 06/03/09 NEBULIZER THERAPY 93.94 10/19/04 OP RED-INT FIX RAD/ULNA 79.32 06/24/07 RADICAL EXCIS SKIN LES 86.4 06/03/09 TREAT FX RADIAL 3+ FRAG [id number] 06/24/07 Assessment/Plan - Assessment Assessment: # Large inguinal hernia with possible bowel strangulation # Fecal impaction # Shortness of breath # Abd pain Pt with chronic fecal impaction and large hernia along the right side containing multiple bowel loops. The large hernia is likely causing bowel dysmotility and contributing to ongoing impaction and constipation. I agree that a diverting colostomy is in this patient's best interest to ensure that she avoids further impaction events. The hernia can also be repaired at that time as per Dr Jermaine Root is on hold as of 08/27 given respiratory issues. Thus, will try and alleviate the impaction a bit with enemas It is my opinion that this patient DOES NOT have capacity to make medical decisions. She is not able to verbalize understanding of the consequences of not treating her impaction (which includes bowel perforation, peritonitis, and ). Plan: - agree with diverting colostomy placement and strangulated hernia repair as per Dr Dean - she reports she MAY allow an enema today in 2 hrs. I do not think she has capacity to refuse - clears are ok - no role for endoscopy here - supportive measures
[2018-08-29] MEDS: POLYETHYLENE GLYCOL 3350 17 GM PACK PO SCH ×2 (09:05→16:54)
--- NOTE | 2018-08-29 10:32 | General Progress Note ---
Subjective - Review of Systems Events since last encounter: 08/29/18 will schedule for surgery on Friday if cleared. has incarcerated right inguinal hernia with fecal impaction Objective - Results Result Diagrams: 08/27/18 06:58 08/27/18 06:58 Recent Labs: Laboratory Last Values WBC 9.3 Th/cmm (4.8-10.8) 08/27/18 06:58 RBC 3.64 Mil/cmm (3.80-5.20) L 08/27/18 06:58 Hgb 10.9 gm/dL (12-16) L 08/27/18 06:58 Hct 32.0 % (41.0-60) L 08/27/18 06:58 MCV 87.8 fl (81-100) 08/27/18 06:58 MCH 30.0 pg (27.0-31.0) 08/27/18 06:58 MCHC Differential 34.2 pg (28.0-36.0) 08/27/18 06:58 RDW 13.2 % (11.5-20.0) 08/27/18 06:58 Plt Count 339 Th/cmm (150-400) 08/27/18 06:58 MPV 7.0 fl 08/27/18 06:58 Add Manual Diff YES 08/27/18 06:58 Neutrophils % 76.1 % (40.0-80.0) 08/26/18 06:00 Band Neutrophils % 2 % (0-10) 08/27/18 06:58 Lymphocytes % 9.6 % (20.0-50.0) L 08/26/18 06:00 Monocytes % 11.3 % (2.0-10.0) H 08/26/18 06:00 Eosinophils % 3.0 % (0.0-5.0) 08/26/18 06:00 Basophils % 0.0 % (0.0-2.0) 08/26/18 06:00 Neutrophils (Manual) 95 % (40-80) H 08/27/18 06:58 Lymphocytes 2 % (20-50) L 08/27/18 06:58 Monocytes 1 % (2-10) L 08/27/18 06:58 Platelet Estimate ADEQUATE (NORMAL) 08/27/18 06:58 PT 9.3 SECONDS (9.5-11.5) L 08/26/18 06:00 INR 0.88 (0.5-1.4) 08/26/18 06:00 PTT (Actin FS) 24.4 SECONDS (26.0-38.0) L 08/26/18 06:00 Specimen Source Arterial 08/26/18 08:40 Sample Site RB 08/26/18 08:40 pH 7.41 (7.35-7.45) 08/26/18 08:40 pCO2 44.0 mmHg (35.0-45.0) 08/26/18 08:40 pO2 100.0 mmHg (80.0-100.0) 08/26/18 08:40 HCO3 27.1 mEq/L (20.0-26.0) H 08/26/18 08:40 Base Excess 2.8 mEq/L (-3.0-3.0) 08/26/18 08:40 O2 Saturation 98.0 % (92.0-100.0) 08/26/18 08:40 Inspired O2 32 08/26/18 08:40 Critical Value PW 08/26/18 08:40 Sodium 134 mEq/L (136-145) L 08/27/18 06:58 Potassium 4.7 mEq/L (3.5-5.1) 08/27/18 06:58 Chloride 100 mEq/L (98-107) 08/27/18 06:58 Carbon Dioxide 27.0 mEq/L (21.0-31.0) 08/27/18 06:58 Anion Gap 11.7 (7.0-16.0) 08/27/18 06:58 BUN 21 mg/dL (7-25) 08/27/18 06:58 Creatinine 0.6 mg/dL (0.6-1.2) 08/27/18 06:58 Est GFR ( Amer) TNP 08/27/18 06:58 Est GFR (Non-Af Amer) TNP 08/27/18 06:58 BUN/Creatinine Ratio 35.0 08/27/18 06:58 Glucose 191 mg/dL (70-105) H 08/27/18 06:58 POC Glucose 72 MG/DL (70 - 105) 08/26/18 06:47 Calcium 9.2 mg/dL (8.6-10.3) 08/27/18 06:58 Total Bilirubin 0.2 mg/dL (0.3-1.0) L 08/27/18 06:58 AST 15 U/L (13-39) 08/27/18 06:58 ALT 7 U/L (7-52) 08/27/18 06:58 Alkaline Phosphatase 92 U/L (34-104) 08/27/18 06:58 B-Natriuretic Peptide 34.4 pg/mL (5.0-100.0) 08/26/18 06:00 Total Protein 6.5 gm/dL (6.0-8.3) 08/27/18 06:58 Albumin 3.4 gm/dL (3.7-5.3) L 08/27/18 06:58 Globulin 3.1 gm/dL 08/27/18 06:58 Albumin/Globulin Ratio 1.1 (1.0-1.8) 08/27/18 06:58 - Physical Exam Vitals and I&O: Vital Signs Temp 97.3 F 08/29/18 08:00 Pulse 90 08/29/18 08:00 Resp 18 08/29/18 08:00 BP 131/57 08/29/18 08:00 Pulse Ox 97 08/29/18 08:00 Intake & Output 08/28/18 08/29/18 08/29/18 18:59 06:59 18:59 Intake Total 300 1579.167 Balance 300 1579.167 Weight (lbs) 42.184 kg 42.638 kg Intake: Intake, IV Amount 1459.167 D5-0.9%Ns 1,000 ml @ 50 1409.167 mls/hr IV .Q20H [facility] Rx#: [id number] cefTRIAXone 1 gm In 50 Sodium Chloride 0.9% 50 ml @ 100 mls/hr IV Q24H [facility] Rx#:[id number] Oral 300 120 Other: # Voids 3 3 # Bowel Movements 3 2 Stool Characteristics Soft Soft Formed Formed Weight Source Bedscale Bedscale Active Medications: Current Medications Albuterol/Ipratropium (Duoneb Neb) 3 ml HHN Q4HRT [facility] Stop: 10/25/18 10:59 Last Admin: 08/29/18 07:29 Dose: 3 ml Artificial Tears (Artificial Tears Ophth Soln) 1 drop EACH EYE BID PRN PRN Reason: Dry Eye Stop: 10/25/18 15:59 Last Admin: 08/26/18 16:08 Dose: 1 drop Ceftriaxone Sodium 1 gm/ (Sodium Chloride) 50 mls @ 100 mls/hr IV Q24H [facility] Stop: 10/23/18 20:59 Last Infusion: 08/29/18 01:04 Dose: Infused Dextrose/Sodium Chloride (D5-0.9%Ns) 1,000 mls @ 50 mls/hr IV .Q20H [facility] Stop: 10/25/18 07:59 Last Infusion: 08/29/18 05:47 Dose: 50 mls/hr Methylprednisolone Sodium Succinate (Solu-Medrol) 40 mg IVP Q8HR [facility] Stop: 10/27/18 12:59 Last Admin: 08/29/18 04:30 Dose: 40 mg Mupirocin (Bactroban Oint) 1 appl NS BID [facility] Stop: 08/30/18 17:01 Last Admin: 08/29/18 09:05 Dose: 1 appl Polyethylene Glycol (Miralax) 17 gm PO BID [facility] Stop: 10/28/18 08:59 Last Admin: 08/29/18 09:05 Dose: 17 gm General: Alert HEENT: Atraumatic Neck: Supple Cardiovascular: Regular rate Abdomen: Bowel sounds, Soft, no Tender, no Hepatomegaly, no Distended, no Rebound, no Mass Psych/Mental Status: no Mental status NL - Procedures Procedures: Procedures Procedure Code Date EXC F/E/E/N/L MAL+MRG >4 [place] 33026 06/03/09 NEBULIZER THERAPY 93.94 10/19/04 OP RED-INT FIX RAD/ULNA 79.32 06/24/07 RADICAL EXCIS SKIN LES 86.4 06/03/09 TREAT FX RADIAL 3+ FRAG 56679 06/24/07 Nutritional Asmnt/Malnutr-PDOC - Dietary Evaluation Malnutrition Findings (Please click <Entered> for more info): Nutritional Asmnt/Malnutrition Start: 08/25/18 14: 01 Text: Status: Complete Freq: Protocol: Document 08/25/18 14:01 DONALD (Rec: 08/25/18 14:18 DONALD [id number]) Nutritional Asmnt/Malnutrition Patient General Information Nutritional Screening High Risk Consult Diagnosis abdominal pain, bowel obstruction Pertinent Medical Hx/Surgical Hx HTN, asthma/COPD, subarachnoid bleeding Per wound care note: hx of dementia Subjective Information Received diet consult for mass and biopsy site wound. Pt sleeping at time of visit. Pt was on full liquid diet, but spoke to REBEKAH Contreras who states pt is now NPO and has fecal impaction. Per MD notes, KUB shows severe fecal impaction and pt due for surgery tomorrow for inguinal hernias. Per EMR, pt refused regular diet meals and only willing to have full liquid diet with vanilla ensure. Current Diet Order/ Nutrition Support NPO Pertinent Medications Nacl 0.9% Pertinent Labs 08/25: Na 132, Cl 96, BUN 22, glucose 111 08/23: Na 135, Cl 99, BUN 30, glucose 97, Alb 3.6 Nutritional Hx/Data Height 1.7 m Height (Calculated Centimeters) 170.2 Current Weight (lbs) 47.627 kg Weight (Calculated Kilograms) 47.6 Weight (Calculated Grams) 01580.2 Body Mass Index (BMI) 16.4 Weight Status Underweight GI Symptoms GI Symptoms None Last BM none noted Difficult in: None Skin Integrity/Comment: skin tear/biopsy site to right forehead, skin flap to left neck, mass on left shoulder, terrie 16 Estimated Nutritional Goals BEE in Kcals: Using Current wt Calories/Kcals/Kg 30-35 Kcals Calculated 6934-6171 Protein: Using Current wt Protein g/k-1.2 Protein Calculated 48-57 g Fluid: ml 7430-6519 (1 ml/kcal) Nutritional Problem 2. Problem Problem Altered nutrition related lab values Etiology electrolyte imbalance Signs/Symptoms: Na 132, Cl 96 1. Problem Problem Inadequate oral intake Etiology possible poor appetite from fecal impaction or abdominal pain Signs/Symptoms: current NPO status, meal refusals, pt only accepting Ensure Malnutrition Related to Morbid Obesity Malnutrition related to morbid obesity No Intervention/Recommendation Comments 1. Monitor NPO status and advance diet when medically appropriate 2. MD to replace electrolytes as needed 3. Monitor wt, skin integrity, GI symptons, and nutrition related labs 4. F/U as high risk in 2-3 days, 08/27- Expected Outcomes/Goals Expected Outcomes/Goals 1. Pt to resume PO intake when medically appropriate and meet at least 75% of all meals 2. Wt stability, skin integrity to improve, GI improved, and nutrition related labs to approach normal limits Reviewed by Laine Mcarthur RD
--- NOTE | 2018-08-29 15:53 | Progress Notes ---
DATE: 08/29/2018 SUBJECTIVE: The patient was seen in her room. The patient is awake and alert, but poor historian due to medical condition. Otherwise the patient appears to be in no acute distress. OBJECTIVE: VITAL SIGNS: Temperature 97.3, heart rate 90, blood pressure 131/57, respirations of 18, 97% on room air. HEENT: Head is atraumatic and normocephalic. Eyes, bilateral conjunctivae are clear. Bilateral pupils are equally round and reactive. NECK: Supple. No JVD. CARDIOVASCULAR: S1, S2, without murmur. PULMONARY: Clear to auscultation. GASTROINTESTINAL: Soft and nontender. Hypoactive bowel sounds. Positive abdominal distention. MUSCULOSKELETAL: No clubbing. No cyanosis noted. ASSESSMENT: 1. Inguinal hernia. 2. Rule out bowel strangulation. 3. Fecal impaction. PLAN: We will continue to monitor the patient's progress. We will follow up with the surgeon to see if patient is a good candidate for diverting colostomy placement. We will continue current treatments and antibiotics. Treatment plans were discussed with the patient's nurse. Treatment plans were discussed with Dr. Camacho. JOB# [id number]
[2018-08-29] MEDS: D5-0.9%NS 1,000 ML IV SCH (17:05)
--- NOTE | 2018-08-29 18:40 | Infectious Disease Prog Note ---
Infectious Disease Subjective - Review of Systems Service Date: 08/29/18 Subjective: cc stool impaction/sbo/ing hrnia incarcerated hpi- sen by dr singleton recomend hernia repait colosto, schedule for sx fridayenema tried d/w staff wbc better ro sno fervr o.e vs chst clear abd soft hernia exrt pulse dx sbo/stool impaction ing hernia plan rocephin Infectious Disease Objective - Results Result Diagrams: 08/27/18 06:58 08/27/18 06:58 Recent Labs: Laboratory Last Values WBC 9.3 Th/cmm (4.8-10.8) 08/27/18 06:58 RBC 3.64 Mil/cmm (3.80-5.20) L 08/27/18 06:58 Hgb 10.9 gm/dL (12-16) L 08/27/18 06:58 Hct 32.0 % (41.0-60) L 08/27/18 06:58 MCV 87.8 fl (81-100) 08/27/18 06:58 MCH 30.0 pg (27.0-31.0) 08/27/18 06:58 MCHC Differential 34.2 pg (28.0-36.0) 08/27/18 06:58 RDW 13.2 % (11.5-20.0) 08/27/18 06:58 Plt Count 339 Th/cmm (150-400) 08/27/18 06:58 MPV 7.0 fl 08/27/18 06:58 Add Manual Diff YES 08/27/18 06:58 Neutrophils % 76.1 % (40.0-80.0) 08/26/18 06:00 Band Neutrophils % 2 % (0-10) 08/27/18 06:58 Lymphocytes % 9.6 % (20.0-50.0) L 08/26/18 06:00 Monocytes % 11.3 % (2.0-10.0) H 08/26/18 06:00 Eosinophils % 3.0 % (0.0-5.0) 08/26/18 06:00 Basophils % 0.0 % (0.0-2.0) 08/26/18 06:00 Neutrophils (Manual) 95 % (40-80) H 08/27/18 06:58 Lymphocytes 2 % (20-50) L 08/27/18 06:58 Monocytes 1 % (2-10) L 08/27/18 06:58 Platelet Estimate ADEQUATE (NORMAL) 08/27/18 06:58 PT 9.3 SECONDS (9.5-11.5) L 08/26/18 06:00 INR 0.88 (0.5-1.4) 08/26/18 06:00 PTT (Actin FS) 24.4 SECONDS (26.0-38.0) L 08/26/18 06:00 Specimen Source Arterial 08/26/18 08:40 Sample Site RB 08/26/18 08:40 pH 7.41 (7.35-7.45) 08/26/18 08:40 pCO2 44.0 mmHg (35.0-45.0) 08/26/18 08:40 pO2 100.0 mmHg (80.0-100.0) 08/26/18 08:40 HCO3 27.1 mEq/L (20.0-26.0) H 08/26/18 08:40 Base Excess 2.8 mEq/L (-3.0-3.0) 08/26/18 08:40 O2 Saturation 98.0 % (92.0-100.0) 08/26/18 08:40 Inspired O2 32 08/26/18 08:40 Critical Value PW 08/26/18 08:40 Sodium 134 mEq/L (136-145) L 08/27/18 06:58 Potassium 4.7 mEq/L (3.5-5.1) 08/27/18 06:58 Chloride 100 mEq/L (98-107) 08/27/18 06:58 Carbon Dioxide 27.0 mEq/L (21.0-31.0) 08/27/18 06:58 Anion Gap 11.7 (7.0-16.0) 08/27/18 06:58 BUN 21 mg/dL (7-25) 08/27/18 06:58 Creatinine 0.6 mg/dL (0.6-1.2) 08/27/18 06:58 Est GFR ( Amer) TNP 08/27/18 06:58 Est GFR (Non-Af Amer) TNP 08/27/18 06:58 BUN/Creatinine Ratio 35.0 08/27/18 06:58 Glucose 191 mg/dL (70-105) H 08/27/18 06:58 POC Glucose 72 MG/DL (70 - 105) 08/26/18 06:47 Calcium 9.2 mg/dL (8.6-10.3) 08/27/18 06:58 Total Bilirubin 0.2 mg/dL (0.3-1.0) L 08/27/18 06:58 AST 15 U/L (13-39) 08/27/18 06:58 ALT 7 U/L (7-52) 08/27/18 06:58 Alkaline Phosphatase 92 U/L (34-104) 08/27/18 06:58 B-Natriuretic Peptide 34.4 pg/mL (5.0-100.0) 08/26/18 06:00 Total Protein 6.5 gm/dL (6.0-8.3) 08/27/18 06:58 Albumin 3.4 gm/dL (3.7-5.3) L 08/27/18 06:58 Globulin 3.1 gm/dL 08/27/18 06:58 Albumin/Globulin Ratio 1.1 (1.0-1.8) 08/27/18 06:58 - Physical Exam Vitals and I&O: Vital Signs Temp 99 F 08/29/18 16:03 Pulse 111 08/29/18 16:03 Resp 18 08/29/18 16:03 BP 139/67 08/29/18 16:03 Pulse Ox 96 08/29/18 16:03 Intake & Output 08/28/18 08/29/18 08/29/18 18:59 06:59 18:59 Intake Total 300 1579.167 565 Balance 300 1579.167 565 Weight (lbs) 42.184 kg 42.638 kg Intake: Intake, IV Amount 1459.167 565 D5-0.9%Ns 1,000 ml @ 50 1409.167 565 mls/hr IV .Q20H [facility] Rx#: [id number] cefTRIAXone 1 gm In 50 Sodium Chloride 0.9% 50 ml @ 100 mls/hr IV Q24H [facility] Rx#:[id number] Oral 300 120 Other: # Voids 3 3 # Bowel Movements 3 2 Stool Characteristics Soft Soft Soft Formed Formed Formed Weight Source Bedscale Bedscale Active Medications: Current Medications Albuterol/Ipratropium (Duoneb Neb) 3 ml HHN Q4HRT [facility] Stop: 10/25/18 10:59 Last Admin: 08/29/18 18:36 Dose: 3 ml Artificial Tears (Artificial Tears Ophth Soln) 1 drop EACH EYE BID PRN PRN Reason: Dry Eye Stop: 10/25/18 15:59 Last Admin: 08/26/18 16:08 Dose: 1 drop Ceftriaxone Sodium 1 gm/ (Sodium Chloride) 50 mls @ 100 mls/hr IV Q24H [facility] Stop: 10/23/18 20:59 Last Infusion: 08/29/18 01:04 Dose: Infused Dextrose/Sodium Chloride (D5-0.9%Ns) 1,000 mls @ 50 mls/hr IV .Q20H [facility] Stop: 10/25/18 07:59 Last Admin: 08/29/18 17:05 Dose: 50 mls/hr Methylprednisolone Sodium Succinate (Solu-Medrol) 40 mg IVP Q8HR [facility] Stop: 10/27/18 12:59 Last Admin: 08/29/18 12:27 Dose: 40 mg Mupirocin (Bactroban Oint) 1 appl NS BID [facility] Stop: 08/30/18 17:01 Last Admin: 08/29/18 16:54 Dose: 1 appl Polyethylene Glycol (Miralax) 17 gm PO BID [facility] Stop: 10/28/18 08:59 Last Admin: 08/29/18 16:54 Dose: 17 gm - Procedures Procedures: Procedures Procedure Code Date EXC F/E/E/N/L MAL+MRG >4 [place] [address] 06/03/09 NEBULIZER THERAPY 93.94 10/19/04 OP RED-INT FIX RAD/ULNA 79.32 06/24/07 RADICAL EXCIS SKIN LES 86.4 06/03/09 TREAT FX RADIAL 3+ FRAG 53000 06/24/07 Nutritional Asmnt/Malnutr-PDOC - Dietary Evaluation Malnutrition Findings (Please click <Entered> for more info): Nutritional Asmnt/Malnutrition Start: 08/25/18 14: 01 Text: Status: Complete Freq: Protocol: Document 08/25/18 14:01 DONALD (Rec: 08/25/18 14:18 DONALD [email or web address]) Nutritional Asmnt/Malnutrition Patient General Information Nutritional Screening High Risk Consult Diagnosis abdominal pain, bowel obstruction Pertinent Medical Hx/Surgical Hx HTN, asthma/COPD, subarachnoid bleeding Per wound care note: hx of dementia Subjective Information Received diet consult for mass and biopsy site wound. Pt sleeping at time of visit. Pt was on full liquid diet, but spoke to REBEKAH Contreras who states pt is now NPO and has fecal impaction. Per MD notes, KUB shows severe fecal impaction and pt due for surgery tomorrow for inguinal hernias. Per EMR, pt refused regular diet meals and only willing to have full liquid diet with vanilla ensure. Current Diet Order/ Nutrition Support NPO Pertinent Medications Nacl 0.9% Pertinent Labs 08/25: Na 132, Cl 96, BUN 22, glucose 111 08/23: Na 135, Cl 99, BUN 30, glucose 97, Alb 3.6 Nutritional Hx/Data Height 1.7 m Height (Calculated Centimeters) 170.2 Current Weight (lbs) 47.627 kg Weight (Calculated Kilograms) 47.6 Weight (Calculated Grams) 76644.2 Body Mass Index (BMI) 16.4 Weight Status Underweight GI Symptoms GI Symptoms None Last BM none noted Difficult in: None Skin Integrity/Comment: skin tear/biopsy site to right forehead, skin flap to left neck, mass on left shoulder, terrie 16 Estimated Nutritional Goals BEE in Kcals: Using Current wt Calories/Kcals/Kg 30-35 Kcals Calculated 8110-4267 Protein: Using Current wt Protein g/k-1.2 Protein Calculated 48-57 g Fluid: ml 5381-3182 (1 ml/kcal) Nutritional Problem 2. Problem Problem Altered nutrition related lab values Etiology electrolyte imbalance Signs/Symptoms: Na 132, Cl 96 1. Problem Problem Inadequate oral intake Etiology possible poor appetite from fecal impaction or abdominal pain Signs/Symptoms: current NPO status, meal refusals, pt only accepting Ensure Malnutrition Related to Morbid Obesity Malnutrition related to morbid obesity No Intervention/Recommendation Comments 1. Monitor NPO status and advance diet when medically appropriate 2. MD to replace electrolytes as needed 3. Monitor wt, skin integrity, GI symptons, and nutrition related labs 4. F/U as high risk in 2-3 days, 08/27- Expected Outcomes/Goals Expected Outcomes/Goals 1. Pt to resume PO intake when medically appropriate and meet at least 75% of all meals 2. Wt stability, skin integrity to improve, GI improved, and nutrition related labs to approach normal limits Reviewed by Laine Mcarthur RD
[2018-08-29] MEDS: cefTRIAXone 1 GM in Sodium Chloride 0.9% 50 ML IV SCH (20:13)
[2018-08-30] MEDS: Albuterol/Ipratropium Neb 3 ML AERS HHN SCH ×6 (02:01→22:17)
[2018-08-30] MEDS: methylPREDNISolone SS 40 mg Vial IVP SCH ×3 (05:02→20:23)
[2018-08-30 06:14] LABS: BASOPHILE ABSOLUTE 0.1 Th/cumm (0-0.2); HEMATOCRIT 30.4 % (41.0-60); HEMOGLOBIN 10.2 gm/dL (12-16); LYMPHOCYTE ABSOLUTE 0.6 Th/cmm (1.5-3.0); MEAN CORPUSCULAR HEMOGLOBIN 29.4 pg (27.0-31.0); MEAN CORPUSCULAR HGB CONC 33.5 pg (28.0-36.0); MONOCYTE ABSOLUTE 0.3 Th/cmm (0.3-1.0); NEUTROPHILE ABSOLUTE 10.3 Th/cmm (1.8-8.0); PLATELET COUNT 354 Th/cmm (150-400); RED BLOOD COUNT 3.46 Mil/cmm (3.80-5.20); RED CELL DISTRIBUTION WIDTH 12.9 % (11.5-20.0); WHITE BLOOD COUNT 11.3 Th/cmm (4.8-10.8)
[2018-08-30 07:40] LABS: ALB/GLOB RATIO 1.2 (1.0-1.8); ALBUMIN 3.1 gm/dL (3.7-5.3); ALKALINE PHOSPHATASE 76 U/L (34-104); ANION GAP 9.9 (7.0-16.0); BILIRUBIN,TOTAL 0.2 mg/dL (0.3-1.0); CALCIUM SERUM 8.8 mg/dL (8.6-10.3); CARBON DIOXIDE 28.7 mEq/L (21.0-31.0); CHLORIDE 101 mEq/L (98-107); CREATININE - SERUM 0.6 mg/dL (0.6-1.2); GLUCOSE 128 mg/dL (70-105); POTASSIUM SERUM 4.6 mEq/L (3.5-5.1); SGOT 99 U/L (13-39); SGPT/ALT 153 U/L (7-52); SODIUM SERUM 135 mEq/L (136-145); TOTAL PROTEIN,SERUM 5.6 gm/dL (6.0-8.3)
[2018-08-30 08:17] LABS: BUN - UREA NITROGEN 17 mg/dL (7-25)
[2018-08-30 08:33] LABS: LYMPHOCYTE 4 % (20-50); MONOCYTE 5 % (2-10); NEUTROPHILS 91 % (40-80); PLATELET ESTIMATE ADEQUATE (NORMAL)
--- NOTE | 2018-08-30 08:37 | GI Progress Note ---
Subjective - Review of Systems Service Date: 08/30/18 Subjective: Had small amount of stool yesterday with enema Objective - Results Result Diagrams: 08/30/18 05:53 08/30/18 05:53 Recent Labs: Laboratory Last Values WBC 11.3 Th/cmm (4.8-10.8) H 08/30/18 05:53 RBC 3.46 Mil/cmm (3.80-5.20) L 08/30/18 05:53 Hgb 10.2 gm/dL (12-16) L 08/30/18 05:53 Hct 30.4 % (41.0-60) L 08/30/18 05:53 MCV 88.0 fl (81-100) 08/30/18 05:53 MCH 29.4 pg (27.0-31.0) 08/30/18 05:53 MCHC Differential 33.5 pg (28.0-36.0) 08/30/18 05:53 RDW 12.9 % (11.5-20.0) 08/30/18 05:53 Plt Count 354 Th/cmm (150-400) 08/30/18 05:53 MPV 7.0 fl 08/30/18 05:53 Add Manual Diff YES 08/30/18 05:53 Neutrophils % 76.1 % (40.0-80.0) 08/26/18 06:00 Band Neutrophils % 2 % (0-10) 08/27/18 06:58 Lymphocytes % 9.6 % (20.0-50.0) L 08/26/18 06:00 Monocytes % 11.3 % (2.0-10.0) H 08/26/18 06:00 Eosinophils % 3.0 % (0.0-5.0) 08/26/18 06:00 Basophils % 0.0 % (0.0-2.0) 08/26/18 06:00 Neutrophils (Manual) 91 % (40-80) H 08/30/18 05:53 Lymphocytes 4 % (20-50) L 08/30/18 05:53 Monocytes 5 % (2-10) 08/30/18 05:53 Platelet Estimate ADEQUATE (NORMAL) 08/30/18 05:53 PT 9.3 SECONDS (9.5-11.5) L 08/26/18 06:00 INR 0.88 (0.5-1.4) 08/26/18 06:00 PTT (Actin FS) 24.4 SECONDS (26.0-38.0) L 08/26/18 06:00 Specimen Source Arterial 08/26/18 08:40 Sample Site RB 08/26/18 08:40 pH 7.41 (7.35-7.45) 08/26/18 08:40 pCO2 44.0 mmHg (35.0-45.0) 08/26/18 08:40 pO2 100.0 mmHg (80.0-100.0) 08/26/18 08:40 HCO3 27.1 mEq/L (20.0-26.0) H 08/26/18 08:40 Base Excess 2.8 mEq/L (-3.0-3.0) 08/26/18 08:40 O2 Saturation 98.0 % (92.0-100.0) 08/26/18 08:40 Inspired O2 32 08/26/18 08:40 Critical Value PW 08/26/18 08:40 Sodium 135 mEq/L (136-145) L 08/30/18 05:53 Potassium 4.6 mEq/L (3.5-5.1) 08/30/18 05:53 Chloride 101 mEq/L (98-107) 08/30/18 05:53 Carbon Dioxide 28.7 mEq/L (21.0-31.0) 08/30/18 05:53 Anion Gap 9.9 (7.0-16.0) 08/30/18 05:53 BUN 17 mg/dL (7-25) 08/30/18 05:53 Creatinine 0.6 mg/dL (0.6-1.2) 08/30/18 05:53 Est GFR ( Amer) TNP 08/30/18 05:53 Est GFR (Non-Af Amer) TNP 08/30/18 05:53 BUN/Creatinine Ratio 28.3 08/30/18 05:53 Glucose 128 mg/dL (70-105) H 08/30/18 05:53 POC Glucose 72 MG/DL (70 - 105) 08/26/18 06:47 Calcium 8.8 mg/dL (8.6-10.3) 08/30/18 05:53 Total Bilirubin 0.2 mg/dL (0.3-1.0) L 08/30/18 05:53 AST 99 U/L (13-39) H 08/30/18 05:53 ALT 153 U/L (7-52) H 08/30/18 05:53 Alkaline Phosphatase 76 U/L (34-104) 08/30/18 05:53 B-Natriuretic Peptide 34.4 pg/mL (5.0-100.0) 08/26/18 06:00 Total Protein 5.6 gm/dL (6.0-8.3) L 08/30/18 05:53 Albumin 3.1 gm/dL (3.7-5.3) L 08/30/18 05:53 Globulin 2.5 gm/dL 08/30/18 05:53 Albumin/Globulin Ratio 1.2 (1.0-1.8) 08/30/18 05:53 - Physical Exam Vitals and I&O: Vital Signs Temp 97.5 F 08/30/18 07:39 Pulse 80 08/30/18 07:39 Resp 18 08/30/18 07:39 BP 130/53 08/30/18 07:39 Pulse Ox 97 08/30/18 07:39 Intake & Output 08/29/18 08/30/18 08/30/18 18:59 06:59 18:59 Intake Total 565 290 Balance 565 290 Weight (lbs) 44.633 kg Intake: Intake, IV Amount 565 50 D5-0.9%Ns 1,000 ml @ 50 565 mls/hr IV .Q20H [facility] Rx#: [id number] cefTRIAXone 1 gm In 50 Sodium Chloride 0.9% 50 ml @ 100 mls/hr IV Q24H [facility] Rx#:[id number] Oral 240 Other: # Voids 3 Stool Characteristics Soft Soft Formed Formed Weight Source Bedscale Active Medications: Current Medications Albuterol/Ipratropium (Duoneb Neb) 3 ml HHN Q4HRT [facility] Stop: 10/25/18 10:59 Last Admin: 08/30/18 06:53 Dose: 3 ml Artificial Tears (Artificial Tears Ophth Soln) 1 drop EACH EYE BID PRN PRN Reason: Dry Eye Stop: 10/25/18 15:59 Last Admin: 08/26/18 16:08 Dose: 1 drop Ceftriaxone Sodium 1 gm/ (Sodium Chloride) 50 mls @ 100 mls/hr IV Q24H [facility] Stop: 10/23/18 20:59 Last Infusion: 08/29/18 20:43 Dose: Infused Dextrose/Sodium Chloride (D5-0.9%Ns) 1,000 mls @ 50 mls/hr IV .Q20H [facility] Stop: 10/25/18 07:59 Last Admin: 08/29/18 17:05 Dose: 50 mls/hr Methylprednisolone Sodium Succinate (Solu-Medrol) 40 mg IVP Q8HR [facility] Stop: 10/27/18 12:59 Last Admin: 08/30/18 05:02 Dose: 40 mg Mupirocin (Bactroban Oint) 1 appl NS BID [facility] Stop: 08/30/18 17:01 Last Admin: 08/29/18 16:54 Dose: 1 appl Polyethylene Glycol (Miralax) 17 gm PO BID [facility] Stop: 10/28/18 08:59 Last Admin: 08/29/18 16:54 Dose: 17 gm General: Alert HEENT: Atraumatic Neck: Supple Cardiovascular: Regular rate Abdomen: Bowel sounds, Soft, no Tender, no Hepatomegaly, no Distended, no Rebound, no Mass Psych/Mental Status: no Mental status NL - Procedures Procedures: Procedures Procedure Code Date EXC F/E/E/N/L MAL+MRG >4 [place] [address] 06/03/09 NEBULIZER THERAPY 93.94 10/19/04 OP RED-INT FIX RAD/ULNA 79.32 06/24/07 RADICAL EXCIS SKIN LES 86.4 06/03/09 TREAT FX RADIAL 3+ FRAG [id number] 06/24/07 Assessment/Plan - Assessment Assessment: # Large inguinal hernia with possible bowel strangulation # Fecal impaction # Shortness of breath # Abd pain Pt with chronic fecal impaction and large hernia along the right side containing multiple bowel loops. The large hernia is likely causing bowel dysmotility and contributing to ongoing impaction and constipation. I agree that a diverting colostomy is in this patient's best interest to ensure that she avoids further impaction events. The hernia can also be repaired at that time as per Dr Jermaine Root is on hold as of 08/27 given respiratory issues. Thus, will try and alleviate the impaction a bit with enemas It is my opinion that this patient DOES NOT have capacity to make medical decisions. She is not able to verbalize understanding of the consequences of not treating her impaction (which includes bowel perforation, peritonitis, and ). Plan: - agree with diverting colostomy placement and strangulated hernia repair as per Dr eDan - enema if the pt allows for this - clears are ok - no role for endoscopy here - supportive measures
[2018-08-30] MEDS: POLYETHYLENE GLYCOL 3350 17 GM PACK PO SCH ×2 (08:45→17:21)
--- NOTE | 2018-08-30 11:26 | Internal Medicine Prog Note ---
Internal Medicine Subjective - Subjective Patient seen and examined:: chart reviewed Patient is:: asleep, denies any new complaints, other (comfortable ) Per staff patient has:: tolerating meds Internal Medicine Objective - Results Result Diagrams: 08/30/18 05:53 08/30/18 05:53 Recent Labs: Laboratory Last Values WBC 11.3 Th/cmm (4.8-10.8) H 08/30/18 05:53 RBC 3.46 Mil/cmm (3.80-5.20) L 08/30/18 05:53 Hgb 10.2 gm/dL (12-16) L 08/30/18 05:53 Hct 30.4 % (41.0-60) L 08/30/18 05:53 MCV 88.0 fl (81-100) 08/30/18 05:53 MCH 29.4 pg (27.0-31.0) 08/30/18 05:53 MCHC Differential 33.5 pg (28.0-36.0) 08/30/18 05:53 RDW 12.9 % (11.5-20.0) 08/30/18 05:53 Plt Count 354 Th/cmm (150-400) 08/30/18 05:53 MPV 7.0 fl 08/30/18 05:53 Add Manual Diff YES 08/30/18 05:53 Neutrophils % 76.1 % (40.0-80.0) 08/26/18 06:00 Band Neutrophils % 2 % (0-10) 08/27/18 06:58 Lymphocytes % 9.6 % (20.0-50.0) L 08/26/18 06:00 Monocytes % 11.3 % (2.0-10.0) H 08/26/18 06:00 Eosinophils % 3.0 % (0.0-5.0) 08/26/18 06:00 Basophils % 0.0 % (0.0-2.0) 08/26/18 06:00 Neutrophils (Manual) 91 % (40-80) H 08/30/18 05:53 Lymphocytes 4 % (20-50) L 08/30/18 05:53 Monocytes 5 % (2-10) 08/30/18 05:53 Platelet Estimate ADEQUATE (NORMAL) 08/30/18 05:53 PT 9.3 SECONDS (9.5-11.5) L 08/26/18 06:00 INR 0.88 (0.5-1.4) 08/26/18 06:00 PTT (Actin FS) 24.4 SECONDS (26.0-38.0) L 08/26/18 06:00 Specimen Source Arterial 08/26/18 08:40 Sample Site RB 08/26/18 08:40 pH 7.41 (7.35-7.45) 08/26/18 08:40 pCO2 44.0 mmHg (35.0-45.0) 08/26/18 08:40 pO2 100.0 mmHg (80.0-100.0) 08/26/18 08:40 HCO3 27.1 mEq/L (20.0-26.0) H 08/26/18 08:40 Base Excess 2.8 mEq/L (-3.0-3.0) 08/26/18 08:40 O2 Saturation 98.0 % (92.0-100.0) 08/26/18 08:40 Inspired O2 32 08/26/18 08:40 Critical Value PW 08/26/18 08:40 Sodium 135 mEq/L (136-145) L 08/30/18 05:53 Potassium 4.6 mEq/L (3.5-5.1) 08/30/18 05:53 Chloride 101 mEq/L (98-107) 08/30/18 05:53 Carbon Dioxide 28.7 mEq/L (21.0-31.0) 08/30/18 05:53 Anion Gap 9.9 (7.0-16.0) 08/30/18 05:53 BUN 17 mg/dL (7-25) 08/30/18 05:53 Creatinine 0.6 mg/dL (0.6-1.2) 08/30/18 05:53 Est GFR ( Amer) TNP 08/30/18 05:53 Est GFR (Non-Af Amer) TNP 08/30/18 05:53 BUN/Creatinine Ratio 28.3 08/30/18 05:53 Glucose 128 mg/dL (70-105) H 08/30/18 05:53 POC Glucose 72 MG/DL (70 - 105) 08/26/18 06:47 Calcium 8.8 mg/dL (8.6-10.3) 08/30/18 05:53 Total Bilirubin 0.2 mg/dL (0.3-1.0) L 08/30/18 05:53 AST 99 U/L (13-39) H 08/30/18 05:53 ALT 153 U/L (7-52) H 08/30/18 05:53 Alkaline Phosphatase 76 U/L (34-104) 08/30/18 05:53 B-Natriuretic Peptide 34.4 pg/mL (5.0-100.0) 08/26/18 06:00 Total Protein 5.6 gm/dL (6.0-8.3) L 08/30/18 05:53 Albumin 3.1 gm/dL (3.7-5.3) L 08/30/18 05:53 Globulin 2.5 gm/dL 08/30/18 05:53 Albumin/Globulin Ratio 1.2 (1.0-1.8) 08/30/18 05:53 - Physical Exam Vitals and I&O: Vital Signs Temp 97.5 F 08/30/18 07:39 Pulse 97 08/30/18 10:51 Resp 16 08/30/18 10:51 BP 130/53 08/30/18 07:39 Pulse Ox 94 08/30/18 10:51 Intake & Output 08/29/18 08/30/18 08/30/18 18:59 06:59 18:59 Intake Total 565 290 Balance 565 290 Weight (lbs) 44.633 kg Intake: Intake, IV Amount 565 50 D5-0.9%Ns 1,000 ml @ 50 565 mls/hr IV .Q20H [facility] Rx#: [id number] cefTRIAXone 1 gm In 50 Sodium Chloride 0.9% 50 ml @ 100 mls/hr IV Q24H [facility] Rx#:[id number] Oral 240 Other: # Voids 3 Stool Characteristics Soft Soft Formed Formed Weight Source Bedscale Active Medications: Current Medications Albuterol/Ipratropium (Duoneb Neb) 3 ml HHN Q4HRT [facility] Stop: 10/25/18 10:59 Last Admin: 08/30/18 10:49 Dose: 3 ml Artificial Tears (Artificial Tears Ophth Soln) 1 drop EACH EYE BID PRN PRN Reason: Dry Eye Stop: 10/25/18 15:59 Last Admin: 08/26/18 16:08 Dose: 1 drop Ceftriaxone Sodium 1 gm/ (Sodium Chloride) 50 mls @ 100 mls/hr IV Q24H [facility] Stop: 10/23/18 20:59 Last Infusion: 08/29/18 20:43 Dose: Infused Dextrose/Sodium Chloride (D5-0.9%Ns) 1,000 mls @ 50 mls/hr IV .Q20H [facility] Stop: 10/25/18 07:59 Last Admin: 08/29/18 17:05 Dose: 50 mls/hr Methylprednisolone Sodium Succinate (Solu-Medrol) 40 mg IVP Q8HR [facility] Stop: 10/27/18 12:59 Last Admin: 08/30/18 05:02 Dose: 40 mg Mupirocin (Bactroban Oint) 1 appl NS BID [facility] Stop: 08/30/18 17:01 Last Admin: 08/30/18 08:45 Dose: 1 appl Polyethylene Glycol (Miralax) 17 gm PO BID [facility] Stop: 10/28/18 08:59 Last Admin: 08/30/18 08:45 Dose: 17 gm General: weak HEENT: NC/AT, PERRLA Neck: Supple Cardiovascular: RRR Abdomen: soft, non-tender Extremities: excoriation Neurological: muscle weakness - Procedures Procedures: Procedures Procedure Code Date EXC F/E/E/N/L MAL+MRG >4 [place] [address] 06/03/09 NEBULIZER THERAPY 93.94 10/19/04 OP RED-INT FIX RAD/ULNA 79.32 06/24/07 RADICAL EXCIS SKIN LES 86.4 06/03/09 TREAT FX RADIAL 3+ FRAG 73532 06/24/07 Internal Medicine Assmt/Plan - Assessment Assessment: abd pain r/o obstruction htn dementia - Plan Plan: as per surgeon /gi pain mgmt cpm Nutritional Asmnt/Malnutr-PDOC - Dietary Evaluation Malnutrition Findings (Please click <Entered> for more info): Nutritional Asmnt/Malnutrition Start: 08/25/18 14: 01 Text: Status: Complete Freq: Protocol: Document 08/25/18 14:01 DONALD (Rec: 08/25/18 14:18 DONALD [email or web address]) Nutritional Asmnt/Malnutrition Patient General Information Nutritional Screening High Risk Consult Diagnosis abdominal pain, bowel obstruction Pertinent Medical Hx/Surgical Hx HTN, asthma/COPD, subarachnoid bleeding Per wound care note: hx of dementia Subjective Information Received diet consult for mass and biopsy site wound. Pt sleeping at time of visit. Pt was on full liquid diet, but spoke to REBEKAH Contreras who states pt is now NPO and has fecal impaction. Per MD notes, KUB shows severe fecal impaction and pt due for surgery tomorrow for inguinal hernias. Per EMR, pt refused regular diet meals and only willing to have full liquid diet with vanilla ensure. Current Diet Order/ Nutrition Support NPO Pertinent Medications Nacl 0.9% Pertinent Labs 08/25: Na 132, Cl 96, BUN 22, glucose 111 08/23: Na 135, Cl 99, BUN 30, glucose 97, Alb 3.6 Nutritional Hx/Data Height 1.7 m Height (Calculated Centimeters) 170.2 Current Weight (lbs) 47.627 kg Weight (Calculated Kilograms) 47.6 Weight (Calculated Grams) 35962.2 Body Mass Index (BMI) 16.4 Weight Status Underweight GI Symptoms GI Symptoms None Last BM none noted Difficult in: None Skin Integrity/Comment: skin tear/biopsy site to right forehead, skin flap to left neck, mass on left shoulder, terrie 16 Estimated Nutritional Goals BEE in Kcals: Using Current wt Calories/Kcals/Kg 30-35 Kcals Calculated 1451-1694 Protein: Using Current wt Protein g/k-1.2 Protein Calculated 48-57 g Fluid: ml 0140-2208 (1 ml/kcal) Nutritional Problem 2. Problem Problem Altered nutrition related lab values Etiology electrolyte imbalance Signs/Symptoms: Na 132, Cl 96 1. Problem Problem Inadequate oral intake Etiology possible poor appetite from fecal impaction or abdominal pain Signs/Symptoms: current NPO status, meal refusals, pt only accepting Ensure Malnutrition Related to Morbid Obesity Malnutrition related to morbid obesity No Intervention/Recommendation Comments 1. Monitor NPO status and advance diet when medically appropriate 2. MD to replace electrolytes as needed 3. Monitor wt, skin integrity, GI symptons, and nutrition related labs 4. F/U as high risk in 2-3 days, 08/27- Expected Outcomes/Goals Expected Outcomes/Goals 1. Pt to resume PO intake when medically appropriate and meet at least 75% of all meals 2. Wt stability, skin integrity to improve, GI improved, and nutrition related labs to approach normal limits Reviewed by Laine Mcarthur RD
[2018-08-30] MEDS: D5-0.9%NS 1,000 ML IV SCH (12:20)
--- NOTE | 2018-08-30 17:28 | Infectious Disease Prog Note ---
Infectious Disease Subjective - Review of Systems Service Date: 08/30/18 Subjective: cc stool impaction/sbo/ing hrnia incarcerated hpi- sen by dr singleton recomend hernia repait colosto, schedule for sx fridayenema tried d/w staff wbc better await pulm clearance for surgey ing hernia ro sno fervr o.e vs chst clear abd soft hernia exrt pulse dx sbo/stool impaction ing hernia plan rocephin Infectious Disease Objective - Results Result Diagrams: 08/30/18 05:53 08/30/18 05:53 Recent Labs: Laboratory Last Values WBC 11.3 Th/cmm (4.8-10.8) H 08/30/18 05:53 RBC 3.46 Mil/cmm (3.80-5.20) L 08/30/18 05:53 Hgb 10.2 gm/dL (12-16) L 08/30/18 05:53 Hct 30.4 % (41.0-60) L 08/30/18 05:53 MCV 88.0 fl (81-100) 08/30/18 05:53 MCH 29.4 pg (27.0-31.0) 08/30/18 05:53 MCHC Differential 33.5 pg (28.0-36.0) 08/30/18 05:53 RDW 12.9 % (11.5-20.0) 08/30/18 05:53 Plt Count 354 Th/cmm (150-400) 08/30/18 05:53 MPV 7.0 fl 08/30/18 05:53 Add Manual Diff YES 08/30/18 05:53 Neutrophils % 76.1 % (40.0-80.0) 08/26/18 06:00 Band Neutrophils % 2 % (0-10) 08/27/18 06:58 Lymphocytes % 9.6 % (20.0-50.0) L 08/26/18 06:00 Monocytes % 11.3 % (2.0-10.0) H 08/26/18 06:00 Eosinophils % 3.0 % (0.0-5.0) 08/26/18 06:00 Basophils % 0.0 % (0.0-2.0) 08/26/18 06:00 Neutrophils (Manual) 91 % (40-80) H 08/30/18 05:53 Lymphocytes 4 % (20-50) L 08/30/18 05:53 Monocytes 5 % (2-10) 08/30/18 05:53 Platelet Estimate ADEQUATE (NORMAL) 08/30/18 05:53 PT 9.3 SECONDS (9.5-11.5) L 08/26/18 06:00 INR 0.88 (0.5-1.4) 08/26/18 06:00 PTT (Actin FS) 24.4 SECONDS (26.0-38.0) L 08/26/18 06:00 Specimen Source Arterial 08/26/18 08:40 Sample Site RB 08/26/18 08:40 pH 7.41 (7.35-7.45) 08/26/18 08:40 pCO2 44.0 mmHg (35.0-45.0) 08/26/18 08:40 pO2 100.0 mmHg (80.0-100.0) 08/26/18 08:40 HCO3 27.1 mEq/L (20.0-26.0) H 08/26/18 08:40 Base Excess 2.8 mEq/L (-3.0-3.0) 08/26/18 08:40 O2 Saturation 98.0 % (92.0-100.0) 08/26/18 08:40 Inspired O2 32 08/26/18 08:40 Critical Value PW 08/26/18 08:40 Sodium 135 mEq/L (136-145) L 08/30/18 05:53 Potassium 4.6 mEq/L (3.5-5.1) 08/30/18 05:53 Chloride 101 mEq/L (98-107) 08/30/18 05:53 Carbon Dioxide 28.7 mEq/L (21.0-31.0) 08/30/18 05:53 Anion Gap 9.9 (7.0-16.0) 08/30/18 05:53 BUN 17 mg/dL (7-25) 08/30/18 05:53 Creatinine 0.6 mg/dL (0.6-1.2) 08/30/18 05:53 Est GFR ( Amer) TNP 08/30/18 05:53 Est GFR (Non-Af Amer) TNP 08/30/18 05:53 BUN/Creatinine Ratio 28.3 08/30/18 05:53 Glucose 128 mg/dL (70-105) H 08/30/18 05:53 POC Glucose 72 MG/DL (70 - 105) 08/26/18 06:47 Calcium 8.8 mg/dL (8.6-10.3) 08/30/18 05:53 Total Bilirubin 0.2 mg/dL (0.3-1.0) L 08/30/18 05:53 AST 99 U/L (13-39) H 08/30/18 05:53 ALT 153 U/L (7-52) H 08/30/18 05:53 Alkaline Phosphatase 76 U/L (34-104) 08/30/18 05:53 B-Natriuretic Peptide 34.4 pg/mL (5.0-100.0) 08/26/18 06:00 Total Protein 5.6 gm/dL (6.0-8.3) L 08/30/18 05:53 Albumin 3.1 gm/dL (3.7-5.3) L 08/30/18 05:53 Globulin 2.5 gm/dL 08/30/18 05:53 Albumin/Globulin Ratio 1.2 (1.0-1.8) 08/30/18 05:53 Blood Type O POSITIVE 08/30/18 09:45 Antibody Screen NEGATIVE 08/30/18 09:45 - Physical Exam Vitals and I&O: Vital Signs Temp 98.0 F 08/30/18 15:48 Pulse 118 08/30/18 15:48 Resp 18 08/30/18 15:48 BP 119/51 08/30/18 15:48 Pulse Ox 92 08/30/18 15:48 Intake & Output 08/29/18 08/30/18 08/30/18 18:59 06:59 18:59 Intake Total 565 290 962.5 Balance 565 290 962.5 Weight (lbs) 44.633 kg Intake: Intake, IV Amount 565 50 962.5 D5-0.9%Ns 1,000 ml @ 50 565 962.5 mls/hr IV .Q20H [facility] Rx#: [id number] cefTRIAXone 1 gm In 50 Sodium Chloride 0.9% 50 ml @ 100 mls/hr IV Q24H [facility] Rx#:[id number] Oral 240 Other: # Voids 3 Stool Characteristics Soft Soft Soft Formed Formed Formed Weight Source Bedscale Active Medications: Current Medications Albuterol/Ipratropium (Duoneb Neb) 3 ml HHN Q4HRT [facility] Stop: 10/25/18 10:59 Last Admin: 08/30/18 14:31 Dose: 3 ml Artificial Tears (Artificial Tears Ophth Soln) 1 drop EACH EYE BID PRN PRN Reason: Dry Eye Stop: 10/25/18 15:59 Last Admin: 08/26/18 16:08 Dose: 1 drop Ceftriaxone Sodium 1 gm/ (Sodium Chloride) 50 mls @ 100 mls/hr IV Q24H [facility] Stop: 10/23/18 20:59 Last Infusion: 08/29/18 20:43 Dose: Infused Dextrose/Sodium Chloride (D5-0.9%Ns) 1,000 mls @ 50 mls/hr IV .Q20H [facility] Stop: 10/25/18 07:59 Last Admin: 08/30/18 12:20 Dose: 50 mls/hr Methylprednisolone Sodium Succinate (Solu-Medrol) 40 mg IVP Q8HR [facility] Stop: 10/27/18 12:59 Last Admin: 08/30/18 12:16 Dose: 40 mg Polyethylene Glycol (Miralax) 17 gm PO BID [facility] Stop: 10/28/18 08:59 Last Admin: 08/30/18 17:21 Dose: 17 gm - Procedures Procedures: Procedures Procedure Code Date EXC F/E/E/N/L MAL+MRG >4 [place] 82592 06/03/09 NEBULIZER THERAPY 93.94 10/19/04 OP RED-INT FIX RAD/ULNA 79.32 06/24/07 RADICAL EXCIS SKIN LES 86.4 06/03/09 TREAT FX RADIAL 3+ FRAG 08151 06/24/07 Nutritional Asmnt/Malnutr-PDOC - Dietary Evaluation Malnutrition Findings (Please click <Entered> for more info): Nutritional Asmnt/Malnutrition Start: 08/25/18 14: 01 Text: Status: Complete Freq: Protocol: Document 08/25/18 14:01 DONALD (Rec: 08/25/18 14:18 DONALD [email or web address]) Nutritional Asmnt/Malnutrition Patient General Information Nutritional Screening High Risk Consult Diagnosis abdominal pain, bowel obstruction Pertinent Medical Hx/Surgical Hx HTN, asthma/COPD, subarachnoid bleeding Per wound care note: hx of dementia Subjective Information Received diet consult for mass and biopsy site wound. Pt sleeping at time of visit. Pt was on full liquid diet, but spoke to REBEKAH Contreras who states pt is now NPO and has fecal impaction. Per MD notes, KUB shows severe fecal impaction and pt due for surgery tomorrow for inguinal hernias. Per EMR, pt refused regular diet meals and only willing to have full liquid diet with vanilla ensure. Current Diet Order/ Nutrition Support NPO Pertinent Medications Nacl 0.9% Pertinent Labs 08/25: Na 132, Cl 96, BUN 22, glucose 111 08/23: Na 135, Cl 99, BUN 30, glucose 97, Alb 3.6 Nutritional Hx/Data Height 1.7 m Height (Calculated Centimeters) 170.2 Current Weight (lbs) 47.627 kg Weight (Calculated Kilograms) 47.6 Weight (Calculated Grams) 27814.2 Body Mass Index (BMI) 16.4 Weight Status Underweight GI Symptoms GI Symptoms None Last BM none noted Difficult in: None Skin Integrity/Comment: skin tear/biopsy site to right forehead, skin flap to left neck, mass on left shoulder, terrie 16 Estimated Nutritional Goals BEE in Kcals: Using Current wt Calories/Kcals/Kg 30-35 Kcals Calculated 5505-7858 Protein: Using Current wt Protein g/k-1.2 Protein Calculated 48-57 g Fluid: ml 9633-4234 (1 ml/kcal) Nutritional Problem 2. Problem Problem Altered nutrition related lab values Etiology electrolyte imbalance Signs/Symptoms: Na 132, Cl 96 1. Problem Problem Inadequate oral intake Etiology possible poor appetite from fecal impaction or abdominal pain Signs/Symptoms: current NPO status, meal refusals, pt only accepting Ensure Malnutrition Related to Morbid Obesity Malnutrition related to morbid obesity No Intervention/Recommendation Comments 1. Monitor NPO status and advance diet when medically appropriate 2. MD to replace electrolytes as needed 3. Monitor wt, skin integrity, GI symptons, and nutrition related labs 4. F/U as high risk in 2-3 days, 08/27- Expected Outcomes/Goals Expected Outcomes/Goals 1. Pt to resume PO intake when medically appropriate and meet at least 75% of all meals 2. Wt stability, skin integrity to improve, GI improved, and nutrition related labs to approach normal limits Reviewed by Laine Mcarthur RD
[2018-08-30] MEDS: cefTRIAXone 1 GM in Sodium Chloride 0.9% 50 ML IV SCH (20:21)
[2018-08-31] MEDS: Albuterol/Ipratropium Neb 3 ML AERS HHN SCH ×6 (02:03→22:51)
[2018-08-31 04:38] LABS: % BASOPHILS 3.1 % (0.0-2.0); % EOSINOPHILS 0.1 % (0.0-5.0); % MONOCYTES 0.5 % (2.0-10.0); % NEUTROPHILS 87.3 % (40.0-80.0); BASOPHILE ABSOLUTE 0.3 Th/cumm (0-0.2); HEMATOCRIT 29.4 % (41.0-60); HEMOGLOBIN 9.7 gm/dL (12-16); LYMPHOCYTE ABSOLUTE 0.9 Th/cmm (1.5-3.0); MEAN CELL VOLUME 88.2 fl (81-100); MEAN CORPUSCULAR HEMOGLOBIN 29.3 pg (27.0-31.0); MEAN CORPUSCULAR HGB CONC 33.2 pg (28.0-36.0); MEAN PLATELET VOLUME 7.4 fl; NEUTROPHILE ABSOLUTE 8.4 Th/cmm (1.8-8.0); PLATELET COUNT 332 Th/cmm (150-400); RED BLOOD COUNT 3.33 Mil/cmm (3.80-5.20); RED CELL DISTRIBUTION WIDTH 13.1 % (11.5-20.0); WHITE BLOOD COUNT 9.6 Th/cmm (4.8-10.8)
[2018-08-31 05:18] LABS: INR 0.94 (0.5-1.4); PROTHROMBIN TIME (TEST) 9.8 SECONDS (9.5-11.5)
[2018-08-31 05:23] LABS: ALB/GLOB RATIO 1.2 (1.0-1.8); ALBUMIN 2.9 gm/dL (3.7-5.3); ALKALINE PHOSPHATASE 72 U/L (34-104); ANION GAP 10.7 (7.0-16.0); BILIRUBIN,TOTAL 0.2 mg/dL (0.3-1.0); BUN - UREA NITROGEN 25 mg/dL (7-25); CALCIUM SERUM 8.6 mg/dL (8.6-10.3); CARBON DIOXIDE 27.7 mEq/L (21.0-31.0); CHLORIDE 101 mEq/L (98-107); CREATININE - SERUM 0.5 mg/dL (0.6-1.2); GLUCOSE 146 mg/dL (70-105); POTASSIUM SERUM 4.4 mEq/L (3.5-5.1); SGOT 59 U/L (13-39); SGPT/ALT 132 U/L (7-52); SODIUM SERUM 135 mEq/L (136-145); TOTAL PROTEIN,SERUM 5.3 gm/dL (6.0-8.3)
[2018-08-31] MEDS: POLYETHYLENE GLYCOL 3350 17 GM PACK PO SCH ×2 (09:08→17:13)
--- NOTE | 2018-08-31 09:08 | GI Progress Note ---
Subjective - Review of Systems Service Date: 08/31/18 Subjective: No new events overnight Objective - Results Result Diagrams: 08/31/18 04:15 08/31/18 04:15 Recent Labs: Laboratory Last Values WBC 9.6 Th/cmm (4.8-10.8) 08/31/18 04:15 RBC 3.33 Mil/cmm (3.80-5.20) L 08/31/18 04:15 Hgb 9.7 gm/dL (12-16) L 08/31/18 04:15 Hct 29.4 % (41.0-60) L 08/31/18 04:15 MCV 88.2 fl (81-100) 08/31/18 04:15 MCH 29.3 pg (27.0-31.0) 08/31/18 04:15 MCHC Differential 33.2 pg (28.0-36.0) 08/31/18 04:15 RDW 13.1 % (11.5-20.0) 08/31/18 04:15 Plt Count 332 Th/cmm (150-400) 08/31/18 04:15 MPV 7.4 fl 08/31/18 04:15 Add Manual Diff YES 08/30/18 05:53 Neutrophils % 87.3 % (40.0-80.0) H 08/31/18 04:15 Band Neutrophils % 2 % (0-10) 08/27/18 06:58 Lymphocytes % 9.0 % (20.0-50.0) L 08/31/18 04:15 Monocytes % 0.5 % (2.0-10.0) L 08/31/18 04:15 Eosinophils % 0.1 % (0.0-5.0) 08/31/18 04:15 Basophils % 3.1 % (0.0-2.0) H 08/31/18 04:15 Neutrophils (Manual) 91 % (40-80) H 08/30/18 05:53 Lymphocytes 4 % (20-50) L 08/30/18 05:53 Monocytes 5 % (2-10) 08/30/18 05:53 Platelet Estimate ADEQUATE (NORMAL) 08/30/18 05:53 PT 9.8 SECONDS (9.5-11.5) 08/31/18 04:15 INR 0.94 (0.5-1.4) 08/31/18 04:15 PTT (Actin FS) 21.0 SECONDS (26.0-38.0) L 08/31/18 04:15 Specimen Source Arterial 08/26/18 08:40 Sample Site RB 08/26/18 08:40 pH 7.41 (7.35-7.45) 08/26/18 08:40 pCO2 44.0 mmHg (35.0-45.0) 08/26/18 08:40 pO2 100.0 mmHg (80.0-100.0) 08/26/18 08:40 HCO3 27.1 mEq/L (20.0-26.0) H 08/26/18 08:40 Base Excess 2.8 mEq/L (-3.0-3.0) 08/26/18 08:40 O2 Saturation 98.0 % (92.0-100.0) 08/26/18 08:40 Inspired O2 32 08/26/18 08:40 Critical Value PW 08/26/18 08:40 Sodium 135 mEq/L (136-145) L 08/31/18 04:15 Potassium 4.4 mEq/L (3.5-5.1) 08/31/18 04:15 Chloride 101 mEq/L (98-107) 08/31/18 04:15 Carbon Dioxide 27.7 mEq/L (21.0-31.0) 08/31/18 04:15 Anion Gap 10.7 (7.0-16.0) 08/31/18 04:15 BUN 25 mg/dL (7-25) 08/31/18 04:15 Creatinine 0.5 mg/dL (0.6-1.2) L 08/31/18 04:15 Est GFR ( Amer) TNP 08/31/18 04:15 Est GFR (Non-Af Amer) TNP 08/31/18 04:15 BUN/Creatinine Ratio 50.0 08/31/18 04:15 Glucose 146 mg/dL (70-105) H 08/31/18 04:15 POC Glucose 72 MG/DL (70 - 105) 08/26/18 06:47 Calcium 8.6 mg/dL (8.6-10.3) 08/31/18 04:15 Total Bilirubin 0.2 mg/dL (0.3-1.0) L 08/31/18 04:15 AST 59 U/L (13-39) H 08/31/18 04:15 ALT 132 U/L (7-52) H 08/31/18 04:15 Alkaline Phosphatase 72 U/L (34-104) 08/31/18 04:15 B-Natriuretic Peptide 34.4 pg/mL (5.0-100.0) 08/26/18 06:00 Total Protein 5.3 gm/dL (6.0-8.3) L 08/31/18 04:15 Albumin 2.9 gm/dL (3.7-5.3) L 08/31/18 04:15 Globulin 2.4 gm/dL 08/31/18 04:15 Albumin/Globulin Ratio 1.2 (1.0-1.8) 08/31/18 04:15 Blood Type O POSITIVE 08/30/18 09:45 Antibody Screen NEGATIVE 08/30/18 09:45 - Physical Exam Vitals and I&O: Vital Signs Temp 98.0 F 08/31/18 08:13 Pulse 79 08/31/18 08:13 Resp 18 08/31/18 08:13 BP 131/58 08/31/18 08:13 Pulse Ox 98 08/31/18 08:13 Intake & Output 08/30/18 08/31/18 08/31/18 18:59 06:59 18:59 Intake Total 962.5 50 Balance 962.5 50 Weight (lbs) 43.998 kg Intake: Intake, IV Amount 962.5 D5-0.9%Ns 1,000 ml @ 50 962.5 mls/hr IV .Q20H [facility] Rx#: [id number] Oral 50 Other: # Voids 1 # Bowel Movements 1 Stool Characteristics Soft Soft Formed Brown Weight Source Bedscale Active Medications: Current Medications Albuterol/Ipratropium (Duoneb Neb) 3 ml HHN Q4HRT [facility] Stop: 10/25/18 10:59 Last Admin: 08/31/18 06:14 Dose: 3 ml Artificial Tears (Artificial Tears Ophth Soln) 1 drop EACH EYE BID PRN PRN Reason: Dry Eye Stop: 10/25/18 15:59 Last Admin: 08/26/18 16:08 Dose: 1 drop Ceftriaxone Sodium 1 gm/ (Sodium Chloride) 50 mls @ 100 mls/hr IV Q24H [facility] Stop: 10/23/18 20:59 Last Admin: 08/30/18 20:21 Dose: 100 mls/hr Dextrose/Sodium Chloride (D5-0.9%Ns) 1,000 mls @ 50 mls/hr IV .Q20H [facility] Stop: 10/25/18 07:59 Last Admin: 08/30/18 12:20 Dose: 50 mls/hr Methylprednisolone Sodium Succinate (Solu-Medrol) 40 mg IVP Q12HR [facility] Stop: 10/29/18 20:59 Last Admin: 08/30/18 20:23 Dose: 40 mg Polyethylene Glycol (Miralax) 17 gm PO BID [facility] Stop: 10/28/18 08:59 Last Admin: 08/30/18 17:21 Dose: 17 gm General: Alert HEENT: Atraumatic Neck: Supple Cardiovascular: Regular rate Abdomen: Bowel sounds, Soft, no Tender, no Hepatomegaly, no Distended, no Rebound, no Mass Psych/Mental Status: no Mental status NL - Procedures Procedures: Procedures Procedure Code Date EXC F/E/E/N/L MAL+MRG >4 CM 73870 06/03/09 NEBULIZER THERAPY 93.94 10/19/04 OP RED-INT FIX RAD/ULNA 79.32 06/24/07 RADICAL EXCIS SKIN LES 86.4 06/03/09 TREAT FX RADIAL 3+ FRAG 91712 06/24/07 Assessment/Plan - Assessment Assessment: # Large inguinal hernia with possible bowel strangulation # Fecal impaction # Shortness of breath # Abd pain Pt with chronic fecal impaction and large hernia along the right side containing multiple bowel loops. The large hernia is likely causing bowel dysmotility and contributing to ongoing impaction and constipation. I agree that a diverting colostomy is in this patient's best interest to ensure that she avoids further impaction events. The hernia can also be repaired at that time as per Dr Dean Surgery is on hold as of 08/27 given respiratory issues. Thus, will try and alleviate the impaction a bit with enemas It is my opinion that this patient DOES NOT have capacity to make medical decisions. She is not able to verbalize understanding of the consequences of not treating her impaction (which includes bowel perforation, peritonitis, and ). Going today for hernia repair and colostomy creation Plan: - agree with diverting colostomy placement and strangulated hernia repair as per Dr Dean - enema if the pt allows for this - clears are ok - no role for endoscopy here - supportive measures
[2018-08-31] MEDS: methylPREDNISolone SS 40 mg Vial IVP SCH ×2 (09:35→20:52)
[2018-08-31 11:45] LABS: URINE SOURCE CATH
[2018-08-31 11:50] LABS: URINE BILIRUBIN NEGATIVE (NEGATIVE); URINE BLOOD NEGATIVE (NEGATIVE); URINE GLUCOSE (UA) NEGATIVE (NEGATIVE); URINE KETONE NEGATIVE (NEGATIVE); URINE LEUKOCYTE ESTERASE MODERATE (NEGATIVE); URINE NITRATE NEGATIVE (NEGATIVE); URINE PH 6.5 (4.6 - 8.0); URINE PROTEIN NEGATIVE (NEGATIVE); URINE UROBILINOGEN 0.2 E.U./dL (0.2 - 1.0)
[2018-08-31] MEDS ORDERED: fentaNYL Citrate 100 mcg/2mL Vial ONE ×2 (12:14→12:50)
[2018-08-31 12:15] LABS: URINE CLARITY CLEAR (CLEAR)
[2018-08-31 12:16] LABS: URINE MICROSCOPIC INDICATED? YES
[2018-08-31 12:18] LABS: URINE COLOR COLORLESS
[2018-08-31 12:19] LABS: URINE EPITHELIAL CELLS FEW /lpf (FEW); URINE RBC NONE SEEN /hpf (0-5)
[2018-08-31 12:23] LABS: URINE BACTERIA NONE SEEN /hpf (NONE SEEN)
[2018-08-31] MEDS ORDERED: Neostigmine 10mg/10mL Vial ONE (12:28)
[2018-08-31] MEDS ORDERED: Propofol **SURGERY USE ONLY** 20 ML IV ONE (12:28)
[2018-08-31] MEDS: D5-0.9%NS 1,000 ML IV SCH (15:30)
[2018-08-31 15:56] LABS: ALLEN TEST pos
[2018-08-31 15:58] LABS: pH 7.56 (7.35-7.45)
[2018-08-31] MEDS ORDERED: Albumin 25% 25gm/100mL 50 GM/200 ML BTL IV ONE (16:00)
[2018-08-31] MEDS: Morphine Sulfate 2 mg/mL 1mL Syr IVP PRN ×2 (16:15→22:45)
--- NOTE | 2018-08-31 17:17 | Infectious Disease Prog Note ---
Infectious Disease Subjective - Review of Systems Service Date: 08/31/18 Subjective: cc stool impaction/sbo/ing hrnia incarcerated hpi- sen by dr singleton recomend hernia repait colosto, schedule for sx fridayenem tried d/w staff wbc better await pulm clearance for surgey ing hernia done under wnt surgey , d/w dr singleton transfered to icu rocephin renewed ro sno fervr o.e vs chst clear abd soft hernia exrt pulse dx sbo/stool impaction ing hernia s/p sx plan rocepnmn Infectious Disease Objective - Results Result Diagrams: 08/31/18 04:15 08/31/18 04:15 Recent Labs: Laboratory Last Values WBC 9.6 Th/cmm (4.8-10.8) 08/31/18 04:15 RBC 3.33 Mil/cmm (3.80-5.20) L 08/31/18 04:15 Hgb 9.7 gm/dL (12-16) L 08/31/18 04:15 Hct 29.4 % (41.0-60) L 08/31/18 04:15 MCV 88.2 fl (81-100) 08/31/18 04:15 MCH 29.3 pg (27.0-31.0) 08/31/18 04:15 MCHC Differential 33.2 pg (28.0-36.0) 08/31/18 04:15 RDW 13.1 % (11.5-20.0) 08/31/18 04:15 Plt Count 332 Th/cmm (150-400) 08/31/18 04:15 MPV 7.4 fl 08/31/18 04:15 Add Manual Diff YES 08/30/18 05:53 Neutrophils % 87.3 % (40.0-80.0) H 08/31/18 04:15 Band Neutrophils % 2 % (0-10) 08/27/18 06:58 Lymphocytes % 9.0 % (20.0-50.0) L 08/31/18 04:15 Monocytes % 0.5 % (2.0-10.0) L 08/31/18 04:15 Eosinophils % 0.1 % (0.0-5.0) 08/31/18 04:15 Basophils % 3.1 % (0.0-2.0) H 08/31/18 04:15 Neutrophils (Manual) 91 % (40-80) H 08/30/18 05:53 Lymphocytes 4 % (20-50) L 08/30/18 05:53 Monocytes 5 % (2-10) 08/30/18 05:53 Platelet Estimate ADEQUATE (NORMAL) 08/30/18 05:53 PT 9.8 SECONDS (9.5-11.5) 08/31/18 04:15 INR 0.94 (0.5-1.4) 08/31/18 04:15 PTT (Actin FS) 21.0 SECONDS (26.0-38.0) L 08/31/18 04:15 Specimen Source Arterial 08/31/18 15:15 Sample Site Right Radial 08/31/18 15:15 pH 7.56 (7.35-7.45) H* 08/31/18 15:15 pCO2 33.0 mmHg (35.0-45.0) L 08/31/18 15:15 pO2 179.0 mmHg (80.0-100.0) H 08/31/18 15:15 HCO3 30.6 mEq/L (20.0-26.0) H 08/31/18 15:15 Base Excess 7.2 mEq/L (-3.0-3.0) H 08/31/18 15:15 O2 Saturation 100.0 % (92.0-100.0) 08/31/18 15:15 Stephon Test pos 08/31/18 15:15 Vent Rate 14 08/31/18 15:15 Inspired O2 50 08/31/18 15:15 Tidal Volume 500 08/31/18 15:15 PEEP 0 08/31/18 15:15 Pressure (ins/psv/peep) NA 08/31/18 15:15 Critical Value CJ 08/31/18 15:15 Sodium 135 mEq/L (136-145) L 08/31/18 04:15 Potassium 4.4 mEq/L (3.5-5.1) 08/31/18 04:15 Chloride 101 mEq/L (98-107) 08/31/18 04:15 Carbon Dioxide 27.7 mEq/L (21.0-31.0) 08/31/18 04:15 Anion Gap 10.7 (7.0-16.0) 08/31/18 04:15 BUN 25 mg/dL (7-25) 08/31/18 04:15 Creatinine 0.5 mg/dL (0.6-1.2) L 08/31/18 04:15 Est GFR ( Amer) TNP 08/31/18 04:15 Est GFR (Non-Af Amer) TNP 08/31/18 04:15 BUN/Creatinine Ratio 50.0 08/31/18 04:15 Glucose 146 mg/dL (70-105) H 08/31/18 04:15 POC Glucose 72 MG/DL (70 - 105) 08/26/18 06:47 Calcium 8.6 mg/dL (8.6-10.3) 08/31/18 04:15 Total Bilirubin 0.2 mg/dL (0.3-1.0) L 08/31/18 04:15 AST 59 U/L (13-39) H 08/31/18 04:15 ALT 132 U/L (7-52) H 08/31/18 04:15 Alkaline Phosphatase 72 U/L (34-104) 08/31/18 04:15 B-Natriuretic Peptide 34.4 pg/mL (5.0-100.0) 08/26/18 06:00 Total Protein 5.3 gm/dL (6.0-8.3) L 08/31/18 04:15 Albumin 2.9 gm/dL (3.7-5.3) L 08/31/18 04:15 Globulin 2.4 gm/dL 08/31/18 04:15 Albumin/Globulin Ratio 1.2 (1.0-1.8) 08/31/18 04:15 Urine Source CATH 08/31/18 11:25 Urine Color COLORLESS 08/31/18 11:25 Urine Clarity CLEAR (CLEAR) 08/31/18 11:25 Urine pH 6.5 (4.6 - 8.0) 08/31/18 11:25 Ur Specific [place] 1.020 (1.005-1.030) 08/31/18 11:25 Urine Protein NEGATIVE mg/dL (NEGATIVE) 08/31/18 11:25 Urine Glucose (UA) NEGATIVE mg/dL (NEGATIVE) 08/31/18 11:25 Urine Ketones NEGATIVE mg/dL (NEGATIVE) 08/31/18 11:25 Urine Blood NEGATIVE (NEGATIVE) 08/31/18 11:25 Urine Nitrate NEGATIVE (NEGATIVE) 08/31/18 11:25 Urine Bilirubin NEGATIVE (NEGATIVE) 08/31/18 11:25 Urine Urobilinogen 0.2 E.U./dL (0.2 - 1.0) 08/31/18 11:25 Ur Leukocyte Esterase MODERATE (NEGATIVE) H 08/31/18 11:25 Urine RBC NONE SEEN /hpf (0-5) 08/31/18 11:25 Urine WBC 2-5 /hpf (0-5) 08/31/18 11:25 Ur Epithelial Cells FEW /lpf (FEW) 08/31/18 11:25 Urine Bacteria NONE SEEN /hpf (NONE SEEN) 08/31/18 11:25 Blood Type O POSITIVE 08/30/18 09:45 Antibody Screen NEGATIVE 08/30/18 09:45 - Physical Exam Vitals and I&O: Vital Signs Temp 98.3 F 08/31/18 15:36 Pulse 81 08/31/18 16:57 Resp 19 08/31/18 16:00 BP 149/66 08/31/18 16:00 Pulse Ox 100 08/31/18 16:57 Intake & Output 08/30/18 08/31/18 08/31/18 18:59 06:59 18:59 Intake Total 962.5 50 0 Balance 962.5 50 0 Weight (lbs) 43.998 kg 42.91 kg Intake: Intake, IV Amount 962.5 D5-0.9%Ns 1,000 ml @ 50 962.5 mls/hr IV .Q20H [facility] Rx#: [id number] Oral 50 0 Other: # Voids 1 2 # Bowel Movements 1 0 Stool Characteristics Soft Soft Liquid Formed Brown Weight Source Bedscale Bedscale Active Medications: Current Medications Albuterol/Ipratropium (Duoneb Neb) 3 ml HHN Q4HRT [facility] Stop: 10/25/18 10:59 Last Admin: 08/31/18 15:45 Dose: 3 ml Artificial Tears (Artificial Tears Ophth Soln) 1 drop EACH EYE BID PRN PRN Reason: Dry Eye Stop: 10/25/18 15:59 Last Admin: 08/26/18 16:08 Dose: 1 drop Ceftriaxone Sodium 1 gm/ (Sodium Chloride) 50 mls @ 100 mls/hr IV Q24H [facility] Stop: 10/23/18 20:59 Last Admin: 08/30/18 20:21 Dose: 100 mls/hr Dextrose/Sodium Chloride (D5-0.9%Ns) 1,000 mls @ 50 mls/hr IV .Q20H [facility] Stop: 10/25/18 07:59 Last Admin: 08/30/18 12:20 Dose: 50 mls/hr Albumin Human (Albuminar 25%) 50 gm in 200 mls @ 50 mls/hr IV X1 ONE Stop: 08/31/18 19:59 Last Admin: 08/31/18 16:16 Dose: 50 mls/hr Methylprednisolone Sodium Succinate (Solu-Medrol) 40 mg IVP Q12HR [facility] Stop: 10/29/18 20:59 Last Admin: 08/31/18 09:35 Dose: 40 mg Morphine Sulfate (Morphine) 1 mg IVP Q2HR PRN PRN Reason: Pain (Severe) Stop: 09/01/18 14:59 Last Admin: 08/31/18 16:15 Dose: 1 mg Polyethylene Glycol (Miralax) 17 gm PO BID [facility] Stop: 10/28/18 08:59 Last Admin: 08/31/18 17:13 Dose: Not Given - Procedures Procedures: Procedures Procedure Code Date EXC F/E/E/N/L MAL+MRG >4 CM [address]003 06/03/09 NEBULIZER THERAPY 93.94 10/19/04 OP RED-INT FIX RAD/ULNA 79.32 06/24/07 RADICAL EXCIS SKIN LES 86.4 06/03/09 TREAT FX RADIAL 3+ FRAG 23008 06/24/07 Nutritional Asmnt/Malnutr-PDOC - Dietary Evaluation Malnutrition Findings (Please click <Entered> for more info): Nutritional Asmnt/Malnutrition Start: 08/25/18 14: 01 Text: Status: Complete Freq: Protocol: Document 08/25/18 14:01 DONALD (Rec: 08/25/18 14:18 DONALD [email or web address]) Nutritional Asmnt/Malnutrition Patient General Information Nutritional Screening High Risk Consult Diagnosis abdominal pain, bowel obstruction Pertinent Medical Hx/Surgical Hx HTN, asthma/COPD, subarachnoid bleeding Per wound care note: hx of dementia Subjective Information Received diet consult for mass and biopsy site wound. Pt sleeping at time of visit. Pt was on full liquid diet, but spoke to REBEKAH Contreras who states pt is now NPO and has fecal impaction. Per MD notes, KUB shows severe fecal impaction and pt due for surgery tomorrow for inguinal hernias. Per EMR, pt refused regular diet meals and only willing to have full liquid diet with vanilla ensure. Current Diet Order/ Nutrition Support NPO Pertinent Medications Nacl 0.9% Pertinent Labs 08/25: Na 132, Cl 96, BUN 22, glucose 111 08/23: Na 135, Cl 99, BUN 30, glucose 97, Alb 3.6 Nutritional Hx/Data Height 1.7 m Height (Calculated Centimeters) 170.2 Current Weight (lbs) 47.627 kg Weight (Calculated Kilograms) 47.6 Weight (Calculated Grams) 76730.2 Body Mass Index (BMI) 16.4 Weight Status Underweight GI Symptoms GI Symptoms None Last BM none noted Difficult in: None Skin Integrity/Comment: skin tear/biopsy site to right forehead, skin flap to left neck, mass on left shoulder, terrie 16 Estimated Nutritional Goals BEE in Kcals: Using Current wt Calories/Kcals/Kg 30-35 Kcals Calculated [id number] Protein: Using Current wt Protein g/k-1.2 Protein Calculated 48-57 g Fluid: ml 0963-0189 (1 ml/kcal) Nutritional Problem 2. Problem Problem Altered nutrition related lab values Etiology electrolyte imbalance Signs/Symptoms: Na 132, Cl 96 1. Problem Problem Inadequate oral intake Etiology possible poor appetite from fecal impaction or abdominal pain Signs/Symptoms: current NPO status, meal refusals, pt only accepting Ensure Malnutrition Related to Morbid Obesity Malnutrition related to morbid obesity No Intervention/Recommendation Comments 1. Monitor NPO status and advance diet when medically appropriate 2. MD to replace electrolytes as needed 3. Monitor wt, skin integrity, GI symptons, and nutrition related labs 4. F/U as high risk in 2-3 days, 08/27- Expected Outcomes/Goals Expected Outcomes/Goals 1. Pt to resume PO intake when medically appropriate and meet at least 75% of all meals 2. Wt stability, skin integrity to improve, GI improved, and nutrition related labs to approach normal limits Reviewed by Laine Mcarthur RD
[2018-08-31] MEDS: cefTRIAXone 1 GM in Sodium Chloride 0.9% 50 ML IV SCH (20:53)
[2018-08-31] MEDS: metroNIDAZOLE 500mg/NS 100mL 500 MG/100 ML BAG IV SCH (21:24)
[2018-09-01] MEDS: Albuterol/Ipratropium Neb 3 ML AERS HHN SCH ×6 (03:30→23:00)
[2018-09-01 04:46] LABS: HEMATOCRIT 26.9 % (41.0-60); HEMOGLOBIN 9.2 gm/dL (12-16); MEAN CORPUSCULAR HGB CONC 34.1 pg (28.0-36.0); MEAN PLATELET VOLUME 7.5 fl
[2018-09-01 04:50] LABS: MEAN CELL VOLUME 87.5 fl (81-100); MEAN CORPUSCULAR HEMOGLOBIN 29.8 pg (27.0-31.0); PLATELET COUNT 351 Th/cmm (150-400); RED BLOOD COUNT 3.08 Mil/cmm (3.80-5.20); RED CELL DISTRIBUTION WIDTH 12.9 % (11.5-20.0)
[2018-09-01] MEDS: Morphine Sulfate 2 mg/mL 1mL Syr IVP PRN ×4 (05:09→23:11)
[2018-09-01] MEDS: metroNIDAZOLE 500mg/NS 100mL 500 MG/100 ML BAG IV SCH ×3 (05:12→20:23)
[2018-09-01 05:13] LABS: WHITE BLOOD COUNT 24.7 Th/cmm (4.8-10.8)
[2018-09-01 05:24] LABS: ALB/GLOB RATIO 2.1 (1.0-1.8); ALBUMIN 3.7 gm/dL (3.7-5.3); ALKALINE PHOSPHATASE 58 U/L (34-104); ANION GAP 14.9 (7.0-16.0); BILIRUBIN,TOTAL 0.6 mg/dL (0.3-1.0); BUN - UREA NITROGEN 21 mg/dL (7-25); CALCIUM SERUM 9.1 mg/dL (8.6-10.3); CARBON DIOXIDE 25.9 mEq/L (21.0-31.0); CHLORIDE 96 mEq/L (98-107); CREATININE - SERUM 0.5 mg/dL (0.6-1.2); GLUCOSE 173 mg/dL (70-105); POTASSIUM SERUM 3.8 mEq/L (3.5-5.1); SGOT 29 U/L (13-39); SGPT/ALT 71 U/L (7-52); SODIUM SERUM 133 mEq/L (136-145); TOTAL PROTEIN,SERUM 5.5 gm/dL (6.0-8.3)
[2018-09-01 05:36] LABS: BAND NEUTROPHILE 2 % (0-10); LYMPHOCYTE 5 % (20-50); MONOCYTE 6 % (2-10); NEUTROPHILS 87 % (40-80); PLATELET ESTIMATE ADEQUATE (NORMAL)
[2018-09-01] MEDS ORDERED: Chlorhexidine Gluconate 0.12% 15mL Mouthwash MM SCH (08:00)
--- NOTE | 2018-09-01 08:22 | GI Progress Note ---
Subjective - Review of Systems Service Date: 09/01/18 Subjective: Pt s/p repair of incarcerated ventral hernia and creation of a colostomy on . Now intubated and in the ICU Objective - Results Result Diagrams: 09/01/18 04:10 09/01/18 04:10 Recent Labs: Laboratory Last Values WBC 24.7 Th/cmm (4.8-10.8) H* D 09/01/18 04:10 RBC 3.08 Mil/cmm (3.80-5.20) L 09/01/18 04:10 Hgb 9.2 gm/dL (12-16) L 09/01/18 04:10 Hct 26.9 % (41.0-60) L 09/01/18 04:10 MCV 87.5 fl (81-100) 09/01/18 04:10 MCH 29.8 pg (27.0-31.0) 09/01/18 04:10 MCHC Differential 34.1 pg (28.0-36.0) 09/01/18 04:10 RDW 12.9 % (11.5-20.0) 09/01/18 04:10 Plt Count 351 Th/cmm (150-400) 09/01/18 04:10 MPV 7.5 fl 09/01/18 04:10 Add Manual Diff YES 09/01/18 04:10 Neutrophils % 87.3 % (40.0-80.0) H 08/31/18 04:15 Band Neutrophils % 2 % (0-10) 09/01/18 04:10 Lymphocytes % 9.0 % (20.0-50.0) L 08/31/18 04:15 Monocytes % 0.5 % (2.0-10.0) L 08/31/18 04:15 Eosinophils % 0.1 % (0.0-5.0) 08/31/18 04:15 Basophils % 3.1 % (0.0-2.0) H 08/31/18 04:15 Neutrophils (Manual) 87 % (40-80) H 09/01/18 04:10 Lymphocytes 5 % (20-50) L 09/01/18 04:10 Monocytes 6 % (2-10) 09/01/18 04:10 Platelet Estimate ADEQUATE (NORMAL) 09/01/18 04:10 PT 9.8 SECONDS (9.5-11.5) 08/31/18 04:15 INR 0.94 (0.5-1.4) 08/31/18 04:15 PTT (Actin FS) 21.0 SECONDS (26.0-38.0) L 08/31/18 04:15 Specimen Source Arterial 08/31/18 15:15 Sample Site Right Radial 08/31/18 15:15 pH 7.56 (7.35-7.45) H* 08/31/18 15:15 pCO2 33.0 mmHg (35.0-45.0) L 08/31/18 15:15 pO2 179.0 mmHg (80.0-100.0) H 08/31/18 15:15 HCO3 30.6 mEq/L (20.0-26.0) H 08/31/18 15:15 Base Excess 7.2 mEq/L (-3.0-3.0) H 08/31/18 15:15 O2 Saturation 100.0 % (92.0-100.0) 08/31/18 15:15 Stephon Test pos 08/31/18 15:15 Vent Rate 14 08/31/18 15:15 Inspired O2 50 08/31/18 15:15 Tidal Volume 500 08/31/18 15:15 PEEP 0 08/31/18 15:15 Pressure (ins/psv/peep) NA 08/31/18 15:15 Critical Value CJ 08/31/18 15:15 Sodium 133 mEq/L (136-145) L 09/01/18 04:10 Potassium 3.8 mEq/L (3.5-5.1) 09/01/18 04:10 Chloride 96 mEq/L (98-107) L 09/01/18 04:10 Carbon Dioxide 25.9 mEq/L (21.0-31.0) 09/01/18 04:10 Anion Gap 14.9 (7.0-16.0) 09/01/18 04:10 BUN 21 mg/dL (7-25) 09/01/18 04:10 Creatinine 0.5 mg/dL (0.6-1.2) L 09/01/18 04:10 Est GFR ( Amer) TNP 09/01/18 04:10 Est GFR (Non-Af Amer) TNP 09/01/18 04:10 BUN/Creatinine Ratio 42.0 09/01/18 04:10 Glucose 173 mg/dL (70-105) H 09/01/18 04:10 POC Glucose 72 MG/DL (70 - 105) 08/26/18 06:47 Calcium 9.1 mg/dL (8.6-10.3) 09/01/18 04:10 Total Bilirubin 0.6 mg/dL (0.3-1.0) 09/01/18 04:10 AST 29 U/L (13-39) 09/01/18 04:10 ALT 71 U/L (7-52) H 09/01/18 04:10 Alkaline Phosphatase 58 U/L (34-104) 09/01/18 04:10 B-Natriuretic Peptide 34.4 pg/mL (5.0-100.0) 08/26/18 06:00 Total Protein 5.5 gm/dL (6.0-8.3) L 09/01/18 04:10 Albumin 3.7 gm/dL (3.7-5.3) 09/01/18 04:10 Globulin 1.8 gm/dL 09/01/18 04:10 Albumin/Globulin Ratio 2.1 (1.0-1.8) H 09/01/18 04:10 Urine Source CATH 08/31/18 11:25 Urine Color COLORLESS 08/31/18 11:25 Urine Clarity CLEAR (CLEAR) 08/31/18 11:25 Urine pH 6.5 (4.6 - 8.0) 08/31/18 11:25 Ur Specific [place] 1.020 (1.005-1.030) 08/31/18 11:25 Urine Protein NEGATIVE mg/dL (NEGATIVE) 08/31/18 11:25 Urine Glucose (UA) NEGATIVE mg/dL (NEGATIVE) 08/31/18 11:25 Urine Ketones NEGATIVE mg/dL (NEGATIVE) 08/31/18 11:25 Urine Blood NEGATIVE (NEGATIVE) 08/31/18 11:25 Urine Nitrate NEGATIVE (NEGATIVE) 08/31/18 11:25 Urine Bilirubin NEGATIVE (NEGATIVE) 08/31/18 11:25 Urine Urobilinogen 0.2 E.U./dL (0.2 - 1.0) 08/31/18 11:25 Ur Leukocyte Esterase MODERATE (NEGATIVE) H 08/31/18 11:25 Urine RBC NONE SEEN /hpf (0-5) 08/31/18 11:25 Urine WBC 2-5 /hpf (0-5) 08/31/18 11:25 Ur Epithelial Cells FEW /lpf (FEW) 08/31/18 11:25 Urine Bacteria NONE SEEN /hpf (NONE SEEN) 08/31/18 11:25 Blood Type O POSITIVE 08/30/18 09:45 Antibody Screen NEGATIVE 08/30/18 09:45 - Physical Exam Vitals and I&O: Vital Signs Temp 99.4 F 09/01/18 06:57 Pulse 89 09/01/18 07:02 Resp 15 09/01/18 07:02 BP 146/61 09/01/18 07:00 Pulse Ox 100 09/01/18 07:02 Intake & Output 08/31/18 09/01/18 09/01/18 18:59 06:59 18:59 Intake Total 1200 450 Output Total 850 1150 Balance 350 -700 Weight (lbs) 48.081 kg 45.314 kg Intake: Intake, IV Amount 1000 450 Albumin 25% 25gm/100mL 50 200 gm In 200 ml @ 50 mls/hr IV X1 ONE Rx#:[id number] D5-0.9%Ns 1,000 ml @ 50 1000 mls/hr IV .Q20H [facility] Rx#: [id number] cefTRIAXone 1 gm In 50 Sodium Chloride 0.9% 50 ml @ 100 mls/hr IV Q24H [facility] Rx#:[id number] metroNIDAZOLE 500mg/NS 200 100mL 500 mg In 100 ml @ 100 mls/hr IV Q8HR [facility] Rx #:[id number] Oral 0 Albumin 200 Output: Urine 800 1000 Stool 50 150 Other: # Voids 2 # Bowel Movements 0 Stool Characteristics Liquid Liquid Brown Weight Source Bedscale Bedscale Active Medications: Current Medications Albuterol/Ipratropium (Duoneb Neb) 3 ml HHN Q4HRT [facility] Stop: 10/25/18 10:59 Last Admin: 09/01/18 07:02 Dose: 3 ml Artificial Tears (Artificial Tears Ophth Soln) 1 drop EACH EYE BID PRN PRN Reason: Dry Eye Stop: 10/25/18 15:59 Last Admin: 08/26/18 16:08 Dose: 1 drop Chlorhexidine Gluconate (Peridex) 15 ml MM [facility] Stop: 10/31/18 07:59 Ceftriaxone Sodium 1 gm/ (Sodium Chloride) 50 mls @ 100 mls/hr IV Q24H [facility] Stop: 10/23/18 20:59 Last Infusion: 08/31/18 21:25 Dose: Infused Dextrose/Sodium Chloride (D5-0.9%Ns) 1,000 mls @ 50 mls/hr IV .Q20H [facility] Stop: 10/25/18 07:59 Last Admin: 08/31/18 15:30 Dose: 50 mls/hr Metronidazole (Flagyl) 500 mg in 100 mls @ 100 mls/hr IV Q8HR [facility] Stop: 10/30/18 20:59 Last Infusion: 09/01/18 06:15 Dose: Infused Methylprednisolone Sodium Succinate (Solu-Medrol) 40 mg IVP Q12HR [facility] Stop: 10/29/18 20:59 Last Admin: 08/31/18 20:52 Dose: 40 mg Morphine Sulfate (Morphine) 1 mg IVP Q2HR PRN PRN Reason: Pain (Severe) Stop: 09/01/18 14:59 Last Admin: 09/01/18 05:09 Dose: 1 mg Pantoprazole Sodium (Protonix) 40 mg IVP DAILY [facility] Stop: 10/30/18 21:59 Last Admin: 08/31/18 22:27 Dose: 40 mg Polyethylene Glycol (Miralax) 17 gm PO BID [facility] Stop: 10/28/18 08:59 Last Admin: 08/31/18 17:13 Dose: Not Given General: Alert HEENT: Atraumatic, Other (intubated) Neck: Supple Cardiovascular: Regular rate Abdomen: Bowel sounds, Soft, no Tender, no Hepatomegaly, no Distended, no Rebound, no Mass Psych/Mental Status: no Mental status NL - Procedures Procedures: Procedures Procedure Code Date EXC F/E/E/N/L MAL+MRG >4 [place] 85342 06/03/09 NEBULIZER THERAPY 93.94 10/19/04 OP RED-INT FIX RAD/ULNA 79.32 06/24/07 RADICAL EXCIS SKIN LES 86.4 06/03/09 TREAT FX RADIAL 3+ FRAG 93835 06/24/07 Assessment/Plan - Assessment Assessment: # Large inguinal hernia with possible bowel strangulation # Fecal impaction # Shortness of breath # Abd pain Pt with chronic fecal impaction and large hernia along the right side containing multiple bowel loops. The large hernia is likely causing bowel dysmotility and contributing to ongoing impaction and constipation. I agree that a diverting colostomy is in this patient's best interest to ensure that she avoids further impaction events. The hernia can also be repaired at that time as per Dr Dean Pt underwent hernia repair and colostomy creation with Dr Dean on 08/31. She is now recovering in the ICU, remains intubated. Colostomy is putting out stool. Plan: - post op care - hopefully will be extubated, and can have swallowing eval at that time - supportive measures
--- NOTE | 2018-09-01 08:53 | Diagnostic Imaging Report ---
CHEST X-RAY: AP view INDICATION: ET tube placement COMPARISON: 08/26/2018 FINDINGS: ET tube is place with tip 1.8 cm above the [place]. No focal consolidation or effusions. Chronic changes are noted. Heart size is normal. IMPRESSION: Interval ET tube placement with tip 1.8 cm above the Neeru. No focal consolidation identified. Possible COPD.
--- NOTE | 2018-09-01 09:00 | Diagnostic Imaging Report ---
CHEST X-RAY: AP view INDICATION: Shortness of breath COMPARISON: 08/31/2018 FINDINGS: ET tube is seen with tip 2 cm above the pj. No focal consolidation or effusions. There is lucency under the right hemidiaphragm probably related to position bowel loops. Heart size is normal. IMPRESSION: Lucency under the right hemidiaphragm possibly related to positioning and bowel loops. Underlying free abdominal air is less likely. An upright abdominal x-rays recommended for further assessment. No focal consolidation identified. ET tube with tip 2 cm above the Pj.
[2018-09-01] MEDS: methylPREDNISolone SS 40 mg Vial IVP SCH ×2 (09:08→20:23)
[2018-09-01] MEDS: POLYETHYLENE GLYCOL 3350 17 GM PACK PO SCH ×2 (09:09→16:14)
[2018-09-01 10:23] LABS: pH 7.52 (7.35-7.45)
--- NOTE | 2018-09-01 10:50 | General Progress Note ---
Subjective - Review of Systems Service Date: 09/01/18 Events since last encounter: 09/01/18 labs noted possible extubation today Objective - Results Result Diagrams: 09/01/18 04:10 09/01/18 04:10 Recent Labs: Laboratory Last Values WBC 24.7 Th/cmm (4.8-10.8) H* D 09/01/18 04:10 RBC 3.08 Mil/cmm (3.80-5.20) L 09/01/18 04:10 Hgb 9.2 gm/dL (12-16) L 09/01/18 04:10 Hct 26.9 % (41.0-60) L 09/01/18 04:10 MCV 87.5 fl (81-100) 09/01/18 04:10 MCH 29.8 pg (27.0-31.0) 09/01/18 04:10 MCHC Differential 34.1 pg (28.0-36.0) 09/01/18 04:10 RDW 12.9 % (11.5-20.0) 09/01/18 04:10 Plt Count 351 Th/cmm (150-400) 09/01/18 04:10 MPV 7.5 fl 09/01/18 04:10 Add Manual Diff YES 09/01/18 04:10 Neutrophils % 87.3 % (40.0-80.0) H 08/31/18 04:15 Band Neutrophils % 2 % (0-10) 09/01/18 04:10 Lymphocytes % 9.0 % (20.0-50.0) L 08/31/18 04:15 Monocytes % 0.5 % (2.0-10.0) L 08/31/18 04:15 Eosinophils % 0.1 % (0.0-5.0) 08/31/18 04:15 Basophils % 3.1 % (0.0-2.0) H 08/31/18 04:15 Neutrophils (Manual) 87 % (40-80) H 09/01/18 04:10 Lymphocytes 5 % (20-50) L 09/01/18 04:10 Monocytes 6 % (2-10) 09/01/18 04:10 Platelet Estimate ADEQUATE (NORMAL) 09/01/18 04:10 PT 9.8 SECONDS (9.5-11.5) 08/31/18 04:15 INR 0.94 (0.5-1.4) 08/31/18 04:15 PTT (Actin FS) 21.0 SECONDS (26.0-38.0) L 08/31/18 04:15 Specimen Source Arterial 09/01/18 09:00 Sample Site LB 09/01/18 09:00 pH 7.52 (7.35-7.45) H 09/01/18 09:00 pCO2 38.0 mmHg (35.0-45.0) 09/01/18 09:00 pO2 161.0 mmHg (80.0-100.0) H 09/01/18 09:00 HCO3 30.9 mEq/L (20.0-26.0) H 09/01/18 09:00 Base Excess 7.6 mEq/L (-3.0-3.0) H 09/01/18 09:00 O2 Saturation 100.0 % (92.0-100.0) 09/01/18 09:00 Stephon Test pos 08/31/18 15:15 Vent Rate 14 09/01/18 09:00 Inspired O2 35 09/01/18 09:00 Tidal Volume 450 09/01/18 09:00 PEEP 0 08/31/18 15:15 Pressure (ins/psv/peep) NA 08/31/18 15:15 Critical Value RN 09/01/18 09:00 Sodium 133 mEq/L (136-145) L 09/01/18 04:10 Potassium 3.8 mEq/L (3.5-5.1) 09/01/18 04:10 Chloride 96 mEq/L (98-107) L 09/01/18 04:10 Carbon Dioxide 25.9 mEq/L (21.0-31.0) 09/01/18 04:10 Anion Gap 14.9 (7.0-16.0) 09/01/18 04:10 BUN 21 mg/dL (7-25) 09/01/18 04:10 Creatinine 0.5 mg/dL (0.6-1.2) L 09/01/18 04:10 Est GFR ( Amer) TNP 09/01/18 04:10 Est GFR (Non-Af Amer) TNP 09/01/18 04:10 BUN/Creatinine Ratio 42.0 09/01/18 04:10 Glucose 173 mg/dL (70-105) H 09/01/18 04:10 POC Glucose 72 MG/DL (70 - 105) 08/26/18 06:47 Calcium 9.1 mg/dL (8.6-10.3) 09/01/18 04:10 Total Bilirubin 0.6 mg/dL (0.3-1.0) 09/01/18 04:10 AST 29 U/L (13-39) 09/01/18 04:10 ALT 71 U/L (7-52) H 09/01/18 04:10 Alkaline Phosphatase 58 U/L (34-104) 09/01/18 04:10 B-Natriuretic Peptide 34.4 pg/mL (5.0-100.0) 08/26/18 06:00 Total Protein 5.5 gm/dL (6.0-8.3) L 09/01/18 04:10 Albumin 3.7 gm/dL (3.7-5.3) 09/01/18 04:10 Globulin 1.8 gm/dL 09/01/18 04:10 Albumin/Globulin Ratio 2.1 (1.0-1.8) H 09/01/18 04:10 Urine Source CATH 08/31/18 11:25 Urine Color COLORLESS 08/31/18 11:25 Urine Clarity CLEAR (CLEAR) 08/31/18 11:25 Urine pH 6.5 (4.6 - 8.0) 08/31/18 11:25 Ur Specific [place] 1.020 (1.005-1.030) 08/31/18 11:25 Urine Protein NEGATIVE mg/dL (NEGATIVE) 08/31/18 11:25 Urine Glucose (UA) NEGATIVE mg/dL (NEGATIVE) 08/31/18 11:25 Urine Ketones NEGATIVE mg/dL (NEGATIVE) 08/31/18 11:25 Urine Blood NEGATIVE (NEGATIVE) 08/31/18 11:25 Urine Nitrate NEGATIVE (NEGATIVE) 08/31/18 11:25 Urine Bilirubin NEGATIVE (NEGATIVE) 08/31/18 11:25 Urine Urobilinogen 0.2 E.U./dL (0.2 - 1.0) 08/31/18 11:25 Ur Leukocyte Esterase MODERATE (NEGATIVE) H 08/31/18 11:25 Urine RBC NONE SEEN /hpf (0-5) 08/31/18 11:25 Urine WBC 2-5 /hpf (0-5) 08/31/18 11:25 Ur Epithelial Cells FEW /lpf (FEW) 08/31/18 11:25 Urine Bacteria NONE SEEN /hpf (NONE SEEN) 08/31/18 11:25 Blood Type O POSITIVE 08/30/18 09:45 Antibody Screen NEGATIVE 08/30/18 09:45 - Physical Exam Vitals and I&O: Vital Signs Temp 99.3 F 09/01/18 10:00 Pulse 102 09/01/18 10:00 Resp 14 09/01/18 10:00 BP 149/50 09/01/18 10:00 Pulse Ox 97 09/01/18 10:00 Intake & Output 08/31/18 09/01/18 09/01/18 18:59 06:59 18:59 Intake Total 1200 450 Output Total 850 1150 Balance 350 -700 Weight (lbs) 48.081 kg 45.314 kg Intake: Intake, IV Amount 1000 450 Albumin 25% 25gm/100mL 50 200 gm In 200 ml @ 50 mls/hr IV X1 ONE Rx#:[id number] D5-0.9%Ns 1,000 ml @ 50 1000 mls/hr IV .Q20H [facility] Rx#: [id number] cefTRIAXone 1 gm In 50 Sodium Chloride 0.9% 50 ml @ 100 mls/hr IV Q24H [facility] Rx#:[id number] metroNIDAZOLE 500mg/NS 200 100mL 500 mg In 100 ml @ 100 mls/hr IV Q8HR [facility] Rx #:[id number] Oral 0 Albumin 200 Output: Urine 800 1000 Stool 50 150 Other: # Voids 2 # Bowel Movements 0 Stool Characteristics Liquid Liquid Brown Weight Source Bedscale Bedscale Active Medications: Current Medications Albuterol/Ipratropium (Duoneb Neb) 3 ml HHN Q4HRT [facility] Stop: 10/25/18 10:59 Last Admin: 09/01/18 07:02 Dose: 3 ml Artificial Tears (Artificial Tears Ophth Soln) 1 drop EACH EYE BID PRN PRN Reason: Dry Eye Stop: 10/25/18 15:59 Last Admin: 08/26/18 16:08 Dose: 1 drop Chlorhexidine Gluconate (Peridex) 15 ml MM 0800,1999 [facility] Stop: 10/31/18 07:59 Last Admin: 09/01/18 08:50 Dose: 15 ml Dextrose/Sodium Chloride (D5-0.9%Ns) 1,000 mls @ 50 mls/hr IV .Q20H [facility] Stop: 10/25/18 07:59 Last Admin: 08/31/18 15:30 Dose: 50 mls/hr Metronidazole (Flagyl) 500 mg in 100 mls @ 100 mls/hr IV Q8HR [facility] Stop: 10/30/18 20:59 Last Infusion: 09/01/18 06:15 Dose: Infused Piperacillin Sod/Tazobactam (Sod 3.375 gm/ Sodium Chloride) 50 mls @ 100 mls/ hr IV Q6HR [facility] Stop: 10/31/18 11:59 Methylprednisolone Sodium Succinate (Solu-Medrol) 40 mg IVP Q12HR [facility] Stop: 10/29/18 20:59 Last Admin: 09/01/18 09:08 Dose: 40 mg Miscellaneous (Zosyn Iv Per Pharmacy) 1 ea MC PRN PRN PRN Reason: PROTOCOL Stop: 10/31/18 08:38 Morphine Sulfate (Morphine) 1 mg IVP Q2HR PRN PRN Reason: Pain (Severe) Stop: 09/01/18 14:59 Last Admin: 09/01/18 09:08 Dose: 1 mg Pantoprazole Sodium (Protonix) 40 mg IVP DAILY [facility] Stop: 10/30/18 21:59 Last Admin: 09/01/18 09:08 Dose: 40 mg Polyethylene Glycol (Miralax) 17 gm PO BID [facility] Stop: 10/28/18 08:59 Last Admin: 09/01/18 09:09 Dose: Not Given General: Alert HEENT: Atraumatic, Other (intubated) Neck: Supple Cardiovascular: Regular rate Abdomen: Bowel sounds, Soft, no Tender, no Hepatomegaly, no Distended, no Rebound, no Mass Psych/Mental Status: no Mental status NL - Procedures Procedures: Procedures Procedure Code Date EXC F/E/E/N/L MAL+MRG >4 [place] [address] 06/03/09 NEBULIZER THERAPY 93.94 10/19/04 OP RED-INT FIX RAD/ULNA 79.32 06/24/07 RADICAL EXCIS SKIN LES 86.4 06/03/09 TREAT FX RADIAL 3+ FRAG 02256 06/24/07 Nutritional Asmnt/Malnutr-PDOC - Dietary Evaluation Malnutrition Findings (Please click <Entered> for more info): Nutritional Asmnt/Malnutrition Start: 08/25/18 14: 01 Text: Status: Complete Freq: Protocol: Document 08/25/18 14:01 DONALD (Rec: 08/25/18 14:18 DONALD [id number]) Nutritional Asmnt/Malnutrition Patient General Information Nutritional Screening High Risk Consult Diagnosis abdominal pain, bowel obstruction Pertinent Medical Hx/Surgical Hx HTN, asthma/COPD, subarachnoid bleeding Per wound care note: hx of dementia Subjective Information Received diet consult for mass and biopsy site wound. Pt sleeping at time of visit. Pt was on full liquid diet, but spoke to RN Ben who states pt is now NPO and has fecal impaction. Per MD notes, KUB shows severe fecal impaction and pt due for surgery tomorrow for inguinal hernias. Per EMR, pt refused regular diet meals and only willing to have full liquid diet with vanilla ensure. Current Diet Order/ Nutrition Support NPO Pertinent Medications Nacl 0.9% Pertinent Labs 08/25: Na 132, Cl 96, BUN 22, glucose 111 08/23: Na 135, Cl 99, BUN 30, glucose 97, Alb 3.6 Nutritional Hx/Data Height 1.7 m Height (Calculated Centimeters) 170.2 Current Weight (lbs) 47.627 kg Weight (Calculated Kilograms) 47.6 Weight (Calculated Grams) 21798.2 Body Mass Index (BMI) 16.4 Weight Status Underweight GI Symptoms GI Symptoms None Last BM none noted Difficult in: None Skin Integrity/Comment: skin tear/biopsy site to right forehead, skin flap to left neck, mass on left shoulder, terrie 16 Estimated Nutritional Goals BEE in Kcals: Using Current wt Calories/Kcals/Kg 30-35 Kcals Calculated 5944-1836 Protein: Using Current wt Protein g/k-1.2 Protein Calculated 48-57 g Fluid: ml 0073-8808 (1 ml/kcal) Nutritional Problem 2. Problem Problem Altered nutrition related lab values Etiology electrolyte imbalance Signs/Symptoms: Na 132, Cl 96 1. Problem Problem Inadequate oral intake Etiology possible poor appetite from fecal impaction or abdominal pain Signs/Symptoms: current NPO status, meal refusals, pt only accepting Ensure Malnutrition Related to Morbid Obesity Malnutrition related to morbid obesity No Intervention/Recommendation Comments 1. Monitor NPO status and advance diet when medically appropriate 2. MD to replace electrolytes as needed 3. Monitor wt, skin integrity, GI symptons, and nutrition related labs 4. F/U as high risk in 2-3 days, 08/27- Expected Outcomes/Goals Expected Outcomes/Goals 1. Pt to resume PO intake when medically appropriate and meet at least 75% of all meals 2. Wt stability, skin integrity to improve, GI improved, and nutrition related labs to approach normal limits Reviewed by Laine Mcarthur RD
--- NOTE | 2018-09-01 11:22 | Operative Report ---
DATE OF SURGERY: 08/31/2018 PREOPERATIVE DIAGNOSES: 1. Incarcerated right inguinal hernia. 2. Fecal impaction, severe. 3. Chronic obstructive pulmonary disease. 4. Dementia. POSTOPERATIVE DIAGNOSES: 1. Incarcerated right inguinal hernia. 2. Fecal impaction, severe. 3. Chronic obstructive pulmonary disease. 4. Dementia. OPERATION DONE: Exploratory laparotomy with: 1. Subtotal colectomy with end colostomy. 2. Repair of incarcerated right inguinal hernia. 3. Repair of left inguinal hernia. 4. Mobilization of the hepatic flexure. 5. Mobilization of splenic flexure. SURGEON: Arcelia Dean M.D. SAMPLE CHECKER: Dr. Guy. ANESTHESIA: General anesthesia. ANESTHESIOLOGIST: Lakesha Foster M.D. ESTIMATED BLOOD LOSS: 100 mL. INDICATIONS FOR SURGERY: Incarcerated right inguinal hernia. The patient with constant fecal impaction. The patient has no family and 2 physicians given consent for the necessity for the procedure. DESCRIPTION OF PROCEDURE: The patient was given general anesthesia. The abdomen was prepped with ChloraPrep and draped in appropriate manner. An incision was made in the midline in the lower abdomen, but this had to be extended into the upper abdomen. Bleeders were coagulated. Retractor was applied. The abdomen was explored. The colon was markedly redundant and full of stools, particularly in the sigmoid area. This was milked upwards and the distal sigmoid colon was transected. The distal staple line was reinforced with running suture of 3-0 silk. Because of the markedly redundant bowels, it was decided to do a subtotal colectomy to prevent fecal impaction to recur. The mesentery was fairly transected utilizing an impact instrument. Additional bleeders were ligated. The ascending colon was transected with the ZAHEER instrument to allow for this to come out as an end colostomy. The hernia repair was carried out utilizing intraoperative sutures of #1 Nurolon approximating the Bret's ligament to the inguinal ligament that was done on both sides. Following satisfactory hemostasis, the proximal portion of the colon was brought out as a colostomy in the right upper portion in the right abdomen. Portion of the skin was excised and the fascia was divided vertically. The colon was brought out through this and the undersurface of the abdominal wall was sutured to the colon to prevent dislodgement. Following satisfactory hemostasis, the abdominal incision was closed with running suture of #1 PDS. Subcutaneous tissue closed with 3-0 Vicryl and the skin with subcuticular suture of 4-0 Vicryl. The colostomy was matured utilizing everting sutures of 4-0 Vicryl. Colostomy bag was placed over this. The patient tolerated the procedure well. JOB# [id number] GOUVERNEUR HEALTHErnestine
[2018-09-01 12:46] LABS: pH 7.53 (7.35-7.45)
--- NOTE | 2018-09-01 13:56 | Internal Medicine Prog Note ---
Internal Medicine Subjective - Subjective Service Date: 09/01/18 Patient is:: asleep, denies any new complaints, other (comfortable ) Per staff patient has:: tolerating meds Internal Medicine Objective - Results Result Diagrams: 09/01/18 04:10 09/01/18 04:10 Recent Labs: Laboratory Last Values WBC 24.7 Th/cmm (4.8-10.8) H* D 09/01/18 04:10 RBC 3.08 Mil/cmm (3.80-5.20) L 09/01/18 04:10 Hgb 9.2 gm/dL (12-16) L 09/01/18 04:10 Hct 26.9 % (41.0-60) L 09/01/18 04:10 MCV 87.5 fl (81-100) 09/01/18 04:10 MCH 29.8 pg (27.0-31.0) 09/01/18 04:10 MCHC Differential 34.1 pg (28.0-36.0) 09/01/18 04:10 RDW 12.9 % (11.5-20.0) 09/01/18 04:10 Plt Count 351 Th/cmm (150-400) 09/01/18 04:10 MPV 7.5 fl 09/01/18 04:10 Add Manual Diff YES 09/01/18 04:10 Neutrophils % 87.3 % (40.0-80.0) H 08/31/18 04:15 Band Neutrophils % 2 % (0-10) 09/01/18 04:10 Lymphocytes % 9.0 % (20.0-50.0) L 08/31/18 04:15 Monocytes % 0.5 % (2.0-10.0) L 08/31/18 04:15 Eosinophils % 0.1 % (0.0-5.0) 08/31/18 04:15 Basophils % 3.1 % (0.0-2.0) H 08/31/18 04:15 Neutrophils (Manual) 87 % (40-80) H 09/01/18 04:10 Lymphocytes 5 % (20-50) L 09/01/18 04:10 Monocytes 6 % (2-10) 09/01/18 04:10 Platelet Estimate ADEQUATE (NORMAL) 09/01/18 04:10 PT 9.8 SECONDS (9.5-11.5) 08/31/18 04:15 INR 0.94 (0.5-1.4) 08/31/18 04:15 PTT (Actin FS) 21.0 SECONDS (26.0-38.0) L 08/31/18 04:15 Specimen Source arterial 09/01/18 12:00 Sample Site LB 09/01/18 12:00 pH 7.53 (7.35-7.45) H 09/01/18 12:00 pCO2 38.0 mmHg (35.0-45.0) 09/01/18 12:00 pO2 171.0 mmHg (80.0-100.0) H 09/01/18 12:00 HCO3 31.6 mEq/L (20.0-26.0) H 09/01/18 12:00 Base Excess 8.5 mEq/L (-3.0-3.0) H 09/01/18 12:00 O2 Saturation 100.0 % (92.0-100.0) 09/01/18 12:00 Stephon Test na 09/01/18 12:00 Vent Rate na 09/01/18 12:00 Inspired O2 40 09/01/18 12:00 Tidal Volume na 09/01/18 12:00 PEEP na 09/01/18 12:00 Pressure (ins/psv/peep) na 09/01/18 12:00 Critical Value [email or web address] retort operator 09/01/18 12:00 Sodium 133 mEq/L (136-145) L 09/01/18 04:10 Potassium 3.8 mEq/L (3.5-5.1) 09/01/18 04:10 Chloride 96 mEq/L (98-107) L 09/01/18 04:10 Carbon Dioxide 25.9 mEq/L (21.0-31.0) 09/01/18 04:10 Anion Gap 14.9 (7.0-16.0) 09/01/18 04:10 BUN 21 mg/dL (7-25) 09/01/18 04:10 Creatinine 0.5 mg/dL (0.6-1.2) L 09/01/18 04:10 Est GFR ( Amer) TNP 09/01/18 04:10 Est GFR (Non-Af Amer) TNP 09/01/18 04:10 BUN/Creatinine Ratio 42.0 09/01/18 04:10 Glucose 173 mg/dL (70-105) H 09/01/18 04:10 POC Glucose 72 MG/DL (70 - 105) 08/26/18 06:47 Calcium 9.1 mg/dL (8.6-10.3) 09/01/18 04:10 Total Bilirubin 0.6 mg/dL (0.3-1.0) 09/01/18 04:10 AST 29 U/L (13-39) 09/01/18 04:10 ALT 71 U/L (7-52) H 09/01/18 04:10 Alkaline Phosphatase 58 U/L (34-104) 09/01/18 04:10 B-Natriuretic Peptide 34.4 pg/mL (5.0-100.0) 08/26/18 06:00 Total Protein 5.5 gm/dL (6.0-8.3) L 09/01/18 04:10 Albumin 3.7 gm/dL (3.7-5.3) 09/01/18 04:10 Globulin 1.8 gm/dL 09/01/18 04:10 Albumin/Globulin Ratio 2.1 (1.0-1.8) H 09/01/18 04:10 Urine Source CATH 08/31/18 11:25 Urine Color COLORLESS 08/31/18 11:25 Urine Clarity CLEAR (CLEAR) 08/31/18 11:25 Urine pH 6.5 (4.6 - 8.0) 08/31/18 11:25 Ur Specific [place] 1.020 (1.005-1.030) 08/31/18 11:25 Urine Protein NEGATIVE mg/dL (NEGATIVE) 08/31/18 11:25 Urine Glucose (UA) NEGATIVE mg/dL (NEGATIVE) 08/31/18 11:25 Urine Ketones NEGATIVE mg/dL (NEGATIVE) 08/31/18 11:25 Urine Blood NEGATIVE (NEGATIVE) 08/31/18 11:25 Urine Nitrate NEGATIVE (NEGATIVE) 08/31/18 11:25 Urine Bilirubin NEGATIVE (NEGATIVE) 08/31/18 11:25 Urine Urobilinogen 0.2 E.U./dL (0.2 - 1.0) 08/31/18 11:25 Ur Leukocyte Esterase MODERATE (NEGATIVE) H 08/31/18 11:25 Urine RBC NONE SEEN /hpf (0-5) 08/31/18 11:25 Urine WBC 2-5 /hpf (0-5) 08/31/18 11:25 Ur Epithelial Cells FEW /lpf (FEW) 08/31/18 11:25 Urine Bacteria NONE SEEN /hpf (NONE SEEN) 08/31/18 11:25 Blood Type O POSITIVE 08/30/18 09:45 Antibody Screen NEGATIVE 08/30/18 09:45 - Physical Exam Vitals and I&O: Vital Signs Temp 97.1 F 09/01/18 12:54 Pulse 102 09/01/18 12:54 Resp 14 09/01/18 12:54 BP 139/53 09/01/18 12:54 Pulse Ox 99 09/01/18 12:54 Intake & Output 08/31/18 09/01/18 09/01/18 18:59 06:59 18:59 Intake Total 1200 450 150 Output Total 850 1150 Balance 350 -700 150 Weight (lbs) 106 lb 99 lb 14.4 oz Intake: Intake, IV Amount 1000 450 150 Albumin 25% 25gm/100mL 50 200 gm In 200 ml @ 50 mls/hr IV X1 [facility] Rx#:[id number] D5-0.9%Ns 1,000 ml @ 50 1000 mls/hr IV .Q20H [facility] Rx#: [id number] Piperacillin Sodium/ 50 Tazobact 3.375 gm In Sodium Chloride 0.9% 50 ml @ 100 mls/hr IV Q6HR [facility] Rx#:[id number] Piperacillin Sodium/ 100 Tazobact 4.5 gm In Sodium Chloride 0.9% 100 ml @ 100 mls/hr IV [facility] Rx #:[id number] cefTRIAXone 1 gm In 50 Sodium Chloride 0.9% 50 ml @ 100 mls/hr IV Q24H [facility] Rx#:[id number] metroNIDAZOLE 500mg/NS 200 100mL 500 mg In 100 ml @ 100 mls/hr IV Q8HR [facility] Rx #:[id number] Oral 0 Albumin 200 Output: Urine 800 1000 Stool 50 150 Other: # Voids 2 # Bowel Movements 0 Stool Characteristics Liquid Liquid Soft Brown Liquid Brown Weight Source Bedscale Bedscale Active Medications: Current Medications Albuterol/Ipratropium (Duoneb Neb) 3 ml HHN Q4HRT [facility] Stop: 10/25/18 10:59 Last Admin: 09/01/18 11:05 Dose: 3 ml Artificial Tears (Artificial Tears Ophth Soln) 1 drop EACH EYE BID PRN PRN Reason: Dry Eye Stop: 10/25/18 15:59 Last Admin: 08/26/18 16:08 Dose: 1 drop Dextrose/Sodium Chloride (D5-0.9%Ns) 1,000 mls @ 50 mls/hr IV .Q20H [facility] Stop: 10/25/18 07:59 Last Admin: 08/31/18 15:30 Dose: 50 mls/hr Metronidazole (Flagyl) 500 mg in 100 mls @ 100 mls/hr IV Q8HR [facility] Stop: 10/30/18 20:59 Last Admin: 09/01/18 12:53 Dose: 100 mls/hr Piperacillin Sod/Tazobactam (Sod 3.375 gm/ Sodium Chloride) 50 mls @ 100 mls/ hr IV Q6HR [facility] Stop: 10/31/18 11:59 Last Infusion: 09/01/18 12:45 Dose: Infused Methylprednisolone Sodium Succinate (Solu-Medrol) 40 mg IVP Q12HR [facility] Stop: 10/29/18 20:59 Last Admin: 09/01/18 09:08 Dose: 40 mg Miscellaneous (Zosyn Iv Per Pharmacy) 1 ea MC PRN PRN PRN Reason: PROTOCOL Stop: 10/31/18 08:38 Morphine Sulfate (Morphine) 1 mg IVP Q2HR PRN PRN Reason: Pain (Severe) Stop: 09/01/18 14:59 Last Admin: 09/01/18 12:30 Dose: 1 mg Pantoprazole Sodium (Protonix) 40 mg IVP DAILY [facility] Stop: 10/30/18 21:59 Last Admin: 09/01/18 09:08 Dose: 40 mg Polyethylene Glycol (Miralax) 17 gm PO BID [facility] Stop: 10/28/18 08:59 Last Admin: 09/01/18 09:09 Dose: Not Given General: weak HEENT: NC/AT, PERRLA Neck: Supple Cardiovascular: RRR Abdomen: soft, non-tender Extremities: excoriation Neurological: muscle weakness - Procedures Procedures: Procedures Procedure Code Date EXC F/E/E/N/L MAL+MRG >4 [place] [address] 06/03/09 NEBULIZER THERAPY 93.94 10/19/04 OP RED-INT FIX RAD/ULNA 79.32 06/24/07 RADICAL EXCIS SKIN LES 86.4 06/03/09 RESPIRATORY VENTILATION, LESS THAN 24 CONSECUTIVE HOURS [id number] 08/23/18 TREAT FX RADIAL 3+ FRAG [id number] 06/24/07 Internal Medicine Assmt/Plan - Assessment Assessment: incarcerated right inguinal hernia s/p subtotal colectomy with end colostomy s/p repair of incarcerated right inguinal hernia and repair of left inguinal hernia severe fecal impaction copd htn dementia - Plan Plan: follow up labs in am pain mgmt continue icu monitoring Nutritional Asmnt/Malnutr-PDOC - Dietary Evaluation Malnutrition Findings (Please click <Entered> for more info): Nutritional Asmnt/Malnutrition Start: 08/25/18 14: 01 Text: Status: Complete Freq: Protocol: Document 08/25/18 14:01 DONALD (Rec: 08/25/18 14:18 DONALD [email or web address]) Nutritional Asmnt/Malnutrition Patient General Information Nutritional Screening High Risk Consult Diagnosis abdominal pain, bowel obstruction Pertinent Medical Hx/Surgical Hx HTN, asthma/COPD, subarachnoid bleeding Per wound care note: hx of dementia Subjective Information Received diet consult for mass and biopsy site wound. Pt sleeping at time of visit. Pt was on full liquid diet, but spoke to REBEKAH Contreras who states pt is now NPO and has fecal impaction. Per MD notes, KUB shows severe fecal impaction and pt due for surgery tomorrow for inguinal hernias. Per EMR, pt refused regular diet meals and only willing to have full liquid diet with vanilla ensure. Current Diet Order/ Nutrition Support NPO Pertinent Medications Nacl 0.9% Pertinent Labs 08/25: Na 132, Cl 96, BUN 22, glucose 111 08/23: Na 135, Cl 99, BUN 30, glucose 97, Alb 3.6 Nutritional Hx/Data Height 5 ft 7 in Height (Calculated Centimeters) 170.2 Current Weight (lbs) 105 lb Weight (Calculated Kilograms) 47.6 Weight (Calculated Grams) 63237.2 Body Mass Index (BMI) 16.4 Weight Status Underweight GI Symptoms GI Symptoms None Last BM none noted Difficult in: None Skin Integrity/Comment: skin tear/biopsy site to right forehead, skin flap to left neck, mass on left shoulder, terrie 16 Estimated Nutritional Goals BEE in Kcals: Using Current wt Calories/Kcals/Kg 30-35 Kcals Calculated 3246-0319 Protein: Using Current wt Protein g/k-1.2 Protein Calculated 48-57 g Fluid: ml 4120-8707 (1 ml/kcal) Nutritional Problem 2. Problem Problem Altered nutrition related lab values Etiology electrolyte imbalance Signs/Symptoms: Na 132, Cl 96 1. Problem Problem Inadequate oral intake Etiology possible poor appetite from fecal impaction or abdominal pain Signs/Symptoms: current NPO status, meal refusals, pt only accepting Ensure Malnutrition Related to Morbid Obesity Malnutrition related to morbid obesity No Intervention/Recommendation Comments 1. Monitor NPO status and advance diet when medically appropriate 2. MD to replace electrolytes as needed 3. Monitor wt, skin integrity, GI symptons, and nutrition related labs 4. F/U as high risk in 2-3 days, 08/27- Expected Outcomes/Goals Expected Outcomes/Goals 1. Pt to resume PO intake when medically appropriate and meet at least 75% of all meals 2. Wt stability, skin integrity to improve, GI improved, and nutrition related labs to approach normal limits Reviewed by Laine Mcarthur RD
--- NOTE | 2018-09-01 18:13 | Infectious Disease Prog Note ---
Infectious Disease Subjective - Review of Systems Service Date: 09/01/18 Subjective: cc stool impaction/sbo/ing hrnia incarcerated resp failure hpi- sen by dr singleton recomend hernia repait colosto, schedule for sx tried d/w staff wbc better await pulm clearance for surgey ing hernia done under wnt surgey , d/w dr singleton transfered to icu rocephin changed to zosyn sputum cx reuqested ro sno fervr o.e vs chst clear abd soft hernia repaired colostomy exrt pulse dx sbo/stool impaction ing hernia s/p sx plan rflagyl zosyn Infectious Disease Objective - Results Result Diagrams: 09/01/18 04:10 09/01/18 04:10 Recent Labs: Laboratory Last Values WBC 24.7 Th/cmm (4.8-10.8) H* D 09/01/18 04:10 RBC 3.08 Mil/cmm (3.80-5.20) L 09/01/18 04:10 Hgb 9.2 gm/dL (12-16) L 09/01/18 04:10 Hct 26.9 % (41.0-60) L 09/01/18 04:10 MCV 87.5 fl (81-100) 09/01/18 04:10 MCH 29.8 pg (27.0-31.0) 09/01/18 04:10 MCHC Differential 34.1 pg (28.0-36.0) 09/01/18 04:10 RDW 12.9 % (11.5-20.0) 09/01/18 04:10 Plt Count 351 Th/cmm (150-400) 09/01/18 04:10 MPV 7.5 fl 09/01/18 04:10 Add Manual Diff YES 09/01/18 04:10 Neutrophils % 87.3 % (40.0-80.0) H 08/31/18 04:15 Band Neutrophils % 2 % (0-10) 09/01/18 04:10 Lymphocytes % 9.0 % (20.0-50.0) L 08/31/18 04:15 Monocytes % 0.5 % (2.0-10.0) L 08/31/18 04:15 Eosinophils % 0.1 % (0.0-5.0) 08/31/18 04:15 Basophils % 3.1 % (0.0-2.0) H 08/31/18 04:15 Neutrophils (Manual) 87 % (40-80) H 09/01/18 04:10 Lymphocytes 5 % (20-50) L 09/01/18 04:10 Monocytes 6 % (2-10) 09/01/18 04:10 Platelet Estimate ADEQUATE (NORMAL) 09/01/18 04:10 PT 9.8 SECONDS (9.5-11.5) 08/31/18 04:15 INR 0.94 (0.5-1.4) 08/31/18 04:15 PTT (Actin FS) 21.0 SECONDS (26.0-38.0) L 08/31/18 04:15 Specimen Source arterial 09/01/18 12:00 Sample Site LB 09/01/18 12:00 pH 7.53 (7.35-7.45) H 09/01/18 12:00 pCO2 38.0 mmHg (35.0-45.0) 09/01/18 12:00 pO2 171.0 mmHg (80.0-100.0) H 09/01/18 12:00 HCO3 31.6 mEq/L (20.0-26.0) H 09/01/18 12:00 Base Excess 8.5 mEq/L (-3.0-3.0) H 09/01/18 12:00 O2 Saturation 100.0 % (92.0-100.0) 09/01/18 12:00 Stephon Test na 09/01/18 12:00 Vent Rate na 09/01/18 12:00 Inspired O2 40 09/01/18 12:00 Tidal Volume na 09/01/18 12:00 PEEP na 09/01/18 12:00 Pressure (ins/psv/peep) na 09/01/18 12:00 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 09/01/18 12:00 Sodium 133 mEq/L (136-145) L 09/01/18 04:10 Potassium 3.8 mEq/L (3.5-5.1) 09/01/18 04:10 Chloride 96 mEq/L (98-107) L 09/01/18 04:10 Carbon Dioxide 25.9 mEq/L (21.0-31.0) 09/01/18 04:10 Anion Gap 14.9 (7.0-16.0) 09/01/18 04:10 BUN 21 mg/dL (7-25) 09/01/18 04:10 Creatinine 0.5 mg/dL (0.6-1.2) L 09/01/18 04:10 Est GFR ( Amer) TNP 09/01/18 04:10 Est GFR (Non-Af Amer) TNP 09/01/18 04:10 BUN/Creatinine Ratio 42.0 09/01/18 04:10 Glucose 173 mg/dL (70-105) H 09/01/18 04:10 POC Glucose 72 MG/DL (70 - 105) 08/26/18 06:47 Calcium 9.1 mg/dL (8.6-10.3) 09/01/18 04:10 Total Bilirubin 0.6 mg/dL (0.3-1.0) 09/01/18 04:10 AST 29 U/L (13-39) 09/01/18 04:10 ALT 71 U/L (7-52) H 09/01/18 04:10 Alkaline Phosphatase 58 U/L (34-104) 09/01/18 04:10 B-Natriuretic Peptide 34.4 pg/mL (5.0-100.0) 08/26/18 06:00 Total Protein 5.5 gm/dL (6.0-8.3) L 09/01/18 04:10 Albumin 3.7 gm/dL (3.7-5.3) 09/01/18 04:10 Globulin 1.8 gm/dL 09/01/18 04:10 Albumin/Globulin Ratio 2.1 (1.0-1.8) H 09/01/18 04:10 Urine Source CATH 08/31/18 11:25 Urine Color COLORLESS 08/31/18 11:25 Urine Clarity CLEAR (CLEAR) 08/31/18 11:25 Urine pH 6.5 (4.6 - 8.0) 08/31/18 11:25 Ur Specific Dexter 1.020 (1.005-1.030) 08/31/18 11:25 Urine Protein NEGATIVE mg/dL (NEGATIVE) 08/31/18 11:25 Urine Glucose (UA) NEGATIVE mg/dL (NEGATIVE) 08/31/18 11:25 Urine Ketones NEGATIVE mg/dL (NEGATIVE) 08/31/18 11:25 Urine Blood NEGATIVE (NEGATIVE) 08/31/18 11:25 Urine Nitrate NEGATIVE (NEGATIVE) 08/31/18 11:25 Urine Bilirubin NEGATIVE (NEGATIVE) 08/31/18 11:25 Urine Urobilinogen 0.2 E.U./dL (0.2 - 1.0) 08/31/18 11:25 Ur Leukocyte Esterase MODERATE (NEGATIVE) H 08/31/18 11:25 Urine RBC NONE SEEN /hpf (0-5) 08/31/18 11:25 Urine WBC 2-5 /hpf (0-5) 08/31/18 11:25 Ur Epithelial Cells FEW /lpf (FEW) 08/31/18 11:25 Urine Bacteria NONE SEEN /hpf (NONE SEEN) 08/31/18 11:25 Blood Type O POSITIVE 08/30/18 09:45 Antibody Screen NEGATIVE 08/30/18 09:45 - Physical Exam Vitals and I&O: Vital Signs Temp 98.6 F 09/01/18 18:00 Pulse 102 09/01/18 18:00 Resp 14 09/01/18 18:00 BP 127/51 09/01/18 18:00 Pulse Ox 99 09/01/18 18:00 Intake & Output 08/31/18 09/01/18 09/01/18 18:59 06:59 18:59 Intake Total 1200 450 300 Output Total 850 1150 750 Balance 350 -700 -450 Weight (lbs) 48.081 kg 45.314 kg 45.416 kg Intake: Intake, IV Amount 1000 450 300 Albumin 25% 25gm/100mL 50 200 gm In 200 ml @ 50 mls/hr IV X1 ONE Rx#:[id number] D5-0.9%Ns 1,000 ml @ 50 1000 mls/hr IV .Q20H [facility] Rx#: [id number] Piperacillin Sodium/ 100 Tazobact 3.375 gm In Sodium Chloride 0.9% 50 ml @ 100 mls/hr IV Q6HR [facility] Rx#:[id number] Piperacillin Sodium/ 100 Tazobact 4.5 gm In Sodium Chloride 0.9% 100 ml @ 100 mls/hr IV ONCE ONE Rx #:[id number] cefTRIAXone 1 gm In 50 Sodium Chloride 0.9% 50 ml @ 100 mls/hr IV Q24H [facility] Rx#:[id number] metroNIDAZOLE 500mg/NS 200 100 100mL 500 mg In 100 ml @ 100 mls/hr IV Q8HR [facility] Rx #:[id number] Oral 0 0 Albumin 200 Output: Urine 800 1000 750 Stool 50 150 Other: # Voids 2 # Bowel Movements 0 Stool Characteristics Liquid Liquid Soft Brown Liquid Brown Weight Source Bedscale Bedscale Bedscale Active Medications: Current Medications Albuterol/Ipratropium (Duoneb Neb) 3 ml HHN Q4HRT [facility] Stop: 10/25/18 10:59 Last Admin: 09/01/18 14:17 Dose: 3 ml Artificial Tears (Artificial Tears Ophth Soln) 1 drop EACH EYE BID PRN PRN Reason: Dry Eye Stop: 10/25/18 15:59 Last Admin: 08/26/18 16:08 Dose: 1 drop Dextrose/Sodium Chloride (D5-0.9%Ns) 1,000 mls @ 50 mls/hr IV .Q20H [facility] Stop: 10/25/18 07:59 Last Admin: 08/31/18 15:30 Dose: 50 mls/hr Metronidazole (Flagyl) 500 mg in 100 mls @ 100 mls/hr IV Q8HR [facility] Stop: 10/30/18 20:59 Last Infusion: 09/01/18 13:55 Dose: Infused Piperacillin Sod/Tazobactam (Sod 3.375 gm/ Sodium Chloride) 50 mls @ 100 mls/ hr IV Q6HR [facility] Stop: 10/31/18 11:59 Last Infusion: 09/01/18 17:35 Dose: Infused Methylprednisolone Sodium Succinate (Solu-Medrol) 40 mg IVP Q12HR [facility] Stop: 10/29/18 20:59 Last Admin: 09/01/18 09:08 Dose: 40 mg Miscellaneous (Zosyn Iv Per Pharmacy) 1 ea MC PRN PRN PRN Reason: PROTOCOL Stop: 10/31/18 08:38 Pantoprazole Sodium (Protonix) 40 mg IVP DAILY [facility] Stop: 10/30/18 21:59 Last Admin: 09/01/18 09:08 Dose: 40 mg Polyethylene Glycol (Miralax) 17 gm PO BID [facility] Stop: 10/28/18 08:59 Last Admin: 09/01/18 16:14 Dose: Not Given - Procedures Procedures: Procedures Procedure Code Date BYPASS ASCENDING COLON TO CUTANEOUS, OPEN APPROACH [id number] 08/23/18 EXC F/E/E/N/L MAL+MRG >4 [place] [address] 06/03/09 INSPECTION OF PERITONEAL CAVITY, OPEN APPROACH [id number] 08/23/18 NEBULIZER THERAPY 93.94 10/19/04 OP RED-INT FIX RAD/ULNA 79.32 06/24/07 RADICAL EXCIS SKIN LES 86.4 06/03/09 REPAIR BILATERAL INGUINAL REGION, OPEN APPROACH [id number] 08/23/18 REPAIR MESENTERY, OPEN APPROACH [id number] 08/23/18 RESECTION OF ASCENDING COLON, OPEN APPROACH [id number] 08/23/18 RESPIRATORY VENTILATION, LESS THAN 24 CONSECUTIVE HOURS [id number] 08/23/18 TREAT FX RADIAL 3+ FRAG [id number] 06/24/07 Nutritional Asmnt/Malnutr-PDOC - Dietary Evaluation Malnutrition Findings (Please click <Entered> for more info): Nutritional Asmnt/Malnutrition Start: 08/25/18 14: 01 Text: Status: Complete Freq: Protocol: Document 08/25/18 14:01 DONALD (Rec: 08/25/18 14:18 DONALD [email or web address]) Nutritional Asmnt/Malnutrition Patient General Information Nutritional Screening High Risk Consult Diagnosis abdominal pain, bowel obstruction Pertinent Medical Hx/Surgical Hx HTN, asthma/COPD, subarachnoid bleeding Per wound care note: hx of dementia Subjective Information Received diet consult for mass and biopsy site wound. Pt sleeping at time of visit. Pt was on full liquid diet, but spoke to REBEKAH Contreras who states pt is now NPO and has fecal impaction. Per MD notes, KUB shows severe fecal impaction and pt due for surgery tomorrow for inguinal hernias. Per EMR, pt refused regular diet meals and only willing to have full liquid diet with vanilla ensure. Current Diet Order/ Nutrition Support NPO Pertinent Medications Nacl 0.9% Pertinent Labs 08/25: Na 132, Cl 96, BUN 22, glucose 111 08/23: Na 135, Cl 99, BUN 30, glucose 97, Alb 3.6 Nutritional Hx/Data Height 1.7 m Height (Calculated Centimeters) 170.2 Current Weight (lbs) 47.627 kg Weight (Calculated Kilograms) 47.6 Weight (Calculated Grams) 42579.2 Body Mass Index (BMI) 16.4 Weight Status Underweight GI Symptoms GI Symptoms None Last BM none noted Difficult in: None Skin Integrity/Comment: skin tear/biopsy site to right forehead, skin flap to left neck, mass on left shoulder, terrie 16 Estimated Nutritional Goals BEE in Kcals: Using Current wt Calories/Kcals/Kg 30-35 Kcals Calculated 2805-7843 Protein: Using Current wt Protein g/k-1.2 Protein Calculated 48-57 g Fluid: ml 9356-6366 (1 ml/kcal) Nutritional Problem 2. Problem Problem Altered nutrition related lab values Etiology electrolyte imbalance Signs/Symptoms: Na 132, Cl 96 1. Problem Problem Inadequate oral intake Etiology possible poor appetite from fecal impaction or abdominal pain Signs/Symptoms: current NPO status, meal refusals, pt only accepting Ensure Malnutrition Related to Morbid Obesity Malnutrition related to morbid obesity No Intervention/Recommendation Comments 1. Monitor NPO status and advance diet when medically appropriate 2. MD to replace electrolytes as needed 3. Monitor wt, skin integrity, GI symptons, and nutrition related labs 4. F/U as high risk in 2-3 days, 08/27- Expected Outcomes/Goals Expected Outcomes/Goals 1. Pt to resume PO intake when medically appropriate and meet at least 75% of all meals 2. Wt stability, skin integrity to improve, GI improved, and nutrition related labs to approach normal limits Reviewed by Laine Mcarthur RD
[2018-09-01] MEDS: D5-0.9%NS 1,000 ML IV SCH (20:23)
[2018-09-02] MEDS: Morphine Sulfate 2 mg/mL 1mL Syr IVP PRN ×3 (02:09→13:06)
[2018-09-02] MEDS: Albuterol/Ipratropium Neb 3 ML AERS HHN SCH ×6 (03:33→22:10)
[2018-09-02] MEDS: metroNIDAZOLE 500mg/NS 100mL 500 MG/100 ML BAG IV SCH ×3 (04:56→20:32)
[2018-09-02 05:21] LABS: MEAN CORPUSCULAR HGB CONC 33.7 pg (28.0-36.0)
[2018-09-02 05:23] LABS: ANION GAP 12.4 (7.0-16.0); BUN - UREA NITROGEN 25 mg/dL (7-25); CALCIUM SERUM 8.8 mg/dL (8.6-10.3); CARBON DIOXIDE 26.3 mEq/L (21.0-31.0); CHLORIDE 101 mEq/L (98-107); CREATININE - SERUM 0.7 mg/dL (0.6-1.2); GLUCOSE 162 mg/dL (70-105); POTASSIUM SERUM 3.7 mEq/L (3.5-5.1); SODIUM SERUM 136 mEq/L (136-145)
[2018-09-02 05:26] LABS: HEMATOCRIT 25.7 % (41.0-60); HEMOGLOBIN 8.7 gm/dL (12-16); MEAN CELL VOLUME 86.6 fl (81-100); MEAN CORPUSCULAR HEMOGLOBIN 29.2 pg (27.0-31.0); MEAN PLATELET VOLUME 7.4 fl; PLATELET COUNT 301 Th/cmm (150-400); RED BLOOD COUNT 2.97 Mil/cmm (3.80-5.20); RED CELL DISTRIBUTION WIDTH 13.2 % (11.5-20.0)
[2018-09-02 05:31] LABS: WHITE BLOOD COUNT 19.2 Th/cmm (4.8-10.8)
[2018-09-02 05:54] LABS: BAND NEUTROPHILE 3 % (0-10); LYMPHOCYTE 6 % (20-50); MONOCYTE 6 % (2-10); NEUTROPHILS 85 % (40-80); PLATELET ESTIMATE ADEQUATE (NORMAL)
[2018-09-02] MEDS: methylPREDNISolone SS 40 mg Vial IVP SCH ×2 (09:28→22:52)
[2018-09-02] MEDS: POLYETHYLENE GLYCOL 3350 17 GM PACK PO SCH ×2 (09:28→17:02)
[2018-09-02] MEDS ORDERED: Morphine Sulfate 2 mg/mL 1mL Syr IVP PRN (13:28)
--- NOTE | 2018-09-02 14:32 | Internal Medicine Prog Note ---
Internal Medicine Subjective - Subjective Service Date: 09/02/18 Patient is:: asleep, denies any new complaints, other (comfortable ) Per staff patient has:: tolerating meds Internal Medicine Objective - Results Result Diagrams: 09/02/18 04:55 09/02/18 04:55 Recent Labs: Laboratory Last Values WBC 19.2 Th/cmm (4.8-10.8) H 09/02/18 04:55 RBC 2.97 Mil/cmm (3.80-5.20) L 09/02/18 04:55 Hgb 8.7 gm/dL (12-16) L 09/02/18 04:55 Hct 25.7 % (41.0-60) L 09/02/18 04:55 MCV 86.6 fl (81-100) 09/02/18 04:55 MCH 29.2 pg (27.0-31.0) 09/02/18 04:55 MCHC Differential 33.7 pg (28.0-36.0) 09/02/18 04:55 RDW 13.2 % (11.5-20.0) 09/02/18 04:55 Plt Count 301 Th/cmm (150-400) 09/02/18 04:55 MPV 7.4 fl 09/02/18 04:55 Add Manual Diff YES 09/02/18 04:55 Neutrophils % 87.3 % (40.0-80.0) H 08/31/18 04:15 Band Neutrophils % 3 % (0-10) 09/02/18 04:55 Lymphocytes % 9.0 % (20.0-50.0) L 08/31/18 04:15 Monocytes % 0.5 % (2.0-10.0) L 08/31/18 04:15 Eosinophils % 0.1 % (0.0-5.0) 08/31/18 04:15 Basophils % 3.1 % (0.0-2.0) H 08/31/18 04:15 Neutrophils (Manual) 85 % (40-80) H 09/02/18 04:55 Lymphocytes 6 % (20-50) L 09/02/18 04:55 Monocytes 6 % (2-10) 09/02/18 04:55 Platelet Estimate ADEQUATE (NORMAL) 09/02/18 04:55 PT 9.8 SECONDS (9.5-11.5) 08/31/18 04:15 INR 0.94 (0.5-1.4) 08/31/18 04:15 PTT (Actin FS) 21.0 SECONDS (26.0-38.0) L 08/31/18 04:15 Specimen Source arterial 09/01/18 12:00 Sample Site LB 09/01/18 12:00 pH 7.53 (7.35-7.45) H 09/01/18 12:00 pCO2 38.0 mmHg (35.0-45.0) 09/01/18 12:00 pO2 171.0 mmHg (80.0-100.0) H 09/01/18 12:00 HCO3 31.6 mEq/L (20.0-26.0) H 09/01/18 12:00 Base Excess 8.5 mEq/L (-3.0-3.0) H 09/01/18 12:00 O2 Saturation 100.0 % (92.0-100.0) 09/01/18 12:00 Stephon Test na 09/01/18 12:00 Vent Rate na 09/01/18 12:00 Inspired O2 40 09/01/18 12:00 Tidal Volume na 09/01/18 12:00 PEEP na 09/01/18 12:00 Pressure (ins/psv/peep) na 09/01/18 12:00 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 09/01/18 12:00 Sodium 136 mEq/L (136-145) 09/02/18 04:55 Potassium 3.7 mEq/L (3.5-5.1) 09/02/18 04:55 Chloride 101 mEq/L (98-107) 09/02/18 04:55 Carbon Dioxide 26.3 mEq/L (21.0-31.0) 09/02/18 04:55 Anion Gap 12.4 (7.0-16.0) 09/02/18 04:55 BUN 25 mg/dL (7-25) 09/02/18 04:55 Creatinine 0.7 mg/dL (0.6-1.2) 09/02/18 04:55 Est GFR ( Amer) TNP 09/02/18 04:55 Est GFR (Non-Af Amer) TNP 09/02/18 04:55 BUN/Creatinine Ratio 35.7 09/02/18 04:55 Glucose 162 mg/dL (70-105) H 09/02/18 04:55 POC Glucose 72 MG/DL (70 - 105) 08/26/18 06:47 Calcium 8.8 mg/dL (8.6-10.3) 09/02/18 04:55 Total Bilirubin 0.6 mg/dL (0.3-1.0) 09/01/18 04:10 AST 29 U/L (13-39) 09/01/18 04:10 ALT 71 U/L (7-52) H 09/01/18 04:10 Alkaline Phosphatase 58 U/L (34-104) 09/01/18 04:10 B-Natriuretic Peptide 34.4 pg/mL (5.0-100.0) 08/26/18 06:00 Total Protein 5.5 gm/dL (6.0-8.3) L 09/01/18 04:10 Albumin 3.7 gm/dL (3.7-5.3) 09/01/18 04:10 Globulin 1.8 gm/dL 09/01/18 04:10 Albumin/Globulin Ratio 2.1 (1.0-1.8) H 09/01/18 04:10 Urine Source CATH 08/31/18 11:25 Urine Color COLORLESS 08/31/18 11:25 Urine Clarity CLEAR (CLEAR) 08/31/18 11:25 Urine pH 6.5 (4.6 - 8.0) 08/31/18 11:25 Ur Specific [place] 1.020 (1.005-1.030) 08/31/18 11:25 Urine Protein NEGATIVE mg/dL (NEGATIVE) 08/31/18 11:25 Urine Glucose (UA) NEGATIVE mg/dL (NEGATIVE) 08/31/18 11:25 Urine Ketones NEGATIVE mg/dL (NEGATIVE) 08/31/18 11:25 Urine Blood NEGATIVE (NEGATIVE) 08/31/18 11:25 Urine Nitrate NEGATIVE (NEGATIVE) 08/31/18 11:25 Urine Bilirubin NEGATIVE (NEGATIVE) 08/31/18 11:25 Urine Urobilinogen 0.2 E.U./dL (0.2 - 1.0) 08/31/18 11:25 Ur Leukocyte Esterase MODERATE (NEGATIVE) H 08/31/18 11:25 Urine RBC NONE SEEN /hpf (0-5) 08/31/18 11:25 Urine WBC 2-5 /hpf (0-5) 08/31/18 11:25 Ur Epithelial Cells FEW /lpf (FEW) 08/31/18 11:25 Urine Bacteria NONE SEEN /hpf (NONE SEEN) 08/31/18 11:25 Blood Type O POSITIVE 08/30/18 09:45 Antibody Screen NEGATIVE 08/30/18 09:45 - Physical Exam Vitals and I&O: Vital Signs Temp 98.6 F 09/02/18 13:00 Pulse 96 09/02/18 13:00 Resp 17 09/02/18 13:00 BP 116/46 09/02/18 13:00 Pulse Ox 97 09/02/18 13:00 Intake & Output 09/01/18 09/02/18 09/02/18 18:59 06:59 18:59 Intake Total 1300 300 50 Output Total 750 400 Balance 550 -100 50 Weight (lbs) 100 lb 2 oz 101 lb 4.8 oz Intake: Intake, IV Amount 1300 300 50 D5-0.9%Ns 1,000 ml @ 50 1000 mls/hr IV .Q20H [facility] Rx#: [id number] Piperacillin Sodium/ 100 100 50 Tazobact 3.375 gm In Sodium Chloride 0.9% 50 ml @ 100 mls/hr IV Q6HR [facility] Rx#:[id number] Piperacillin Sodium/ 100 Tazobact 4.5 gm In Sodium Chloride 0.9% 100 ml @ 100 mls/hr IV ONCE ONE Rx #:[id number] metroNIDAZOLE 500mg/NS 100 200 100mL 500 mg In 100 ml @ 100 mls/hr IV Q8HR [facility] Rx #:[id number] Oral 0 Output: Urine 750 320 Stool 80 Other: Stool Characteristics Soft Liquid Soft Liquid Brown Liquid Brown Brown Weight Source Bedscale Bedscale Active Medications: Current Medications Albuterol/Ipratropium (Duoneb Neb) 3 ml HHN Q4HRT [facility] Stop: 10/25/18 10:59 Last Admin: 09/02/18 11:26 Dose: 3 ml Artificial Tears (Artificial Tears Ophth Soln) 1 drop EACH EYE BID PRN PRN Reason: Dry Eye Stop: 10/25/18 15:59 Last Admin: 08/26/18 16:08 Dose: 1 drop Dextrose/Sodium Chloride (D5-0.9%Ns) 1,000 mls @ 50 mls/hr IV .Q20H [facility] Stop: 10/25/18 07:59 Last Admin: 09/01/18 20:23 Dose: 50 mls/hr Metronidazole (Flagyl) 500 mg in 100 mls @ 100 mls/hr IV Q8HR [facility] Stop: 10/30/18 20:59 Last Admin: 09/02/18 12:59 Dose: 100 mls/hr Piperacillin Sod/Tazobactam (Sod 3.375 gm/ Sodium Chloride) 50 mls @ 100 mls/ hr IV Q6HR [facility] Stop: 10/31/18 11:59 Last Infusion: 09/02/18 11:50 Dose: Infused Methylprednisolone Sodium Succinate (Solu-Medrol) 40 mg IVP Q12HR [facility] Stop: 10/29/18 20:59 Last Admin: 09/02/18 09:28 Dose: 40 mg Miscellaneous (Zosyn Iv Per Pharmacy) 1 ea MC PRN PRN PRN Reason: PROTOCOL Stop: 10/31/18 08:38 Morphine Sulfate (Morphine) 1 mg IVP Q4HR PRN PRN Reason: Abdominal Pain Stop: 10/31/18 20:09 Last Admin: 09/02/18 07:41 Dose: 1 mg Morphine Sulfate (Morphine) 1 mg IVP Q4HR PRN PRN Reason: Pain (Moderate) Stop: 11/01/18 13:27 Mupirocin (Bactroban Oint) 1 appl NS BID [facility] Stop: 09/07/18 09:01 Pantoprazole Sodium (Protonix) 40 mg IVP DAILY [facility] Stop: 10/30/18 21:59 Last Admin: 09/02/18 09:28 Dose: 40 mg Polyethylene Glycol (Miralax) 17 gm PO BID [facility] Stop: 10/28/18 08:59 Last Admin: 09/02/18 09:28 Dose: Not Given General: weak HEENT: NC/AT, PERRLA Neck: Supple Cardiovascular: RRR Abdomen: soft, non-tender Extremities: excoriation Neurological: muscle weakness - Procedures Procedures: Procedures Procedure Code Date BYPASS ASCENDING COLON TO CUTANEOUS, OPEN APPROACH [id number] 08/23/18 EXC F/E/E/N/L MAL+MRG >4 [place] [address] 06/03/09 INSPECTION OF PERITONEAL CAVITY, OPEN APPROACH [id number] 08/23/18 NEBULIZER THERAPY 93.94 10/19/04 OP RED-INT FIX RAD/ULNA 79.32 06/24/07 RADICAL EXCIS SKIN LES 86.4 06/03/09 REPAIR BILATERAL INGUINAL REGION, OPEN APPROACH [id number] 08/23/18 REPAIR MESENTERY, OPEN APPROACH [id number] 08/23/18 RESECTION OF ASCENDING COLON, OPEN APPROACH [id number] 08/23/18 RESPIRATORY VENTILATION, LESS THAN 24 CONSECUTIVE HOURS [id number] 08/23/18 TREAT FX RADIAL 3+ FRAG [id number] 06/24/07 Internal Medicine Assmt/Plan - Assessment Assessment: incarcerated right inguinal hernia s/p subtotal colectomy with end colostomy s/p repair of incarcerated right inguinal hernia and repair of left inguinal hernia severe fecal impaction copd htn dementia - Plan Plan: follow up labs in am pain mgmt Nutritional Asmnt/Malnutr-PDOC - Dietary Evaluation Malnutrition Findings (Please click <Entered> for more info): Nutritional Asmnt/Malnutrition Start: 08/25/18 14: 01 Text: Status: Complete Freq: Protocol: Document 08/25/18 14:01 DONALD (Rec: 08/25/18 14:18 DONALD BETTENCOURT-DIET) Nutritional Asmnt/Malnutrition Patient General Information Nutritional Screening High Risk Consult Diagnosis abdominal pain, bowel obstruction Pertinent Medical Hx/Surgical Hx HTN, asthma/COPD, subarachnoid bleeding Per wound care note: hx of dementia Subjective Information Received diet consult for mass and biopsy site wound. Pt sleeping at time of visit. Pt was on full liquid diet, but spoke to REBEKAH Contreras who states pt is now NPO and has fecal impaction. Per MD notes, KUB shows severe fecal impaction and pt due for surgery tomorrow for inguinal hernias. Per EMR, pt refused regular diet meals and only willing to have full liquid diet with vanilla ensure. Current Diet Order/ Nutrition Support NPO Pertinent Medications Nacl 0.9% Pertinent Labs 08/25: Na 132, Cl 96, BUN 22, glucose 111 08/23: Na 135, Cl 99, BUN 30, glucose 97, Alb 3.6 Nutritional Hx/Data Height 5 ft 7 in Height (Calculated Centimeters) 170.2 Current Weight (lbs) 105 lb Weight (Calculated Kilograms) 47.6 Weight (Calculated Grams) 64407.2 Body Mass Index (BMI) 16.4 Weight Status Underweight GI Symptoms GI Symptoms None Last BM none noted Difficult in: None Skin Integrity/Comment: skin tear/biopsy site to right forehead, skin flap to left neck, mass on left shoulder, terrie 16 Estimated Nutritional Goals BEE in Kcals: Using Current wt Calories/Kcals/Kg 30-35 Kcals Calculated 1126-4394 Protein: Using Current wt Protein g/k-1.2 Protein Calculated 48-57 g Fluid: ml 4941-5061 (1 ml/kcal) Nutritional Problem 2. Problem Problem Altered nutrition related lab values Etiology electrolyte imbalance Signs/Symptoms: Na 132, Cl 96 1. Problem Problem Inadequate oral intake Etiology possible poor appetite from fecal impaction or abdominal pain Signs/Symptoms: current NPO status, meal refusals, pt only accepting Ensure Malnutrition Related to Morbid Obesity Malnutrition related to morbid obesity No Intervention/Recommendation Comments 1. Monitor NPO status and advance diet when medically appropriate 2. MD to replace electrolytes as needed 3. Monitor wt, skin integrity, GI symptons, and nutrition related labs 4. F/U as high risk in 2-3 days, 08/27- Expected Outcomes/Goals Expected Outcomes/Goals 1. Pt to resume PO intake when medically appropriate and meet at least 75% of all meals 2. Wt stability, skin integrity to improve, GI improved, and nutrition related labs to approach normal limits Reviewed by Laine Mcarthur RD
--- NOTE | 2018-09-02 15:14 | General Progress Note ---
Subjective - Review of Systems Events since last encounter: 09/02/18 swallowing eval prior to oral intake Objective - Results Result Diagrams: 09/02/18 04:55 09/02/18 04:55 Recent Labs: Laboratory Last Values WBC 19.2 Th/cmm (4.8-10.8) H 09/02/18 04:55 RBC 2.97 Mil/cmm (3.80-5.20) L 09/02/18 04:55 Hgb 8.7 gm/dL (12-16) L 09/02/18 04:55 Hct 25.7 % (41.0-60) L 09/02/18 04:55 MCV 86.6 fl (81-100) 09/02/18 04:55 MCH 29.2 pg (27.0-31.0) 09/02/18 04:55 MCHC Differential 33.7 pg (28.0-36.0) 09/02/18 04:55 RDW 13.2 % (11.5-20.0) 09/02/18 04:55 Plt Count 301 Th/cmm (150-400) 09/02/18 04:55 MPV 7.4 fl 09/02/18 04:55 Add Manual Diff YES 09/02/18 04:55 Neutrophils % 87.3 % (40.0-80.0) H 08/31/18 04:15 Band Neutrophils % 3 % (0-10) 09/02/18 04:55 Lymphocytes % 9.0 % (20.0-50.0) L 08/31/18 04:15 Monocytes % 0.5 % (2.0-10.0) L 08/31/18 04:15 Eosinophils % 0.1 % (0.0-5.0) 08/31/18 04:15 Basophils % 3.1 % (0.0-2.0) H 08/31/18 04:15 Neutrophils (Manual) 85 % (40-80) H 09/02/18 04:55 Lymphocytes 6 % (20-50) L 09/02/18 04:55 Monocytes 6 % (2-10) 09/02/18 04:55 Platelet Estimate ADEQUATE (NORMAL) 09/02/18 04:55 PT 9.8 SECONDS (9.5-11.5) 08/31/18 04:15 INR 0.94 (0.5-1.4) 08/31/18 04:15 PTT (Actin FS) 21.0 SECONDS (26.0-38.0) L 08/31/18 04:15 Specimen Source arterial 09/01/18 12:00 Sample Site LB 09/01/18 12:00 pH 7.53 (7.35-7.45) H 09/01/18 12:00 pCO2 38.0 mmHg (35.0-45.0) 09/01/18 12:00 pO2 171.0 mmHg (80.0-100.0) H 09/01/18 12:00 HCO3 31.6 mEq/L (20.0-26.0) H 09/01/18 12:00 Base Excess 8.5 mEq/L (-3.0-3.0) H 09/01/18 12:00 O2 Saturation 100.0 % (92.0-100.0) 09/01/18 12:00 Stephon Test na 09/01/18 12:00 Vent Rate na 09/01/18 12:00 Inspired O2 40 09/01/18 12:00 Tidal Volume na 09/01/18 12:00 PEEP na 09/01/18 12:00 Pressure (ins/psv/peep) na 09/01/18 12:00 Critical Value [email or web address] pathology laboratory director 09/01/18 12:00 Sodium 136 mEq/L (136-145) 09/02/18 04:55 Potassium 3.7 mEq/L (3.5-5.1) 09/02/18 04:55 Chloride 101 mEq/L (98-107) 09/02/18 04:55 Carbon Dioxide 26.3 mEq/L (21.0-31.0) 09/02/18 04:55 Anion Gap 12.4 (7.0-16.0) 09/02/18 04:55 BUN 25 mg/dL (7-25) 09/02/18 04:55 Creatinine 0.7 mg/dL (0.6-1.2) 09/02/18 04:55 Est GFR ( Amer) TNP 09/02/18 04:55 Est GFR (Non-Af Amer) TNP 09/02/18 04:55 BUN/Creatinine Ratio 35.7 09/02/18 04:55 Glucose 162 mg/dL (70-105) H 09/02/18 04:55 POC Glucose 72 MG/DL (70 - 105) 08/26/18 06:47 Calcium 8.8 mg/dL (8.6-10.3) 09/02/18 04:55 Total Bilirubin 0.6 mg/dL (0.3-1.0) 09/01/18 04:10 AST 29 U/L (13-39) 09/01/18 04:10 ALT 71 U/L (7-52) H 09/01/18 04:10 Alkaline Phosphatase 58 U/L (34-104) 09/01/18 04:10 B-Natriuretic Peptide 34.4 pg/mL (5.0-100.0) 08/26/18 06:00 Total Protein 5.5 gm/dL (6.0-8.3) L 09/01/18 04:10 Albumin 3.7 gm/dL (3.7-5.3) 09/01/18 04:10 Globulin 1.8 gm/dL 09/01/18 04:10 Albumin/Globulin Ratio 2.1 (1.0-1.8) H 09/01/18 04:10 Urine Source CATH 08/31/18 11:25 Urine Color COLORLESS 08/31/18 11:25 Urine Clarity CLEAR (CLEAR) 08/31/18 11:25 Urine pH 6.5 (4.6 - 8.0) 08/31/18 11:25 Ur Specific [place] 1.020 (1.005-1.030) 08/31/18 11:25 Urine Protein NEGATIVE mg/dL (NEGATIVE) 08/31/18 11:25 Urine Glucose (UA) NEGATIVE mg/dL (NEGATIVE) 08/31/18 11:25 Urine Ketones NEGATIVE mg/dL (NEGATIVE) 08/31/18 11:25 Urine Blood NEGATIVE (NEGATIVE) 08/31/18 11:25 Urine Nitrate NEGATIVE (NEGATIVE) 08/31/18 11:25 Urine Bilirubin NEGATIVE (NEGATIVE) 08/31/18 11:25 Urine Urobilinogen 0.2 E.U./dL (0.2 - 1.0) 08/31/18 11:25 Ur Leukocyte Esterase MODERATE (NEGATIVE) H 08/31/18 11:25 Urine RBC NONE SEEN /hpf (0-5) 08/31/18 11:25 Urine WBC 2-5 /hpf (0-5) 08/31/18 11:25 Ur Epithelial Cells FEW /lpf (FEW) 08/31/18 11:25 Urine Bacteria NONE SEEN /hpf (NONE SEEN) 08/31/18 11:25 Blood Type O POSITIVE 08/30/18 09:45 Antibody Screen NEGATIVE 08/30/18 09:45 - Physical Exam Vitals and I&O: Vital Signs Temp 98.6 F 09/02/18 13:00 Pulse 78 09/02/18 15:01 Resp 18 09/02/18 15:01 BP 116/46 09/02/18 13:00 Pulse Ox 98 09/02/18 15:01 Intake & Output 09/01/18 09/02/18 09/02/18 18:59 06:59 18:59 Intake Total 1300 300 50 Output Total 750 400 Balance 550 -100 50 Weight (lbs) 45.416 kg 45.949 kg Intake: Intake, IV Amount 1300 300 50 D5-0.9%Ns 1,000 ml @ 50 1000 mls/hr IV .Q20H [facility] Rx#: [id number] Piperacillin Sodium/ 100 100 50 Tazobact 3.375 gm In Sodium Chloride 0.9% 50 ml @ 100 mls/hr IV Q6HR [facility] Rx#:[id number] Piperacillin Sodium/ 100 Tazobact 4.5 gm In Sodium Chloride 0.9% 100 ml @ 100 mls/hr IV ONCE ONE Rx #:[id number] metroNIDAZOLE 500mg/NS 100 200 100mL 500 mg In 100 ml @ 100 mls/hr IV Q8HR [facility] Rx #:[id number] Oral 0 Output: Urine 750 320 Stool 80 Other: Stool Characteristics Soft Liquid Soft Liquid Brown Liquid Brown Brown Weight Source Bedscale Bedscale Active Medications: Current Medications Albuterol/Ipratropium (Duoneb Neb) 3 ml HHN Q4HRT [facility] Stop: 10/25/18 10:59 Last Admin: 09/02/18 14:51 Dose: 3 ml Artificial Tears (Artificial Tears Ophth Soln) 1 drop EACH EYE BID PRN PRN Reason: Dry Eye Stop: 10/25/18 15:59 Last Admin: 08/26/18 16:08 Dose: 1 drop Dextrose/Sodium Chloride (D5-0.9%Ns) 1,000 mls @ 50 mls/hr IV .Q20H [facility] Stop: 10/25/18 07:59 Last Admin: 09/01/18 20:23 Dose: 50 mls/hr Metronidazole (Flagyl) 500 mg in 100 mls @ 100 mls/hr IV Q8HR [facility] Stop: 10/30/18 20:59 Last Admin: 09/02/18 12:59 Dose: 100 mls/hr Piperacillin Sod/Tazobactam (Sod 3.375 gm/ Sodium Chloride) 50 mls @ 100 mls/ hr IV Q6HR [facility] Stop: 10/31/18 11:59 Last Infusion: 09/02/18 11:50 Dose: Infused Methylprednisolone Sodium Succinate (Solu-Medrol) 40 mg IVP Q12HR [facility] Stop: 10/29/18 20:59 Last Admin: 09/02/18 09:28 Dose: 40 mg Miscellaneous (Zosyn Iv Per Pharmacy) 1 ea MC PRN PRN PRN Reason: PROTOCOL Stop: 10/31/18 08:38 Morphine Sulfate (Morphine) 1 mg IVP Q4HR PRN PRN Reason: Abdominal Pain Stop: 10/31/18 20:09 Last Admin: 09/02/18 07:41 Dose: 1 mg Morphine Sulfate (Morphine) 1 mg IVP Q4HR PRN PRN Reason: Pain (Moderate) Stop: 11/01/18 13:27 Mupirocin (Bactroban Oint) 1 appl NS BID [facility] Stop: 09/07/18 09:01 Pantoprazole Sodium (Protonix) 40 mg IVP DAILY [facility] Stop: 10/30/18 21:59 Last Admin: 09/02/18 09:28 Dose: 40 mg Polyethylene Glycol (Miralax) 17 gm PO BID [facility] Stop: 10/28/18 08:59 Last Admin: 09/02/18 09:28 Dose: Not Given General: Alert HEENT: Atraumatic, Other (intubated) Neck: Supple Cardiovascular: Regular rate Abdomen: Bowel sounds, Soft, no Tender, no Hepatomegaly, no Distended, no Rebound, no Mass Psych/Mental Status: no Mental status NL - Procedures Procedures: Procedures Procedure Code Date BYPASS ASCENDING COLON TO CUTANEOUS, OPEN APPROACH [id number] 08/23/18 EXC F/E/E/N/L MAL+MRG >4 [place] [address] 08/29/09 INSPECTION OF PERITONEAL CAVITY, OPEN APPROACH [id number] 08/23/18 NEBULIZER THERAPY 93.94 10/19/04 OP RED-INT FIX RAD/ULNA 79.32 06/24/07 RADICAL EXCIS SKIN LES 86.4 06/03/09 REPAIR BILATERAL INGUINAL REGION, OPEN APPROACH [id number] 08/23/18 REPAIR MESENTERY, OPEN APPROACH [id number] 08/23/18 RESECTION OF ASCENDING COLON, OPEN APPROACH [id number] 08/23/18 RESPIRATORY VENTILATION, LESS THAN 24 CONSECUTIVE HOURS [id number] 08/23/18 TREAT FX RADIAL 3+ FRAG [id number] 06/24/07 Nutritional Asmnt/Malnutr-PDOC - Dietary Evaluation Malnutrition Findings (Please click <Entered> for more info): Nutritional Asmnt/Malnutrition Start: 08/25/18 14: 01 Text: Status: Complete Freq: Protocol: Document 08/25/18 14:01 DONALD (Rec: 08/25/18 14:18 DONALD [email or web address]) Nutritional Asmnt/Malnutrition Patient General Information Nutritional Screening High Risk Consult Diagnosis abdominal pain, bowel obstruction Pertinent Medical Hx/Surgical Hx HTN, asthma/COPD, subarachnoid bleeding Per wound care note: hx of dementia Subjective Information Received diet consult for mass and biopsy site wound. Pt sleeping at time of visit. Pt was on full liquid diet, but spoke to REBEKAH Contreras who states pt is now NPO and has fecal impaction. Per MD notes, KUB shows severe fecal impaction and pt due for surgery tomorrow for inguinal hernias. Per EMR, pt refused regular diet meals and only willing to have full liquid diet with vanilla ensure. Current Diet Order/ Nutrition Support NPO Pertinent Medications Nacl 0.9% Pertinent Labs 08/25: Na 132, Cl 96, BUN 22, glucose 111 08/23: Na 135, Cl 99, BUN 30, glucose 97, Alb 3.6 Nutritional Hx/Data Height 1.7 m Height (Calculated Centimeters) 170.2 Current Weight (lbs) 47.627 kg Weight (Calculated Kilograms) 47.6 Weight (Calculated Grams) 99662.2 Body Mass Index (BMI) 16.4 Weight Status Underweight GI Symptoms GI Symptoms None Last BM none noted Difficult in: None Skin Integrity/Comment: skin tear/biopsy site to right forehead, skin flap to left neck, mass on left shoulder, terrie 16 Estimated Nutritional Goals BEE in Kcals: Using Current wt Calories/Kcals/Kg 30-35 Kcals Calculated 2642-9505 Protein: Using Current wt Protein g/k-1.2 Protein Calculated 48-57 g Fluid: ml 1539-3115 (1 ml/kcal) Nutritional Problem 2. Problem Problem Altered nutrition related lab values Etiology electrolyte imbalance Signs/Symptoms: Na 132, Cl 96 1. Problem Problem Inadequate oral intake Etiology possible poor appetite from fecal impaction or abdominal pain Signs/Symptoms: current NPO status, meal refusals, pt only accepting Ensure Malnutrition Related to Morbid Obesity Malnutrition related to morbid obesity No Intervention/Recommendation Comments 1. Monitor NPO status and advance diet when medically appropriate 2. MD to replace electrolytes as needed 3. Monitor wt, skin integrity, GI symptons, and nutrition related labs 4. F/U as high risk in 2-3 days, 08/27- Expected Outcomes/Goals Expected Outcomes/Goals 1. Pt to resume PO intake when medically appropriate and meet at least 75% of all meals 2. Wt stability, skin integrity to improve, GI improved, and nutrition related labs to approach normal limits Reviewed by Laine Mcarthur RD
--- NOTE | 2018-09-02 16:29 | GI Progress Note ---
Subjective - Review of Systems Service Date: 09/02/18 Subjective: Extubated, colostomy is working Objective - Results Result Diagrams: 09/02/18 04:55 09/02/18 04:55 Recent Labs: Laboratory Last Values WBC 19.2 Th/cmm (4.8-10.8) H 09/02/18 04:55 RBC 2.97 Mil/cmm (3.80-5.20) L 09/02/18 04:55 Hgb 8.7 gm/dL (12-16) L 09/02/18 04:55 Hct 25.7 % (41.0-60) L 09/02/18 04:55 MCV 86.6 fl (81-100) 09/02/18 04:55 MCH 29.2 pg (27.0-31.0) 09/02/18 04:55 MCHC Differential 33.7 pg (28.0-36.0) 09/02/18 04:55 RDW 13.2 % (11.5-20.0) 09/02/18 04:55 Plt Count 301 Th/cmm (150-400) 09/02/18 04:55 MPV 7.4 fl 09/02/18 04:55 Add Manual Diff YES 09/02/18 04:55 Neutrophils % 87.3 % (40.0-80.0) H 08/31/18 04:15 Band Neutrophils % 3 % (0-10) 09/02/18 04:55 Lymphocytes % 9.0 % (20.0-50.0) L 08/31/18 04:15 Monocytes % 0.5 % (2.0-10.0) L 08/31/18 04:15 Eosinophils % 0.1 % (0.0-5.0) 08/31/18 04:15 Basophils % 3.1 % (0.0-2.0) H 08/31/18 04:15 Neutrophils (Manual) 85 % (40-80) H 09/02/18 04:55 Lymphocytes 6 % (20-50) L 09/02/18 04:55 Monocytes 6 % (2-10) 09/02/18 04:55 Platelet Estimate ADEQUATE (NORMAL) 09/02/18 04:55 PT 9.8 SECONDS (9.5-11.5) 08/31/18 04:15 INR 0.94 (0.5-1.4) 08/31/18 04:15 PTT (Actin FS) 21.0 SECONDS (26.0-38.0) L 08/31/18 04:15 Specimen Source arterial 09/01/18 12:00 Sample Site LB 09/01/18 12:00 pH 7.53 (7.35-7.45) H 09/01/18 12:00 pCO2 38.0 mmHg (35.0-45.0) 09/01/18 12:00 pO2 171.0 mmHg (80.0-100.0) H 09/01/18 12:00 HCO3 31.6 mEq/L (20.0-26.0) H 09/01/18 12:00 Base Excess 8.5 mEq/L (-3.0-3.0) H 09/01/18 12:00 O2 Saturation 100.0 % (92.0-100.0) 09/01/18 12:00 Stephon Test na 09/01/18 12:00 Vent Rate na 09/01/18 12:00 Inspired O2 40 09/01/18 12:00 Tidal Volume na 09/01/18 12:00 PEEP na 09/01/18 12:00 Pressure (ins/psv/peep) na 09/01/18 12:00 Critical Value [email or web address] financial reporting consultant 09/01/18 12:00 Sodium 136 mEq/L (136-145) 09/02/18 04:55 Potassium 3.7 mEq/L (3.5-5.1) 09/02/18 04:55 Chloride 101 mEq/L (98-107) 09/02/18 04:55 Carbon Dioxide 26.3 mEq/L (21.0-31.0) 09/02/18 04:55 Anion Gap 12.4 (7.0-16.0) 09/02/18 04:55 BUN 25 mg/dL (7-25) 09/02/18 04:55 Creatinine 0.7 mg/dL (0.6-1.2) 09/02/18 04:55 Est GFR ( Amer) TNP 09/02/18 04:55 Est GFR (Non-Af Amer) TNP 09/02/18 04:55 BUN/Creatinine Ratio 35.7 09/02/18 04:55 Glucose 162 mg/dL (70-105) H 09/02/18 04:55 POC Glucose 72 MG/DL (70 - 105) 08/26/18 06:47 Calcium 8.8 mg/dL (8.6-10.3) 09/02/18 04:55 Total Bilirubin 0.6 mg/dL (0.3-1.0) 09/01/18 04:10 AST 29 U/L (13-39) 09/01/18 04:10 ALT 71 U/L (7-52) H 09/01/18 04:10 Alkaline Phosphatase 58 U/L (34-104) 09/01/18 04:10 B-Natriuretic Peptide 34.4 pg/mL (5.0-100.0) 08/26/18 06:00 Total Protein 5.5 gm/dL (6.0-8.3) L 09/01/18 04:10 Albumin 3.7 gm/dL (3.7-5.3) 09/01/18 04:10 Globulin 1.8 gm/dL 09/01/18 04:10 Albumin/Globulin Ratio 2.1 (1.0-1.8) H 09/01/18 04:10 Urine Source CATH 08/31/18 11:25 Urine Color COLORLESS 08/31/18 11:25 Urine Clarity CLEAR (CLEAR) 08/31/18 11:25 Urine pH 6.5 (4.6 - 8.0) 08/31/18 11:25 Ur Specific [place] 1.020 (1.005-1.030) 08/31/18 11:25 Urine Protein NEGATIVE mg/dL (NEGATIVE) 08/31/18 11:25 Urine Glucose (UA) NEGATIVE mg/dL (NEGATIVE) 08/31/18 11:25 Urine Ketones NEGATIVE mg/dL (NEGATIVE) 08/31/18 11:25 Urine Blood NEGATIVE (NEGATIVE) 08/31/18 11:25 Urine Nitrate NEGATIVE (NEGATIVE) 08/31/18 11:25 Urine Bilirubin NEGATIVE (NEGATIVE) 08/31/18 11:25 Urine Urobilinogen 0.2 E.U./dL (0.2 - 1.0) 08/31/18 11:25 Ur Leukocyte Esterase MODERATE (NEGATIVE) H 08/31/18 11:25 Urine RBC NONE SEEN /hpf (0-5) 08/31/18 11:25 Urine WBC 2-5 /hpf (0-5) 08/31/18 11:25 Ur Epithelial Cells FEW /lpf (FEW) 08/31/18 11:25 Urine Bacteria NONE SEEN /hpf (NONE SEEN) 08/31/18 11:25 Blood Type O POSITIVE 08/30/18 09:45 Antibody Screen NEGATIVE 08/30/18 09:45 - Physical Exam Vitals and I&O: Vital Signs Temp 98.8 F 09/02/18 16:00 Pulse 82 09/02/18 16:00 Resp 13 09/02/18 16:00 BP 112/42 09/02/18 16:00 Pulse Ox 97 09/02/18 16:00 Intake & Output 09/01/18 09/02/18 09/02/18 18:59 06:59 18:59 Intake Total 1300 300 150 Output Total 750 400 Balance 550 -100 150 Weight (lbs) 45.416 kg 45.949 kg Intake: Intake, IV Amount 1300 300 150 D5-0.9%Ns 1,000 ml @ 50 1000 mls/hr IV .Q20H [facility] Rx#: [id number] Piperacillin Sodium/ 100 100 50 Tazobact 3.375 gm In Sodium Chloride 0.9% 50 ml @ 100 mls/hr IV Q6HR [facility] Rx#:[id number] Piperacillin Sodium/ 100 Tazobact 4.5 gm In Sodium Chloride 0.9% 100 ml @ 100 mls/hr IV ONCE ONE Rx #:[id number] metroNIDAZOLE 500mg/NS 100 200 100 100mL 500 mg In 100 ml @ 100 mls/hr IV Q8HR [facility] Rx #:[id number] Oral 0 Output: Urine 750 320 Stool 80 Other: Stool Characteristics Soft Liquid Soft Liquid Brown Liquid Brown Brown Weight Source Bedscale Bedscale Active Medications: Current Medications Albuterol/Ipratropium (Duoneb Neb) 3 ml HHN Q4HRT [facility] Stop: 10/25/18 10:59 Last Admin: 09/02/18 14:51 Dose: 3 ml Artificial Tears (Artificial Tears Ophth Soln) 1 drop EACH EYE BID PRN PRN Reason: Dry Eye Stop: 10/25/18 15:59 Last Admin: 08/26/18 16:08 Dose: 1 drop Dextrose/Sodium Chloride (D5-0.9%Ns) 1,000 mls @ 50 mls/hr IV .Q20H [facility] Stop: 10/25/18 07:59 Last Admin: 09/01/18 20:23 Dose: 50 mls/hr Metronidazole (Flagyl) 500 mg in 100 mls @ 100 mls/hr IV Q8HR [facility] Stop: 10/30/18 20:59 Last Infusion: 09/02/18 14:00 Dose: Infused Piperacillin Sod/Tazobactam (Sod 3.375 gm/ Sodium Chloride) 50 mls @ 100 mls/ hr IV Q6HR [facility] Stop: 10/31/18 11:59 Last Infusion: 09/02/18 11:50 Dose: Infused Methylprednisolone Sodium Succinate (Solu-Medrol) 40 mg IVP Q12HR [facility] Stop: 10/29/18 20:59 Last Admin: 09/02/18 09:28 Dose: 40 mg Miscellaneous (Zosyn Iv Per Pharmacy) 1 ea MC PRN PRN PRN Reason: PROTOCOL Stop: 10/31/18 08:38 Morphine Sulfate (Morphine) 1 mg IVP Q4HR PRN PRN Reason: Abdominal Pain Stop: 10/31/18 20:09 Last Admin: 09/02/18 07:41 Dose: 1 mg Morphine Sulfate (Morphine) 1 mg IVP Q4HR PRN PRN Reason: Pain (Moderate) Stop: 11/01/18 13:27 Mupirocin (Bactroban Oint) 1 appl NS BID [facility] Stop: 09/07/18 09:01 Pantoprazole Sodium (Protonix) 40 mg IVP DAILY [facility] Stop: 10/30/18 21:59 Last Admin: 09/02/18 09:28 Dose: 40 mg Polyethylene Glycol (Miralax) 17 gm PO BID [facility] Stop: 10/28/18 08:59 Last Admin: 09/02/18 09:28 Dose: Not Given General: Alert HEENT: Atraumatic, Other (intubated) Neck: Supple Cardiovascular: Regular rate Abdomen: Bowel sounds, Soft, no Tender, no Hepatomegaly, no Distended, no Rebound, no Mass Psych/Mental Status: no Mental status NL - Procedures Procedures: Procedures Procedure Code Date BYPASS ASCENDING COLON TO CUTANEOUS, OPEN APPROACH [id number] 08/23/18 EXC F/E/E/N/L MAL+MRG >4 [place] [address] 06/03/09 INSPECTION OF PERITONEAL CAVITY, OPEN APPROACH [id number] 08/23/18 NEBULIZER THERAPY 93.94 10/19/04 OP RED-INT FIX RAD/ULNA 79.32 06/24/07 RADICAL EXCIS SKIN LES 86.4 06/03/09 REPAIR BILATERAL INGUINAL REGION, OPEN APPROACH [id number] 08/23/18 REPAIR MESENTERY, OPEN APPROACH [id number] 08/23/18 RESECTION OF ASCENDING COLON, OPEN APPROACH [id number] 08/23/18 RESPIRATORY VENTILATION, LESS THAN 24 CONSECUTIVE HOURS [id number] 08/23/18 TREAT FX RADIAL 3+ FRAG [id number] 06/24/07 Assessment/Plan - Assessment Assessment: # Large inguinal hernia with possible bowel strangulation # Fecal impaction # Shortness of breath # Abd pain Pt with chronic fecal impaction and large hernia along the right side containing multiple bowel loops. The large hernia is likely causing bowel dysmotility and contributing to ongoing impaction and constipation. I agree that a diverting colostomy is in this patient's best interest to ensure that she avoids further impaction events. Pt underwent hernia repair and colostomy creation with Dr Dean on 08/31. She is now recovering in the ICU, remains intubated. Colostomy is putting out stool. Plan: - post op care - diet as per the surgeon - colostomy is working well - supportive measures GI to see as needed, please call with any questions
--- NOTE | 2018-09-02 16:35 | Infectious Disease Prog Note ---
Infectious Disease Subjective - Review of Systems Subjective: cc stool impaction/sbo/ing hrnia incarcerated s/p sx hpi- sen by dr singleton recomend hernia repait colosto, schedule for sx friday enema tried d/w staff wbc better await pulm clearance for surgey ing hernia done under wnt surgey , d/w dr singleton transfered to icu rocephin changed to zosyn sputum cx reuqested ro sno fervr o.e vs chst clear abd soft hernia repaired colostomy exrt pulse dx sbo/stool impaction ing hernia s/p sx plan rflagyl zosyn Infectious Disease Objective - Results Result Diagrams: 09/02/18 04:55 09/02/18 04:55 Recent Labs: Laboratory Last Values WBC 19.2 Th/cmm (4.8-10.8) H 09/02/18 04:55 RBC 2.97 Mil/cmm (3.80-5.20) L 09/02/18 04:55 Hgb 8.7 gm/dL (12-16) L 09/02/18 04:55 Hct 25.7 % (41.0-60) L 09/02/18 04:55 MCV 86.6 fl (81-100) 09/02/18 04:55 MCH 29.2 pg (27.0-31.0) 09/02/18 04:55 MCHC Differential 33.7 pg (28.0-36.0) 09/02/18 04:55 RDW 13.2 % (11.5-20.0) 09/02/18 04:55 Plt Count 301 Th/cmm (150-400) 09/02/18 04:55 MPV 7.4 fl 09/02/18 04:55 Add Manual Diff YES 09/02/18 04:55 Neutrophils % 87.3 % (40.0-80.0) H 08/31/18 04:15 Band Neutrophils % 3 % (0-10) 09/02/18 04:55 Lymphocytes % 9.0 % (20.0-50.0) L 08/31/18 04:15 Monocytes % 0.5 % (2.0-10.0) L 08/31/18 04:15 Eosinophils % 0.1 % (0.0-5.0) 08/31/18 04:15 Basophils % 3.1 % (0.0-2.0) H 08/31/18 04:15 Neutrophils (Manual) 85 % (40-80) H 09/02/18 04:55 Lymphocytes 6 % (20-50) L 09/02/18 04:55 Monocytes 6 % (2-10) 09/02/18 04:55 Platelet Estimate ADEQUATE (NORMAL) 09/02/18 04:55 PT 9.8 SECONDS (9.5-11.5) 08/31/18 04:15 INR 0.94 (0.5-1.4) 08/31/18 04:15 PTT (Actin FS) 21.0 SECONDS (26.0-38.0) L 08/31/18 04:15 Specimen Source arterial 09/01/18 12:00 Sample Site LB 09/01/18 12:00 pH 7.53 (7.35-7.45) H 09/01/18 12:00 pCO2 38.0 mmHg (35.0-45.0) 09/01/18 12:00 pO2 171.0 mmHg (80.0-100.0) H 09/01/18 12:00 HCO3 31.6 mEq/L (20.0-26.0) H 09/01/18 12:00 Base Excess 8.5 mEq/L (-3.0-3.0) H 09/01/18 12:00 O2 Saturation 100.0 % (92.0-100.0) 09/01/18 12:00 Stephon Test na 09/01/18 12:00 Vent Rate na 09/01/18 12:00 Inspired O2 40 09/01/18 12:00 Tidal Volume na 09/01/18 12:00 PEEP na 09/01/18 12:00 Pressure (ins/psv/peep) na 09/01/18 12:00 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 Value 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 09/01/18 12:00 Sodium 136 mEq/L (136-145) 09/02/18 04:55 Potassium 3.7 mEq/L (3.5-5.1) 09/02/18 04:55 Chloride 101 mEq/L (98-107) 09/02/18 04:55 Carbon Dioxide 26.3 mEq/L (21.0-31.0) 09/02/18 04:55 Anion Gap 12.4 (7.0-16.0) 09/02/18 04:55 BUN 25 mg/dL (7-25) 09/02/18 04:55 Creatinine 0.7 mg/dL (0.6-1.2) 09/02/18 04:55 Est GFR ( Amer) TNP 09/02/18 04:55 Est GFR (Non-Af Amer) TNP 09/02/18 04:55 BUN/Creatinine Ratio 35.7 09/02/18 04:55 Glucose 162 mg/dL (70-105) H 09/02/18 04:55 POC Glucose 72 MG/DL (70 - 105) 08/26/18 06:47 Calcium 8.8 mg/dL (8.6-10.3) 09/02/18 04:55 Total Bilirubin 0.6 mg/dL (0.3-1.0) 09/01/18 04:10 AST 29 U/L (13-39) 09/01/18 04:10 ALT 71 U/L (7-52) H 09/01/18 04:10 Alkaline Phosphatase 58 U/L (34-104) 09/01/18 04:10 B-Natriuretic Peptide 34.4 pg/mL (5.0-100.0) 08/26/18 06:00 Total Protein 5.5 gm/dL (6.0-8.3) L 09/01/18 04:10 Albumin 3.7 gm/dL (3.7-5.3) 09/01/18 04:10 Globulin 1.8 gm/dL 09/01/18 04:10 Albumin/Globulin Ratio 2.1 (1.0-1.8) H 09/01/18 04:10 Urine Source CATH 08/31/18 11:25 Urine Color COLORLESS 08/31/18 11:25 Urine Clarity CLEAR (CLEAR) 08/31/18 11:25 Urine pH 6.5 (4.6 - 8.0) 08/31/18 11:25 Ur Specific [place] 1.020 (1.005-1.030) 08/31/18 11:25 Urine Protein NEGATIVE mg/dL (NEGATIVE) 08/31/18 11:25 Urine Glucose (UA) NEGATIVE mg/dL (NEGATIVE) 08/31/18 11:25 Urine Ketones NEGATIVE mg/dL (NEGATIVE) 08/31/18 11:25 Urine Blood NEGATIVE (NEGATIVE) 08/31/18 11:25 Urine Nitrate NEGATIVE (NEGATIVE) 08/31/18 11:25 Urine Bilirubin NEGATIVE (NEGATIVE) 08/31/18 11:25 Urine Urobilinogen 0.2 E.U./dL (0.2 - 1.0) 08/31/18 11:25 Ur Leukocyte Esterase MODERATE (NEGATIVE) H 08/31/18 11:25 Urine RBC NONE SEEN /hpf (0-5) 08/31/18 11:25 Urine WBC 2-5 /hpf (0-5) 08/31/18 11:25 Ur Epithelial Cells FEW /lpf (FEW) 08/31/18 11:25 Urine Bacteria NONE SEEN /hpf (NONE SEEN) 08/31/18 11:25 Blood Type O POSITIVE 08/30/18 09:45 Antibody Screen NEGATIVE 08/30/18 09:45 - Physical Exam Vitals and I&O: Vital Signs Temp 98.8 F 09/02/18 16:00 Pulse 82 09/02/18 16:00 Resp 13 09/02/18 16:00 BP 112/42 09/02/18 16:00 Pulse Ox 97 09/02/18 16:00 Intake & Output 09/01/18 09/02/18 09/02/18 18:59 06:59 18:59 Intake Total 1300 300 150 Output Total 750 400 Balance 550 -100 150 Weight (lbs) 45.416 kg 45.949 kg Intake: Intake, IV Amount 1300 300 150 D5-0.9%Ns 1,000 ml @ 50 1000 mls/hr IV .Q20H [facility] Rx#: [id number] Piperacillin Sodium/ 100 100 50 Tazobact 3.375 gm In Sodium Chloride 0.9% 50 ml @ 100 mls/hr IV Q6HR [facility] Rx#:[id number] Piperacillin Sodium/ 100 Tazobact 4.5 gm In Sodium Chloride 0.9% 100 ml @ 100 mls/hr IV ONCE ONE Rx #:[id number] metroNIDAZOLE 500mg/NS 100 200 100 100mL 500 mg In 100 ml @ 100 mls/hr IV Q8HR [facility] Rx #:[id number] Oral 0 Output: Urine 750 320 Stool 80 Other: Stool Characteristics Soft Liquid Soft Liquid Brown Liquid Brown Brown Weight Source Bedscale Bedscale Active Medications: Current Medications Albuterol/Ipratropium (Duoneb Neb) 3 ml HHN Q4HRT [facility] Stop: 10/25/18 10:59 Last Admin: 09/02/18 14:51 Dose: 3 ml Artificial Tears (Artificial Tears Ophth Soln) 1 drop EACH EYE BID PRN PRN Reason: Dry Eye Stop: 10/25/18 15:59 Last Admin: 08/26/18 16:08 Dose: 1 drop Dextrose/Sodium Chloride (D5-0.9%Ns) 1,000 mls @ 50 mls/hr IV .Q20H [facility] Stop: 10/25/18 07:59 Last Admin: 09/01/18 20:23 Dose: 50 mls/hr Metronidazole (Flagyl) 500 mg in 100 mls @ 100 mls/hr IV Q8HR [facility] Stop: 10/30/18 20:59 Last Infusion: 09/02/18 14:00 Dose: Infused Piperacillin Sod/Tazobactam (Sod 3.375 gm/ Sodium Chloride) 50 mls @ 100 mls/ hr IV Q6HR [facility] Stop: 10/31/18 11:59 Last Infusion: 09/02/18 11:50 Dose: Infused Methylprednisolone Sodium Succinate (Solu-Medrol) 40 mg IVP Q12HR [facility] Stop: 10/29/18 20:59 Last Admin: 09/02/18 09:28 Dose: 40 mg Miscellaneous (Zosyn Iv Per Pharmacy) 1 ea MC PRN PRN PRN Reason: PROTOCOL Stop: 10/31/18 08:38 Morphine Sulfate (Morphine) 1 mg IVP Q4HR PRN PRN Reason: Abdominal Pain Stop: 10/31/18 20:09 Last Admin: 09/02/18 07:41 Dose: 1 mg Morphine Sulfate (Morphine) 1 mg IVP Q4HR PRN PRN Reason: Pain (Moderate) Stop: 11/01/18 13:27 Mupirocin (Bactroban Oint) 1 appl NS BID [facility] Stop: 09/07/18 09:01 Pantoprazole Sodium (Protonix) 40 mg IVP DAILY [facility] Stop: 10/30/18 21:59 Last Admin: 09/02/18 09:28 Dose: 40 mg Polyethylene Glycol (Miralax) 17 gm PO BID [facility] Stop: 10/28/18 08:59 Last Admin: 09/02/18 09:28 Dose: Not Given - Procedures Procedures: Procedures Procedure Code Date BYPASS ASCENDING COLON TO CUTANEOUS, OPEN APPROACH [id number] 08/23/18 EXC F/E/E/N/L MAL+MRG >4 [place] [address] 06/03/09 INSPECTION OF PERITONEAL CAVITY, OPEN APPROACH [id number] 08/23/18 NEBULIZER THERAPY 93.94 10/19/04 OP RED-INT FIX RAD/ULNA 79.32 06/24/07 RADICAL EXCIS SKIN LES 86.4 06/03/09 REPAIR BILATERAL INGUINAL REGION, OPEN APPROACH [id number] 08/23/18 REPAIR MESENTERY, OPEN APPROACH [id number] 08/23/18 RESECTION OF ASCENDING COLON, OPEN APPROACH [id number] 08/23/18 RESPIRATORY VENTILATION, LESS THAN 24 CONSECUTIVE HOURS [id number] 08/23/18 TREAT FX RADIAL 3+ FRAG 37028 06/24/07 Nutritional Asmnt/Malnutr-PDOC - Dietary Evaluation Malnutrition Findings (Please click <Entered> for more info): Nutritional Asmnt/Malnutrition Start: 08/25/18 14: 01 Text: Status: Complete Freq: Protocol: Document 08/25/18 14:01 DONALD (Rec: 08/25/18 14:18 DONALD [email or web address]) Nutritional Asmnt/Malnutrition Patient General Information Nutritional Screening High Risk Consult Diagnosis abdominal pain, bowel obstruction Pertinent Medical Hx/Surgical Hx HTN, asthma/COPD, subarachnoid bleeding Per wound care note: hx of dementia Subjective Information Received diet consult for mass and biopsy site wound. Pt sleeping at time of visit. Pt was on full liquid diet, but spoke to REBEKAH Contreras who states pt is now NPO and has fecal impaction. Per MD notes, KUB shows severe fecal impaction and pt due for surgery tomorrow for inguinal hernias. Per EMR, pt refused regular diet meals and only willing to have full liquid diet with vanilla ensure. Current Diet Order/ Nutrition Support NPO Pertinent Medications Nacl 0.9% Pertinent Labs 08/25: Na 132, Cl 96, BUN 22, glucose 111 08/23: Na 135, Cl 99, BUN 30, glucose 97, Alb 3.6 Nutritional Hx/Data Height 1.7 m Height (Calculated Centimeters) 170.2 Current Weight (lbs) 47.627 kg Weight (Calculated Kilograms) 47.6 Weight (Calculated Grams) 16140.2 Body Mass Index (BMI) 16.4 Weight Status Underweight GI Symptoms GI Symptoms None Last BM none noted Difficult in: None Skin Integrity/Comment: skin tear/biopsy site to right forehead, skin flap to left neck, mass on left shoulder, terrie 16 Estimated Nutritional Goals BEE in Kcals: Using Current wt Calories/Kcals/Kg 30-35 Kcals Calculated 8048-6209 Protein: Using Current wt Protein g/k-1.2 Protein Calculated 48-57 g Fluid: ml 5875-9290 (1 ml/kcal) Nutritional Problem 2. Problem Problem Altered nutrition related lab values Etiology electrolyte imbalance Signs/Symptoms: Na 132, Cl 96 1. Problem Problem Inadequate oral intake Etiology possible poor appetite from fecal impaction or abdominal pain Signs/Symptoms: current NPO status, meal refusals, pt only accepting Ensure Malnutrition Related to Morbid Obesity Malnutrition related to morbid obesity No Intervention/Recommendation Comments 1. Monitor NPO status and advance diet when medically appropriate 2. MD to replace electrolytes as needed 3. Monitor wt, skin integrity, GI symptons, and nutrition related labs 4. F/U as high risk in 2-3 days, 08/27- Expected Outcomes/Goals Expected Outcomes/Goals 1. Pt to resume PO intake when medically appropriate and meet at least 75% of all meals 2. Wt stability, skin integrity to improve, GI improved, and nutrition related labs to approach normal limits Reviewed by Laine Mcarthur RD
[2018-09-02] MEDS: D5-0.9%NS 1,000 ML IV SCH (20:32)
--- NOTE | 2018-09-02 21:09 | Pathology Report ---
[id number] Collection Date: 08/31/2018 Surgeon: Dr. Kellen Dean Specimen Description: Subtotal Colon Gross Description: Received in formalin is a subtotal colon resection specimen measuring 75 cm in length x 4.5 cm in diameter with focal areas that are dilated to 6.5 cm. The outer surface of the specimen shows an area of dense fibrous adhesions that produce a twisted appearance at one end of the specimen. This area also shows thinning of the muscular wall to 0.1 cm in thickness. Opening the specimen shows the entire colon to be filled with abundant dark brown stool with hard stool producing an impaction in the area that is twisted. Sectioning shows no evidence for perforation, and there are no mass lesions. Pharmacy Resident sections are submitted in five cassettes labelled A1-A5. Cassette A1 shows proximal and distal mucosal margins, cassette A2 and A3 shows the dilated/twisted area, cassette A4 shows the firm adhesions, cassette A5 shows random sections. Microscopic Description: The histologic sections show benign colon with intact muscular wall and mucosa. The dilated/twisted area shows flattening and thinning of the muscular wall that is still intact. Cassette A4 shows an area of dense fibrosis consistent with adhesive band formation. Diagnosis: 1. Subtotal colon showing a dilated/twisted segment with fecal impaction. 2. Dense fibrous adhesions (adhesive bands) are also identified. [facility]# [id number] THONG
[2018-09-03] MEDS: Albuterol/Ipratropium Neb 3 ML AERS HHN SCH ×6 (02:24→22:54)
[2018-09-03 04:47] LABS: MEAN PLATELET VOLUME 7.4 fl
[2018-09-03 05:01] LABS: HEMATOCRIT 22.5 % (41.0-60); MEAN CELL VOLUME 85.1 fl (81-100); MEAN CORPUSCULAR HEMOGLOBIN 29.8 pg (27.0-31.0); PLATELET COUNT 290 Th/cmm (150-400); RED BLOOD COUNT 2.65 Mil/cmm (3.80-5.20); RED CELL DISTRIBUTION WIDTH 13.3 % (11.5-20.0)
[2018-09-03 05:29] LABS: HEMOGLOBIN 7.9 gm/dL (12-16); WHITE BLOOD COUNT 15.2 Th/cmm (4.8-10.8)
[2018-09-03 05:34] LABS: ANION GAP 9.8 (7.0-16.0); BUN - UREA NITROGEN 25 mg/dL (7-25); CALCIUM SERUM 8.4 mg/dL (8.6-10.3); CHLORIDE 103 mEq/L (98-107); CREATININE - SERUM 0.6 mg/dL (0.6-1.2); GLUCOSE 156 mg/dL (70-105); POTASSIUM SERUM 3.8 mEq/L (3.5-5.1); SODIUM SERUM 137 mEq/L (136-145)
[2018-09-03] MEDS: metroNIDAZOLE 500mg/NS 100mL 500 MG/100 ML BAG IV SCH ×3 (05:50→20:39)
[2018-09-03 06:01] LABS: NEUTROPHILS 100 % (40-80)
[2018-09-03 06:02] LABS: PLATELET ESTIMATE ADEQUATE (NORMAL)
[2018-09-03] MEDS: Morphine Sulfate 2 mg/mL 1mL Syr IVP PRN ×2 (08:40→20:38)
[2018-09-03] MEDS: methylPREDNISolone SS 40 mg Vial IVP SCH ×2 (09:00→20:36)
[2018-09-03] MEDS: POLYETHYLENE GLYCOL 3350 17 GM PACK PO SCH ×2 (09:01→17:10)
--- NOTE | 2018-09-03 11:51 | General Progress Note ---
Subjective - Review of Systems Events since last encounter: 09/03/18 redressed, incision healing well colostomy working await swallowing eval Objective - Results Result Diagrams: 09/03/18 04:05 09/03/18 04:05 Recent Labs: Laboratory Last Values WBC 15.2 Th/cmm (4.8-10.8) H D 09/03/18 04:05 RBC 2.65 Mil/cmm (3.80-5.20) L 09/03/18 04:05 Hgb 7.9 gm/dL (12-16) L* 09/03/18 04:05 Hct 22.5 % (41.0-60) L 09/03/18 04:05 MCV 85.1 fl (81-100) 09/03/18 04:05 MCH 29.8 pg (27.0-31.0) 09/03/18 04:05 MCHC Differential 35.0 pg (28.0-36.0) 09/03/18 04:05 RDW 13.3 % (11.5-20.0) 09/03/18 04:05 Plt Count 290 Th/cmm (150-400) 09/03/18 04:05 MPV 7.4 fl 09/03/18 04:05 Add Manual Diff YES 09/03/18 04:05 Neutrophils % 87.3 % (40.0-80.0) H 08/31/18 04:15 Band Neutrophils % 3 % (0-10) 09/02/18 04:55 Lymphocytes % 9.0 % (20.0-50.0) L 08/31/18 04:15 Monocytes % 0.5 % (2.0-10.0) L 08/31/18 04:15 Eosinophils % 0.1 % (0.0-5.0) 08/31/18 04:15 Basophils % 3.1 % (0.0-2.0) H 08/31/18 04:15 Neutrophils (Manual) 100 % (40-80) H 09/03/18 04:05 Lymphocytes 6 % (20-50) L 09/02/18 04:55 Monocytes 6 % (2-10) 09/02/18 04:55 Platelet Estimate ADEQUATE (NORMAL) 09/03/18 04:05 PT 9.8 SECONDS (9.5-11.5) 08/31/18 04:15 INR 0.94 (0.5-1.4) 08/31/18 04:15 PTT (Actin FS) 21.0 SECONDS (26.0-38.0) L 08/31/18 04:15 Specimen Source arterial 09/01/18 12:00 Sample Site LB 09/01/18 12:00 pH 7.53 (7.35-7.45) H 09/01/18 12:00 pCO2 38.0 mmHg (35.0-45.0) 09/01/18 12:00 pO2 171.0 mmHg (80.0-100.0) H 09/01/18 12:00 HCO3 31.6 mEq/L (20.0-26.0) H 09/01/18 12:00 Base Excess 8.5 mEq/L (-3.0-3.0) H 09/01/18 12:00 O2 Saturation 100.0 % (92.0-100.0) 09/01/18 12:00 Stephon Test na 09/01/18 12:00 Vent Rate na 09/01/18 12:00 Inspired O2 40 09/01/18 12:00 Tidal Volume na 09/01/18 12:00 PEEP na 09/01/18 12:00 Pressure (ins/psv/peep) na 09/01/18 12:00 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 Value 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 09/01/18 12:00 Sodium 137 mEq/L (136-145) 09/03/18 04:05 Potassium 3.8 mEq/L (3.5-5.1) 09/03/18 04:05 Chloride 103 mEq/L (98-107) 09/03/18 04:05 Carbon Dioxide 28.0 mEq/L (21.0-31.0) 09/03/18 04:05 Anion Gap 9.8 (7.0-16.0) 09/03/18 04:05 BUN 25 mg/dL (7-25) 09/03/18 04:05 Creatinine 0.6 mg/dL (0.6-1.2) 09/03/18 04:05 Est GFR ( Amer) TNP 09/03/18 04:05 Est GFR (Non-Af Amer) TNP 09/03/18 04:05 BUN/Creatinine Ratio 41.7 09/03/18 04:05 Glucose 156 mg/dL (70-105) H 09/03/18 04:05 POC Glucose 72 MG/DL (70 - 105) 08/26/18 06:47 Calcium 8.4 mg/dL (8.6-10.3) L 09/03/18 04:05 Total Bilirubin 0.6 mg/dL (0.3-1.0) 09/01/18 04:10 AST 29 U/L (13-39) 09/01/18 04:10 ALT 71 U/L (7-52) H 09/01/18 04:10 Alkaline Phosphatase 58 U/L (34-104) 09/01/18 04:10 B-Natriuretic Peptide 34.4 pg/mL (5.0-100.0) 08/26/18 06:00 Total Protein 5.5 gm/dL (6.0-8.3) L 09/01/18 04:10 Albumin 3.7 gm/dL (3.7-5.3) 09/01/18 04:10 Globulin 1.8 gm/dL 09/01/18 04:10 Albumin/Globulin Ratio 2.1 (1.0-1.8) H 09/01/18 04:10 Urine Source CATH 08/31/18 11:25 Urine Color COLORLESS 08/31/18 11:25 Urine Clarity CLEAR (CLEAR) 08/31/18 11:25 Urine pH 6.5 (4.6 - 8.0) 08/31/18 11:25 Ur Specific [place] 1.020 (1.005-1.030) 08/31/18 11:25 Urine Protein NEGATIVE mg/dL (NEGATIVE) 08/31/18 11:25 Urine Glucose (UA) NEGATIVE mg/dL (NEGATIVE) 08/31/18 11:25 Urine Ketones NEGATIVE mg/dL (NEGATIVE) 08/31/18 11:25 Urine Blood NEGATIVE (NEGATIVE) 08/31/18 11:25 Urine Nitrate NEGATIVE (NEGATIVE) 08/31/18 11:25 Urine Bilirubin NEGATIVE (NEGATIVE) 08/31/18 11:25 Urine Urobilinogen 0.2 E.U./dL (0.2 - 1.0) 08/31/18 11:25 Ur Leukocyte Esterase MODERATE (NEGATIVE) H 08/31/18 11:25 Urine RBC NONE SEEN /hpf (0-5) 08/31/18 11:25 Urine WBC 2-5 /hpf (0-5) 08/31/18 11:25 Ur Epithelial Cells FEW /lpf (FEW) 08/31/18 11:25 Urine Bacteria NONE SEEN /hpf (NONE SEEN) 08/31/18 11:25 Blood Type O POSITIVE 08/30/18 09:45 Antibody Screen NEGATIVE 08/30/18 09:45 - Physical Exam Vitals and I&O: Vital Signs Temp 97.8 F 09/03/18 11:00 Pulse 80 09/03/18 11:00 Resp 12 09/03/18 11:00 BP 110/42 09/03/18 11:00 Pulse Ox 95 09/03/18 11:00 Intake & Output 09/02/18 09/03/18 09/03/18 18:59 06:59 18:59 Intake Total 1200 150 Output Total 310 Balance 890 150 Weight (lbs) 45.898 kg Intake: Intake, IV Amount 1200 150 D5-0.9%Ns 1,000 ml @ 50 1000 mls/hr IV .Q20H [facility] Rx#: [id number] Piperacillin Sodium/ 100 50 Tazobact 3.375 gm In Sodium Chloride 0.9% 50 ml @ 100 mls/hr IV Q6HR [facility] Rx#:[id number] metroNIDAZOLE 500mg/NS 100 100 100mL 500 mg In 100 ml @ 100 mls/hr IV Q8HR [facility] Rx #:[id number] Oral 0 Output: Urine 310 Other: Stool Characteristics Soft Soft Soft Liquid Liquid Liquid Brown Brown Brown Weight Source Bedscale Active Medications: Current Medications Albuterol/Ipratropium (Duoneb Neb) 3 ml HHN Q4HRT [facility] Stop: 10/25/18 10:59 Last Admin: 09/03/18 10:18 Dose: 3 ml Artificial Tears (Artificial Tears Ophth Soln) 1 drop EACH EYE BID PRN PRN Reason: Dry Eye Stop: 10/25/18 15:59 Last Admin: 08/26/18 16:08 Dose: 1 drop Dextrose/Sodium Chloride (D5-0.9%Ns) 1,000 mls @ 50 mls/hr IV .Q20H [facility] Stop: 10/25/18 07:59 Last Admin: 09/02/18 20:32 Dose: 50 mls/hr Metronidazole (Flagyl) 500 mg in 100 mls @ 100 mls/hr IV Q8HR [facility] Stop: 10/30/18 20:59 Last Admin: 09/03/18 05:50 Dose: 100 mls/hr Piperacillin Sod/Tazobactam (Sod 3.375 gm/ Sodium Chloride) 50 mls @ 100 mls/ hr IV Q6HR [facility] Stop: 10/31/18 11:59 Last Admin: 09/03/18 06:42 Dose: 100 mls/hr Methylprednisolone Sodium Succinate (Solu-Medrol) 40 mg IVP Q12HR [facility] Stop: 10/29/18 20:59 Last Admin: 09/03/18 09:00 Dose: 40 mg Miscellaneous (Zosyn Iv Per Pharmacy) 1 ea MC PRN PRN PRN Reason: PROTOCOL Stop: 10/31/18 08:38 Morphine Sulfate (Morphine) 1 mg IVP Q4HR PRN PRN Reason: Abdominal Pain Stop: 10/31/18 20:09 Last Admin: 09/03/18 08:40 Dose: 1 mg Morphine Sulfate (Morphine) 1 mg IVP Q4HR PRN PRN Reason: Pain (Moderate) Stop: 11/01/18 13:27 Last Admin: 09/02/18 22:56 Dose: 1 mg Mupirocin (Bactroban Oint) 1 appl NS BID [facility] Stop: 09/07/18 09:01 Last Admin: 09/03/18 09:00 Dose: 1 appl Pantoprazole Sodium (Protonix) 40 mg IVP DAILY [facility] Stop: 10/30/18 21:59 Last Admin: 09/03/18 09:00 Dose: 40 mg Polyethylene Glycol (Miralax) 17 gm PO BID [facility] Stop: 10/28/18 08:59 Last Admin: 09/03/18 09:01 Dose: Not Given General: Alert HEENT: Atraumatic, Other (intubated) Neck: Supple Cardiovascular: Regular rate Abdomen: Bowel sounds, Soft, no Tender, no Hepatomegaly, no Distended, no Rebound, no Mass Psych/Mental Status: no Mental status NL - Procedures Procedures: Procedures Procedure Code Date BYPASS ASCENDING COLON TO CUTANEOUS, OPEN APPROACH [id number] 08/23/18 EXC F/E/E/N/L MAL+MRG >4 [place] [address] 06/03/09 INSPECTION OF PERITONEAL CAVITY, OPEN APPROACH [id number] 08/23/18 NEBULIZER THERAPY 93.94 10/19/04 OP RED-INT FIX RAD/ULNA 79.32 06/24/07 RADICAL EXCIS SKIN LES 86.4 06/03/09 REPAIR BILATERAL INGUINAL REGION, OPEN APPROACH [id number] 08/23/18 REPAIR MESENTERY, OPEN APPROACH [id number] 08/23/18 RESECTION OF ASCENDING COLON, OPEN APPROACH [id number] 08/23/18 RESPIRATORY VENTILATION, LESS THAN 24 CONSECUTIVE HOURS [id number] 08/23/18 TREAT FX RADIAL 3+ FRAG [id number] 06/24/07 Nutritional Asmnt/Malnutr-PDOC - Dietary Evaluation Malnutrition Findings (Please click <Entered> for more info): Nutritional Asmnt/Malnutrition Start: 08/25/18 14: 01 Text: Status: Complete Freq: Protocol: Document 08/25/18 14:01 DONALD (Rec: 08/25/18 14:18 DONALD [email or web address]) Nutritional Asmnt/Malnutrition Patient General Information Nutritional Screening High Risk Consult Diagnosis abdominal pain, bowel obstruction Pertinent Medical Hx/Surgical Hx HTN, asthma/COPD, subarachnoid bleeding Per wound care note: hx of dementia Subjective Information Received diet consult for mass and biopsy site wound. Pt sleeping at time of visit. Pt was on full liquid diet, but spoke to REBEKAH Contreras who states pt is now NPO and has fecal impaction. Per MD notes, KUB shows severe fecal impaction and pt due for surgery tomorrow for inguinal hernias. Per EMR, pt refused regular diet meals and only willing to have full liquid diet with vanilla ensure. Current Diet Order/ Nutrition Support NPO Pertinent Medications Nacl 0.9% Pertinent Labs 08/25: Na 132, Cl 96, BUN 22, glucose 111 08/23: Na 135, Cl 99, BUN 30, glucose 97, Alb 3.6 Nutritional Hx/Data Height 1.7 m Height (Calculated Centimeters) 170.2 Current Weight (lbs) 47.627 kg Weight (Calculated Kilograms) 47.6 Weight (Calculated Grams) 03157.2 Body Mass Index (BMI) 16.4 Weight Status Underweight GI Symptoms GI Symptoms None Last BM none noted Difficult in: None Skin Integrity/Comment: skin tear/biopsy site to right forehead, skin flap to left neck, mass on left shoulder, terrie 16 Estimated Nutritional Goals BEE in Kcals: Using Current wt Calories/Kcals/Kg 30-35 Kcals Calculated 3608-6237 Protein: Using Current wt Protein g/k-1.2 Protein Calculated 48-57 g Fluid: ml 0828-7305 (1 ml/kcal) Nutritional Problem 2. Problem Problem Altered nutrition related lab values Etiology electrolyte imbalance Signs/Symptoms: Na 132, Cl 96 1. Problem Problem Inadequate oral intake Etiology possible poor appetite from fecal impaction or abdominal pain Signs/Symptoms: current NPO status, meal refusals, pt only accepting Ensure Malnutrition Related to Morbid Obesity Malnutrition related to morbid obesity No Intervention/Recommendation Comments 1. Monitor NPO status and advance diet when medically appropriate 2. MD to replace electrolytes as needed 3. Monitor wt, skin integrity, GI symptons, and nutrition related labs 4. F/U as high risk in 2-3 days, 08/27- Expected Outcomes/Goals Expected Outcomes/Goals 1. Pt to resume PO intake when medically appropriate and meet at least 75% of all meals 2. Wt stability, skin integrity to improve, GI improved, and nutrition related labs to approach normal limits Reviewed by Laine Mcarthur RD
[2018-09-03] MEDS ORDERED: Probiotic Screen MC PRN (13:15)
--- NOTE | 2018-09-03 17:02 | Infectious Disease Prog Note ---
Infectious Disease Subjective - Review of Systems Service Date: 09/03/18 Subjective: cc stool impaction/sbo/ing hrnia incarcerated s/p sx hpi- sen by dr singleton recomend hernia repait colosto, d/w staff wbc better under wnt surgey , d/w dr singleton transfered to icu rocephin changed to zosyn sputum cx reuqested hb decreased 7.9 cbc ordered ro sno fervr o.e vs chst clear abd soft hernia repaired colostomy exrt pulse dx sbo/stool impaction ing hernia s/p sx plan rflagyl zosyn Infectious Disease Objective - Results Result Diagrams: 09/03/18 04:05 09/03/18 04:05 Recent Labs: Laboratory Last Values WBC 15.2 Th/cmm (4.8-10.8) H D 09/03/18 04:05 RBC 2.65 Mil/cmm (3.80-5.20) L 09/03/18 04:05 Hgb 7.9 gm/dL (12-16) L* 09/03/18 04:05 Hct 22.5 % (41.0-60) L 09/03/18 04:05 MCV 85.1 fl (81-100) 09/03/18 04:05 MCH 29.8 pg (27.0-31.0) 09/03/18 04:05 MCHC Differential 35.0 pg (28.0-36.0) 09/03/18 04:05 RDW 13.3 % (11.5-20.0) 09/03/18 04:05 Plt Count 290 Th/cmm (150-400) 09/03/18 04:05 MPV 7.4 fl 09/03/18 04:05 Add Manual Diff YES 09/03/18 04:05 Neutrophils % 87.3 % (40.0-80.0) H 08/31/18 04:15 Band Neutrophils % 3 % (0-10) 09/02/18 04:55 Lymphocytes % 9.0 % (20.0-50.0) L 08/31/18 04:15 Monocytes % 0.5 % (2.0-10.0) L 08/31/18 04:15 Eosinophils % 0.1 % (0.0-5.0) 08/31/18 04:15 Basophils % 3.1 % (0.0-2.0) H 08/31/18 04:15 Neutrophils (Manual) 100 % (40-80) H 09/03/18 04:05 Lymphocytes 6 % (20-50) L 09/02/18 04:55 Monocytes 6 % (2-10) 09/02/18 04:55 Platelet Estimate ADEQUATE (NORMAL) 09/03/18 04:05 PT 9.8 SECONDS (9.5-11.5) 08/31/18 04:15 INR 0.94 (0.5-1.4) 08/31/18 04:15 PTT (Actin FS) 21.0 SECONDS (26.0-38.0) L 08/31/18 04:15 Specimen Source arterial 09/01/18 12:00 Sample Site LB 09/01/18 12:00 pH 7.53 (7.35-7.45) H 09/01/18 12:00 pCO2 38.0 mmHg (35.0-45.0) 09/01/18 12:00 pO2 171.0 mmHg (80.0-100.0) H 09/01/18 12:00 HCO3 31.6 mEq/L (20.0-26.0) H 09/01/18 12:00 Base Excess 8.5 mEq/L (-3.0-3.0) H 09/01/18 12:00 O2 Saturation 100.0 % (92.0-100.0) 09/01/18 12:00 Stephon Test na 09/01/18 12:00 Vent Rate na 09/01/18 12:00 Inspired O2 40 09/01/18 12:00 Tidal Volume na 09/01/18 12:00 PEEP na 09/01/18 12:00 Pressure (ins/psv/peep) na 09/01/18 12:00 Critical Value rninofranco sprinkler helper 09/01/18 12:00 Sodium 137 mEq/L (136-145) 09/03/18 04:05 Potassium 3.8 mEq/L (3.5-5.1) 09/03/18 04:05 Chloride 103 mEq/L (98-107) 09/03/18 04:05 Carbon Dioxide 28.0 mEq/L (21.0-31.0) 09/03/18 04:05 Anion Gap 9.8 (7.0-16.0) 09/03/18 04:05 BUN 25 mg/dL (7-25) 09/03/18 04:05 Creatinine 0.6 mg/dL (0.6-1.2) 09/03/18 04:05 Est GFR ( Amer) TNP 09/03/18 04:05 Est GFR (Non-Af Amer) TNP 09/03/18 04:05 BUN/Creatinine Ratio 41.7 09/03/18 04:05 Glucose 156 mg/dL (70-105) H 09/03/18 04:05 POC Glucose 72 MG/DL (70 - 105) 08/26/18 06:47 Calcium 8.4 mg/dL (8.6-10.3) L 09/03/18 04:05 Total Bilirubin 0.6 mg/dL (0.3-1.0) 09/01/18 04:10 AST 29 U/L (13-39) 09/01/18 04:10 ALT 71 U/L (7-52) H 09/01/18 04:10 Alkaline Phosphatase 58 U/L (34-104) 09/01/18 04:10 B-Natriuretic Peptide 34.4 pg/mL (5.0-100.0) 08/26/18 06:00 Total Protein 5.5 gm/dL (6.0-8.3) L 09/01/18 04:10 Albumin 3.7 gm/dL (3.7-5.3) 09/01/18 04:10 Globulin 1.8 gm/dL 09/01/18 04:10 Albumin/Globulin Ratio 2.1 (1.0-1.8) H 09/01/18 04:10 Urine Source CATH 08/31/18 11:25 Urine Color COLORLESS 08/31/18 11:25 Urine Clarity CLEAR (CLEAR) 08/31/18 11:25 Urine pH 6.5 (4.6 - 8.0) 08/31/18 11:25 Ur Specific [place] 1.020 (1.005-1.030) 08/31/18 11:25 Urine Protein NEGATIVE mg/dL (NEGATIVE) 08/31/18 11:25 Urine Glucose (UA) NEGATIVE mg/dL (NEGATIVE) 08/31/18 11:25 Urine Ketones NEGATIVE mg/dL (NEGATIVE) 08/31/18 11:25 Urine Blood NEGATIVE (NEGATIVE) 08/31/18 11:25 Urine Nitrate NEGATIVE (NEGATIVE) 08/31/18 11:25 Urine Bilirubin NEGATIVE (NEGATIVE) 08/31/18 11:25 Urine Urobilinogen 0.2 E.U./dL (0.2 - 1.0) 08/31/18 11:25 Ur Leukocyte Esterase MODERATE (NEGATIVE) H 08/31/18 11:25 Urine RBC NONE SEEN /hpf (0-5) 08/31/18 11:25 Urine WBC 2-5 /hpf (0-5) 08/31/18 11:25 Ur Epithelial Cells FEW /lpf (FEW) 08/31/18 11:25 Urine Bacteria NONE SEEN /hpf (NONE SEEN) 08/31/18 11:25 Blood Type O POSITIVE 08/30/18 09:45 Antibody Screen NEGATIVE 08/30/18 09:45 - Physical Exam Vitals and I&O: Vital Signs Temp 97.5 F 09/03/18 16:00 Pulse 79 09/03/18 16:00 Resp 12 09/03/18 16:00 BP 117/45 09/03/18 16:00 Pulse Ox 99 09/03/18 16:00 Intake & Output 09/02/18 09/03/18 09/03/18 18:59 06:59 18:59 Intake Total 1200 150 300 Output Total 310 Balance 890 150 300 Weight (lbs) 45.898 kg Intake: Intake, IV Amount 1200 150 300 D5-0.9%Ns 1,000 ml @ 50 1000 mls/hr IV .Q20H [facility] Rx#: [id number] Piperacillin Sodium/ 100 50 100 Tazobact 3.375 gm In Sodium Chloride 0.9% 50 ml @ 100 mls/hr IV Q6HR [facility] Rx#:[id number] metroNIDAZOLE 500mg/NS 100 100 200 100mL 500 mg In 100 ml @ 100 mls/hr IV Q8HR [facility] Rx #:[id number] Oral 0 Output: Urine 310 Other: Stool Characteristics Soft Soft Soft Liquid Liquid Liquid Brown Brown Brown Weight Source Bedscale Active Medications: Current Medications Albuterol/Ipratropium (Duoneb Neb) 3 ml HHN Q4HRT [facility] Stop: 10/25/18 10:59 Last Admin: 09/03/18 14:31 Dose: 3 ml Artificial Tears (Artificial Tears Ophth Soln) 1 drop EACH EYE BID PRN PRN Reason: Dry Eye Stop: 10/25/18 15:59 Last Admin: 08/26/18 16:08 Dose: 1 drop Dextrose/Sodium Chloride (D5-0.9%Ns) 1,000 mls @ 50 mls/hr IV .Q20H [facility] Stop: 10/25/18 07:59 Last Admin: 09/02/18 20:32 Dose: 50 mls/hr Metronidazole (Flagyl) 500 mg in 100 mls @ 100 mls/hr IV Q8HR [facility] Stop: 10/30/18 20:59 Last Infusion: 09/03/18 13:00 Dose: Infused Piperacillin Sod/Tazobactam (Sod 3.375 gm/ Sodium Chloride) 50 mls @ 100 mls/ hr IV Q6HR [facility] Stop: 10/31/18 11:59 Last Infusion: 09/03/18 12:00 Dose: Infused Lactobacillus Rhamnosus (Culturelle 15b) 1 each PO DAILY [facility] Stop: 11/03/18 08:59 Methylprednisolone Sodium Succinate (Solu-Medrol) 20 mg IVP Q12HR [facility] Stop: 11/02/18 20:59 Miscellaneous (Zosyn Iv Per Pharmacy) 1 ea PRN PRN PRN Reason: PROTOCOL Stop: 10/31/18 08:38 Miscellaneous (Probiotic Screen) 1 [facility] PRN PRN PRN Reason: PROTOCOL Stop: 11/02/18 13:14 Morphine Sulfate (Morphine) 1 mg IVP Q4HR PRN PRN Reason: Abdominal Pain Stop: 10/31/18 20:09 Last Admin: 09/03/18 08:40 Dose: 1 mg Morphine Sulfate (Morphine) 1 mg IVP Q4HR PRN PRN Reason: Pain (Moderate) Stop: 11/01/18 13:27 Last Admin: 09/02/18 22:56 Dose: 1 mg Mupirocin (Bactroban Oint) 1 appl NS BID [facility] Stop: 09/07/18 09:01 Last Admin: 09/03/18 09:00 Dose: 1 appl Pantoprazole Sodium (Protonix) 40 mg IVP DAILY [facility] Stop: 10/30/18 21:59 Last Admin: 09/03/18 09:00 Dose: 40 mg Polyethylene Glycol (Miralax) 17 gm PO BID [facility] Stop: 10/28/18 08:59 Last Admin: 09/03/18 09:01 Dose: Not Given - Procedures Procedures: Procedures Procedure Code Date BYPASS ASCENDING COLON TO CUTANEOUS, OPEN APPROACH [id number] 08/23/18 EXC F/E/E/N/L MAL+MRG >4 [place] [address] 06/03/09 INSPECTION OF PERITONEAL CAVITY, OPEN APPROACH [id number] 08/23/18 NEBULIZER THERAPY 93.94 10/19/04 OP RED-INT FIX RAD/ULNA 79.32 06/24/07 RADICAL EXCIS SKIN LES 86.4 06/03/09 REPAIR BILATERAL INGUINAL REGION, OPEN APPROACH [id number] 08/23/18 REPAIR MESENTERY, OPEN APPROACH [id number] 08/23/18 RESECTION OF ASCENDING COLON, OPEN APPROACH [id number] 08/23/18 RESPIRATORY VENTILATION, LESS THAN 24 CONSECUTIVE HOURS [id number] 08/23/18 TREAT FX RADIAL 3+ FRAG [id number] 06/24/07 Nutritional Asmnt/Malnutr-PDOC - Dietary Evaluation Malnutrition Findings (Please click <Entered> for more info): Nutritional Asmnt/Malnutrition Start: 08/25/18 14: 01 Text: Status: Complete Freq: Protocol: Document 08/25/18 14:01 DONALD (Rec: 08/25/18 14:18 DONALD [email or web address]) Nutritional Asmnt/Malnutrition Patient General Information Nutritional Screening High Risk Consult Diagnosis abdominal pain, bowel obstruction Pertinent Medical Hx/Surgical Hx HTN, asthma/COPD, subarachnoid bleeding Per wound care note: hx of dementia Subjective Information Received diet consult for mass and biopsy site wound. Pt sleeping at time of visit. Pt was on full liquid diet, but spoke to REBEKAH Contreras who states pt is now NPO and has fecal impaction. Per MD notes, KUB shows severe fecal impaction and pt due for surgery tomorrow for inguinal hernias. Per EMR, pt refused regular diet meals and only willing to have full liquid diet with vanilla ensure. Current Diet Order/ Nutrition Support NPO Pertinent Medications Nacl 0.9% Pertinent Labs 08/25: Na 132, Cl 96, BUN 22, glucose 111 08/23: Na 135, Cl 99, BUN 30, glucose 97, Alb 3.6 Nutritional Hx/Data Height 1.7 m Height (Calculated Centimeters) 170.2 Current Weight (lbs) 47.627 kg Weight (Calculated Kilograms) 47.6 Weight (Calculated Grams) 58646.2 Body Mass Index (BMI) 16.4 Weight Status Underweight GI Symptoms GI Symptoms None Last BM none noted Difficult in: None Skin Integrity/Comment: skin tear/biopsy site to right forehead, skin flap to left neck, mass on left shoulder, terrie 16 Estimated Nutritional Goals BEE in Kcals: Using Current wt Calories/Kcals/Kg 30-35 Kcals Calculated 9168-1271 Protein: Using Current wt Protein g/k-1.2 Protein Calculated 48-57 g Fluid: ml 8998-2903 (1 ml/kcal) Nutritional Problem 2. Problem Problem Altered nutrition related lab values Etiology electrolyte imbalance Signs/Symptoms: Na 132, Cl 96 1. Problem Problem Inadequate oral intake Etiology possible poor appetite from fecal impaction or abdominal pain Signs/Symptoms: current NPO status, meal refusals, pt only accepting Ensure Malnutrition Related to Morbid Obesity Malnutrition related to morbid obesity No Intervention/Recommendation Comments 1. Monitor NPO status and advance diet when medically appropriate 2. MD to replace electrolytes as needed 3. Monitor wt, skin integrity, GI symptons, and nutrition related labs 4. F/U as high risk in 2-3 days, 08/27- Expected Outcomes/Goals Expected Outcomes/Goals 1. Pt to resume PO intake when medically appropriate and meet at least 75% of all meals 2. Wt stability, skin integrity to improve, GI improved, and nutrition related labs to approach normal limits Reviewed by Laine Mcarthur RD
[2018-09-03] MEDS: D5-0.9%NS 1,000 ML IV SCH (18:55)
[2018-09-04] MEDS: Morphine Sulfate 2 mg/mL 1mL Syr IVP PRN (00:44)
[2018-09-04] MEDS: Albuterol/Ipratropium Neb 3 ML AERS HHN SCH ×6 (02:00→23:12)
[2018-09-04] MEDS: metroNIDAZOLE 500mg/NS 100mL 500 MG/100 ML BAG IV SCH ×3 (04:48→21:30)
[2018-09-04 05:46] LABS: HEMATOCRIT 23.7 % (41.0-60); MEAN CORPUSCULAR HEMOGLOBIN 29.4 pg (27.0-31.0); MEAN CORPUSCULAR HGB CONC 33.5 pg (28.0-36.0); MEAN PLATELET VOLUME 7.1 fl; PLATELET COUNT 333 Th/cmm (150-400); RED BLOOD COUNT 2.69 Mil/cmm (3.80-5.20); RED CELL DISTRIBUTION WIDTH 13.5 % (11.5-20.0)
[2018-09-04 06:04] LABS: ANION GAP 9.8 (7.0-16.0); BUN - UREA NITROGEN 25 mg/dL (7-25); CALCIUM SERUM 8.3 mg/dL (8.6-10.3); CHLORIDE 102 mEq/L (98-107); CREATININE - SERUM 0.6 mg/dL (0.6-1.2); GLUCOSE 141 mg/dL (70-105); POTASSIUM SERUM 3.8 mEq/L (3.5-5.1); SODIUM SERUM 135 mEq/L (136-145)
[2018-09-04 06:11] LABS: HEMOGLOBIN 7.9 gm/dL (12-16)
[2018-09-04 06:37] LABS: BAND NEUTROPHILE 2 % (0-10); BASOPHIL 0 % (0-3); EOSINOPHIL 0 % (0-5); LYMPHOCYTE 14 % (20-50); MONOCYTE 3 % (2-10); NEUTROPHILS 81 % (40-80)
[2018-09-04] MEDS ORDERED: Lactobacillus Rhamnosus GG 15 Billion CFU CAP.SPRINK PO SCH (09:00)
[2018-09-04] MEDS: methylPREDNISolone SS 40 mg Vial IVP SCH ×2 (09:22→21:31)
--- NOTE | 2018-09-04 10:16 | General Progress Note ---
Subjective - Review of Systems Service Date: 09/04/18 Events since last encounter: 09/04/18 passed swallowing eval, tolerating oral intake advance diet as dejon Objective - Results Result Diagrams: 09/04/18 05:33 09/04/18 05:33 Recent Labs: Laboratory Last Values WBC 16.0 Th/cmm (4.8-10.8) H 09/04/18 05:33 RBC 2.69 Mil/cmm (3.80-5.20) L 09/04/18 05:33 Hgb 7.9 gm/dL (12-16) L* 09/04/18 05:33 Hct 23.7 % (41.0-60) L 09/04/18 05:33 MCV 88.0 fl (81-100) 09/04/18 05:33 MCH 29.4 pg (27.0-31.0) 09/04/18 05:33 MCHC Differential 33.5 pg (28.0-36.0) 09/04/18 05:33 RDW 13.5 % (11.5-20.0) 09/04/18 05:33 Plt Count 333 Th/cmm (150-400) 09/04/18 05:33 MPV 7.1 fl 09/04/18 05:33 Add Manual Diff YES 09/04/18 05:33 Neutrophils % 87.3 % (40.0-80.0) H 08/31/18 04:15 Band Neutrophils % 2 % (0-10) 09/04/18 05:33 Lymphocytes % 9.0 % (20.0-50.0) L 08/31/18 04:15 Monocytes % 0.5 % (2.0-10.0) L 08/31/18 04:15 Eosinophils % 0.1 % (0.0-5.0) 08/31/18 04:15 Basophils % 3.1 % (0.0-2.0) H 08/31/18 04:15 Neutrophils (Manual) 81 % (40-80) H 09/04/18 05:33 Lymphocytes 14 % (20-50) L 09/04/18 05:33 Monocytes 3 % (2-10) 09/04/18 05:33 Eosinophils 0 % (0-5) 09/04/18 05:33 Basophils 0 % (0-3) 09/04/18 05:33 Platelet Estimate ADEQUATE (NORMAL) 09/03/18 04:05 PT 9.8 SECONDS (9.5-11.5) 08/31/18 04:15 INR 0.94 (0.5-1.4) 08/31/18 04:15 PTT (Actin FS) 21.0 SECONDS (26.0-38.0) L 08/31/18 04:15 Specimen Source arterial 09/01/18 12:00 Sample Site LB 09/01/18 12:00 pH 7.53 (7.35-7.45) H 09/01/18 12:00 pCO2 38.0 mmHg (35.0-45.0) 09/01/18 12:00 pO2 171.0 mmHg (80.0-100.0) H 09/01/18 12:00 HCO3 31.6 mEq/L (20.0-26.0) H 09/01/18 12:00 Base Excess 8.5 mEq/L (-3.0-3.0) H 09/01/18 12:00 O2 Saturation 100.0 % (92.0-100.0) 09/01/18 12:00 Stephon Test na 09/01/18 12:00 Vent Rate na 09/01/18 12:00 Inspired O2 40 09/01/18 12:00 Tidal Volume na 09/01/18 12:00 PEEP na 09/01/18 12:00 Pressure (ins/psv/peep) na 09/01/18 12:00 Critical Value rninofranco underground foreman 09/01/18 12:00 Sodium 135 mEq/L (136-145) L 09/04/18 05:33 Potassium 3.8 mEq/L (3.5-5.1) 09/04/18 05:33 Chloride 102 mEq/L (98-107) 09/04/18 05:33 Carbon Dioxide 27.0 mEq/L (21.0-31.0) 09/04/18 05:33 Anion Gap 9.8 (7.0-16.0) 09/04/18 05:33 BUN 25 mg/dL (7-25) 09/04/18 05:33 Creatinine 0.6 mg/dL (0.6-1.2) 09/04/18 05:33 Est GFR ( Amer) TNP 09/04/18 05:33 Est GFR (Non-Af Amer) TNP 09/04/18 05:33 BUN/Creatinine Ratio 41.7 09/04/18 05:33 Glucose 141 mg/dL (70-105) H 09/04/18 05:33 POC Glucose 72 MG/DL (70 - 105) 08/26/18 06:47 Calcium 8.3 mg/dL (8.6-10.3) L 09/04/18 05:33 Total Bilirubin 0.6 mg/dL (0.3-1.0) 09/01/18 04:10 AST 29 U/L (13-39) 09/01/18 04:10 ALT 71 U/L (7-52) H 09/01/18 04:10 Alkaline Phosphatase 58 U/L (34-104) 09/01/18 04:10 B-Natriuretic Peptide 34.4 pg/mL (5.0-100.0) 08/26/18 06:00 Total Protein 5.5 gm/dL (6.0-8.3) L 09/01/18 04:10 Albumin 3.7 gm/dL (3.7-5.3) 09/01/18 04:10 Globulin 1.8 gm/dL 09/01/18 04:10 Albumin/Globulin Ratio 2.1 (1.0-1.8) H 09/01/18 04:10 Urine Source CATH 08/31/18 11:25 Urine Color COLORLESS 08/31/18 11:25 Urine Clarity CLEAR (CLEAR) 08/31/18 11:25 Urine pH 6.5 (4.6 - 8.0) 08/31/18 11:25 Ur Specific [place] 1.020 (1.005-1.030) 08/31/18 11:25 Urine Protein NEGATIVE mg/dL (NEGATIVE) 08/31/18 11:25 Urine Glucose (UA) NEGATIVE mg/dL (NEGATIVE) 08/31/18 11:25 Urine Ketones NEGATIVE mg/dL (NEGATIVE) 08/31/18 11:25 Urine Blood NEGATIVE (NEGATIVE) 08/31/18 11:25 Urine Nitrate NEGATIVE (NEGATIVE) 08/31/18 11:25 Urine Bilirubin NEGATIVE (NEGATIVE) 08/31/18 11:25 Urine Urobilinogen 0.2 E.U./dL (0.2 - 1.0) 08/31/18 11:25 Ur Leukocyte Esterase MODERATE (NEGATIVE) H 08/31/18 11:25 Urine RBC NONE SEEN /hpf (0-5) 08/31/18 11:25 Urine WBC 2-5 /hpf (0-5) 08/31/18 11:25 Ur Epithelial Cells FEW /lpf (FEW) 08/31/18 11:25 Urine Bacteria NONE SEEN /hpf (NONE SEEN) 08/31/18 11:25 Blood Type O POSITIVE 08/30/18 09:45 Antibody Screen NEGATIVE 08/30/18 09:45 - Physical Exam Vitals and I&O: Vital Signs Temp 98.2 F 09/04/18 08:49 Pulse 81 09/04/18 08:49 Resp 19 09/04/18 08:49 BP 115/40 09/04/18 08:49 Pulse Ox 99 09/04/18 08:49 Intake & Output 09/03/18 09/04/18 09/04/18 18:59 06:59 18:59 Intake Total 1350 650 Output Total 550 500 Balance 800 150 Weight (lbs) 45.444 kg 44.951 kg Intake: Intake, IV Amount 1350 150 D5-0.9%Ns 1,000 ml @ 50 1000 mls/hr IV .Q20H [facility] Rx#: [id number] Piperacillin Sodium/ 150 50 Tazobact 3.375 gm In Sodium Chloride 0.9% 50 ml @ 100 mls/hr IV Q6HR [facility] Rx#:[id number] metroNIDAZOLE 500mg/NS 200 100 100mL 500 mg In 100 ml @ 100 mls/hr IV Q8HR [facility] Rx #:[id number] Oral 0 500 Output: Urine 550 250 Stool 250 Other: Stool Characteristics Soft Soft Liquid Liquid Brown Brown Weight Source Bedscale Bedscale Active Medications: Current Medications Albuterol/Ipratropium (Duoneb Neb) 3 ml HHN Q4HRT [facility] Stop: 10/25/18 10:59 Last Admin: 09/04/18 07:17 Dose: 3 ml Artificial Tears (Artificial Tears Ophth Soln) 1 drop EACH EYE BID PRN PRN Reason: Dry Eye Stop: 10/25/18 15:59 Last Admin: 08/26/18 16:08 Dose: 1 drop Dextrose/Sodium Chloride (D5-0.9%Ns) 1,000 mls @ 50 mls/hr IV .Q20H [facility] Stop: 10/25/18 07:59 Last Admin: 09/03/18 18:55 Dose: 50 mls/hr Metronidazole (Flagyl) 500 mg in 100 mls @ 100 mls/hr IV Q8HR [facility] Stop: 10/30/18 20:59 Last Admin: 09/04/18 04:48 Dose: 100 mls/hr Piperacillin Sod/Tazobactam (Sod 3.375 gm/ Sodium Chloride) 50 mls @ 100 mls/ hr IV Q6HR [facility] Stop: 10/31/18 11:59 Last Admin: 09/04/18 05:30 Dose: 100 mls/hr Lactobacillus Rhamnosus (Culturelle 15b) 1 each PO DAILY [facility] Stop: 11/03/18 08:59 Last Admin: 09/04/18 09:23 Dose: 1 each Methylprednisolone Sodium Succinate (Solu-Medrol) 20 mg IVP Q12HR [facility] Stop: 11/02/18 20:59 Last Admin: 09/04/18 09:22 Dose: 20 mg Miscellaneous (Zosyn Iv Per Pharmacy) 1 ea PRN PRN PRN Reason: PROTOCOL Stop: 10/31/18 08:38 Miscellaneous (Probiotic Screen) 1 [facility] PRN PRN PRN Reason: PROTOCOL Stop: 11/02/18 13:14 Morphine Sulfate (Morphine) 1 mg IVP Q4HR PRN PRN Reason: Abdominal Pain Stop: 10/31/18 20:09 Last Admin: 09/04/18 00:44 Dose: 1 mg Morphine Sulfate (Morphine) 1 mg IVP Q4HR PRN PRN Reason: Pain (Moderate) Stop: 11/01/18 13:27 Last Admin: 09/02/18 22:56 Dose: 1 mg Mupirocin (Bactroban Oint) 1 appl NS BID [facility] Stop: 09/07/18 09:01 Last Admin: 09/03/18 17:11 Dose: 1 appl Pantoprazole Sodium (Protonix) 40 mg IVP DAILY [facility] Stop: 10/30/18 21:59 Last Admin: 09/04/18 09:23 Dose: 40 mg Polyethylene Glycol (Miralax) 17 gm PO BID [facility] Stop: 10/28/18 08:59 Last Admin: 09/03/18 17:10 Dose: Not Given General: Alert HEENT: Atraumatic, Other (intubated) Neck: Supple Cardiovascular: Regular rate Abdomen: Bowel sounds, Soft, no Tender, no Hepatomegaly, no Distended, no Rebound, no Mass Psych/Mental Status: no Mental status NL - Procedures Procedures: Procedures Procedure Code Date BYPASS ASCENDING COLON TO CUTANEOUS, OPEN APPROACH [id number] 08/23/18 EXC F/E/E/N/L MAL+MRG >4 [place] [address] 06/03/09 INSPECTION OF PERITONEAL CAVITY, OPEN APPROACH [id number] 08/23/18 NEBULIZER THERAPY 93.94 10/19/04 OP RED-INT FIX RAD/ULNA 79.32 06/24/07 RADICAL EXCIS SKIN LES 86.4 06/03/09 REPAIR BILATERAL INGUINAL REGION, OPEN APPROACH [id number] 08/23/18 REPAIR MESENTERY, OPEN APPROACH [id number] 08/23/18 RESECTION OF ASCENDING COLON, OPEN APPROACH [id number] 08/23/18 RESPIRATORY VENTILATION, LESS THAN 24 CONSECUTIVE HOURS [id number] 08/23/18 TREAT FX RADIAL 3+ FRAG [id number] 06/24/07 Nutritional Asmnt/Malnutr-PDOC - Dietary Evaluation Malnutrition Findings (Please click <Entered> for more info): Nutritional Asmnt/Malnutrition Start: 08/25/18 14: 01 Text: Status: Complete Freq: Protocol: Document 08/25/18 14:01 DONALD (Rec: 08/25/18 14:18 DONALD [email or web address]) Nutritional Asmnt/Malnutrition Patient General Information Nutritional Screening High Risk Consult Diagnosis abdominal pain, bowel obstruction Pertinent Medical Hx/Surgical Hx HTN, asthma/COPD, subarachnoid bleeding Per wound care note: hx of dementia Subjective Information Received diet consult for mass and biopsy site wound. Pt sleeping at time of visit. Pt was on full liquid diet, but spoke to REBEKAH Contreras who states pt is now NPO and has fecal impaction. Per MD notes, KUB shows severe fecal impaction and pt due for surgery tomorrow for inguinal hernias. Per EMR, pt refused regular diet meals and only willing to have full liquid diet with vanilla ensure. Current Diet Order/ Nutrition Support NPO Pertinent Medications Nacl 0.9% Pertinent Labs 08/25: Na 132, Cl 96, BUN 22, glucose 111 08/23: Na 135, Cl 99, BUN 30, glucose 97, Alb 3.6 Nutritional Hx/Data Height 1.7 m Height (Calculated Centimeters) 170.2 Current Weight (lbs) 47.627 kg Weight (Calculated Kilograms) 47.6 Weight (Calculated Grams) 12178.2 Body Mass Index (BMI) 16.4 Weight Status Underweight GI Symptoms GI Symptoms None Last BM none noted Difficult in: None Skin Integrity/Comment: skin tear/biopsy site to right forehead, skin flap to left neck, mass on left shoulder, terrie 16 Estimated Nutritional Goals BEE in Kcals: Using Current wt Calories/Kcals/Kg 30-35 Kcals Calculated 3282-9497 Protein: Using Current wt Protein g/k-1.2 Protein Calculated 48-57 g Fluid: ml 7897-0650 (1 ml/kcal) Nutritional Problem 2. Problem Problem Altered nutrition related lab values Etiology electrolyte imbalance Signs/Symptoms: Na 132, Cl 96 1. Problem Problem Inadequate oral intake Etiology possible poor appetite from fecal impaction or abdominal pain Signs/Symptoms: current NPO status, meal refusals, pt only accepting Ensure Malnutrition Related to Morbid Obesity Malnutrition related to morbid obesity No Intervention/Recommendation Comments 1. Monitor NPO status and advance diet when medically appropriate 2. MD to replace electrolytes as needed 3. Monitor wt, skin integrity, GI symptons, and nutrition related labs 4. F/U as high risk in 2-3 days, 08/27- Expected Outcomes/Goals Expected Outcomes/Goals 1. Pt to resume PO intake when medically appropriate and meet at least 75% of all meals 2. Wt stability, skin integrity to improve, GI improved, and nutrition related labs to approach normal limits Reviewed by Laine Mcarthur RD
[2018-09-04] MEDS: POLYETHYLENE GLYCOL 3350 17 GM PACK PO SCH ×2 (11:28→16:59)
--- NOTE | 2018-09-04 17:59 | Infectious Disease Prog Note ---
Infectious Disease Subjective - Review of Systems Subjective: cc stool impaction/sbo/ing hrnia incarcerated s/p sx hpi- schedule for ltac accepted ro sno fervr o.e vs chst clear abd soft hernia repaired colostomy exrt pulse dx sbo/stool impaction ing hernia s/p sx plan rflagyl zosyn Infectious Disease Objective - Results Result Diagrams: 09/04/18 05:33 09/04/18 05:33 Recent Labs: Laboratory Last Values WBC 16.0 Th/cmm (4.8-10.8) H 09/04/18 05:33 RBC 2.69 Mil/cmm (3.80-5.20) L 09/04/18 05:33 Hgb 7.9 gm/dL (12-16) L* 09/04/18 05:33 Hct 23.7 % (41.0-60) L 09/04/18 05:33 MCV 88.0 fl (81-100) 09/04/18 05:33 MCH 29.4 pg (27.0-31.0) 09/04/18 05:33 MCHC Differential 33.5 pg (28.0-36.0) 09/04/18 05:33 RDW 13.5 % (11.5-20.0) 09/04/18 05:33 Plt Count 333 Th/cmm (150-400) 09/04/18 05:33 MPV 7.1 fl 09/04/18 05:33 Add Manual Diff YES 09/04/18 05:33 Neutrophils % 87.3 % (40.0-80.0) H 08/31/18 04:15 Band Neutrophils % 2 % (0-10) 09/04/18 05:33 Lymphocytes % 9.0 % (20.0-50.0) L 08/31/18 04:15 Monocytes % 0.5 % (2.0-10.0) L 08/31/18 04:15 Eosinophils % 0.1 % (0.0-5.0) 08/31/18 04:15 Basophils % 3.1 % (0.0-2.0) H 08/31/18 04:15 Neutrophils (Manual) 81 % (40-80) H 09/04/18 05:33 Lymphocytes 14 % (20-50) L 09/04/18 05:33 Monocytes 3 % (2-10) 09/04/18 05:33 Eosinophils 0 % (0-5) 09/04/18 05:33 Basophils 0 % (0-3) 09/04/18 05:33 Platelet Estimate ADEQUATE (NORMAL) 09/03/18 04:05 PT 9.8 SECONDS (9.5-11.5) 08/31/18 04:15 INR 0.94 (0.5-1.4) 08/31/18 04:15 PTT (Actin FS) 21.0 SECONDS (26.0-38.0) L 08/31/18 04:15 Specimen Source arterial 09/01/18 12:00 Sample Site LB 09/01/18 12:00 pH 7.53 (7.35-7.45) H 09/01/18 12:00 pCO2 38.0 mmHg (35.0-45.0) 09/01/18 12:00 pO2 171.0 mmHg (80.0-100.0) H 09/01/18 12:00 HCO3 31.6 mEq/L (20.0-26.0) H 09/01/18 12:00 Base Excess 8.5 mEq/L (-3.0-3.0) H 09/01/18 12:00 O2 Saturation 100.0 % (92.0-100.0) 09/01/18 12:00 Stephon Test na 09/01/18 12:00 Vent Rate na 09/01/18 12:00 Inspired O2 40 09/01/18 12:00 Tidal Volume na 09/01/18 12:00 PEEP na 09/01/18 12:00 Pressure (ins/psv/peep) na 09/01/18 12:00 Critical Value rninofranco weather forcaster 09/01/18 12:00 Sodium 135 mEq/L (136-145) L 09/04/18 05:33 Potassium 3.8 mEq/L (3.5-5.1) 09/04/18 05:33 Chloride 102 mEq/L (98-107) 09/04/18 05:33 Carbon Dioxide 27.0 mEq/L (21.0-31.0) 09/04/18 05:33 Anion Gap 9.8 (7.0-16.0) 09/04/18 05:33 BUN 25 mg/dL (7-25) 09/04/18 05:33 Creatinine 0.6 mg/dL (0.6-1.2) 09/04/18 05:33 Est GFR ( Amer) TNP 09/04/18 05:33 Est GFR (Non-Af Amer) TNP 09/04/18 05:33 BUN/Creatinine Ratio 41.7 09/04/18 05:33 Glucose 141 mg/dL (70-105) H 09/04/18 05:33 POC Glucose 72 MG/DL (70 - 105) 08/26/18 06:47 Calcium 8.3 mg/dL (8.6-10.3) L 09/04/18 05:33 Total Bilirubin 0.6 mg/dL (0.3-1.0) 09/01/18 04:10 AST 29 U/L (13-39) 09/01/18 04:10 ALT 71 U/L (7-52) H 09/01/18 04:10 Alkaline Phosphatase 58 U/L (34-104) 09/01/18 04:10 B-Natriuretic Peptide 34.4 pg/mL (5.0-100.0) 08/26/18 06:00 Total Protein 5.5 gm/dL (6.0-8.3) L 09/01/18 04:10 Albumin 3.7 gm/dL (3.7-5.3) 09/01/18 04:10 Globulin 1.8 gm/dL 09/01/18 04:10 Albumin/Globulin Ratio 2.1 (1.0-1.8) H 09/01/18 04:10 Urine Source CATH 08/31/18 11:25 Urine Color COLORLESS 08/31/18 11:25 Urine Clarity CLEAR (CLEAR) 08/31/18 11:25 Urine pH 6.5 (4.6 - 8.0) 08/31/18 11:25 Ur Specific [place] 1.020 (1.005-1.030) 08/31/18 11:25 Urine Protein NEGATIVE mg/dL (NEGATIVE) 08/31/18 11:25 Urine Glucose (UA) NEGATIVE mg/dL (NEGATIVE) 08/31/18 11:25 Urine Ketones NEGATIVE mg/dL (NEGATIVE) 08/31/18 11:25 Urine Blood NEGATIVE (NEGATIVE) 08/31/18 11:25 Urine Nitrate NEGATIVE (NEGATIVE) 08/31/18 11:25 Urine Bilirubin NEGATIVE (NEGATIVE) 08/31/18 11:25 Urine Urobilinogen 0.2 E.U./dL (0.2 - 1.0) 08/31/18 11:25 Ur Leukocyte Esterase MODERATE (NEGATIVE) H 08/31/18 11:25 Urine RBC NONE SEEN /hpf (0-5) 08/31/18 11:25 Urine WBC 2-5 /hpf (0-5) 08/31/18 11:25 Ur Epithelial Cells FEW /lpf (FEW) 08/31/18 11:25 Urine Bacteria NONE SEEN /hpf (NONE SEEN) 08/31/18 11:25 Blood Type O POSITIVE 08/30/18 09:45 Antibody Screen NEGATIVE 08/30/18 09:45 - Physical Exam Vitals and I&O: Vital Signs Temp 98.0 F 09/04/18 15:59 Pulse 85 09/04/18 15:59 Resp 18 09/04/18 15:59 BP 121/58 09/04/18 15:59 Pulse Ox 97 09/04/18 15:59 Intake & Output 09/03/18 09/04/18 09/04/18 18:59 06:59 18:59 Intake Total 1350 800 50 Output Total 550 500 Balance 800 300 50 Weight (lbs) 45.444 kg 44.951 kg Intake: Intake, IV Amount 1350 300 50 D5-0.9%Ns 1,000 ml @ 50 1000 mls/hr IV .Q20H [facility] Rx#: [id number] Piperacillin Sodium/ 150 100 50 Tazobact 3.375 gm In Sodium Chloride 0.9% 50 ml @ 100 mls/hr IV Q6HR [facility] Rx#:[id number] metroNIDAZOLE 500mg/NS 200 200 100mL 500 mg In 100 ml @ 100 mls/hr IV Q8HR [facility] Rx #:[id number] Oral 0 500 Output: Urine 550 250 Stool 250 Other: Stool Characteristics Soft Soft Soft Liquid Liquid Liquid Brown Brown Brown Weight Source Bedscale Bedscale Active Medications: Current Medications Albuterol/Ipratropium (Duoneb Neb) 3 ml HHN Q4HRT ZEE Stop: 10/25/18 10:59 Last Admin: 09/04/18 14:36 Dose: 3 ml Artificial Tears (Artificial Tears Ophth Soln) 1 drop EACH EYE BID PRN PRN Reason: Dry Eye Stop: 10/25/18 15:59 Last Admin: 08/26/18 16:08 Dose: 1 drop Dextrose/Sodium Chloride (D5-0.9%Ns) 1,000 mls @ 50 mls/hr IV .Q20H [facility] Stop: 10/25/18 07:59 Last Admin: 09/03/18 18:55 Dose: 50 mls/hr Metronidazole (Flagyl) 500 mg in 100 mls @ 100 mls/hr IV Q8HR [facility] Stop: 10/30/18 20:59 Last Admin: 09/04/18 13:43 Dose: 100 mls/hr Piperacillin Sod/Tazobactam (Sod 3.375 gm/ Sodium Chloride) 50 mls @ 100 mls/ hr IV Q6HR [facility] Stop: 10/31/18 11:59 Last Admin: 09/04/18 17:03 Dose: 100 mls/hr Lactobacillus Rhamnosus (Culturelle 15b) 1 each PO DAILY [facility] Stop: 11/03/18 08:59 Last Admin: 09/04/18 09:23 Dose: 1 each Methylprednisolone Sodium Succinate (Solu-Medrol) 20 mg IVP Q12HR [facility] Stop: 11/02/18 20:59 Last Admin: 09/04/18 09:22 Dose: 20 mg Miscellaneous (Zosyn Iv Per Pharmacy) 1 [facility] PRN PRN PRN Reason: PROTOCOL Stop: 10/31/18 08:38 Miscellaneous (Probiotic Screen) 1 [facility] PRN PRN PRN Reason: PROTOCOL Stop: 11/02/18 13:14 Morphine Sulfate (Morphine) 1 mg IVP Q4HR PRN PRN Reason: Abdominal Pain Stop: 10/31/18 20:09 Last Admin: 09/04/18 00:44 Dose: 1 mg Morphine Sulfate (Morphine) 1 mg IVP Q4HR PRN PRN Reason: Pain (Moderate) Stop: 11/01/18 13:27 Last Admin: 09/02/18 22:56 Dose: 1 mg Mupirocin (Bactroban Oint) 1 appl NS BID [facility] Stop: 09/07/18 09:01 Last Admin: 09/04/18 16:59 Dose: 1 appl Pantoprazole Sodium (Protonix) 40 mg IVP DAILY [facility] Stop: 10/30/18 21:59 Last Admin: 09/04/18 09:23 Dose: 40 mg Polyethylene Glycol (Miralax) 17 gm PO BID [facility] Stop: 10/28/18 08:59 Last Admin: 09/04/18 16:59 Dose: 17 gm - Procedures Procedures: Procedures Procedure Code Date BYPASS ASCENDING COLON TO CUTANEOUS, OPEN APPROACH [id number] 08/23/18 EXC F/E/E/N/L MAL+MRG >4 [place] [address] 06/03/09 INSPECTION OF PERITONEAL CAVITY, OPEN APPROACH [id number] 08/23/18 NEBULIZER THERAPY 93.94 10/19/04 OP RED-INT FIX RAD/ULNA 79.32 06/24/07 RADICAL EXCIS SKIN LES 86.4 06/03/09 REPAIR BILATERAL INGUINAL REGION, OPEN APPROACH [id number] 08/23/18 REPAIR MESENTERY, OPEN APPROACH [id number] 08/23/18 RESECTION OF ASCENDING COLON, OPEN APPROACH [id number] 08/23/18 RESPIRATORY VENTILATION, LESS THAN 24 CONSECUTIVE HOURS [id number] 08/23/18 TREAT FX RADIAL 3+ FRAG 80545 06/24/07 Nutritional Asmnt/Malnutr-PDOC - Dietary Evaluation Malnutrition Findings (Please click <Entered> for more info): Nutritional Asmnt/Malnutrition Start: 08/25/18 14: 01 Text: Status: Complete Freq: Protocol: Document 08/25/18 14:01 DONALD (Rec: 08/25/18 14:18 DONALD SG-DIET) Nutritional Asmnt/Malnutrition Patient General Information Nutritional Screening High Risk Consult Diagnosis abdominal pain, bowel obstruction Pertinent Medical Hx/Surgical Hx HTN, asthma/COPD, subarachnoid bleeding Per wound care note: hx of dementia Subjective Information Received diet consult for mass and biopsy site wound. Pt sleeping at time of visit. Pt was on full liquid diet, but spoke to REBEKAH Contreras who states pt is now NPO and has fecal impaction. Per MD notes, KUB shows severe fecal impaction and pt due for surgery tomorrow for inguinal hernias. Per EMR, pt refused regular diet meals and only willing to have full liquid diet with vanilla ensure. Current Diet Order/ Nutrition Support NPO Pertinent Medications Nacl 0.9% Pertinent Labs 08/25: Na 132, Cl 96, BUN 22, glucose 111 08/23: Na 135, Cl 99, BUN 30, glucose 97, Alb 3.6 Nutritional Hx/Data Height 1.7 m Height (Calculated Centimeters) 170.2 Current Weight (lbs) 47.627 kg Weight (Calculated Kilograms) 47.6 Weight (Calculated Grams) 86467.2 Body Mass Index (BMI) 16.4 Weight Status Underweight GI Symptoms GI Symptoms None Last BM none noted Difficult in: None Skin Integrity/Comment: skin tear/biopsy site to right forehead, skin flap to left neck, mass on left shoulder, terrie 16 Estimated Nutritional Goals BEE in Kcals: Using Current wt Calories/Kcals/Kg 30-35 Kcals Calculated 6500-4039 Protein: Using Current wt Protein g/k-1.2 Protein Calculated 48-57 g Fluid: ml 9418-6735 (1 ml/kcal) Nutritional Problem 2. Problem Problem Altered nutrition related lab values Etiology electrolyte imbalance Signs/Symptoms: Na 132, Cl 96 1. Problem Problem Inadequate oral intake Etiology possible poor appetite from fecal impaction or abdominal pain Signs/Symptoms: current NPO status, meal refusals, pt only accepting Ensure Malnutrition Related to Morbid Obesity Malnutrition related to morbid obesity No Intervention/Recommendation Comments 1. Monitor NPO status and advance diet when medically appropriate 2. MD to replace electrolytes as needed 3. Monitor wt, skin integrity, GI symptons, and nutrition related labs 4. F/U as high risk in 2-3 days, 08/27- Expected Outcomes/Goals Expected Outcomes/Goals 1. Pt to resume PO intake when medically appropriate and meet at least 75% of all meals 2. Wt stability, skin integrity to improve, GI improved, and nutrition related labs to approach normal limits Reviewed by Laine Mcarthur RD
--- NOTE | 2018-09-10 10:54 | Discharge Summary ---
DATE OF DISCHARGE: 09/05/2018 ADMITTING DIAGNOSIS: Abdominal pain. DISCHARGE DIAGNOSES: Abdominal pain secondary to strangulated hernia, constipation, bowel obstruction. HOSPITAL COURSE: This is a 77-year-old female who was brought to the Emergency Room with abdominal pain. The patient was found to have a stool impaction, strangulated inguinal hernia, was seen by Dr. Dean, underwent colostomy and the patient was then transferred to [place], was called in for further treatment. The patient also was found to have pneumonia, was in ICU for a day or 2 postoperatively. The patient was initially treated with antibiotics and was seen by Gastroenterology surgery. At the time of discharge, the patient's vitals remained stable and the patient responded very well to Zosyn and Flagyl. Last white count before discharge 16,000; hemoglobin 7.9. Blood cultures remain negative. Endotracheal wash shows normal nicci. INSTRUCTION ON DISCHARGE: To follow up with Dr. Camacho after transfer at [facility] who is a primary and continue same medication including antibiotic Zosyn and Flagyl, oral diet as per GI. Activity as tolerated. Also. Hypertension is well controlled. Asthma is stable. History of cerebrovascular accident stable at this time. JOB# [id number]
== END 2018-09-05 00:03 | DRG 329 ==
LOC: ER 20:48 → MSI 22:31 → ICU 08-31 14:08 → TELE 09-03 17:34
PROVIDERS: ADMIT Internal Medicine; ATTEND Internal Medicine
PROC: 5A1935Z Respiratory Ventilation, Less than 24 Consecutive Hours (ICD-10-PCS; principal; 2018-08-31)
PROC: 0DBK0ZZ Excision of Ascending Colon, Open Approach (ICD-10-PCS; 2018-08-31)
PROC: 0BH17EZ Insertion of Endotracheal Airway into Trachea, Via Natural or Artificial Opening (ICD-10-PCS; 2018-08-31)
PROC: 0D1K0Z4 Bypass Ascending Colon to Cutaneous, Open Approach (ICD-10-PCS; 2018-08-31)
PROC: 0YQA0ZZ Repair Bilateral Inguinal Region, Open Approach (ICD-10-PCS; 2018-08-31)
DX: K40.00 Bilateral inguinal hernia, with obstruction, without gangrene, not specified as recurrent (principal); J96.90 Respiratory failure, unspecified, unspecified whether with hypoxia or hypercapnia; J18.9 Pneumonia, unspecified organism; J44.9 Chronic obstructive pulmonary disease, unspecified; G30.9 Alzheimer's disease, unspecified; F02.80 Dementia in other diseases classified elsewhere, unspecified severity, without behavioral disturbance, psychotic disturbance, mood disturbance, and anxiety; K56.41 Fecal impaction; I10 Essential (primary) hypertension; J98.01 Acute bronchospasm; I65.22 Occlusion and stenosis of left carotid artery
CPT/HCPCS: 36415-UA; 36600-90; 71045-TC; 74000-TC; 80048-TC; 80053-TC; 81001-TC; 82803-TC; 82948-90; 83036-90; 83880-TC; 85007-TC; 85025-TC; 85610-TC; 86850-TC; 86900-TC; 86901-TC; 87070; 88307-TC; 90799; 93005; 94002; 94760; 96372; C9113; J0696; J2270; J2405; J2543; J2704; J2710; J2920; J3010; J7030; J7040; J7042; P9046; Q0162; V2790; X3401; X5716; X6258; Z7610